=== PATIENT | male | born 1935 | race Caucasian/White ===

== ENCOUNTER → 2016-12-25 | Outpatient (CLI) | payer OTHER ==
[~2016-12-25] MED LIST: AMLO2.5T PO; ASPI325T45 PO; CARV12.52 PO; CEPH-571 PO; CHOL100010 PO; CLON0.5T3 PO; CYAN10005 PO; CYCL10TA6 PO; LCTX PO; LEVO150T9 PO; MELO7.5T5 PO; NTRGSL/4 UT; NXM/40 PO; OMEG12006 PO; ONDA4TAB10 SL; OXYC-57 PO; SIMV40TA2 PO; TELM40TA11 PO; URSO300C4 PO
[2016-12-25 12:12] LABS: HEMATOCRIT 41.9 % (42-52); MEAN CELL VOLUME 93.7 fL (80-100); MEAN CORPUSCULAR HEMOGLOBIN 31.5 pg (25-34); MEAN CORPUSCULAR HGB CONC 33.7 g/dl (32-36); MEAN PLATELET VOLUME 11.1 fL (7.4-10.4); PLATELET COUNT 167 K/uL (130-400); RED BLOOD COUNT 4.47 M/uL (4.7-6.1); WHITE BLOOD COUNT 4.18 K/uL (4.8-10.8)
[2016-12-25 12:33] LABS: ALT/SGPT 26 U/L (12-78); BLOOD UREA NITROGEN 27 mg/dl (7-18); BUN/CREATININE RATIO 16.1 (10-20); CARBON DIOXIDE 30 mmol/L (21-32); CHLORIDE 105 mmol/L (98-107); CHOLESTEROL 125 mg/dl (0-200); GLUCOSE 96 mg/dl (70-99); POTASSIUM 4.7 mmol/L (3.5-5.1); SODIUM 142 mmol/L (136-145); TRIGLYCERIDES 173 mg/dl (0-150); URIC ACID 6.6 mg/dl (2.6-7.2); VERY LOW DENSITY LIPOPROT CALC 35 mg/dl
[2016-12-25 12:36] LABS: ESTIMATED AVERAGE GLUCOSE 108 mg/dl; HA1C FLAG Normal (Normal)
[2016-12-25 12:41] LABS: ALKALINE PHOSPHATASE 87 U/L (45-117); AST/SGOT 21 U/L (15-37); CALCIUM 9.5 mg/dl (8.5-10.1); HDL CHOLESTEROL 31 mg/dl; LDL CHOLESTEROL CALCULATED 59 mg/dl; PHOSPHORUS 2.9 mg/dl (2.5-4.9)
[2016-12-25 13:23] LABS: BASO % 0.5 %; BASO ABS # 0.02 K/uL (0-0.2); COMPLETE YES; EOS % 5.5 %; IG% 0.2 %; LYMPH % 51.4 %; LYMPH ABS # 2.15 K/uL (1.2-3.4); MONO % 9.1 %; NEUT % 33.3 %
[2016-12-26 10:25] LABS: C-REACTIVE PROT HIGHSEN 0.8 MG/L
--- NOTE | 2017-01-02 06:12 | CODING QUERY MEDICAL NECESSITY ---
SUPPORTING DIAGNOSIS NEEDED Dr. Machuca, A supporting diagnosis is required for the test/procedure performed on this patient in order for us to be reimbursed by the patient's insurance. Please provide a supporting diagnosis for the following test/procedure listed below next to the test name along with your signature. *If there is no additional diagnosis for this patient that would support the following test/procedure please document that below next to the test/procedure. Test(s)/Procedure(s) that require a supporting diagnosis: * ([id number]) VITAMIN D ASSAY DIAGNOSIS: * ([id number]) B12 VITAMIN LEVEL DIAGNOSIS: * ([id number]) C-REACTIVE PROTEIN DIAGNOSIS: DATE OF SERVICE: 12/25/16 Provider Signature: Date: Thank you Aristeo Licea [facility] Information Management Once completed, please kindly fax back to [phone] For questions please call [phone]
== END | disposition home or self-care (01) ==
LOC: C.LABBFT 09:11
PROVIDERS: ATTEND Family Medicine
DX: R73.09 Other abnormal glucose (principal); N40.0 Benign prostatic hyperplasia without lower urinary tract symptoms; R53.83 Other fatigue

== ENCOUNTER → 2017-04-30 | Outpatient (CLI) | payer OTHER ==
[~2017-04-30] MED LIST changes: -CEPH-571 PO; -LCTX PO; -ONDA4TAB10 SL
--- NOTE | 2017-04-30 10:47 | DIAGNOSTIC IMAGING REPORT ---
MRI LUMBAR SPINE W/O CONTRAST CLINICAL HISTORY: Back pain with left leg radiculopathy. TECHNIQUE: Sagittal and axial T1, T2 and STIR images were obtained. COMPARISON STUDY: No previous studies for comparison. OBSERVATIONS: The vertebral bodies and posterior elements appear intact. There is no abnormal bony signal present to suggest a marrow replacement process. L1-2: There is a mild circumferential disc bulge. There is minimal spinal stenosis. There is no significant foraminal narrowing. L2-3: There is a circumferential disc bulge. There is moderate spinal stenosis. There is no significant foraminal narrowing. L3-4: There is a circumferential disc bulge present. There is moderate spinal stenosis. There is mild bilateral foraminal narrowing. L4-5: There is a left-sided anterior extradural mass, statistically secondary to an extruded disc fragment. This significantly deforms the thecal sac. There is triangular spinal stenosis. There is facet joint arthropathy. There is mild bilateral foraminal narrowing. L5-S1: There is no significant disc bulge. There is facet joint arthropathy. There is severe right-sided foraminal stenosis. The conus medullaris and cauda equina appear normal. IMPRESSION: 1. Multilevel spondylitic changes 2. Minimal spinal stenosis the L1-2-level, and moderate spinal stenosis the L2-3, and L3-4 levels. 3. 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 There is significant secondary deformity of the thecal sac. 4. Severe right-sided foraminal stenosis Electronically signed by: Ronny Haynes M.D. 04/30/2017 10:46 AM Dictated Date/Time: 04/30/2017 10:40 AM
== END | disposition home or self-care (01) ==
LOC: C.MRIBC 09:46
PROVIDERS: ATTEND Family Medicine
DX: M47.26 Other spondylosis with radiculopathy, lumbar region (principal); M48.061 Spinal stenosis, lumbar region without neurogenic claudication; R93.7 Abnormal findings on diagnostic imaging of other parts of musculoskeletal system

== ENCOUNTER 2017-06-22 18:00 | Inpatient (IN) | payer OTHER ==
[~2017-06-22] VITALS: Ht 172.7 cm; Wt 87.2 kg
[2017-06-22] MEDS ORDERED: SODIUM CHLORIDE 0.9% 1000ML 1,000 ML IV STA (19:27)
[2017-06-22] MEDS ORDERED: FAMOTIDINE 20MG/5ML IV PUSH IV STA (19:36)
[2017-06-22] MEDS ORDERED: ONDANSETRON INJ 2 MG/ML 2 ML VIAL IV STA (19:36)
--- NOTE | 2017-06-22 19:38 | EMERGENCY ROOM VISIT NOTE ---
History Report prepared by Chel: Dhaval Hudson Under the Supervision of: Dr. Allan Montoya M.D. First contact with patient: 19:24 Chief Complaint: PAIN (GENERALIZED) Stated Complaint: PAIN IN WHOLE BODY History of Present Illness The patient is a 81 year old male who presents to the Emergency Room with complaints of constant, generalized pain beginning a few weeks ago. The patient states he has been experiencing a severe stomach ache for the past few days, and intermittent headaches that spread to his neck and shoulders. He reports his toes went numb a few days ago. He states he has been experiencing episodes of watery diarrhea for the past three days, and he has not been eating much the past few days. The patient reports he has lost 35 pounds over the past three months. He notes his symptoms started around 3 months ago after hurting his back. The patient states he tried therapy for a month, but it did not work. He reports he had an MRI performed and was sent to a neurosurgeon. The patient notes he was told he is not operable on due to his age and was sent back home for pain management. He states he received a shot in his back for pain that worked initially, but it has returned. The patient reports he was told he had leakage from his disk when he was given the shot in his back. He notes his headaches and lower back pain developed again a week ago, but it is not as severe as before. The patient states he has not taken any pain medication because no one told him to. He denies fevers, chills, congestion, coughing, burning with urination, bloody or black stool, recent antibiotic use, chest pain , and shortness of breath. Source of History: patient Onset: few weeks ago Position: other (global) Quality: other (pain) Timing: constant Associated Symptoms: + headache, + neck pain, + back pain, + diarrhea, + numbness (toes), No fevers, No chills, No cough, No chest pain, No SOB, No urinary symptoms Note: Associated symptoms: shoulder pain, decreased appetite Denies: congestion, bloody or black stool Review of Systems See HPI for pertinent positives and negatives. A total of ten systems were reviewed and were otherwise negative. Past Medical & Surgical Medical Problems: (1) Abnormal urinalysis (2) LIZBETH (acute kidney injury) (3) Appendectomy (4) Benign hypertension (5) Cholecystectomy (6) History of - coronary artery bypass grafting (7) Hyperthyroidism (8) Myocardial infarction Family History Cancer Heart disease Hypertension Social History Smoking Status: Never Smoker Alcohol Use: none Drug Use: none Marital Status: Housing Status: lives with significant other Occupation Status: retired Current/Historical Medications Scheduled Amlodipine (Norvasc), 2.5 MG PO DAILY Aspirin (Aspirin), 325 MG PO DAILY Carvedilol (Coreg), 12.5 MG PO BID Cholecalciferol (Vitamin D), 1,000 INTER.UNIT PO DAILY Clonazepam (Klonopin), 0.5 MG PO DAILY Cyanocobalamin (Vitamin B-12), 1,000 MCG PO DAILY Cyclobenzaprine Hcl (Flexeril), 10 MG PO TID Esomeprazole Magnesium (Nexium), 40 MG PO DAILY Levothyroxine Sodium (Levothyroxine Sodium), 150 MCG PO DAILY Meloxicam (Mobic), 15 MG PO DAILY [place]-3 Fatty Acids ([place] 3), 1 CAP PO DAILY Simvastatin (Zocor), 40 MG PO DAILY Telmisartan (Micardis), 40 MG PO DAILY Ursodiol (Actigall), 300 MG PO BID Scheduled PRN Nitroglycerin (Nitrostat), 0.4 MG UT UD PRN for Chest Pain Oxycodone/Acetaminophen 5MG/325MG (Percocet 5MG/325MG), 1 TABLET PO TID PRN for Pain Allergies Coded Allergies: Codeine (Verified Allergy, Intermediate, TOLERATED MORPHINE PRIOR ADMISSION, 01/18/16) Replaces TYLENOL/CODEI PER PT TYLENOL WITH CODEINE CAUSES HIS SYSTEM TO SHUT DOWN. AFFECTS HIS HEART AND IN HOSPITAL FOR 10 DAYS. CAN TAKE TYLENOL. Nickel (Verified Allergy, Unknown, RASH, 01/18/16) Physical Exam Vital Signs Date Time Temp Pulse Resp B/P (MAP) Pulse Ox O2 Delivery O2 Flow Rate FiO2 06/22/17 21:19 84 20 140/80 06/22/17 20:24 86 25 130/70 06/22/17 20:00 87 06/22/17 18:29 36.8 97 20 113/76 95 Room Air Physical Exam GENERAL: Awake, alert, fatigued-appearing, in no distress HENT: Normocephalic, atraumatic. Dry mucous membranes otherwise unremarkable. EYES: Normal conjunctiva. Sclera non-icteric. NECK: Supple. No nuchal rigidity. FROM. No JVD. RESPIRATORY: Clear to auscultation. CARDIAC: Regular rate, normal rhythm. Extremities warm and well perfused. Pulses equal. ABDOMEN: Soft, non-distended. Generalized tenderness to palpation. No rebound, peritoneal signs, or guarding. No masses. RECTAL: Deferred. MUSCULOSKELETAL: Chest examination reveals no tenderness. The back is symmetrical on inspection without obvious abnormality. There is no CVA tenderness to palpation. No joint edema. LOWER EXTREMITIES: Calves are equal size bilaterally and non-tender. No edema. No discoloration. 5/5 Strength bilaterally. NEURO: Normal sensorium. No sensory or motor deficits noted. SKIN: No rash or jaundice noted. Medical Decision & Procedures ER Provider Diagnostic Interpretation: Radiology results as stated below per my review and radiologist interpretation: SINGLE VIEW CHEST CLINICAL HISTORY: Generalized abdominal pain. FINDINGS: An AP, portable, upright chest radiograph is compared to study dated 05/05/2015. The patient is status post midline sternotomy. The heart is top normal for projection and there is mild atherosclerotic calcification of the thoracic aorta. The pulmonary vasculature is noncongested. There is chronic elevation of left hemidiaphragm with associated left basilar atelectasis. The lungs and pleural spaces are otherwise clear. No pneumothorax is seen. The skeletal structures are osteopenic. Degenerative change is seen throughout the thoracic spine. IMPRESSION: No acute cardiopulmonary abnormality. Electronically signed by: Ethan Mack M.D. 06/22/2017 8:03 PM Dictated Date/Time: 06/22/2017 8:[address] SCAN OF THE ABDOMEN AND PELVIS WITHOUT IV CONTRAST CLINICAL HISTORY: Generalized abdominal pain. Diarrhea. COMPARISON STUDY: Abdominal CT dated 05/05/2015. TECHNIQUE: CT scan of the abdomen and pelvis is performed from the lung bases to the proximal femora. Images are reviewed in the axial, sagittal, and coronal planes. IV contrast was not administered for this examination as per the referring clinician. Note that the examination was performed in suboptimal fashion without oral and IV contrast. A dose lowering technique was utilized adhering to the principles of ALARA. CT DOSE: 619.46 mGy.cm FINDINGS: Lung bases: Midline sternotomy wires are noted. The heart is enlarged and without pericardial effusion. The coronary arteries and aortic valve leaflets are densely calcified. There is diminished attenuation of the cardiac blood pool as compared to the myocardium suggesting anemia. There is elevation of left hemidiaphragm with segmental atelectasis at the left lung base. No airspace consolidation or pleural effusion is seen. Liver: The unenhanced liver is normal in size, contour, and attenuation. There is no intrahepatic biliary ductal dilatation. Gallbladder: Surgically absent noting clips in the gallbladder fossa. Spleen: Normal in size and attenuation. Pancreas: The unenhanced pancreas is atrophic and grossly unremarkable. Adrenal glands: Unremarkable. Kidneys: The unenhanced kidneys are atrophic and without hydronephrosis. There are no renal calculi identified. A 13 mm exophytic cyst arises from the left kidney. There is a circumaortic left renal vein. Abdominal vasculature: There is advanced atherosclerotic calcification and ectasia of the abdominal aorta. Bowel: The small bowel and colon are normal in course and caliber. The appendix is well-visualized and normal. Peritoneum: There is no intraperitoneal free air or abdominal ascites. There is evidence of previous ventral hernia repair. Lymphadenopathy: A prominent celiac gastrohepatic node seen on image #106 measures 12 mm in short axis. This is similar appearance to 2015 examination. Pelvic viscera: The prostate gland is enlarged and heterogeneous, measuring 5 cm transverse diameter. There is median lobe hypertrophy. The bladder is normal as visualized. Skeletal structures: The skeletal structures are osteopenic. There is moderate lumbosacral spondylosis. No lytic or blastic lesions are seen. IMPRESSION: 1. Suboptimal examination without oral and IV contrast. 2. There are no acute infectious or inflammatory findings in the abdomen or pelvis. 3. Mild cardiomegaly. 4. Additional findings as above. Electronically signed by: Ethan Mack M.D. 06/22/2017 8:54 PM Dictated Date/Time: 06/22/2017 8:48 PM Laboratory Results 06/22/17 19:45 Red Blood Count 4.05, Mean Corpuscular Volume 92.3, Mean Corpuscular Hemoglobin 32.6, Mean Corpuscular Hemoglobin Concent 35.3, Mean Platelet Volume 10.2, Neutrophils (%) (Auto) 64.1, Lymphocytes (%) (Auto) 23.0, Monocytes (%) (Auto) 11.7, Eosinophils (%) (Auto) 0.7, Basophils (%) (Auto) 0.2, Neutrophils # (Auto ) 7.14, Lymphocytes # (Auto) 2.57, Monocytes # (Auto) 1.31, Eosinophils # (Auto ) 0.08, Basophils # (Auto) 0.02 06/22/17 19:45 Test 06/22/17 19:45 06/22/17 20:11 06/22/17 20:50 06/22/17 21:36 White Blood Count 11.15 K/uL (4.8-10.8) Red Blood Count 4.05 M/uL (4.7-6.1) Hemoglobin 13.2 g/dL (14.0-18.0) Hematocrit 37.4 % (42-52) Mean Corpuscular Volume 92.3 fL (80-100) Mean Corpuscular Hemoglobin 32.6 pg (25-34) Mean Corpuscular Hemoglobin Concent 35.3 g/dl (32-36) Platelet Count 251 K/uL (130-400) Mean Platelet Volume 10.2 fL (7.4-10.4) Neutrophils (%) (Auto) 64.1 % Lymphocytes (%) (Auto) 23.0 % Monocytes (%) (Auto) 11.7 % Eosinophils (%) (Auto) 0.7 % Basophils (%) (Auto) 0.2 % Neutrophils # (Auto) 7.14 K/uL (1.4-6.5) Lymphocytes # (Auto) 2.57 K/uL (1.2-3.4) Monocytes # (Auto) 1.31 K/uL (0.11-0.59) Eosinophils # (Auto) 0.08 K/uL (0-0.5) Basophils # (Auto) 0.02 K/uL (0-0.2) RDW Standard Deviation 44.1 fL (36.4-46.3) RDW Coefficient of Variation 13.1 % (11.5-14.5) Immature Granulocyte % (Auto) 0.3 % Immature Granulocyte # (Auto) 0.03 K/uL (0.00-0.02) Anion Gap 8.0 mmol/L (3-11) Est Creatinine Clear Calc Drug Dose 17.9 ml/min Estimated GFR () 19.9 Estimated GFR (Non- 17.2 BUN/Creatinine Ratio 23.0 (10-20) Calcium Level 8.9 mg/dl (8.5-10.1) Total Bilirubin 0.5 mg/dl (0.2-1) Direct Bilirubin 0.1 mg/dl (0-0.2) Aspartate Amino Transf (AST/SGOT) 20 U/L (15-37) Alanine Aminotransferase (ALT/SGPT) 28 U/L (12-78) Alkaline Phosphatase 80 U/L (45-117) Troponin I < 0.015 ng/ml (0-0.045) Total Protein 8.8 gm/dl (6.4-8.2) Albumin 3.2 gm/dl (3.4-5.0) Lipase 130 U/L (73-393) Influenza Type A (RT-PCR) Neg for Influ A (NEG) Influenza Type A Antigen Neg for Influ A (NEG) Influenza Type B Antigen Neg for Influ B (NEG) Influenza Type B (RT-PCR) Neg for Influ B (NEG) Urine Color YELLOW Urine Appearance CLOUDY (CLEAR) Urine pH 5.0 (4.5-7.5) Urine Specific [place] 1.022 (1.000-1.030) Urine Protein TRACE (NEG) Urine Glucose (UA) NEG (NEG) Urine Ketones NEG (NEG) Urine Occult Blood TRACE (NEG) Urine Nitrite NEG (NEG) Urine Bilirubin NEG (NEG) Urine Urobilinogen NEG (NEG) Urine Leukocyte Esterase MODERATE (NEG) Urine WBC (Auto) 10-30 /hpf (0-5) Urine RBC (Auto) 0-4 /hpf (0-4) Urine Hyaline Casts (Auto) 1-5 /lpf (0-5) Urine Epithelial Cells (Auto) 0-5 /lpf (0-5) Urine Bacteria (Auto) NEG (NEG) Lactic Acid Level 0.9 mmol/L (0.4-2.0) Laboratory results reviewed by me Medications Administered Medications (Trade) Dose Ordered Sig/Dalia Route Start Time Stop Time Status Last Admin Dose Admin Sodium Chloride 1,000 ml @ 999 mls/hr Q1H1M STAT IV 06/22/17 19:27 06/22/17 20:27 DC 06/22/17 20:20 999 MLS/HR Ondansetron HCl (Zofran Inj) 4 mg NOW STAT IV 06/22/17 19:36 06/22/17 19:38 DC 06/22/17 20:20 4 MG Famotidine (Pepcid 20mg Iv Push) 20 mg NOW STAT IV 06/22/17 19:36 06/22/17 19:38 DC 06/22/17 20:20 20 MG Ceftriaxone Sodium (Rocephin Inj) 1 gm NOW STAT IV 06/22/17 21:44 06/22/17 21:46 DC 06/22/17 22:13 1 GM Acetaminophen (Tylenol Tab) 650 mg Q4H PRN PO 06/22/17 22:15 07/22/17 22:14 06/23/17 00:00 650 MG ECG Indication: back/shoulder pain Rate (beats per minute): 89 Rhythm: sinus rhythm Findings: RBBB, no acute ischemic change, other (Premature supraventricular complex, left anterior vesicular block, normal axis) ED Course 1925: The patient was evaluated in room A02. A complete history and physical exam was performed. 2126: Upon reexamination, the patient was resting comfortably. I discussed the test results and treatment plan with him. The patient will be evaluated for further management. 2142: I discussed the patients case with Dr. Figueroa, [facility]. The patient will be evaluated for further management and care. Medical Decision I reviewed the patient's past medical history, medications, and the nursing notes as described above. Differential diagnoses includes: gastroenteritis, gastritis, ACS, colitis, pneumonia, bronchitis, UTI, pyelonephritis, dehydration , electrolyte abnormality. The patient is a 81-year-old gentleman with a past medical history of severe lumbar disc disease with herniation that was determined to be nonoperative presents to the emergency department with worsening multiple complaints including body aches, back pain, nausea, lightheadedness per history of present illness. Patient does report diarrhea over the past several days which coincides with his worsening symptoms. On arrival the patient is uncomfortable but in no acute distress, afebrile with stable vital signs. On exam he has mild generalized abdominal tenderness without any peritoneal signs. EKG unremarkable. CXR negative. Labs notable for acute on chronic renal failure with Cr 3.2 up from 1.7. Sodium 129. BUN/Cr > 20 suggestive of prerenal etiology. Patient given IVF hydration. UA c/w UTI. Treated with CTX. Case d/w Dr. Figueroa, [facility] admitting resident, who will admit the patient for further management. Medication Reconcilliation Current Medication List: was personally reviewed by me Blood Pressure Screening Patient's blood pressure: Elevated blood pressure Monitored by hospitalist. Consults Time Called: 2133 Consulting Physician: Dr. Figueroa, [facility] Returned Call: 2142 I discussed the patients case with Dr. Figueroa, [facility]. The patient will be evaluated for further management and care. Impression Primary Impression: Acute on chronic renal failure Additional Impressions: UTI (urinary tract infection) Hyponatremia Scribe Attestation The scribe's documentation has been prepared under my direction and personally reviewed by me in its entirety. I confirm that the note above accurately reflects all work, treatment, procedures, and medical decision making performed by me. Departure Information Dispostion Being Evaluated By Hospitalist Referrals Rogelio Machuca M.D. (PCP) Patient Instructions My [facility] Problem Qualifiers
--- NOTE | 2017-06-22 20:04 | DIAGNOSTIC IMAGING REPORT ---
SINGLE VIEW CHEST CLINICAL HISTORY: Generalized abdominal pain. FINDINGS: An AP, portable, upright chest radiograph is compared to study dated 05/05/2015. The patient is status post midline sternotomy. The heart is top normal for projection and there is mild atherosclerotic calcification of the thoracic aorta. The pulmonary vasculature is noncongested. There is chronic elevation of left hemidiaphragm with associated left basilar atelectasis. The lungs and pleural spaces are otherwise clear. No pneumothorax is seen. The skeletal structures are osteopenic. Degenerative change is seen throughout the thoracic spine. IMPRESSION: No acute cardiopulmonary abnormality. Electronically signed by: Ethan Mack M.D. 06/22/2017 8:03 PM Dictated Date/Time: 06/22/2017 8:02 PM
[2017-06-22 20:10] LABS: BASO % 0.2 %; BASO ABS # 0.02 K/uL (0-0.2); COMPLETE YES; EOS % 0.7 %; HEMATOCRIT 37.4 % (42-52); IG% 0.3 %; LYMPH ABS # 2.57 K/uL (1.2-3.4); MEAN CELL VOLUME 92.3 fL (80-100); MEAN CORPUSCULAR HEMOGLOBIN 32.6 pg (25-34); MEAN CORPUSCULAR HGB CONC 35.3 g/dl (32-36); MEAN PLATELET VOLUME 10.2 fL (7.4-10.4); MONO % 11.7 %; NEUT % 64.1 %; PLATELET COUNT 251 K/uL (130-400); RED BLOOD COUNT 4.05 M/uL (4.7-6.1); WHITE BLOOD COUNT 11.15 K/uL (4.8-10.8)
[2017-06-22 20:41] LABS: ALT/SGPT 28 U/L (12-78); AST/SGOT 20 U/L (15-37); BLOOD UREA NITROGEN 74 mg/dl (7-18); CALCIUM 8.9 mg/dl (8.5-10.1); CARBON DIOXIDE 24 mmol/L (21-32); CHLORIDE 97 mmol/L (98-107); CREATININE 3.24 mg/dl (0.60-1.40); GLUCOSE 88 mg/dl (70-99); POTASSIUM 4.1 mmol/L (3.5-5.1); SODIUM 129 mmol/L (136-145)
[2017-06-22 20:46] LABS: ALKALINE PHOSPHATASE 80 U/L (45-117)
--- NOTE | 2017-06-22 20:56 | DIAGNOSTIC IMAGING REPORT ---
CT SCAN OF THE ABDOMEN AND PELVIS WITHOUT IV CONTRAST CLINICAL HISTORY: Generalized abdominal pain. Diarrhea. COMPARISON STUDY: Abdominal CT dated 05/05/2015. TECHNIQUE: CT scan of the abdomen and pelvis is performed from the lung bases to the proximal femora. Images are reviewed in the axial, sagittal, and coronal planes. IV contrast was not administered for this examination as per the referring clinician. Note that the examination was performed in suboptimal fashion without oral and IV contrast. A dose lowering technique was utilized adhering to the principles of ALARA. CT DOSE: 619.46 mGy.cm FINDINGS: Lung bases: Midline sternotomy wires are noted. The heart is enlarged and without pericardial effusion. The coronary arteries and aortic valve leaflets are densely calcified. There is diminished attenuation of the cardiac blood pool as compared to the myocardium suggesting anemia. There is elevation of left hemidiaphragm with segmental atelectasis at the left lung base. No airspace consolidation or pleural effusion is seen. Liver: The unenhanced liver is normal in size, contour, and attenuation. There is no intrahepatic biliary ductal dilatation. Gallbladder: Surgically absent noting clips in the gallbladder fossa. Spleen: Normal in size and attenuation. Pancreas: The unenhanced pancreas is atrophic and grossly unremarkable. Adrenal glands: Unremarkable. Kidneys: The unenhanced kidneys are atrophic and without hydronephrosis. There are no renal calculi identified. A 13 mm exophytic cyst arises from the left kidney. There is a circumaortic left renal vein. Abdominal vasculature: There is advanced atherosclerotic calcification and ectasia of the abdominal aorta. Bowel: The small bowel and colon are normal in course and caliber. The appendix is well-visualized and normal. Peritoneum: There is no intraperitoneal free air or abdominal ascites. There is evidence of previous ventral hernia repair. Lymphadenopathy: A prominent celiac gastrohepatic node seen on image #106 measures 12 mm in short axis. This is similar appearance to 2015 examination. Pelvic viscera: The prostate gland is enlarged and heterogeneous, measuring 5 cm transverse diameter. There is median lobe hypertrophy. The bladder is normal as visualized. Skeletal structures: The skeletal structures are osteopenic. There is moderate lumbosacral spondylosis. No lytic or blastic lesions are seen. IMPRESSION: 1. Suboptimal examination without oral and IV contrast. 2. There are no acute infectious or inflammatory findings in the abdomen or pelvis. 3. Mild cardiomegaly. 4. Additional findings as above. Electronically signed by: Ethan Mack M.D. 06/22/2017 8:54 PM Dictated Date/Time: 06/22/2017 8:48 PM
[2017-06-22 21:06] LABS: URINE APPEARANCE CLOUDY (CLEAR); URINE BILIRUBIN NEG (NEG); URINE COLOR YELLOW; URINE EPITHELIAL CELL AUTO 0-5 /lpf (0-5); URINE NITRITE NEG (NEG); URINE SPECIFIC GRAVITY 1.022 (1.000-1.030); UROBILINOGEN NEG (NEG); ZZURINE CULT IF INDIC CATH YES
[2017-06-22 21:08] LABS: MANUAL MICROSCOPIC REQUIRED? NO; REVIEW REQ? YES
[2017-06-22] MEDS ORDERED: CEFTRIAXONE SOD INJ 1 GM ADDVIAL IV STA (21:44)
[2017-06-22] MEDS ORDERED: AZITHROMYCIN IV 500 MG in DEXTROSE 5% 250ML 250 ML IV STA (21:46)
[2017-06-22] MEDS ORDERED: NITROGLYCERIN 0.4 MG SL PER TAB CHARGE UT PRN (22:00)
[2017-06-22] MEDS ORDERED: OXYCODONE/ACETAMINOPHEN 5-325 TAB PO PRN (22:00)
[2017-06-22] MEDS ORDERED: ACETAMINOPHEN 325 MG TAB PO PRN (22:15)
[2017-06-22] MEDS ORDERED: MAGNESIUM HYDROXIDE SUSP 30 ML UDC PO PRN (22:15)
[2017-06-22 22:20] LABS: INFLUENZA A PCR Neg for Influ A (NEG); INFLUENZA B PCR Neg for Influ B (NEG)
--- NOTE | 2017-06-22 23:37 | History and Physical ---
History & Physical Date & Time of Service: Jun 22, 2017 at 23:36 Chief Complaint: Abnormal Urinalysis, Jet Primary Care Physician: Rogelio Machuca M.D. History of Present Illness Source: patient, hospital records This is a 81 yo m with a history of NE, CABG, back pain that is presenting to us with generalized weakness for a few weeks. The patient notes that this generalized weakness has actually progressively gotten worse and in particular today. Associated with this weakness was a week of non bloody, loose and frequent stools. Patient has not had any BM today but has had no appetite for the last 24 hours. As there was significant worsening of the weakness and poor appetite the patient came to the ED for evaluation. He was found to have significant JET as well as an abnormal UA concerning for a UTI so patient was placed on Rocephin. Patient currently continues to complain from weakness without myalgias as well as suprapubic pain. He notes that this suprapubic pain is minimal and non radiating and occurred after repeated abdominal exams. Denies dysuria or incontinence. Past Medical/Surgical History Medical Problems: (1) Appendectomy Status: Resolved (2) Benign hypertension Status: Chronic (3) Cholecystectomy Status: Resolved (4) History of - coronary artery bypass grafting Status: Resolved (5) Hyperthyroidism Status: Chronic (6) Myocardial infarction Status: Resolved Family History Cancer Heart disease Hypertension Social History Smoking Status: Never Smoker Smokeless Tobacco Use: No Alcohol Use: none Drug Use: none Marital Status: Housing status: lives with family Occupational Status: retired Immunizations History of Influenza Vaccine: No History of Tetanus Vaccine?: utd History of Pneumococcal: Yes Pneumococcal Date: May 15, 2006 History of Hepatitis B Vaccine: No Multi-Drug Resistant Organisms History of MDRO: No Allergies Coded Allergies: Codeine (Verified Allergy, Intermediate, TOLERATED MORPHINE PRIOR ADMISSION, 01/18/16) Replaces TYLENOL/CODEI PER PT TYLENOL WITH CODEINE CAUSES HIS SYSTEM TO SHUT DOWN. AFFECTS HIS HEART AND IN HOSPITAL FOR 10 DAYS. CAN TAKE TYLENOL. Nickel (Verified Allergy, Unknown, RASH, 01/18/16) Home Medications Scheduled Amlodipine (Norvasc), 2.5 MG PO DAILY Aspirin (Aspirin), 325 MG PO DAILY Carvedilol (Coreg), 12.5 MG PO BID Cholecalciferol (Vitamin D), 1,000 INTER.UNIT PO DAILY Clonazepam (Klonopin), 0.5 MG PO DAILY Cyanocobalamin (Vitamin B-12), 1,000 MCG PO DAILY Cyclobenzaprine Hcl (Flexeril), 10 MG PO TID Esomeprazole Magnesium (Nexium), 40 MG PO DAILY Levothyroxine Sodium (Levothyroxine Sodium), 150 MCG PO DAILY Meloxicam (Mobic), 15 MG PO DAILY [place]-3 Fatty Acids ([place] 3), 1 CAP PO DAILY Simvastatin (Zocor), 40 MG PO DAILY Telmisartan (Micardis), 40 MG PO DAILY Ursodiol (Actigall), 300 MG PO BID Scheduled PRN Nitroglycerin (Nitrostat), 0.4 MG UT UD PRN for Chest Pain Oxycodone/Acetaminophen 5MG/325MG (Percocet 5MG/325MG), 1 TABLET PO TID PRN for Pain Review of Systems Constitutional: No fever Eyes: No worsening of vision ENT: No hearing loss Respiratory: No cough, No sputum, No wheezing, No shortness of breath, No dyspnea on exertion, No dyspnea at rest Cardiovascular: No chest pain Abdomen: + diarrhea, No pain, No nausea, No vomiting, No constipation Musculoskeletal: No joint pain, No muscle pain Genitourinary - Male: No dysuria Neurologic: + weakness Endocrine: + fatigue Hematologic / Lymphatic: No abnormal bleeding/bruising Integumentary: No rash Physical Exam Vital Signs Date Time Temp Pulse Resp B/P (MAP) Pulse Ox O2 Delivery O2 Flow Rate FiO2 06/22/17 23:07 94 132/76 93 06/22/17 21:19 84 20 140/80 06/22/17 20:24 86 25 130/70 06/22/17 20:00 87 06/22/17 18:29 36.8 97 20 113/76 95 Room Air General Appearance: no apparent distress Head: normocephalic, atraumatic Eyes: normal inspection ENT: normal ENT inspection Neck: supple Respiratory/Chest: normal breath sounds, no respiratory distress, no accessory muscle use Cardiovascular: regular rate, rhythm, no murmur, normal peripheral pulses Abdomen/GI: normal bowel sounds, soft, + tenderness (minimal tenderness to palpation in lower abdomen without radiation) Back: normal inspection Extremities/Musculoskelatal: normal inspection Neurologic/Psych: alert, normal mood/affect, oriented x 3 Skin: normal color, no rash, + pertinent finding (dry mucus membranes) Lymphatic: no adenopathy Diagnostics Laboratory Results Results Past 24 Hours Test 06/22/17 19:45 06/22/17 20:11 06/22/17 20:50 06/22/17 21:36 Range/Units White Blood Count 11.15 4.8-10.8 K/uL Red Blood Count 4.05 4.7-6.1 M/uL Hemoglobin 13.2 14.0-18.0 g/dL Hematocrit 37.4 42-52 % Mean Corpuscular Volume 92.3 80-100 fL Mean Corpuscular Hemoglobin 32.6 25-34 pg Mean Corpuscular Hemoglobin Concent 35.3 32-36 g/dl Platelet Count 251 130-400 K/uL Mean Platelet Volume 10.2 7.4-10.4 fL Neutrophils (%) (Auto) 64.1 % Lymphocytes (%) (Auto) 23.0 % Monocytes (%) (Auto) 11.7 % Eosinophils (%) (Auto) 0.7 % Basophils (%) (Auto) 0.2 % Neutrophils # (Auto) 7.14 1.4-6.5 K/uL Lymphocytes # (Auto) 2.57 1.2-3.4 K/uL Monocytes # (Auto) 1.31 0.11-0.59 K/uL Eosinophils # (Auto) 0.08 0-0.5 K/uL Basophils # (Auto) 0.02 0-0.2 K/uL RDW Standard Deviation 44.1 36.4-46.3 fL RDW Coefficient of Variation 13.1 11.5-14.5 % Immature Granulocyte % (Auto) 0.3 % Immature Granulocyte # (Auto) 0.03 0.00-0.02 K/uL Sodium Level 129 136-145 mmol/L Potassium Level 4.1 3.5-5.1 mmol/L Chloride Level 97 98-107 mmol/L Carbon Dioxide Level 24 21-32 mmol/L Anion Gap 8.0 3-11 mmol/L Blood Urea Nitrogen 74 7-18 mg/dl Creatinine 3.24 0.60-1.40 mg/dl Est Creatinine Clear Calc Drug Dose 17.9 ml/min Estimated GFR () 19.9 Estimated GFR (Non- 17.2 BUN/Creatinine Ratio 23.0 10-20 Random Glucose 88 70-99 mg/dl Calcium Level 8.9 8.5-10.1 mg/dl Total Bilirubin 0.5 0.2-1 mg/dl Direct Bilirubin 0.1 0-0.2 mg/dl Aspartate Amino Transf (AST/SGOT) 20 15-37 U/L Alanine Aminotransferase (ALT/SGPT) 28 12-78 U/L Alkaline Phosphatase 80 45-117 U/L Troponin I < 0.015 0-0.045 ng/ml Total Protein 8.8 6.4-8.2 gm/dl Albumin 3.2 3.4-5.0 gm/dl Lipase 130 73-393 U/L Influenza Type A (RT-PCR) Neg for Influ A NEG Influenza Type A Antigen Neg for Influ A NEG Influenza Type B Antigen Neg for Influ B NEG Influenza Type B (RT-PCR) Neg for Influ B NEG Urine Color YELLOW Urine Appearance CLOUDY CLEAR Urine pH 5.0 4.5-7.5 Urine Specific [place] 1.022 1.000-1.030 Urine Protein TRACE NEG Urine Glucose (UA) NEG NEG Urine Ketones NEG NEG Urine Occult Blood TRACE NEG Urine Nitrite NEG NEG Urine Bilirubin NEG NEG Urine Urobilinogen NEG NEG Urine Leukocyte Esterase MODERATE NEG Urine WBC (Auto) 10-30 0-5 /hpf Urine RBC (Auto) 0-4 0-4 /hpf Urine Hyaline Casts (Auto) 1-5 0-5 /lpf Urine Epithelial Cells (Auto) 0-5 0-5 /lpf Urine Bacteria (Auto) NEG NEG Lactic Acid Level 0.9 0.4-2.0 mmol/L Microbiology Results 06/22/17 Urine Culture, Received Pending Diagnostic Radiology CT SCAN OF THE ABDOMEN AND PELVIS WITHOUT IV CONTRAST CLINICAL HISTORY: Generalized abdominal pain. Diarrhea. COMPARISON STUDY: Abdominal CT dated 05/05/2015. TECHNIQUE: CT scan of the abdomen and pelvis is performed from the lung bases to the proximal femora. Images are reviewed in the axial, sagittal, and coronal planes. IV contrast was not administered for this examination as per the referring clinician. Note that the examination was performed in suboptimal fashion without oral and IV contrast. A dose lowering technique was utilized adhering to the principles of ALARA. CT DOSE: 619.46 mGy.cm FINDINGS: Lung bases: Midline sternotomy wires are noted. The heart is enlarged and without pericardial effusion. The coronary arteries and aortic valve leaflets are densely calcified. There is diminished attenuation of the cardiac blood pool as compared to the myocardium suggesting anemia. There is elevation of left hemidiaphragm with segmental atelectasis at the left lung base. No airspace consolidation or pleural effusion is seen. Liver: The unenhanced liver is normal in size, contour, and attenuation. There is no intrahepatic biliary ductal dilatation. Gallbladder: Surgically absent noting clips in the gallbladder fossa. Spleen: Normal in size and attenuation. Pancreas: The unenhanced pancreas is atrophic and grossly unremarkable. Adrenal glands: Unremarkable. Kidneys: The unenhanced kidneys are atrophic and without hydronephrosis. There are no renal calculi identified. A 13 mm exophytic cyst arises from the left kidney. There is a circumaortic left renal vein. Abdominal vasculature: There is advanced atherosclerotic calcification and ectasia of the abdominal aorta. Bowel: The small bowel and colon are normal in course and caliber. The appendix is well-visualized and normal. Peritoneum: There is no intraperitoneal free air or abdominal ascites. There is evidence of previous ventral hernia repair. Lymphadenopathy: A prominent celiac gastrohepatic node seen on image #106 measures 12 mm in short axis. This is similar appearance to 2015 examination. Pelvic viscera: The prostate gland is enlarged and heterogeneous, measuring 5 cm transverse diameter. There is median lobe hypertrophy. The bladder is normal as visualized. Skeletal structures: The skeletal structures are osteopenic. There is moderate lumbosacral spondylosis. No lytic or blastic lesions are seen. IMPRESSION: 1. Suboptimal examination without oral and IV contrast. 2. There are no acute infectious or inflammatory findings in the abdomen or pelvis. 3. Mild cardiomegaly. 4. Additional findings as above. SINGLE VIEW CHEST CLINICAL HISTORY: Generalized abdominal pain. FINDINGS: An AP, portable, upright chest radiograph is compared to study dated 05/05/2015. The patient is status post midline sternotomy. The heart is top normal for projection and there is mild atherosclerotic calcification of the thoracic aorta. The pulmonary vasculature is noncongested. There is chronic elevation of left hemidiaphragm with associated left basilar atelectasis. The lungs and pleural spaces are otherwise clear. No pneumothorax is seen. The skeletal structures are osteopenic. Degenerative change is seen throughout the thoracic spine. IMPRESSION: No acute cardiopulmonary abnormality. 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 secondary to dehydration/ possible UTI - Med surg admission - Rocephin 1 g daily - NSS @ 100cc/h Hyponatremia secondary to dehydration - recheck in am - NSS as above Diarrhea - C Diff, stool cultures and stool occult CAD/ hyperlipidemia/HTN - Continue Coreg 12.5 mg bid, ASA 325 mg daily - cont amlodipine 2.5 mg daily - continue simvastatin 40 mg daily GERD - Protonix - tums for symptomatic control Back pain- chronic - continue oxycodone and Flexeril as an as needed basis, patient states he uses rarely Hypothyroidism - continue levothyroxine 150 mcg daily DVT Prophylaxis - heparin bid, scd Attending addendum: I have physically seen this patient, have supervised the medical residents activities, and agree with the H&P unless as otherwise noted. Assessment and Plan: Acute on chronic kidney disease/hyponatremia-- Admitted to [facility] Likely prerenal secondary to dehydration from diarrhea Normal saline at 100 ML's per hour Ceftriaxone 1 g IV daily Repeat BMP and magnesium level in a.m. Diarrhea-- studies for C. difficile, stool cultures pending However at this point, he reports that his symptoms have somewhat improved CAD/hypertension-- Continue Coreg 12.5 mg by mouth twice a day, amlodipine 2.5 mg by mouth daily and aspirin 325 mg by mouth daily. Hyperlipidemia-- Continue simvastatin 40 mg daily GERD--continue Protonix Hypothyroidism--continue levothyroxine sodium 150 g by mouth daily Level of Care Med/Surg Advanced Directives Existing Advance Directive: No Existing Living Will: No Existing Power of Employee Relation Manager: No Resuscitation Status FULL RESUSCITATION VTE Prophylaxis VTE Risk Assessment Done? Y/N: Yes Risk Level: Moderate Given or contraindicated: Unfractionated heparin SQ Social Service Consult None Apply Note Total Time: Critical Care 30 - 74 minutes Additional Copies To Rogelio Machuca M.D.
[2017-06-22 23:55] VITALS: BP 136/82; PULSE 94; TEMP 38.1; O2SAT 95
[2017-06-23] VITALS (7 sets, daily range): BP systolic 121–130; BP diastolic 67–76; PULSE 62–97; TEMP 36.7–37.3; O2SAT 93–97; Ht 172.7 cm; Wt 87.2 kg
[2017-06-23] MEDS: SODIUM CHLORIDE 0.9% 1000ML 1,000 ML IV SCH ×3 (00:14→19:46)
[2017-06-23] MEDS: CALCIUM CARBONATE 500 MG CHEWABLE PO PRN (01:14)
[2017-06-23] MEDS: LEVOTHYROXINE 150 MCG TAB PO SCH (06:05)
--- NOTE | 2017-06-23 06:27 | DIAGNOSTIC IMAGING REPORT ---
LUMBAR SPINE WITHOUT HISTORY: 81 years-old Male increasing numbness le r/o hematoma s/p epidural numbness of the lower extremities with certainty for possible epidural hematoma. COMPARISON: MR lumbar spine 04/30/2017 TECHNIQUE: Multiple axial CT images of the lumbar spine were obtained without contrast. A dose lowering technique was used consistent with the principals of GIAN. FINDINGS: No acute fracture or subluxation of the lumbar spine identified. The bones appear mildly demineralized. Schmorl's nodes again seen involving the posterior aspect of the superior endplate of L3. Multilevel mild intervertebral disc space narrowing with advanced multilevel facet arthrosis and moderate multilevel endplate spurring. Evaluation of the central canal and neuroforamina is limited compared to that of MRI. Atherosclerosis of the aorta. Mild ectasia of the infrarenal abdominal aorta, 2.6 cm. Postsurgical changes are seen within the right pelvis. Nonspecific perinephric stranding. No epidural fluid collections or hematoma identified. T12-L1: Spondylitic spurring with moderate facet arthrosis and broad-based posterior disc bulge. No central canal or foraminal narrowing. L1-L2: Moderate facet arthrosis with mild intervertebral disc space narrowing, spondylitic spurring and circumferential annular disc bulge. Mild central canal narrowing with moderate severe bilateral foraminal stenosis. L2-L3: Mild intervertebral disc space narrowing with spondylitic spurring and circumferential annular disc bulge. Moderate to severe facet arthrosis with ligamentum flavum thickening. Moderate to severe central canal stenosis with moderate bilateral foraminal narrowing. L3-L4: Mild posterior intervertebral disc space narrowing with spondylitic spurring, moderate facet arthrosis and ventral annular disc bulge. Moderate to severe central canal stenosis with moderate bilateral foraminal narrowing. Left far lateral disc bulge is noted as well on image 49 series 301 which may be in close proximity to the adjacent exiting nerve root. L4-L5: Mild posterior intervertebral disc space narrowing with posterior spondylitic spurring and severe facet arthrosis. Mild to moderate central canal, and moderate bilateral foraminal stenosis. Extruded disc fragment at this level as seen on comparison study is not well visualized. L5-S1: Mild posterior intervertebral disc space narrowing with posterior spondylitic spurring, broad-based posterior disc bulge and severe facet arthrosis. There is mild central canal narrowing with severe right mild left foraminal stenosis. IMPRESSION: 1. No acute fracture or subluxation of the lumbar spine. 2. No evidence of epidural hematoma. 3. Multilevel discogenic degenerative changes and facet arthrosis with varying degrees of central canal and foraminal narrowing as detailed level by level above. Please note however that MRI is more sensitive for evaluation of the central canal and neuroforamen. The above report was generated using voice recognition software. It may contain grammatical, syntax or spelling errors. Electronically signed by: Garrison Webber M.D. 06/23/2017 6:25 AM Dictated Date/Time: 06/23/2017 6:14 AM
[2017-06-23] MEDS: OMEGA-3 (PURIFIED FISH OIL) 1 GM CAP PO SCH (07:40)
[2017-06-23] MEDS: CARVEDILOL 12.5 MG TAB PO SCH ×2 (07:40→21:28)
[2017-06-23] MEDS: CHOLECALCIFEROL 1000 INTER.UNIT TAB PO SCH (07:40)
[2017-06-23] MEDS: CYANOCOBALAMIN 500 MCG TAB (VIT B-12) PO SCH (07:40)
[2017-06-23] MEDS: PANTOprazole SOD 40 MG TAB PO SCH (07:40)
[2017-06-23] MEDS: ASPIRIN 325 MG ECTAB PO SCH (07:40)
[2017-06-23] MEDS: SIMVASTATIN 40 MG TAB PO SCH (07:40)
[2017-06-23] MEDS: AMLODIPINE BESYLATE 5 MG TAB PO SCH (07:41)
[2017-06-23] MEDS: URSODIOL 300 MG CAP PO SCH ×2 (07:41→21:27)
--- NOTE | 2017-06-23 08:55 | Progress Note ---
Subjective Date of Service: Jun 23, 2017. Subjective Pt evaluation today including: conversation w/ patient, physical exam, chart review, lab review, review of studies, review of inpatient medication list Problem List Medical Problems: (1) Acute on chronic renal failure Status: Acute (2) Cellulitis of right foot Status: Acute (3) Hyponatremia Status: Acute (4) UTI (urinary tract infection) Status: Acute Review of Systems Constitutional: No see HPI, No fever, No chills, No sweats, No weight loss, No weakness, No fatigue, No problem reported Eyes: No see HPI, No worsening of vision, No eye pain, No redness, No discharge , No diplopia, No problem reported ENT: No see HPI, No hearing loss, No unusual epistaxis, No nasal symptoms, No sore throat, No tinnitus, No dental problems, No trouble swallowing, No problem reported Respiratory: No see HPI, No cough, No sputum, No wheezing, No shortness of breath, No dyspnea on exertion, No dyspnea at rest, No hemoptysis, No problem reported Cardiac: No see HPI, No chest pain, No orthopnea, No PND, No edema, No claudication, No palpitations, No problem reported Abdomen: No see HPI, No pain, No nausea, No vomiting, No diarrhea, No constipation, No GI bleeding, No problem reported Musculoskeletal: No see HPI, No joint pain, No muscle pain, No swelling, No calf pain, No problem reported Male : + hematuria, No see HPI, No dysuria, No urinary frequency, No incontinence, No nocturia more than once/night, No slowing stream, No sexual dysfunction, No problem reported Neurologic: No see HPI, No memory loss, No paralysis, No weakness, No numbness/ tingling, No vertigo, No balance problems, No problem reported Psychiatric: No see HPI, No depression symptoms, No anhedonism, No anxiety, No insomnia, No substance abuse, No problem reported Heme: No see HPI, No abnormal bleeding/bruising, No clotting problems, No swollen lymph nodes, No night sweats, No problem reported Endo: No see HPI, No fatigue, No excessive thirst, No excessive urination, No problem reported Skin: No see HPI, No rash, No itch, No new/changing skin lesions, No color change, No bleeding, No problem reported Medications Current Inpatient Medications Medications (Trade) Dose Ordered Sig/Dalia Route Start Time Stop Time Status Last Admin Dose Admin Amlodipine Besylate (Norvasc Tab) 2.5 mg DAILY PO 06/23/17 09:00 07/23/17 08:59 06/23/17 07:41 2.5 MG Aspirin (Ecotrin Tab) 325 mg DAILY PO 06/23/17 09:00 07/23/17 08:59 06/23/17 07:40 325 MG Carvedilol (Coreg Tab) 12.5 mg BID PO 06/23/17 09:00 07/23/17 08:59 06/23/17 07:40 12.5 MG Cholecalciferol (Vitamin D Tab) 1,000 inter.unit DAILY PO 06/23/17 09:00 07/23/17 08:59 06/23/17 07:40 1,000 INTER.UNIT Clonazepam (Klonopin Tab) 0.5 mg DAILY PO 06/23/17 09:00 07/23/17 08:59 Cyanocobalamin (Vitamin B-12 Tab) 1,000 mcg DAILY PO 06/23/17 09:00 07/23/17 08:59 06/23/17 07:40 1,000 MCG Levothyroxine Sodium (Synthroid Tab) 150 mcg DAILYBB PO 06/23/17 06:30 07/23/17 06:29 06/23/17 06:05 150 MCG Nitroglycerin (Nitrostat Tab) 0.4 mg UD PRN UT 06/22/17 22:00 07/22/17 21:59 Oxycodone/ Acetaminophen (Percocet 5-325mg Tab) 1 tab TID PRN PO 06/22/17 22:00 07/06/17 21:59 Simvastatin (Zocor Tab) 40 mg DAILY PO 06/23/17 09:00 07/23/17 08:59 06/23/17 07:40 40 MG Ursodiol (Actigall Cap) 300 mg BID PO 06/23/17 09:00 07/23/17 08:59 06/23/17 07:41 300 MG Pantoprazole Sodium (Protonix Tab) 40 mg QAM PO 06/23/17 09:00 07/23/17 08:59 06/23/17 07:40 40 MG Fish Oil ([place]-3 (Purified Fish Oil) Cap) 1 gm DAILY PO 06/23/17 09:00 07/23/17 08:59 06/23/17 07:40 1 GM Sodium Chloride 1,000 ml @ 100 mls/hr Q10H IV 06/22/17 23:59 07/22/17 23:58 06/23/17 00:14 100 MLS/HR Acetaminophen (Tylenol Tab) 650 mg Q4H PRN PO 06/22/17 22:15 07/22/17 22:14 06/23/17 00:00 650 MG Magnesium Hydroxide (Milk Of Magnesia Susp) 30 ml Q6H PRN PO 06/22/17 22:15 07/22/17 22:14 Ondansetron HCl (Zofran Inj) 4 mg Q6H PRN IV 06/22/17 22:15 07/22/17 22:14 Ceftriaxone Sodium 1 gm/ Dextrose 50 ml @ 100 mls/hr Q24H IV 06/23/17 22:00 07/01/17 22:29 Calcium Carbonate (Tums Chew Tab) 500 mg BID PRN PO 06/23/17 01:00 07/23/17 00:59 06/23/17 01:14 500 MG Cyclobenzaprine HCl (Flexeril Tab) 10 mg TID PRN PO 06/23/17 09:00 07/23/17 08:59 Objective Vital Signs Date Time Temp Pulse Resp B/P (MAP) Pulse Ox O2 Delivery O2 Flow Rate FiO2 06/23/17 07:17 37.3 62 18 130/76 (94) 93 Room Air 06/23/17 00:19 37.1 97 18 121/69 94 Room Air 06/22/17 23:55 38.1 94 18 136/82 (100) 95 Room Air 06/22/17 23:07 94 132/76 93 06/22/17 21:19 84 20 140/80 06/22/17 20:24 86 25 130/70 06/22/17 20:00 87 06/22/17 18:29 36.8 97 20 113/76 95 Room Air Physical Exam General Appearance: WD/WN, no apparent distress Eyes: normal inspection, EOMI ENT: normal ENT inspection, hearing grossly normal Neck: supple Respiratory/Chest: chest non-tender, lungs clear, normal breath sounds, no respiratory distress, no accessory muscle use Cardiovascular: regular rate, rhythm, no edema, no gallop, no JVD, no murmur Abdomen: non tender, soft, no organomegaly, no pulsatile mass Extremities: normal range of motion, non-tender, normal inspection, no pedal edema, no calf tenderness 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/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: 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, no motor/sensory deficits, alert, normal mood/affect, oriented x 3 Skin: normal color, warm/dry, no rash Laboratory Results Last 24 Hours Test 06/22/17 19:45 06/22/17 20:11 06/22/17 20:50 06/22/17 21:36 White Blood Count 11.15 K/uL Red Blood Count 4.05 M/uL Hemoglobin 13.2 g/dL Hematocrit 37.4 % Mean Corpuscular Volume 92.3 fL Mean Corpuscular Hemoglobin 32.6 pg Mean Corpuscular Hemoglobin Concent 35.3 g/dl Platelet Count 251 K/uL Mean Platelet Volume 10.2 fL Neutrophils (%) (Auto) 64.1 % Lymphocytes (%) (Auto) 23.0 % Monocytes (%) (Auto) 11.7 % Eosinophils (%) (Auto) 0.7 % Basophils (%) (Auto) 0.2 % Neutrophils # (Auto) 7.14 K/uL Lymphocytes # (Auto) 2.57 K/uL Monocytes # (Auto) 1.31 K/uL Eosinophils # (Auto) 0.08 K/uL Basophils # (Auto) 0.02 K/uL RDW Standard Deviation 44.1 fL RDW Coefficient of Variation 13.1 % Immature Granulocyte % (Auto) 0.3 % Immature Granulocyte # (Auto) 0.03 K/uL Sodium Level 129 mmol/L Potassium Level 4.1 mmol/L Chloride Level 97 mmol/L Carbon Dioxide Level 24 mmol/L Anion Gap 8.0 mmol/L Blood Urea Nitrogen 74 mg/dl Creatinine 3.24 mg/dl Est Creatinine Clear Calc Drug Dose 17.9 ml/min Estimated GFR () 19.9 Estimated GFR (Non- 17.2 BUN/Creatinine Ratio 23.0 Random Glucose 88 mg/dl Calcium Level 8.9 mg/dl Total Bilirubin 0.5 mg/dl Direct Bilirubin 0.1 mg/dl Aspartate Amino Transf (AST/SGOT) 20 U/L Alanine Aminotransferase (ALT/SGPT) 28 U/L Alkaline Phosphatase 80 U/L Troponin I < 0.015 ng/ml Total Protein 8.8 gm/dl Albumin 3.2 gm/dl Lipase 130 U/L Influenza Type A (RT-PCR) Neg for Influ A Influenza Type A Antigen Neg for Influ A Influenza Type B Antigen Neg for Influ B Influenza Type B (RT-PCR) Neg for Influ B Urine Color YELLOW Urine Appearance CLOUDY Urine pH 5.0 Urine Specific [place] 1.022 Urine Protein TRACE Urine Glucose (UA) NEG Urine Ketones NEG Urine Occult Blood TRACE Urine Nitrite NEG Urine Bilirubin NEG Urine Urobilinogen NEG Urine Leukocyte Esterase MODERATE Urine WBC (Auto) 10-30 /hpf Urine RBC (Auto) 0-4 /hpf Urine Hyaline Casts (Auto) 1-5 /lpf Urine Epithelial Cells (Auto) 0-5 /lpf Urine Bacteria (Auto) NEG Lactic Acid Level 0.9 mmol/L Test 06/23/17 08:37 Assessment and Plan 81 years old man with past medical history of chronic kidney disease stage II developed diarrhea at home and possible UTI. Patient stated that his urine has small amount of blood. Presented to the ED June 22 and was found to have acute kidney injury Assessment Acute kidney injury on chronic kidney disease, multifactorial, secondary to decrease oral intake/diarrhea/dehydration/Micardis/meloxicam UTI present on admission Chronic kidney disease stage II Hypovolemic Hyponatremia secondary to decrease oral intake Diarrhea resolved Hypertension Dyslipidemia Coronary artery disease GERD Chronic back pain Hypothyroidism on Synthroid Assessment Follow-up urine culture, continue ceftriaxone 1 g daily Continue holding meloxicam and Micardis Obtain labs today Follow-up renal function daily Continue IV fluid hydration 100 mL/h normal saline recheck sodium level today CT scan abdomen reviewed, no hydrocele or obstructive uropathy Diarrhea resolved continue Coreg/amlodipine Continue simvastatin Continue Protonix and check TSH level Continue Protonix Heparin subcutaneous twice a day for DVT prophylaxis
[2017-06-23] MEDS ORDERED: AZITHROMYCIN IV 250 MG in DEXTROSE 5% 250ML 250 ML IV SCH (09:00)
[2017-06-23] MEDS ORDERED: CLONAZEPAM 0.5 MG TAB PO SCH (09:00)
[2017-06-23] MEDS ORDERED: CYCLOBENZAPRINE HCL 10 MG TAB PO PRN (09:00)
[2017-06-23] MEDS ORDERED: CYCLOBENZAPRINE HCL 10 MG TAB PO SCH (09:00)
[2017-06-23] MEDS: CLONAZEPAM 0.5 MG TAB PO SCH (09:00)
[2017-06-23 09:16] LABS: HEMATOCRIT 34.1 % (42-52); MEAN CELL VOLUME 92.9 fL (80-100); MEAN CORPUSCULAR HEMOGLOBIN 31.9 pg (25-34); MEAN CORPUSCULAR HGB CONC 34.3 g/dl (32-36); PLATELET COUNT 186 K/uL (130-400); RED BLOOD COUNT 3.67 M/uL (4.7-6.1); WHITE BLOOD COUNT 8.73 K/uL (4.8-10.8)
[2017-06-23 09:43] LABS: BASO % 0.1 %; BASO ABS # 0.01 K/uL (0-0.2); COMPLETE YES; EOS % 1.5 %; IG% 0.2 %; LYMPH % 19.2 %; LYMPH ABS # 1.68 K/uL (1.2-3.4); MONO % 10.5 %; NEUT % 68.5 %
[2017-06-23 09:49] LABS: CALCIUM 8.7 mg/dl (8.5-10.1); CREATININE 2.45 mg/dl (0.60-1.40); POTASSIUM 3.7 mmol/L (3.5-5.1)
[2017-06-23 10:04] LABS: ALB/GLOB RATIO 0.6 (0.9-2); THYROID STIMULATING HORMONE 1.02 uIu/ml (0.300-4.500)
[2017-06-23] MEDS ORDERED: CEFTRIAXONE SOD INJ 1 GM in DEXTROSE 5% ADD-VANTAGE 50ML 50 ML IV SCH (22:00)
[2017-06-24 00:09] VITALS: O2SAT 95
[2017-06-24] MEDS: LEVOTHYROXINE 150 MCG TAB PO SCH (05:42)
[2017-06-24] MEDS: SODIUM CHLORIDE 0.9% 1000ML 1,000 ML IV SCH ×2 (05:42→16:58)
[2017-06-24] MEDS ORDERED: COUGH DROP (SUGAR FREE) LOZ 24 LOZ/1 BOX ONE (05:44)
[2017-06-24] MEDS: CALCIUM CARBONATE 500 MG CHEWABLE PO PRN ×2 (06:22→15:54)
[2017-06-24 07:24] VITALS: BP 113/64; PULSE 74; TEMP 36.1; O2SAT 95
[2017-06-24 07:50] LABS: BASO % 0.3 %; BASO ABS # 0.02 K/uL (0-0.2); COMPLETE YES; EOS % 2.5 %; HEMATOCRIT 31.9 % (42-52); IG% 0.3 %; LYMPH % 26.3 %; LYMPH ABS # 1.71 K/uL (1.2-3.4); MEAN CELL VOLUME 92.7 fL (80-100); MEAN CORPUSCULAR HEMOGLOBIN 30.8 pg (25-34); MEAN CORPUSCULAR HGB CONC 33.2 g/dl (32-36); MEAN PLATELET VOLUME 10.2 fL (7.4-10.4); MONO % 8.8 %; NEUT % 61.8 %; PLATELET COUNT 180 K/uL (130-400); RED BLOOD COUNT 3.44 M/uL (4.7-6.1); WHITE BLOOD COUNT 6.49 K/uL (4.8-10.8)
[2017-06-24 08:33] LABS: BUN/CREATININE RATIO 21.5 (10-20); CALCIUM 8.5 mg/dl (8.5-10.1); CREATININE 1.82 mg/dl (0.60-1.40); MAGNESIUM 1.8 mg/dl (1.8-2.4); PHOSPHORUS 2.4 mg/dl (2.5-4.9); POTASSIUM 4.1 mmol/L (3.5-5.1)
[2017-06-24] MEDS: ONDANSETRON INJ 2 MG/ML 2 ML VIAL IV PRN ×2 (08:46→17:03)
[2017-06-24] MEDS: SIMVASTATIN 40 MG TAB PO SCH ×2 (08:48→09:00)
[2017-06-24] MEDS: PANTOprazole SOD 40 MG TAB PO SCH (08:48)
[2017-06-24] MEDS: URSODIOL 300 MG CAP PO SCH ×2 (08:48→21:09)
[2017-06-24] MEDS: OMEGA-3 (PURIFIED FISH OIL) 1 GM CAP PO SCH (08:49)
[2017-06-24] MEDS: CHOLECALCIFEROL 1000 INTER.UNIT TAB PO SCH (08:49)
[2017-06-24] MEDS: CARVEDILOL 12.5 MG TAB PO SCH ×2 (08:49→21:10)
[2017-06-24] MEDS: ASPIRIN 325 MG ECTAB PO SCH ×2 (08:49→09:00)
[2017-06-24] MEDS: AMLODIPINE BESYLATE 5 MG TAB PO SCH (08:49)
[2017-06-24] MEDS: CYANOCOBALAMIN 500 MCG TAB (VIT B-12) PO SCH (08:49)
[2017-06-24] MEDS: CLONAZEPAM 0.5 MG TAB PO SCH (09:00)
[2017-06-24 15:23] VITALS: BP 119/71; PULSE 61; TEMP 36.3; O2SAT 96
[2017-06-24 17:44] VITALS: O2SAT 96
--- NOTE | 2017-06-24 19:13 | Progress Note ---
Subjective Date of Service: Jun 24, 2017. Subjective Pt evaluation today including: conversation w/ patient, conversation w/ family , physical exam, chart review, lab review, review of inpatient medication list Problem List Medical Problems: (1) Acute on chronic renal failure Status: Acute (2) Cellulitis of right foot Status: Acute (3) Hyponatremia Status: Acute (4) UTI (urinary tract infection) Status: Acute Review of Systems Constitutional: + weakness, No see HPI, No fever, No chills, No sweats, No weight loss, No fatigue, No problem reported Eyes: No see HPI, No worsening of vision, No eye pain, No redness, No discharge , No diplopia, No problem reported ENT: No see HPI, No hearing loss, No unusual epistaxis, No nasal symptoms, No sore throat, No tinnitus, No dental problems, No trouble swallowing, No problem reported Respiratory: No see HPI, No cough, No sputum, No wheezing, No shortness of breath, No dyspnea on exertion, No dyspnea at rest, No hemoptysis, No problem reported Cardiac: No see HPI, No chest pain, No orthopnea, No PND, No edema, No claudication, No palpitations, No problem reported Abdomen: + nausea, No see HPI, No pain, No vomiting, No diarrhea, No constipation, No GI bleeding, No problem reported Musculoskeletal: No see HPI, No joint pain, No muscle pain, No swelling, No calf pain, No problem reported Male : No see HPI, No dysuria, No urinary frequency, No incontinence, No nocturia more than once/night, No slowing stream, No hematuria, No sexual dysfunction, No problem reported Neurologic: No see HPI, No memory loss, No paralysis, No weakness, No numbness/ tingling, No vertigo, No balance problems, No problem reported Psychiatric: No see HPI, No depression symptoms, No anhedonism, No anxiety, No insomnia, No substance abuse, No problem reported Heme: No see HPI, No abnormal bleeding/bruising, No clotting problems, No swollen lymph nodes, No night sweats, No problem reported Endo: No see HPI, No fatigue, No excessive thirst, No excessive urination, No problem reported Skin: No see HPI, No rash, No itch, No new/changing skin lesions, No color change, No bleeding, No problem reported Medications Current Inpatient Medications Medications (Trade) Dose Ordered Sig/Dalia Route Start Time Stop Time Status Last Admin Dose Admin Amlodipine Besylate (Norvasc Tab) 2.5 mg DAILY PO 06/23/17 09:00 07/23/17 08:59 06/24/17 08:49 2.5 MG Aspirin (Ecotrin Tab) 325 mg DAILY PO 06/23/17 09:00 07/23/17 08:59 06/23/17 07:40 325 MG Carvedilol (Coreg Tab) 12.5 mg BID PO 06/23/17 09:00 07/23/17 08:59 06/24/17 08:49 12.5 MG Cholecalciferol (Vitamin D Tab) 1,000 inter.unit DAILY PO 06/23/17 09:00 07/23/17 08:59 06/24/17 08:49 1,000 INTER.UNIT Cyanocobalamin (Vitamin B-12 Tab) 1,000 mcg DAILY PO 06/23/17 09:00 07/23/17 08:59 06/24/17 08:49 1,000 MCG Levothyroxine Sodium (Synthroid Tab) 150 mcg DAILYBB PO 06/23/17 06:30 07/23/17 06:29 06/24/17 05:42 150 MCG Nitroglycerin (Nitrostat Tab) 0.4 mg UD PRN UT 06/22/17 22:00 07/22/17 21:59 Oxycodone/ Acetaminophen (Percocet 5-325mg Tab) 1 tab TID PRN PO 06/22/17 22:00 07/06/17 21:59 06/24/17 05:42 1 TAB Simvastatin (Zocor Tab) 40 mg DAILY PO 06/23/17 09:00 07/23/17 08:59 06/23/17 07:40 40 MG Ursodiol (Actigall Cap) 300 mg BID PO 06/23/17 09:00 07/23/17 08:59 06/24/17 08:48 300 MG Pantoprazole Sodium (Protonix Tab) 40 mg QAM PO 06/23/17 09:00 07/23/17 08:59 06/24/17 08:48 40 MG Fish Oil ([place]-3 (Purified Fish Oil) Cap) 1 gm DAILY PO 06/23/17 09:00 07/23/17 08:59 06/24/17 08:49 1 GM Sodium Chloride 1,000 ml @ 100 mls/hr Q10H IV 06/22/17 23:59 07/22/17 23:58 06/24/17 16:58 100 MLS/HR Acetaminophen (Tylenol Tab) 650 mg Q4H PRN PO 06/22/17 22:15 07/22/17 22:14 06/23/17 00:00 650 MG Magnesium Hydroxide (Milk Of Magnesia Susp) 30 ml Q6H PRN PO 06/22/17 22:15 07/22/17 22:14 Ondansetron HCl (Zofran Inj) 4 mg Q6H PRN IV 06/22/17 22:15 07/22/17 22:14 06/24/17 17:03 4 MG Ceftriaxone Sodium 1 gm/ Dextrose 50 ml @ 100 mls/hr Q24H IV 06/23/17 22:00 07/01/17 22:29 06/23/17 21:30 100 MLS/HR Calcium Carbonate (Tums Chew Tab) 500 mg BID PRN PO 06/23/17 01:00 07/23/17 00:59 06/24/17 15:54 500 MG Cyclobenzaprine HCl (Flexeril Tab) 10 mg TID PRN PO 06/23/17 09:00 07/23/17 08:59 Clonazepam (Klonopin Tab) 0.5 mg DAILY PO 06/23/17 09:00 07/23/17 08:59 Objective Vital Signs Date Time Temp Pulse Resp B/P (MAP) Pulse Ox O2 Delivery O2 Flow Rate FiO2 06/24/17 17:44 96 Room Air 06/24/17 15:23 36.3 61 20 119/71 (87) 96 Room Air 06/24/17 09:50 Room Air 06/24/17 07:24 36.1 74 16 113/64 (80) 95 Room Air 06/24/17 00:09 95 Room Air 06/23/17 23:34 37.1 81 20 128/70 (89) 97 Room Air 06/23/17 21:30 80 127/69 (88) 06/23/17 19:30 95 Room Air Physical Exam General Appearance: WD/WN, no apparent distress Eyes: normal inspection, EOMI ENT: normal ENT inspection, hearing grossly normal Neck: supple Respiratory/Chest: chest non-tender, lungs clear, normal breath sounds, no respiratory distress, no accessory muscle use Cardiovascular: regular rate, rhythm, no edema, no gallop, no JVD, no murmur Abdomen: non tender, soft, no organomegaly, no pulsatile mass Extremities: normal range of motion, non-tender, normal inspection, no pedal edema, no calf tenderness 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, no motor/sensory deficits, alert, normal mood/affect, oriented x 3 Skin: normal color, warm/dry, no rash Laboratory Results Last 24 Hours Test 06/24/17 07:25 White Blood Count 6.49 K/uL Red Blood Count 3.44 M/uL Hemoglobin 10.6 g/dL Hematocrit 31.9 % Mean Corpuscular Volume 92.7 fL Mean Corpuscular Hemoglobin 30.8 pg Mean Corpuscular Hemoglobin Concent 33.2 g/dl Platelet Count 180 K/uL Mean Platelet Volume 10.2 fL Neutrophils (%) (Auto) 61.8 % Lymphocytes (%) (Auto) 26.3 % Monocytes (%) (Auto) 8.8 % Eosinophils (%) (Auto) 2.5 % Basophils (%) (Auto) 0.3 % Neutrophils # (Auto) 4.01 K/uL Lymphocytes # (Auto) 1.71 K/uL Monocytes # (Auto) 0.57 K/uL Eosinophils # (Auto) 0.16 K/uL Basophils # (Auto) 0.02 K/uL RDW Standard Deviation 44.9 fL RDW Coefficient of Variation 13.2 % Immature Granulocyte % (Auto) 0.3 % Immature Granulocyte # (Auto) 0.02 K/uL Sodium Level 139 mmol/L Potassium Level 4.1 mmol/L Chloride Level 107 mmol/L Carbon Dioxide Level 23 mmol/L Anion Gap 9.0 mmol/L Blood Urea Nitrogen 39 mg/dl Creatinine 1.82 mg/dl Est Creatinine Clear Calc Drug Dose 35.2 ml/min Estimated GFR () 40.0 Estimated GFR (Non- 34.6 BUN/Creatinine Ratio 21.5 Random Glucose 105 mg/dl Calcium Level 8.5 mg/dl Phosphorus Level 2.4 mg/dl Magnesium Level 1.8 mg/dl Assessment and Plan 81 years old man with past medical history of chronic kidney disease stage II developed diarrhea at home and possible UTI. Patient stated that his urine has small amount of blood. Presented to the ED June 22 and was found to have acute kidney injury Assessment Acute kidney injury on chronic kidney disease, multifactorial, secondary to decrease oral intake/diarrhea/dehydration/Micardis/meloxicam UTI present on admission Chronic kidney disease stage II Hypovolemic Hyponatremia secondary to decrease oral intake Diarrhea resolved Hypertension Dyslipidemia Coronary artery disease GERD Chronic back pain Hypothyroidism on Synthroid Assessment Renal function significantly improved, 1.82 today, prior to admission was 1.6- 1.7 , last year in November 2015 was 1.3-1.4 urine culture grew sensitive Escherichia coli, switch ceftriaxone to ampicillin 1 g every 8hrs Continue holding meloxicam and Micardis Obtain labs today Follow-up renal function daily Decrease IV fluid hydration to 50 mL/h normal saline recheck sodium level in a.m. CT scan abdomen reviewed, no hydrocele or obstructive uropathy Diarrhea resolved continue Coreg/amlodipine Continue simvastatin Continue Protonix TSH level is normal Heparin subcutaneous twice a day for DVT prophylaxis
[2017-06-24 20:00] VITALS: O2SAT 96
[2017-06-24] MEDS: AMPICILLIN IV 1 GM in SODIUM CHLOR 0.9% AD-VAN 50ML 50 ML IV SCH (21:08)
[2017-06-24 23:29] VITALS: BP 132/73; PULSE 69; TEMP 36.8; O2SAT 95
[2017-06-25] MEDS: AMPICILLIN IV 1 GM in SODIUM CHLOR 0.9% AD-VAN 50ML 50 ML IV SCH (04:04)
[2017-06-25] MEDS: SODIUM CHLORIDE 0.9% 1000ML 1,000 ML IV SCH (04:05)
[2017-06-25] MEDS: LEVOTHYROXINE 150 MCG TAB PO SCH (04:05)
[2017-06-25 07:14] VITALS: BP 150/75; PULSE 80; TEMP 36.4; O2SAT 95
[2017-06-25 07:36] LABS: BASO % 0.4 %; BASO ABS # 0.02 K/uL (0-0.2); COMPLETE YES; EOS % 3.1 %; HEMATOCRIT 29.6 % (42-52); IG% 0.4 %; LYMPH % 28.3 %; LYMPH ABS # 1.57 K/uL (1.2-3.4); MEAN CELL VOLUME 93.1 fL (80-100); MEAN CORPUSCULAR HEMOGLOBIN 31.8 pg (25-34); MEAN CORPUSCULAR HGB CONC 34.1 g/dl (32-36); MONO % 9.2 %; NEUT % 58.6 %; PLATELET COUNT 156 K/uL (130-400); RED BLOOD COUNT 3.18 M/uL (4.7-6.1); WHITE BLOOD COUNT 5.55 K/uL (4.8-10.8)
[2017-06-25 07:55] LABS: BUN/CREATININE RATIO 14.9 (10-20); CALCIUM 8.6 mg/dl (8.5-10.1); CREATININE 1.42 mg/dl (0.60-1.40); MAGNESIUM 1.6 mg/dl (1.8-2.4); POTASSIUM 4.4 mmol/L (3.5-5.1)
[2017-06-25] MEDS: PANTOprazole SOD 40 MG TAB PO SCH (07:56)
[2017-06-25] MEDS: ASPIRIN 325 MG ECTAB PO SCH (07:56)
[2017-06-25] MEDS: CYANOCOBALAMIN 500 MCG TAB (VIT B-12) PO SCH (07:56)
[2017-06-25] MEDS: SIMVASTATIN 40 MG TAB PO SCH (07:56)
[2017-06-25] MEDS: OMEGA-3 (PURIFIED FISH OIL) 1 GM CAP PO SCH (07:56)
[2017-06-25] MEDS: CARVEDILOL 12.5 MG TAB PO SCH (07:57)
[2017-06-25] MEDS: URSODIOL 300 MG CAP PO SCH (07:57)
[2017-06-25] MEDS: CHOLECALCIFEROL 1000 INTER.UNIT TAB PO SCH (07:58)
[2017-06-25] MEDS: LACTOBACILLUS ACIDOPHILUS (FLORANEX) TAB PO SCH ×2 (07:58→12:04)
[2017-06-25] MEDS: AMLODIPINE BESYLATE 5 MG TAB PO SCH (07:58)
[2017-06-25] MEDS: CLONAZEPAM 0.5 MG TAB PO SCH (07:59)
[2017-06-25 08:01] LABS: ALB/GLOB RATIO 0.6 (0.9-2)
[2017-06-25] MEDS ORDERED: CEPH-571 PO (10:37)
[2017-06-25] MEDS ORDERED: ONDA4TAB10 SL (10:37)
[2017-06-25] MEDS ORDERED: LCTX PO (10:37)
--- NOTE | 2017-06-25 10:46 | Discharge Instructions ---
Discharge Instructions Date of Service Jun 25, 2017. Admission Reason for Admission: Abnormal Urinalysis, Jet Discharge Discharge Diagnosis / Problem: Urinary Tract Infection and Acute Kidney Injury Discharge Goals Goal(s): Decrease discomfort, Improve function, Increase independence Activity Recommendations Activity Limitations: resume your previous activity . Instructions / Follow-Up Instructions / Follow-Up Acute Kidney Injury: - This is likely caused by decreased oral intake, diarrhea, dehydration, infection, and possibly from some of your medications - Your kidney function went back to normal but will provide a prescription to have your kidney function checked in the next 2-3 days and the results can go to your family doctor - Recommend to continue to drink a good amount of water to stay hydrated. Keep your urine a pale yellow color. - Your Meloxicam and Micardis may have contributed to your kidney function like because of the infection/dehydration/diarrhea. - You may resume these medications but would recommend reducing the frequency of Meloxicam if possible. This can be discussed with your family doctor Urinary Tract Infection: - Continue to take your antibiotic until complete. You will get a dose in the hospital today and will only need to take one pill tonight (06/25) then resume twice a day on 06/26 until all pills are complete Current Hospital Diet Patient's current hospital diet: AHA Diet (Heart Healthy), Low Sodium Diet (2gm Na) Discharge Diet Recommended Diet: AHA Diet (Heart Healthy), Low Sodium Diet (2gm Na) Pending Studies Studies pending at discharge: no Medical Emergencies . Who to Call and When: Medical Emergencies: If at any time you feel your situation is an emergency, please call 911 immediately. . Non-Emergent Contact Non-Emergency issues call your: Primary Care Provider Call Non-Emergent contact if: you have a fever, your pain is concerning you, you have any medication questions . . "Provider Documentation" section prepared by Arianne Slater. . VTE Core Measure Inpt VTE Proph given/why not?: Unfractionated heparin SQ
[2017-06-25] MEDS ORDERED: CEPHALEXIN MONOHYDRATE 500 MG CAP PO ONE (11:00)
[2017-06-25 12:17] VITALS: BP 150/75; PULSE 80; TEMP 36.4; O2SAT 95
--- NOTE | 2017-06-25 18:05 | Discharge Summary ---
Discharge Summary Date of Service Jun 25, 2017. Discharge Summary Admission Date: Jun 22, 2017 at 22:15 Discharge Date: Jun 25, 2017 Discharge Disposition: Home Principal Diagnosis: Pansensitive E. Coli UTI and LIZBETH Problems/Secondary Diagnoses: 1. CKD Stage II 2. HTN 3. HLD 4. CAD 5. GERD 6. Chronic Back Pain 7. Hypothyroidism Immunizations: Have You Had Influenza Vaccine: No History of Tetanus Vaccine?: utd History of Pneumococcal: Yes Pneumococcal Date: May 15, 2006 History of Hepatitis B Vaccine: No Procedures: LUMBAR SPINE WITHOUT FINDINGS: No acute fracture or subluxation of the lumbar spine identified. The bones appear mildly demineralized. Schmorl's nodes again seen involving the posterior aspect of the superior endplate of L3. Multilevel mild intervertebral disc space narrowing with advanced multilevel facet arthrosis and moderate multilevel endplate spurring. Evaluation of the central canal and neuroforamina is limited compared to that of MRI. Atherosclerosis of the aorta. Mild ectasia of the infrarenal abdominal aorta, 2.6 cm. Postsurgical changes are seen within the right pelvis. Nonspecific perinephric stranding. No epidural fluid collections or hematoma identified. T12-L1: Spondylitic spurring with moderate facet arthrosis and broad-based posterior disc bulge. No central canal or foraminal narrowing. L1-L2: Moderate facet arthrosis with mild intervertebral disc space narrowing, spondylitic spurring and circumferential annular disc bulge. Mild central canal narrowing with moderate severe bilateral foraminal stenosis. L2-L3: Mild intervertebral disc space narrowing with spondylitic spurring and circumferential annular disc bulge. Moderate to severe facet arthrosis with ligamentum flavum thickening. Moderate to severe central canal stenosis with moderate bilateral foraminal narrowing. L3-L4: Mild posterior intervertebral disc space narrowing with spondylitic spurring, moderate facet arthrosis and ventral annular disc bulge. Moderate to severe central canal stenosis with moderate bilateral foraminal narrowing. Left far lateral disc bulge is noted as well on image 49 series 301 which may be in close proximity to the adjacent exiting nerve root. L4-L5: Mild posterior intervertebral disc space narrowing with posterior spondylitic spurring and severe facet arthrosis. Mild to moderate central canal, and moderate bilateral foraminal stenosis. Extruded disc fragment at this level as seen on comparison study is not well visualized. L5-S1: Mild posterior intervertebral disc space narrowing with posterior spondylitic spurring, broad-based posterior disc bulge and severe facet arthrosis. There is mild central canal narrowing with severe right mild left foraminal stenosis. IMPRESSION: 1. No acute fracture or subluxation of the lumbar spine. 2. No evidence of epidural hematoma. 3. Multilevel discogenic degenerative changes and facet arthrosis with varying degrees of central canal and foraminal narrowing as detailed level by level above. Please note however that MRI is more sensitive for evaluation of the central canal and neuroforamen. Medication Reconciliation New Medications: Cephalexin (Keflex) 500 Mg Cap 1 CAP PO BID, #13 CAP Take one dose tonight 06/25 then resume twice a day on 06/26 Ondasetron Odt (Zofran Odt) 4 Mg Tab 4 MG SL Q6H PRN for Nausea for 3 Days, #12 TAB Lactobacillus Acidophilus (Floranex) 1 Tab Tab 4 TAB PO TIDM for 7 Days, TAB Continued Medications: Amlodipine (Norvasc) 2.5 Mg Tab 2.5 MG PO DAILY, TAB Aspirin (Aspirin) 325 Mg Tab 325 MG PO DAILY Carvedilol (Coreg) 12.5 Mg Tab 12.5 MG PO BID, TAB Cholecalciferol (Vitamin D) 1,000 Inter.unit Tab 1000 INTER.UNIT PO DAILY, 0 Refills Clonazepam (Klonopin) 0.5 Mg Tab 0.5 MG PO DAILY, TAB Cyanocobalamin (Vitamin B-12) 1,000 Mcg Tab 1000 MCG PO DAILY, TAB Cyclobenzaprine Hcl (Flexeril) 10 Mg Tab 10 MG PO TID, TAB Esomeprazole Magnesium (Nexium) 40 Mg Capcr 40 MG PO DAILY, 0 Refills Levothyroxine Sodium (Levothyroxine Sodium) 150 Mcg Tab 150 MCG PO DAILY, TAB Meloxicam (Mobic) 7.5 Mg Tab 15 MG PO DAILY, TAB Nitroglycerin (Nitrostat) 0.4 Mg Tab 0.4 MG UT UD PRN for Chest Pain, [address] ONE TABLET UNDER THE TONGUE EVERY 5 MINUTES FOR UP TO THREE DOSES IF NEEDED FOR CHEST PAIN. [place]-3 Fatty Acids ([place] 3) 1 Cap Cap 1 CAP PO DAILY Oxycodone/Acetaminophen 5MG/325MG (Percocet 5MG/325MG) Tab 1 TABLET PO TID PRN for Pain, TAB Simvastatin (Zocor) 40 Mg Tab 40 MG PO DAILY Telmisartan (Micardis) 40 Mg Tab 40 MG PO DAILY, 0 Refills Ursodiol (Actigall) 300 Mg Cap 300 MG PO BID, CAP Discharge Exam Review of Systems: Constitutional: No fever, No chills, No weakness, No fatigue Respiratory: No cough, No shortness of breath Cardiovascular: No chest pain Abdomen: No pain, No nausea, No vomiting, No diarrhea, No constipation, No GI bleeding Musculoskeletal: No swelling, No calf pain Genitourinary - Male: No hematuria, No dysuria, No urinary frequency, No urinary retention Hematologic / Lymphatic: No abnormal bleeding/bruising Integumentary: No rash Physical Exam: General Appearance: WD/WN, no apparent distress Eyes: sclerae normal ENT: hearing grossly normal Neck: supple, no JVD, trachea midline Respiratory/Chest: lungs clear, normal breath sounds, no respiratory distress, no accessory muscle use Cardiovascular: regular rate, rhythm, no gallop, no murmur Abdomen / GI: normal bowel sounds, non tender, soft Extremities: no calf tenderness, no pedal edema Neurologic/Psychiatric: alert, oriented x 3 Skin: normal color, warm/dry Hospital Course ADMISSION: This is a 81 yo m with a history of [place], CABG, back pain that is presenting to us with generalized weakness for a few weeks. The patient notes that this generalized weakness has actually progressively gotten worse and in particular today. Associated with this weakness was a week of non bloody, loose and frequent stools. Patient has not had any BM today but has had no appetite for the last 24 hours. As there was significant worsening of the weakness and poor appetite the patient came to the ED for evaluation. He was found to have significant LIZBETH as well as an abnormal UA concerning for a UTI so patient was placed on Rocephin. Patient currently continues to complain from weakness without myalgias as well as suprapubic pain. He notes that this suprapubic pain is minimal and non radiating and occurred after repeated abdominal exams. Denies dysuria or incontinence. HOSPITAL COURSE: Mr. Paulino was admitted for LIZBETH on CKD Stage II that is believed to be multifactorial due to Pansensitive E. coli UTI, poor oral intake , diarrhea, dehydration, and Micardis/Meloxicam. He will be prescribed Keflex 500 mg BID to complete a 10 day course. LIZBETH resolved and is at baseline which varies from 1.4-1.7 for patient. Cr was 3.24 on admission. Reporting resolution of diarrhea and generalized weakness. Feels at his baseline and feels safe to return home. Provided an Rx to have his Cr rechecked in 2-3 days. Would recommend consideration for stopping Mobic and monitor need for Micardis. Patient can continue to take these at this time but advise against using Mobic if able. Total Time Spent: Greater than 30 minutes This includes examination of the patient, discharge planning, medication reconciliation, and communication with other providers. Discharge Instructions Please refer to the electronic Patient Visit Report (Discharge Instructions) for additional information. Additional Copies To Rogelio Machuca M.D.
[2017-06-25] MEDS ORDERED: CEPHALEXIN MONOHYDRATE 500 MG CAP PO SCH (21:00)
== END 2017-06-25 13:20 | disposition home or self-care (01) | DRG 683 ==
LOC: C.EDB 18:01 → C.MS2W 22:15 → ENRESERV 22:56
PROVIDERS: ADMIT Hospitalist; ATTEND Internal Medicine Sports Medicine
DX: N17.9 Acute kidney failure, unspecified (principal); E87.1 Hypo-osmolality and hyponatremia; N39.0 Urinary tract infection, site not specified; B96.20 Unspecified Escherichia coli [E. coli] as the cause of diseases classified elsewhere; N18.2 Chronic kidney disease, stage 2 (mild); I25.2 Old myocardial infarction; E86.0 Dehydration; R19.7 Diarrhea, unspecified; I25.10 Atherosclerotic heart disease of native coronary artery without angina pectoris; E78.5 Hyperlipidemia, unspecified; K21.9 Gastro-esophageal reflux disease without esophagitis; G89.29 Other chronic pain; E03.9 Hypothyroidism, unspecified; M54.9 Dorsalgia, unspecified; Z79.82 Long term (current) use of aspirin; Z79.899 Other long term (current) drug therapy; Z95.1 Presence of aortocoronary bypass graft

== ENCOUNTER → 2017-06-27 | Outpatient (CLI) | payer OTHER ==
[~2017-06-27] MED LIST changes: +CEPH-571 PO; +LCTX PO; +ONDA4TAB10 SL
[2017-06-27 17:49] LABS: BASO % 1.2 %; BASO ABS # 0.06 K/uL (0-0.2); COMPLETE YES; EOS % 4.7 %; IG% 0.2 %; LYMPH % 33.1 %; LYMPH ABS # 1.61 K/uL (1.2-3.4); MEAN CELL VOLUME 95.4 fL (80-100); MEAN CORPUSCULAR HEMOGLOBIN 31.3 pg (25-34); MEAN CORPUSCULAR HGB CONC 32.9 g/dl (32-36); MEAN PLATELET VOLUME 10.2 fL (7.4-10.4); MONO % 10.7 %; NEUT % 50.1 %; PLATELET COUNT 226 K/uL (130-400); RED BLOOD COUNT 3.67 M/uL (4.7-6.1); WHITE BLOOD COUNT 4.86 K/uL (4.8-10.8)
[2017-06-27 18:03] LABS: ALT/SGPT 20 U/L (12-78); BLOOD UREA NITROGEN 13 mg/dl (7-18); BUN/CREATININE RATIO 9.5 (10-20); CALCIUM 9.4 mg/dl (8.5-10.1); CARBON DIOXIDE 29 mmol/L (21-32); CHLORIDE 105 mmol/L (98-107); CHOLESTEROL 112 mg/dl (0-200); CREATININE 1.41 mg/dl (0.60-1.40); GLUCOSE 90 mg/dl (70-99); POTASSIUM 4.4 mmol/L (3.5-5.1); SODIUM 137 mmol/L (136-145); TRIGLYCERIDES 183 mg/dl (0-150); URIC ACID 6.6 mg/dl (2.6-7.2); VERY LOW DENSITY LIPOPROT CALC 37 mg/dl
[2017-06-27 18:20] LABS: ALB/GLOB RATIO 0.6 (0.9-2); ALKALINE PHOSPHATASE 60 U/L (45-117); AST/SGOT 15 U/L (15-37); CHOLESTEROL/HDL RATIO 4.7; HDL CHOLESTEROL 24 mg/dl; LDL CHOLESTEROL CALCULATED 51 mg/dl; TOTAL IRON BINDING CAPACITY 200 mcg/dl (250-450)
[2017-06-28 07:01] LABS: ESTIMATED AVERAGE GLUCOSE 123 mg/dl; HA1C FLAG Normal (Normal)
== END | disposition home or self-care (01) ==
LOC: C.LABBFT 11:59
PROVIDERS: ATTEND Family Medicine
DX: N17.9 Acute kidney failure, unspecified (principal); R73.09 Other abnormal glucose; E55.9 Vitamin D deficiency, unspecified; D51.9 Vitamin B12 deficiency anemia, unspecified; E78.9 Disorder of lipoprotein metabolism, unspecified; R53.83 Other fatigue

== ENCOUNTER → 2017-08-21 | Outpatient (CLI) | payer OTHER ==
[~2017-08-21] MED LIST changes: -ONDA4TAB10 SL
[2017-08-21 12:20] LABS: BASO % 0.7 %; BASO ABS # 0.04 K/uL (0-0.2); EOS % 8.4 %; HEMATOCRIT 41.7 % (42-52); HEMOGLOBIN 13.8 g/dL (14.0-18.0); IG# 0.02 K/uL (0.00-0.02); LYMPH % 48.1 %; LYMPH ABS # 2.86 K/uL (1.2-3.4); MEAN CELL VOLUME 93.3 fL (80-100); MEAN CORPUSCULAR HEMOGLOBIN 30.9 pg (25-34); MEAN CORPUSCULAR HGB CONC 33.1 g/dl (32-36); MEAN PLATELET VOLUME 10.2 fL (7.4-10.4); MONO % 10.1 %; NEUT % 32.4 %; NEUT ABS # 1.92 K/uL (1.4-6.5); PLATELET COUNT 228 K/uL (130-400); RED CELL DISTRIBUTION WIDTH CV 13.8 % (11.5-14.5); RED CELL DISTRIBUTION WIDTH SD 47.1 fL (36.4-46.3); WHITE BLOOD COUNT 5.94 K/uL (4.8-10.8)
[2017-08-21 12:33] LABS: ALBUMIN 3.8 gm/dl (3.4-5.0); ALT/SGPT 20 U/L (12-78); BLOOD UREA NITROGEN 26 mg/dl (7-18); CALCIUM 9.6 mg/dl (8.5-10.1); CARBON DIOXIDE 30 mmol/L (21-32); CREATININE 1.61 mg/dl (0.60-1.40); GLUCOSE 106 mg/dl (70-99); POTASSIUM 4.8 mmol/L (3.5-5.1); SODIUM 140 mmol/L (136-145)
[2017-08-21 12:36] LABS: ALKALINE PHOSPHATASE 73 U/L (45-117); AST/SGOT 19 U/L (15-37); TOTAL PROTEIN 7.9 gm/dl (6.4-8.2)
== END | disposition home or self-care (01) ==
LOC: C.LABBFT 10:32
PROVIDERS: ATTEND Family Medicine
DX: N18.3 Chronic kidney disease, stage 3 (moderate) (principal)

== ENCOUNTER → 2017-11-23 | Outpatient (CLI) | payer OTHER ==
[~2017-11-23] MED LIST changes: +ASPECOTC PO; -ASPI325T45 PO
[2017-11-23 17:04] LABS: BASO % 0.4 %; BASO ABS # 0.02 K/uL (0-0.2); EOS % 8.2 %; EOS ABS # 0.43 K/uL (0-0.5); HEMATOCRIT 36.3 % (42-52); HEMOGLOBIN 12.4 g/dL (14.0-18.0); IG# 0.01 K/uL (0.00-0.02); LYMPH % 40.9 %; LYMPH ABS # 2.15 K/uL (1.2-3.4); MEAN CELL VOLUME 92.6 fL (80-100); MEAN CORPUSCULAR HEMOGLOBIN 31.6 pg (25-34); MEAN CORPUSCULAR HGB CONC 34.2 g/dl (32-36); MEAN PLATELET VOLUME 10.6 fL (7.4-10.4); MONO % 11.8 %; MONO ABS # 0.62 K/uL (0.11-0.59); NEUT % 38.5 %; NEUT ABS # 2.03 K/uL (1.4-6.5); PLATELET COUNT 188 K/uL (130-400); RED CELL DISTRIBUTION WIDTH CV 14.1 % (11.5-14.5); RED CELL DISTRIBUTION WIDTH SD 47.3 fL (36.4-46.3); WHITE BLOOD COUNT 5.26 K/uL (4.8-10.8)
[2017-11-23 17:20] LABS: ALBUMIN 3.8 gm/dl (3.4-5.0); ALKALINE PHOSPHATASE 81 U/L (45-117); ALT/SGPT 24 U/L (12-78); AST/SGOT 25 U/L (15-37); BLOOD UREA NITROGEN 37 mg/dl (7-18); CARBON DIOXIDE 29 mmol/L (21-32); CHOLESTEROL 110 mg/dl (0-200); CREATININE 1.96 mg/dl (0.60-1.40); GLUCOSE 100 mg/dl (70-99); POTASSIUM 4.9 mmol/L (3.5-5.1); SODIUM 139 mmol/L (136-145)
[2017-11-23 17:30] LABS: LDL CHOLESTEROL CALCULATED 50 mg/dl; TRANSFERRIN 220 mg/dl (200-360)
[2017-11-24 07:47] LABS: HEMOGLOBIN A1C 5.4 % (4.5-5.6)
== END | disposition home or self-care (01) ==
LOC: C.LABBFT 12:21
PROVIDERS: ATTEND Family Medicine
DX: E88.81 Metabolic syndrome and other insulin resistance (principal); E55.9 Vitamin D deficiency, unspecified; D51.9 Vitamin B12 deficiency anemia, unspecified; E78.9 Disorder of lipoprotein metabolism, unspecified; R53.83 Other fatigue

== ENCOUNTER → 2018-02-27 | Outpatient (CLI) | payer OTHER ==
[~2018-02-27] MED LIST changes: -CEPH-571 PO; -CLON0.5T3 PO; +KLN/5 PO
[2018-02-27 12:51] LABS: BASO % 0.5 %; BASO ABS # 0.03 K/uL (0-0.2); EOS ABS # 0.33 K/uL (0-0.5); HEMATOCRIT 38.8 % (42-52); HEMOGLOBIN 13.1 g/dL (14.0-18.0); IG# 0.01 K/uL (0.00-0.02); LYMPH % 39.4 %; LYMPH ABS # 2.17 K/uL (1.2-3.4); MEAN CELL VOLUME 92.8 fL (80-100); MEAN CORPUSCULAR HEMOGLOBIN 31.3 pg (25-34); MEAN CORPUSCULAR HGB CONC 33.8 g/dl (32-36); MEAN PLATELET VOLUME 10.9 fL (7.4-10.4); MONO % 13.2 %; MONO ABS # 0.73 K/uL (0.11-0.59); NEUT % 40.7 %; NEUT ABS # 2.24 K/uL (1.4-6.5); PLATELET COUNT 200 K/uL (130-400); RED CELL DISTRIBUTION WIDTH CV 13.7 % (11.5-14.5); RED CELL DISTRIBUTION WIDTH SD 46.4 fL (36.4-46.3); WHITE BLOOD COUNT 5.51 K/uL (4.8-10.8)
[2018-02-27 17:45] LABS: ALBUMIN 3.6 gm/dl (3.4-5.0); ALKALINE PHOSPHATASE 78 U/L (45-117); ALT/SGPT 20 U/L (12-78); AST/SGOT 15 U/L (15-37); BLOOD UREA NITROGEN 32 mg/dl (7-18); CALCIUM 8.8 mg/dl (8.5-10.1); CARBON DIOXIDE 25 mmol/L (21-32); CREATININE 1.76 mg/dl (0.60-1.40); GLUCOSE 100 mg/dl (70-99); POTASSIUM 4.9 mmol/L (3.5-5.1); SODIUM 138 mmol/L (136-145); TOTAL PROTEIN 7.9 gm/dl (6.4-8.2)
== END | disposition home or self-care (01) ==
LOC: C.LABBFT 11:05
PROVIDERS: ATTEND Family Medicine
DX: N18.9 Chronic kidney disease, unspecified (principal); D64.9 Anemia, unspecified

== ENCOUNTER 2024-01-09 12:53 | Inpatient (IN) ==
--- NOTE | 2024-01-09 13:08 | Emergency Department Note ---
History of Present Illness General Chief complaint: Unresponsive Time Seen by Provider: 01/09/24 12:59 Source: patient, family and EMS History of Present Illness Provider complaint: Unresponsive 88-year-old male presents emergency department via EMS after being found to be unresponsive. Patient reports he was having epigastric pain last night so he took a nitroglycerin and then fell landed on his left wrist. He states he is having pain in his left wrist. Patient reports that earlier today he started having epigastric and substernal pain so he took another sublingual nitroglycerin. Patient's reports that the patient was unresponsive. EMS reports that when they arrived the patient was not able to communicate with them and that he had a very low heart rate and low blood pressure. EMS reports that they gave the patient atropine 1 mg IV and IV fluids and then the patient became more alert, his heart rate normalized, and his blood pressure improved. Patient is currently reporting pain in his left wrist. No headache. Home Medications Medication Instructions Recorded Confirmed Type aspirin 325 mg tablet 325 mg PO HS 03/17/19 11/27/23 History cholecalciferol (vitamin D3) 25 1,000 units PO DAILY 04/08/19 11/27/23 History mcg (1,000 unit) capsule cyanocobalamin (vitamin B-12) 1,000 mcg PO QAM 05/12/20 11/27/23 History 1,000 mcg tablet omega-3 fatty acids 1,000 mg PO QAM 05/12/20 11/27/23 History allopurinol 100 mg tablet 100 mg PO BID #180 tabs 11/27/23 11/27/23 Rx amlodipine 5 mg tablet 5 mg PO QAM #90 tabs 11/27/23 11/27/23 Rx carvedilol 12.5 mg tablet 12.5 mg PO BID #180 tabs 11/27/23 11/27/23 Rx cetirizine 10 mg tablet 10 mg PO DAILY #90 tabs 11/27/23 11/27/23 Rx colchicine 0.6 mg tablet (Colcrys) 0.6 mg PO DAILY PRN GOUT FLARE UP 11/27/23 11/27/23 Rx #90 tabs cyclobenzaprine 10 mg tablet 10 mg PO TID #270 tabs 11/27/23 11/27/23 Rx finasteride 5 mg tablet 5 mg PO DAILY #90 tabs 11/27/23 11/27/23 Rx gabapentin 100 mg capsule 100 mg PO HS #90 caps 11/27/23 11/27/23 Rx levothyroxine 150 mcg tablet 150 mcg PO QAM #90 tabs 11/27/23 11/27/23 Rx meloxicam 7.5 mg tablet 7.5 mg PO DAILY #90 tabs 11/27/23 11/27/23 Rx nitroglycerin 0.4 mg sublingual 0.4 mg sublingual Q5M PRN chest 11/27/23 11/27/23 Rx tablet pain #30 tabs pantoprazole 40 mg tablet,delayed 40 mg PO QAM #90 tabs 11/27/23 11/27/23 Rx release simvastatin 40 mg tablet 40 mg PO HS #90 tabs 11/27/23 11/27/23 Rx telmisartan 40 mg tablet 40 mg PO QAM #90 tabs 11/27/23 11/27/23 Rx ursodiol 300 mg capsule 300 mg PO BID #180 caps 11/27/23 11/27/23 Rx tramadol 50 mg tablet 50 mg PO TID PRN pain #90 tabs 12/04/23 Rx Allergies Allergy/AdvReac Type Severity Reaction Status Date / Time codeine Allergy Severe "ENTIRE Verified 11/27/23 09:21 SYSTEM SHUT DOWN" hydromorphone AdvReac Unknown Verified 11/27/23 09:21 nickel AdvReac Unknown Verified 11/27/23 09:21 oxycodone AdvReac Unknown Verified 11/27/23 09:21 Past Med/Surg History Problem List (Updated 01/09/24 @ 14:33 by Russell Castle MD) Distal radius fracture, left (Acute) Symptomatic bradycardia (Acute) Sleep disorder Diarrhea Rhinitis Lumbar disc disease Benign prostatic hyperplasia Gout Sinusitis Anemia, unspecified Impaired glucose tolerance (oral) CKD (chronic kidney disease), stage III Hypertension Hypothyroidism Hyperlipidemia Coronary artery disease Medical History Degenerative disc disease Osteoarthritis BPH (benign prostatic hyperplasia) Hx of gout GERD (gastroesophageal reflux disease) Deep vein thrombosis RT/LEFT 1967 ?REASON H/O blood clots RT ARM 1984 Myocardial infarction 1978+1979 [facility] (acute kidney injury) Surgical History Lump in chest BENIGN (REMOVED) H/O hand surgery LUMP REMOVED FROM RT HAND History of total knee replacement RT History of colonoscopy History of tooth extraction History of cardiac cath X 3 (NO STENTS) Hx of ventral hernia repair Hx of carpal tunnel repair RT/LEFT Hx of cholecystectomy 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 [facility] Hx of appendectomy Family History Brother Cardiac disorder Diabetes Hypertension Myocardial infarction Sister Cardiac disorder Cancer Breast cancer Lung cancer Denies family history of Ovarian cancer Prostate cancer Colorectal cancer Social History Smoking Status: Former smoker Second Hand Exposure: No; Do You Dip or Chew Tobacco: No; Hx Alcohol Use: Yes Hx Substance Use: No Preferred Language: [place] Communication Ability: Effective Visual Impairment: Limited Hearing Ability: Use of Hearing Aid Spin Table Operator Required: No Beliefs That Will Affect Care: None marital status: Current Living Situation: Spouse current occupational status: retired How many Children do You have: 1 Feels Safe at Home: Yes Childhood Exposure to Second-Hand Smoke: No Diet: regular caffeine: Yes (coffee and tea) Dental Care, Regularly: No Physical Activity Frequency: Daily Seatbelt Use: always Sunscreen Use: Yes (sometimes) Assistive Devices: Denture - Lower, Glasses and Hearing Aid - Bilateral Physical Exam Vital Signs Vital Signs - 24 hr 01/09/24 12:57 01/09/24 13:00 01/09/24 13:06 Temperature 36.7 C Temperature Source Oral Pulse Rate 67 67 Pulse Rate [Left] Pulse Rate from SpO2 Sensor 67 Pulse Rhythm Regular Pulse Rhythm [Left] Pulse Strength Normal Pulse Strength [Left] Respiratory Rate 22 18 Respiratory Effort / Characteristics Non-Labored Respiratory Depth Normal Respiratory Pattern Regular Blood Pressure 127/72 Blood Pressure [Right Arm] Blood Pressure Mean 90 Blood Pressure Mean [Right Arm] Blood Pressure Position Sitting Blood Pressure Position [Right Arm] Pulse Oximetry 96 92 98 Oxygen Delivery Method Room Air Room Air Room Air Sepsis Recent Fever Within 48 Hours No Sepsis New/Unexplained Change in Mental Status No Sepsis Action Taken by Nursing No Action Required 01/09/24 13:12 01/09/24 13:21 01/09/24 13:32 Temperature Temperature Source Pulse Rate 65 67 Pulse Rate [Left] 66 Pulse Rate from SpO2 Sensor 65 Pulse Rhythm Pulse Rhythm [Left] Regular Pulse Strength Pulse Strength [Left] Normal Respiratory Rate 17 21 Respiratory Effort / Characteristics Non-Labored Respiratory Depth Normal Respiratory Pattern Regular Blood Pressure Blood Pressure [Right Arm] 145/71 H Blood Pressure Mean Blood Pressure Mean [Right Arm] 95 Blood Pressure Position Blood Pressure Position [Right Arm] Sitting Pulse Oximetry 95 95 Oxygen Delivery Method Room Air Room Air Sepsis Recent Fever Within 48 Hours Sepsis New/Unexplained Change in Mental Status Sepsis Action Taken by Nursing 01/09/24 13:33 01/09/24 14:00 Temperature Temperature Source Pulse Rate 65 66 Pulse Rate [Left] Pulse Rate from SpO2 Sensor 65 67 Pulse Rhythm Pulse Rhythm [Left] Pulse Strength Pulse Strength [Left] Respiratory Rate 18 18 Respiratory Effort / Characteristics Respiratory Depth Respiratory Pattern Blood Pressure 128/63 Blood Pressure [Right Arm] Blood Pressure Mean 84 Blood Pressure Mean [Right Arm] Blood Pressure Position Blood Pressure Position [Right Arm] Pulse Oximetry 94 93 Oxygen Delivery Method Room Air Room Air Sepsis Recent Fever Within 48 Hours Sepsis New/Unexplained Change in Mental Status Sepsis Action Taken by Nursing Physical Exam GENERAL: Patient appears lethargic HENT: Exam performed. - Head: Normocephalic and atraumatic. EYES: Conjunctivae and EOM are normal. Pupils are equal, round, and reactive to light. Right eye exhibits no discharge. Left eye exhibits no discharge. No scleral icterus. NECK: Normal range of motion. Neck supple. No JVD present. CV: Normal rate, regular rhythm, normal heart sounds and intact distal pulses. There is no peripheral edema. Palpable radial pulses bue. PULM/CHEST: Effort normal and breath sounds normal. No respiratory distress. No stridor. He has no wheezes. He has no rales. ABD: The abdomen is soft. Diastasis recti. He has no distension. No mass is present. There is no tenderness. There is no rebound, no guarding. MUSC/SKEL: Normal range of motion. There is no peripheral edema, tenderness or deformity. NEURO: He is alert and oriented to person, place, and time. He has normal strength. No cranial nerve deficit or sensory deficit. Coordination and gait normal. GCS eye subscore is 4. GCS verbal subscore is 5. GCS motor subscore is 6. Cerebellar tests wnl. SKIN: Skin is warm and dry. He is not diaphoretic. PSYCH: He has a normal mood and affect. Behavior is normal. Judgment and thought content normal. Course Course 1259: The patient was evaluated in room A1. A complete history and physical exam was performed Cardiac monitoring: An order was placed for continuous cardiac monitoring. The monitor shows a rate of 70 with sinus rhythm interpreted by ga 1425: Vital signs stable. Labs within normal limits. Chest x-ray within normal limits. Imaging shows no traumatic findings with the exception of a nondisplaced left distal radius fracture. Patient will be placed in a splint. Given the patient's episode of unresponsiveness bradycardia and hypotension that responded to atropine, patient will be admitted to the [facility] team. With regards to the patient's nondisplaced radius fracture, Dr. Ashford on-call orthopedics was notified and he will be on routine consult. Administered Medications Discontinued Medications Aspirin (Aspirin Chew 324 Mg) 324 mg PO NOW STA Stop: 01/09/24 13:01 Last Admin: 01/09/24 13:11 Dose: Not Given Documented By: MOE Sodium Chloride (Nss) 1,000 mls @ 999 mls/hr IV .Q1H1M STA Stop: 01/09/24 14:00 Last Admin: 01/09/24 13:11 Dose: 999 mls/hr Documented By: MOE Medical Decision Making Laboratory Data Attestation: I reviewed the patient's lab results. 01/09/24 13:04 01/09/24 13:04 Lab Results 01/09/24 01/09/24 01/09/24 Range/Units 13:03 13:04 13:09 WBC 6.17 (4.8-10.8) K/ul RBC 3.43 L (4.70-6.10) M/uL Hgb 10.9 L (14.0-18.0) g/dl POC Hgb 11.2 L (14.0-18.0) g/dl Hct 33.5 L (42.0-52.0) % POC Hct 33 L (42-52) % MCV 97.7 (80.0-100.0) fL MCH 31.8 (25.0-34.0) pg MCHC 32.5 (32.0-36.0) g/dL RDW Std Deviation 50.6 H (36.4-46.3) fL RDW Coeff of Viviana 14.0 (11.5-14.5) % Plt Count 162 (130-400) K/uL MPV 10.7 (9.4-12.4) fL Immature Gran % (Auto) 0.3 % Neut % (Auto) 56.8 % Lymph % (Auto) 29.0 % Frederick % (Auto) 9.1 % Eos % (Auto) 4.2 % Baso % (Auto) 0.6 % Neut # (Auto) 3.50 (1.40-6.50) K/uL Lymph # (Auto) 1.79 (1.20-3.40) K/uL Frederick # (Auto) 0.56 (0.11-0.59) K/uL Eos # (Auto) 0.26 (0.00-0.50) K/uL Baso # (Auto) 0.04 (0.00-0.20) K/uL Immature Gran # (Auto) 0.02 (0.01-0.20) K/uL PT 10.4 (9.0-12.0) Seconds INR 1.0 (0.9-1.1) APTT 25 (21-31) Seconds PTT Ratio 0.9 POC Sodium 139 (135-144) mmol/L Sodium 137 (136-145) mmol/L POC Potassium 5.1 H (3.3-5.0) mmol/L Potassium 5.1 (3.5-5.1) mmol/L POC Chloride 106 (101-112) mmol/L Chloride 106 (98-107) mmol/L Carbon Dioxide 27 (21-32) mmol/L POC Total CO2 25 (24-31) mmol/L Anion Gap 4 (3-11) POC Anion Gap 14.0 L (16-25) mmol/L POC BUN 32 H (7-18) mg/dl BUN 38 H (6-23) mg/dl Creatinine 1.79 H (0.6-1.4) mg/dl POC Creatinine 2.0 H (0.6-1.3) mg/dl Est Cr Clr Drug Dosing 32.2 ml/min Est GFR ( Amer) 38.9 ml/min Est GFR (Non-Af Amer) 33.6 ml/min BUN/Creatinine Ratio 21.2 H (10-20) Glucose 115 H (70-99(Fasting)) mg/dl POC Glucose 107 H (70-99) mg/dl POC Glucose (other) 110 H (70-99) mg/dl Calcium 9.0 (8.6-10.3) mg/dl POC Ioniz Calcium Patito 1.20 (1.12-1.32) mmol/l Magnesium 1.9 (1.7-2.4) mg/dl Troponin I High Sens 5.9 (0-20) pg/ml Lipase 7 L (11-82) U/L Imaging Data My Impression: Chest x-ray: Chest x-ray negative. Airway clear. No pneumothorax. No consolidation. No cardiomegaly or cephalization.. No free air under the diaphragm. No fractures of the skeletal structures. Left-sided gastric bubble. Left wrist x-ray: Distal radius fracture nondisplaced Radiologist's Impression: Chest X-Ray 01/09/24 13:00 SINGLE VIEW CHEST CLINICAL HISTORY: Atypical chest pain. FINDINGS: An AP, portable, upright chest radiograph is compared to study dated 06/22/2017. The patient is status post midline sternotomy. The heart is enlarged noting atherosclerotic calcification of the thoracic aorta. The pulmonary vasculature is noncongested. Chronic interstitial thickening is similar to previous. There is chronic elevation of the left hemidiaphragm and bibasilar atelectasis. The lungs and pleural spaces are otherwise clear. No pneumothorax is seen. The skeletal structures are osteopenic. The bony thorax is grossly intact. IMPRESSION: Cardiomegaly with no active disease in the chest. ACT 112: Negative or not required by law. Electronically signed by: Ethan Mack M.D. 01/09/2024 2:05 PM Wrist X-Ray 01/09/24 13:07 XR wrist LT min 3V routine CLINICAL HISTORY: L wrist pain TECHNIQUE: 4 views of the left wrist were obtained. Comparison: None available at the time of this dictation. FINDINGS: Nondisplaced fracture of the radius is partially visualized. Intra-articular extension. Soft tissue swelling is seen about the wrist. IMPRESSION: Likely intra-articular nondisplaced fracture of the radius. ACT 112: Negative or not required by law. Electronically signed by: Luis Miguel Bautista M.D. 01/09/2024 1:[address] 01/09/24 13:08 CT head/brain wo con CLINICAL HISTORY: ams Technique: Contiguous axial CT images of the head were acquired from the base of the skull to the vertex without intravenous contrast administration. Images were viewed in brain, subdural and bone windows. Automated dose lowering techniques and/or adjustment according to patient size were utilized for this exam. Comparison: None available at the time of this dictation. Findings: Areas of decreased attenuation are present in the periventricular and subcortical white matter bilaterally consistent with small vessel ischemic disease. Generalized cerebral atrophy with commensurate enlargement of the ventricles, sulci, and cisterns is also present. There is no acute intracranial hemorrhage or evidence of acute territorial infarction. No shift of the midline structures, mass effect, or extra-axial abnormalities are shown. Atherosclerotic calcifications are present in the intracranial segments of the internal carotid arteries. Imaged portions of the paranasal sinuses and mastoid air cells are clear. The orbits appear normal. There are no acute fractures of the calvaria or scalp swelling. Impression: No acute intracranial hemorrhage, no evidence of acute territorial infarction or other acute intracranial disease process. ACT 112: Negative or not required by law. Electronically signed by: Luis Miguel Bautista M.D. 01/09/2024 1:[address] 01/09/24 13:09 CT cervical spine wo con CLINICAL HISTORY: 88 years-old Male with ams unresponsive. Acute altered mental status COMPARISON: Head CT of same day TECHNIQUE: Multiple axial CT images of the cervical spine were obtained without contrast. A dose lowering technique was utilized adhering to the principles of ALARA. FINDINGS: Multilevel degenerative changes which are moderate to severe. Straightening of the normal cervical lordosis. No acute cervical spine fracture or subluxation. The cervical soft tissues appear unremarkable. No pneumothorax. Atherosclerosis of the carotid bulbs. Nodular and linear subpleural opacities of the lung apices. IMPRESSION: 1. No acute cervical spine fracture or subluxation identified. 2. Partially imaged biapical opacities favor scarring. Findings could be evaluated with a nonemergent follow-up chest CT if of further clinical concern. ACT 112: Negative or not required by law. The above report was generated using voice recognition software. It may contain grammatical, syntax or spelling errors. Electronically signed by: Emmanuel Webber M.D. 01/09/2024 1:35 PM Abdomen/Pelvis CT 01/09/24 13:14 CT SCAN OF THE ABDOMEN AND PELVIS WITHOUT IV CONTRAST CLINICAL HISTORY: Epigastric abdominal pain. COMPARISON STUDY: Abdominal CT dated 06/22/2017. TECHNIQUE: CT scan of the abdomen and pelvis is performed from the lung bases to the proximal femora. Images are reviewed in the axial, sagittal, and coronal planes. IV contrast was not administered for this examination. Note that the examination is significantly suboptimal without oral and IV contrast. A dose lowering technique was utilized adhering to the principles of ALARA. CT DOSE: 2678.38 mGy.cm FINDINGS: Lung bases: The heart is enlarged and without pericardial effusion. The coronary arteries are densely calcified. There is a small hiatal hernia. There are scattered calcified granulomas. The lung bases are otherwise clear noting bibasilar scarring/atelectasis. Liver: The unenhanced liver is normal in size, contour, and attenuation. There is mild intrahepatic biliary ductal dilatation. Gallbladder: Surgically absent noting clips in the gallbladder fossa. Spleen: Normal in size and attenuation. Pancreas: The unenhanced pancreas is moderately atrophic and grossly unremarkable. Adrenal glands: Unremarkable. Kidneys: The unenhanced kidneys demonstrate mild cortical atrophy and are without hydronephrosis. No renal calculi are identified and no ureteral stone is seen. Small renal cysts measure up to 2.6 cm. A circumaortic left renal vein is incidentally noted. Abdominal vasculature: There is advanced atherosclerotic calcification and ectasia of the abdominal aorta. There is a 3.3 cm infrarenal abdominal aortic aneurysm. Bowel: There is mild colonic diverticulosis without CT evidence of acute diverticulitis. No bowel obstruction is seen. Moderate fecal retention is noted throughout the colon. The appendix is not identified and reported surgically absent. Peritoneum: There is no intraperitoneal free air or abdominal ascites. Postsurgical changes noted in the ventral abdominal wall. Lymphadenopathy: None. Pelvic viscera: The prostate gland is enlarged and heterogeneous. The bladder wall is thickened/trabeculated indicating chronic outlet obstruction. Surgical clips are noted in the left groin. Skeletal structures: The skeletal structures are osteopenic. There is mild to moderate lumbosacral spondylosis. No lytic or blastic lesions are seen. IMPRESSION: 1. No acute infectious or inflammatory findings are identified in the abdomen or pelvis. 2. Cardiomegaly noting advanced coronary artery atherosclerosis. 3. Moderate constipation. 4. There is a 3.3 cm infrarenal abdominal aortic aneurysm. 5. Additional findings as above. ACT 112: Negative or not required by law. Electronically signed by: Ethan Mack M.D. 01/09/2024 1:55 PM ECG Data Attestation: I personally reviewed and interpreted this ECG as follows: Additional Comments: Sinus rhythm with rate of 67. WI 166 QRS [address] elevation or ST depression. Bifascicular block present. [facility] Narrative 1259: The patient was evaluated in room A1. A complete history and physical exam was performed Cardiac monitoring: An order was placed for continuous cardiac monitoring. The monitor shows a rate of 70 with sinus rhythm interpreted by me 1425: Vital signs stable. Labs within normal limits. Chest x-ray within normal limits. Imaging shows no traumatic findings with the exception of a nondisplaced left distal radius fracture. Patient will be placed in a splint. Given the patient's episode of unresponsiveness bradycardia and hypotension that responded to atropine, patient will be admitted to the [facility] team. With regards to the patient's nondisplaced radius fracture, Dr. Ashford on-call orthopedics was notified and he will be on routine consult. Impression & Plan Symptomatic bradycardia, Distal radius fracture, left Discharge Plan Visit Data Chief Complaint: Unresponsive ED Provider: Russell Castle Discharge Problem: Symptomatic bradycardia, Distal radius fracture, left Patient Disposition: Admitted As Inpatient Forms Stand Alone Forms: My [facility] Prescriptions Prescriptions: No Action tramadol 50 mg tablet 50 mg PO TID PRN (Reason: pain) Qty: 90 5RF aspirin 325 mg tablet 325 mg PO HS cholecalciferol (vitamin D3) 1,000 unit capsule 1,000 units PO DAILY allopurinol 100 mg tablet 100 mg PO BID Qty: 180 3RF amlodipine 5 mg tablet 5 mg PO QAM Qty: 90 3RF carvedilol 12.5 mg tablet 12.5 mg PO BID Qty: 180 3RF colchicine [Colcrys] 0.6 mg tablet 0.6 mg PO DAILY PRN (Reason: GOUT FLARE UP) Qty: 90 3RF cyclobenzaprine 10 mg tablet 10 mg PO TID Qty: 270 3RF finasteride 5 mg tablet 5 mg PO DAILY Qty: 90 3RF levothyroxine 150 mcg tablet 150 mcg PO QAM Qty: 90 3RF meloxicam 7.5 mg tablet 7.5 mg PO DAILY Qty: 90 3RF nitroglycerin 0.4 mg tablet, sublingual 0.4 mg SL Q5M PRN (Reason: chest pain) Qty: 30 3RF pantoprazole 40 mg tablet,delayed release (DR/EC) 40 mg PO QAM Qty: 90 3RF simvastatin 40 mg tablet 40 mg PO HS Qty: 90 3RF telmisartan 40 mg tablet 40 mg PO QAM Qty: 90 3RF ursodiol 300 mg capsule 300 mg PO BID Qty: 180 3RF gabapentin 100 mg capsule 100 mg PO HS Qty: 90 3RF cetirizine 10 mg tablet 10 mg PO DAILY Qty: 90 3RF cyanocobalamin (vitamin B-12) 1,000 mcg Tablet 1,000 mcg PO QAM omega-3 fatty acids Capsule 1,000 mg PO QAM Referrals Referrals: Rogelio Machuca MD [Primary Care Provider] - Discharge Problem: Distal radius fracture, left Qualifiers: Encounter type: initial encounter Fracture type: closed Fracture morphology: u nspecified fracture morphology Qualified Code(s): S52.502A - Unspecified fracture of the lower end of left radius, initial encounter for closed fracture
[2024-01-09] MEDS: ASPIRIN CHEW 324 MG PO STA (13:11)
[2024-01-09] MEDS: SODIUM CHLORIDE 0.9% 1,000 ML IV STA (13:11)
[2024-01-09 13:22] LABS: iSTAT Hemoglobin 11.2 g/dl (14.0-18.0); iSTAT Ionized Calcium 1.2 mmol/l (1.12-1.32); iSTAT Potassium 5.1 mmol/L (3.3-5.0)
--- NOTE | 2024-01-09 13:35 | XRay Report ---
XR wrist LT min 3V routine CLINICAL HISTORY: L wrist pain TECHNIQUE: 4 views of the left wrist were obtained. Comparison: None available at the time of this dictation. FINDINGS: Nondisplaced fracture of the radius is partially visualized. Intra-articular extension. Soft tissue s welling is seen about the wrist. IMPRESSION: Likely intra-articular nondisplaced fracture of the radius. ACT 112: Negative or not required by law. Electronically signed by: Luis Miguel Bautista M.D. 01/09/2024 1:34 PM
--- NOTE | 2024-01-09 13:36 | CT Scan Report ---
CT cervical spine wo con CLINICAL HISTORY: 88 years-old Male with ams unresponsive. Acute altered mental status COMPARISON: Head CT of same day TECHNIQUE: Multiple axial CT images of the cervical spine were obtained without contrast. A dose low ering technique was utilized adhering to the principles of ALARA. FINDINGS: Multilevel degenerative changes which are moderate to severe. Straightening of the normal c ervical lordosis. No acute cervical spine fracture or subluxation. The cervical soft tissues appear u nremarkable. No pneumothorax. Atherosclerosis of the carotid bulbs. Nodular and linear subpleural op acities of the lung apices. IMPRESSION: 1. No acute cervical spine fracture or subluxation identified. 2. Partially imaged biapical opacities favor scarring. Findings could be evaluated with a nonemergent follow-up chest CT if of further clinical concern. ACT 112: Negative or not required by law. The above report was generated using voice recognition software. It may contain grammatical, syntax o r spelling errors. Electronically signed by: Emmanuel Webber M.D. 01/09/2024 1:35 PM
--- NOTE | 2024-01-09 13:36 | CT Scan Report ---
CT head/brain wo con CLINICAL HISTORY: ams Technique: Contiguous axial CT images of the head were acquired from the base of the skull to the maria dmitri without intravenous contrast administration. Images were viewed in brain, subdural and bone [facility]. Automated dose lowering techniques and/or adjustment according to patient size were utilized for this exam. Comparison: None available at the time of this dictation. Findings: Areas of decreased attenuation are present in the periventricular and subcortical white matter bilate rally consistent with small vessel ischemic disease. Generalized cerebral atrophy with commensurate e nlargement of the ventricles, sulci, and cisterns is also present. There is no acute intracranial hem orrhage or evidence of acute territorial infarction. No shift of the midline structures, mass effect, or extra-axial abnormalities are shown. Atherosclerotic calcifications are present in the intracran ial segments of the internal carotid arteries. Imaged portions of the paranasal sinuses and mastoid air cells are clear. The orbits appear normal. There are no acute fractures of the calvaria or scalp swelling. Impression: No acute intracranial hemorrhage, no evidence of acute territorial infarction or other acute intracra nial disease process. ACT 112: Negative or not required by law. Electronically signed by: Luis Miguel Bautista M.D. 01/09/2024 1:35 PM
[2024-01-09 13:45] LABS: Basophils # (auto) 0.04 K/uL (0.00-0.20); Basophils % (auto) 0.6 %; Eosinophils # (auto) 0.26 K/uL (0.00-0.50); Eosinophils % (auto) 4.2 %; Hematocrit (blood only) 33.5 % (42.0-52.0); Hemoglobin 10.9 g/dl (14.0-18.0); Immature Granulocytes # (auto) 0.02 K/uL (0.01-0.20); Immature Granulocytes % (auto) 0.3 %; Lymphocytes # (auto) 1.79 K/uL (1.20-3.40); Mean Corpuscular Hemoglobin 31.8 pg (25.0-34.0); Mean Corpuscular Hgb Conc 32.5 g/dL (32.0-36.0); Mean Corpuscular Volume 97.7 fL (80.0-100.0); Mean Platelet Volume 10.7 fL (9.4-12.4); Monocytes # (auto) 0.56 K/uL (0.11-0.59); Monocytes % (auto) 9.1 %; Neutrophils % (auto) 56.8 %; Platelet Count 162 K/uL (130-400); RDW Standard Deviation 50.6 fL (36.4-46.3); Red Blood Count 3.43 M/uL (4.70-6.10); White Blood Count 6.17 K/ul (4.8-10.8)
[2024-01-09 13:53] LABS: BUN Creatinine Ratio 21.2 (10-20); Creatinine Clr Calc Pharmacy 32.2 ml/min; Est GFR (African American) 38.9 ml/min; Est GFR (Non-African American) 33.6 ml/min; Magnesium 1.9 mg/dl (1.7-2.4); Potassium 5.1 mmol/L (3.5-5.1)
--- NOTE | 2024-01-09 13:58 | CT Scan Report ---
CT SCAN OF THE ABDOMEN AND PELVIS WITHOUT IV CONTRAST CLINICAL HISTORY: Epigastric abdominal pain. COMPARISON STUDY: Abdominal CT dated 06/22/2017. TECHNIQUE: CT scan of the abdomen and pelvis is performed from the lung bases to the proximal femora. Images are reviewed in the axial, sagittal, and coronal planes. IV contrast was not administered for this examination. Note that the examination is significantly suboptimal without oral and IV contrast . A dose lowering technique was utilized adhering to the principles of ALARA. CT DOSE: 2678.38 mGy.cm FINDINGS: Lung bases: The heart is enlarged and without pericardial effusion. The coronary arteries are densely calcified. There is a small hiatal hernia. There are scattered calcified granulomas. The lung bases are otherwise clear noting bibasilar scarring/atelectasis. Liver: The unenhanced liver is normal in size, contour, and attenuation. There is mild intrahepatic b iliary ductal dilatation. Gallbladder: Surgically absent noting clips in the gallbladder fossa. Spleen: Normal in size and attenuation. Pancreas: The unenhanced pancreas is moderately atrophic and grossly unremarkable. Adrenal glands: Unremarkable. Kidneys: The unenhanced kidneys demonstrate mild cortical atrophy and are without hydronephrosis. No renal calculi are identified and no ureteral stone is seen. Small renal cysts measure up to 2.6 cm. A circumaortic left renal vein is incidentally noted. Abdominal vasculature: There is advanced atherosclerotic calcification and ectasia of the abdominal a sterling. There is a 3.3 cm infrarenal abdominal aortic aneurysm. Bowel: There is mild colonic diverticulosis without CT evidence of acute diverticulitis. No bowel obs truction is seen. Moderate fecal retention is noted throughout the colon. The appendix is not identi fied and reported surgically absent. Peritoneum: There is no intraperitoneal free air or abdominal ascites. Postsurgical changes noted in the ventral abdominal wall. Lymphadenopathy: None. Pelvic viscera: The prostate gland is enlarged and heterogeneous. The bladder wall is thickened/trabe culated indicating chronic outlet obstruction. Surgical clips are noted in the left groin. Skeletal structures: The skeletal structures are osteopenic. There is mild to moderate lumbosacral sp ondylosis. No lytic or blastic lesions are seen. IMPRESSION: 1. No acute infectious or inflammatory findings are identified in the abdomen or pelvis. 2. Cardiomegaly noting advanced coronary artery atherosclerosis. 3. Moderate constipation. 4. There is a 3.3 cm infrarenal abdominal aortic aneurysm. 5. Additional findings as above. ACT 112: Negative or not required by law. Electronically signed by: Ethan Mack M.D. 01/09/2024 1:55 PM
[2024-01-09 14:00] LABS: Troponin I High Sensitivity 5.9 pg/ml (0-20)
--- NOTE | 2024-01-09 14:07 | XRay Report ---
SINGLE VIEW CHEST CLINICAL HISTORY: Atypical chest pain. FINDINGS: An AP, portable, upright chest radiograph is compared to study dated 06/22/2017. The patient is status post midline sternotomy. The heart is enlarged noting atherosclerotic calcification of the thoracic aorta. The pulmonary vasculature is noncongested. Chronic interstitial thickening is simila r to previous. There is chronic elevation of the left hemidiaphragm and bibasilar atelectasis. The dl ngs and pleural spaces are otherwise clear. No pneumothorax is seen. The skeletal structures are oste openic. The bony thorax is grossly intact. IMPRESSION: Cardiomegaly with no active disease in the chest. ACT 112: Negative or not required by law. Electronically signed by: Ethan Mack M.D. 01/09/2024 2:05 PM
[2024-01-09 14:08] LABS: Partial Thromboplastin Ratio 0.9; Partial Thromboplastin Time 25 Seconds (21-31); Prothrombin Time 10.4 Seconds (9.0-12.0)
--- NOTE | 2024-01-09 15:00 | History & Physical Report ---
Date of Service January 09, 2024 Assessment & Plan (1) Symptomatic bradycardia: Plan: Unresponsive episode, ?sx jannet Rapid loss of consciousness preceded by GI discomfort, may have been precipitated by nitro.? Hypotensive with nitro on top of volume depletion while working in the yard during the hot weather versus symptomatic bradycardia Patient was found by EMS to be bradycardic, improved following administration of atropine. BP stable while in the ER Suspect symptomatic bradycardia. Follow on telemetry. Atropine on-call if needed. If persistently bradycardic/hypotensive can transcutaneously pace. Troponin normal cardiology consulted. Echo pending CTA/P: No acute infectious or inflammatory findings. Moderate constipation. 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 Biapical opacities favoring scarring CThead without acute findings X-ray left wrist with nondisplaced intra-articular nondisplaced radial fracture Chest x-ray: No acute finding No leukocytosis. Potassium upper limit of normal, creatinine 1.79 with baseline around 1.53 BSG was not low, 107 on ER assessment EKG: Normal sinus rhythm, bifascicular block, right bundle branch block. 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 No acute ischemic signs on EKG, high-sensitivity troponin is normal Patient is on relatively low-dose gabapentin 100 mg at night, tramadol 50 3 times daily. No tachycardia or hypoxia to suggest PE. Carvedilol held No narcosis on admitting exam. Could hold tramadol although low suspicion this is the cause of his symptomsno signs of (2) Distal radius fracture, left: Plan: Patient notes that he tripped on a rock and fell on an outstretched left hand. This preceded his syncopal episodes and he did not strike his head or lose consciousness at that time. Suspect that this was separate from syncopal episodes X-ray confirms distal radial fracture, likely intra-articular. Orthopedics Dr. Ashford following Fingertips neurovascularly intact, wrist is wrapped in Polo bandage at time of assessment (3) Myocardial infarction: Plan: History of NC, CAD No acute chest pain or evidence of ACS History of 5 vessel CABG Cardiac catheterization 08/2010: Left main 50%, LAD 100%, left circumflex 90% and mid 100%, atretic OM1, RCA proximal 100% with collaterals. BERNARD to LAD patent, SVG to diagonal jump graft to diagonal 2 patent, occluded SVGPDA, occluded SVGmarginal. No disease amenable to PCI at that time Lexiscan 2019 without evidence of ischemia, LVEF 48%, inferior fixed perfusion deficit. Follows with Dr. Hall was consulted. EKG without acute ischemic change, troponin normal. Repeat x 1 ordered Echo ordered (4) CKD (chronic kidney disease), stage III: Plan: CKD 3 Creatinine baseline around 1.53, slightly elevated at 1.79 Received 1 L NSS while in the ER, telmisartan held (5) Hyperkalemia: Plan: Hyperkalemia 5.1. With clinical volume contraction, mild Trended every 4 hours x 2 If uptrending or telemetry shows peaked T waves/Worsening QTc/worsening QRS then add calcium gluconate, insulin dextrose, and 1 dose of Lokelma at that time Plan Chronic stable issues Hyperlipidemia: Continue statin Hypothyroidism: Continue Synthroid Hypertension: Continue home antihypertensives Impaired glucose tolerance: Diet controlled. Check daily DVT prophylaxis: Heparin Disposition: PCU CODE STATUS: Full code Diet: Heart healthy. N.p.o. at midnight pending orthopedic evaluation of radial fracture History of Present Illness Primary Care Provider: Rogelio Machuca MD Jus Godoy is an 88-year-old male Jus is an 88-year-old male with past medical history of hyperlipidemia, hypothyroidism, hypertension, CKD, impaired fasting glucose, anemia, gout, BPH, sleep disorder on gabapentin who arrived by EMS after he was found unresponsive by his in his chair. Patient withdrew to noxious stimuli over, received 1 mg of atropine and route for BP in the 40s, and subsequently with improving mentation while in the ER. He reports that he was sitting in his chair when he had abdominal chest pain slightly before passing out. He does have a history of CAD s/p 5 vessel CABG with known occluded vein graft to OM, and left bundle branch block. Case with ER. Patient has 2 episodes of syncope with sudden loss of consciousness. Did fall and has a distal radius fracture. Both episodes were preceded with vague abdominal pain for which she took a nitro, and then subsequently syncopized. When EMS was called he was noted to be bradycardic and clinically improved with atropine. Patient seen with a family friend and his present. He reports he had 3 separate falls. He notes that the first fall yesterday morning was actually not from passing out, he tripped over a rock and fell onto his outstretched left hand after which he had left wrist pain and likely the source of his radial fracture. He did not have any chest pain, epigastric pain, syncope, or presynco pe at that time. Later in the evening however he did have an episode which was in the same place that he normally gets reflux, but felt more like a burning pain similar to his prior heart attack and did radiate slightly into his chest. He took nitro and then passed out. He is not able to tell how long it was between the pain, nitro, and passing out as he does not remember anything other than waking up. His fall was not observed. He had a recurrent episode of the same pain, attempted nitro, and syncope this morning. EMS was called and he was found to be bradycardic 3040s and was transported while unresponsive to the ER. He did improve after atropine No orthopnea. No new leg swelling. Medical History: Reviewed Medications: Reviewed Surgical History: Reviewed Family history: Reviewed Allergies: Reviewed Social History: Denies tobacco, rare etoh use Code Status: Full Allergies Allergy/AdvReac Type Severity Reaction Status Date / Time codeine Allergy Severe "ENTIRE Verified 11/27/23 09:21 SYSTEM SHUT DOWN" hydromorphone AdvReac Unknown Verified 11/27/23 09:21 nickel AdvReac Unknown Verified 11/27/23 09:21 oxycodone AdvReac Unknown Verified 11/27/23 09:21 Home Medications Medication Instructions Recorded Confirmed Type aspirin 325 mg tablet 325 mg PO HS 03/17/19 11/27/23 History cholecalciferol (vitamin D3) 25 1,000 units PO DAILY 04/08/19 11/27/23 History mcg (1,000 unit) capsule cyanocobalamin (vitamin B-12) 1,000 mcg PO QAM 05/12/20 11/27/23 History 1,000 mcg tablet omega-3 fatty acids 1,000 mg PO QAM 05/12/20 11/27/23 History allopurinol 100 mg tablet 100 mg PO BID #180 tabs 11/27/23 11/27/23 Rx amlodipine 5 mg tablet 5 mg PO QAM #90 tabs 11/27/23 11/27/23 Rx carvedilol 12.5 mg tablet 12.5 mg PO BID #180 tabs 11/27/23 11/27/23 Rx cetirizine 10 mg tablet 10 mg PO DAILY #90 tabs 11/27/23 11/27/23 Rx colchicine 0.6 mg tablet (Colcrys) 0.6 mg PO DAILY PRN GOUT FLARE UP 11/27/23 11/27/23 Rx #90 tabs cyclobenzaprine 10 mg tablet 10 mg PO TID #270 tabs 11/27/23 11/27/23 Rx finasteride 5 mg tablet 5 mg PO DAILY #90 tabs 11/27/23 11/27/23 Rx gabapentin 100 mg capsule 100 mg PO HS #90 caps 11/27/23 11/27/23 Rx levothyroxine 150 mcg tablet 150 mcg PO QAM #90 tabs 11/27/23 11/27/23 Rx meloxicam 7.5 mg tablet 7.5 mg PO DAILY #90 tabs 11/27/23 11/27/23 Rx nitroglycerin 0.4 mg sublingual 0.4 mg sublingual Q5M PRN chest 11/27/23 11/27/23 Rx tablet pain #30 tabs pantoprazole 40 mg tablet,delayed 40 mg PO QAM #90 tabs 11/27/23 11/27/23 Rx release simvastatin 40 mg tablet 40 mg PO HS #90 tabs 11/27/23 11/27/23 Rx telmisartan 40 mg tablet 40 mg PO QAM #90 tabs 11/27/23 11/27/23 Rx ursodiol 300 mg capsule 300 mg PO BID #180 caps 11/27/23 11/27/23 Rx tramadol 50 mg tablet 50 mg PO TID PRN pain #90 tabs 12/04/23 Rx Past Med/Surg History Problem List (Updated 01/09/24 @ 15:47 by Karsten Higginbotham MD) Hyperkalemia Distal radius fracture, left (Acute) Symptomatic bradycardia (Acute) Sleep disorder Diarrhea Rhinitis Lumbar disc disease Benign prostatic hyperplasia Gout Sinusitis Anemia, unspecified Impaired glucose tolerance (oral) CKD (chronic kidney disease), stage III Hypertension Hypothyroidism Hyperlipidemia Coronary artery disease Medical History Degenerative disc disease Osteoarthritis BPH (benign prostatic hyperplasia) Hx of gout GERD (gastroesophageal reflux disease) Deep vein thrombosis RT/LEFT 1967 ?REASON H/O blood clots RT ARM 1984 Myocardial infarction 1978+1979 LIZBETH (acute kidney injury) Surgical History Lump in chest BENIGN (REMOVED) H/O hand surgery LUMP REMOVED FROM RT HAND History of total knee replacement RT History of colonoscopy History of tooth extraction History of cardiac cath X 3 (NO STENTS) Hx of ventral hernia repair Hx of carpal tunnel repair RT/LEFT Hx of cholecystectomy Hx of CABG 1983>5 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 [employer] Hx of appendectomy Family History Brother Cardiac disorder Diabetes Hypertension Myocardial infarction Sister Cardiac disorder Cancer Breast cancer Lung cancer Denies family history of Ovarian cancer Prostate cancer Colorectal cancer Social History Smoking Status: Former smoker Second Hand Exposure: No; Do You Dip or Chew Tobacco: No; Hx Alcohol Use: Yes Hx Substance Use: No Preferred Language: Persian Communication Ability: Effective Visual Impairment: Limited Hearing Ability: Use of Hearing Aid Riding [employer] Custodian Required: No Beliefs That Will Affect Care: None marital status: Current Living Situation: Spouse current occupational status: retired How many Children do You have: 1 Feels Safe at Home: Yes Childhood Exposure to Second-Hand Smoke: No Diet: regular caffeine: Yes (coffee and tea) Dental Care, Regularly: No Physical Activity Frequency: Daily Seatbelt Use: always Sunscreen Use: Yes (sometimes) Assistive Devices: Denture - Lower, Glasses and Hearing Aid - Bilateral Physical Exam Physical Exam: General: A&Ox3. NAD. Cooperative. HEENT: Atraumatic, normocephalic. PERLAA, vision/hearing grossly intact Pulm: CTAB A&P. -wheezes, -rales, -rhonchi. Symmetrical chest rise. No increased work of breathing. No respiratory distress. Cardiac: RRR, +sm. Radial pulses intact and symmetrical. No JVD Abdominal: Nontender, nondistended, soft. BS present. ext; 1+ lower extremity edema bilaterally. Left wrist wrapped in Polo wrap, fingertips with intact sensation to soft touch and able to wiggle these without deficit. Cap refill brisk Results & Data Results & Data Vital Signs (Past 12 Hours) Vital Signs Temp Pulse Pulse Resp BP BP Pulse Ox 01/09/24 14:00 66 18 128/63 93 01/09/24 13:33 65 18 94 01/09/24 13:32 66 21 145/71 H 95 01/09/24 13:21 67 01/09/24 13:12 65 17 95 01/09/24 13:06 98 01/09/24 13:00 67 18 92 01/09/24 12:57 36.7 C 67 22 127/72 96 O2 Del Method 01/09/24 14:00 Room Air 01/09/24 13:33 Room Air 01/09/24 13:32 Room Air 01/09/24 13:21 01/09/24 13:12 Room Air 01/09/24 13:06 Room Air 01/09/24 13:00 Room Air 01/09/24 12:57 Room Air PG Care Time/CCT Total # of Minutes Spent Total Time Spent with Patient: Total time spent is greater than 50% in coordination of care (as documented) at patient's floor/unit and/or counseling patient: Coding Level of Care Code 75367 INT INP/OBS CARE 375MIN Diagnoses Symptomatic bradycardia R00.1 Distal radius fracture, left S52.502A Encounter type: initial encounter Fracture morphology: unspecified fracture morphology Fracture type: closed Myocardial infarction I21.9 CKD (chronic kidney disease), stage III N18.30 Hyperkalemia E87.5 (2) Distal radius fracture, left Encounter type: initial encounter Fracture morphology: unspecified fracture morphology Fracture type: closed Qualified Code(s): S52.502A - Unspecified fr acture of the lower end of left radius, initial encounter for closed fracture
[2024-01-09] MEDS ORDERED: ATROPINE SULFATE 0.1 MG/ML 10ML SYR IV PRN (15:22)
--- NOTE | 2024-01-09 16:30 | Electrocardiogram Report ---
Test Reason : Blood Pressure : / mmHG Vent. Rate : 067 BPM Atrial Rate : 067 BPM P-R Int : 166 ms QRS Dur : 138 ms QT Int : 440 ms P-R-T Axes : 060 -66 058 degrees QTc Int : 464 ms Normal sinus rhythm Right bundle branch block Left anterior fascicular block Bifascicular block Abnormal ECG When compared with ECG of 22-JUN-2017 20:06, Premature supraventricular complexes are no longer Present Confirmed by Ajith Hu ([id number]) on 01/09/2024 4:30:20 PM Referred By: REFERRED SELF Confirmed By:Ajith Hu
[2024-01-09] MEDS: traMADol HCL 50 MG TABLET PO PRN (18:17)
[2024-01-09 19:58] LABS: BUN Creatinine Ratio 23.3 (10-20); Calcium 9.5 mg/dl (8.6-10.3); Creatinine Clr Calc Pharmacy 38.3 ml/min; Est GFR (African American) 49.8 ml/min; Est GFR (Non-African American) 42.9 ml/min; Potassium 4.8 mmol/L (3.5-5.1)
[2024-01-09] MEDS: GABAPENTIN 100 MG CAP PO SCH (20:50)
[2024-01-09] MEDS: ursodioL 300 MG CAP PO SCH (20:50)
[2024-01-09] MEDS: allopurinoL 100 MG TAB PO SCH (20:50)
[2024-01-09] MEDS: HEPARIN SOD 5,000 UNIT/0.5 ML VIAL SQ SCH (20:50)
[2024-01-09] MEDS: SIMVASTATIN 40 MG TAB PO SCH (20:50)
[2024-01-09] MEDS: ACETAMINOPHEN 325 MG TAB PO PRN (22:41)
[2024-01-09 23:39] LABS: BUN Creatinine Ratio 22.8 (10-20); Calcium 9.4 mg/dl (8.6-10.3); Creatinine Clr Calc Pharmacy 37.5 ml/min; Est GFR (African American) 48.6 ml/min; Est GFR (Non-African American) 41.9 ml/min; Potassium 4.4 mmol/L (3.5-5.1)
[2024-01-10] MEDS: LACTATED RINGER'S 500 ML IV ONE (05:02)
[2024-01-10] MEDS: LEVOTHYROXINE SODIUM 150 MCG TABLET PO SCH (05:05)
--- NOTE | 2024-01-10 07:23 | Hospitalist Progress Note ---
Date of Service January 10, 2024 Assessment & Plan (1) Distal radius fracture, left: (2) Symptomatic bradycardia: (3) Hyperlipidemia: (4) Hypertension: (5) Hypothyroidism: (6) Syncope: Plan 1) Symptomatic bradycardia/syncope Unresponsive episode vs. syncopal episode vs. sx jannet --> Suspect symptomatic bradycardia. Rapid loss of consciousness preceded by GI discomfort, may have been precipitated by sublingual nitroglycerin Hypotensive with nitro on top of volume depletion while working in the yard during the hot weather versus symptomatic bradycardia Patient was found by EMS to be bradycardic, improved following administration of atropine. BP stable while in the ER - Follow on telemetry. Atropine, PRN. If persistently bradycardic/hypotensive can transcutaneously pace. HS-troponin normal Cardiology consulted - Echocardiogram: no changes since 2010 echo, abnormal septal motion consistent w/ LBBB, all other findings largely normal - Nuclear stress test performed today, results pending No leukocytosis. Potassium upper limit of normal, creatinine 1.79 with baseline around 1.53 BSG was not low, 107 on ER assessment EKG: Normal sinus rhythm, bifascicular block, right bundle branch block. 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 No acute ischemic signs on EKG, high-sensitivity troponin is normal Carvedilol held No narcosis on admitting exam. Could hold tramadol although low suspicion this is the cause of his symptoms/signs of syncope 2) Fall CTA/P: No acute infectious or inflammatory findings. Moderate constipation. 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 Biapical opacities favoring scarring CThead without acute findings; CXR: no acute finding 3) Distal radius fracture, left: Patient notes that he tripped on a rock and fell on an outstretched left hand. This preceded his syncopal episodes and he did not strike his head or lose consciousness at that time. Suspect that this was separate from syncopal episodes X-ray confirms distal radial fracture, likely intra-articular. Orthopedics Dr. Ashford following Fingertips neurovascularly intact, wrist is wrapped in Polo bandage at time of assessment 4) Myocardial infarction: History of VT, CAD No acute chest pain or evidence of ACS History of 5 vessel CABG Cardiac catheterization 08/2010: Left main 50%, LAD 100%, left circumflex 90% and mid 100%, atretic OM1, RCA proximal 100% with collaterals. BERNARD to LAD patent, SVG to diagonal jump graft to diagonal 2 patent, occluded SVGPDA, occluded SVGmarginal. No disease amenable to PCI at that time Lexiscan 2019 without evidence of ischemia, LVEF 48%, inferior fixed perfusion deficit. Follows with Dr. Hall was consulted. EKG without acute ischemic change, troponin normal. Repeat x 1 ordered Echo ordered 5) CKD (chronic kidney disease), stage III Creatinine baseline around 1.53, slightly elevated at 1.79 Received 1 L NSS while in the ER, telmisartan held 6) Hyperkalemia 5.1. With clinical volume contraction, mild Trended every 4 hours x 2 If uptrending or telemetry shows peaked T waves/Worsening QTc/worsening QRS then add calcium gluconate, insulin dextrose, and 1 dose of Lokelma at that time 7) Hyperlipidemia: Continue statin 8) Hypothyroidism: - last TSH, 1.32 (11/26/23); AM TSH ordered Continue Synthroid 9) Hypertension: Continue home antihypertensives 10) Impaired glucose tolerance: Diet controlled. Check daily 11) Lumbar disc disease/Insomnia Patient is on relatively low-dose gabapentin 100 mg at night, tramadol 50 mg, 3 times daily. No tachycardia or hypoxia to suggest PE. DVT prophylaxis: Heparin Disposition: PCU CODE STATUS: Full code Diet: Heart healthy. N.p.o. at midnight pending orthopedic evaluation of radial fracture Admission and Anticipated Discharge Date Admission Date: January 09, 2024 Supervising Physician Co-Signing Physician Notes I personally examined the patient and verified all hogan points of history and exam, discussed case, and agree with decision making with Dr Rojas Feeling okay now. Wrist pain under reasonable control except with certain movements. Relates having had multiple episodes of loss of consciousnessthe one that led to him being brought to the hospital he had absolutely no prodrome and does not really remember what happened until EMS was there, his other episodes have started with a burning substernal/epigastric pain followed by lightheadednessbut this does not seem to correspond with eating at all. He notes he used to get heartburn regularly but not really much anymore. Last night was feeling restless and got out of bed, then whenever he was sitting up in the chair he got lightheaded and felt like he was going to pass outat this point his blood pressure was somewhat low. Vitals noted, in general he is awake and alert pleasant no distress. HEENT normocephalic atraumatic mucous membranes moist. Breathing unlabored no accessory muscle use good effort. Skin shows no rashes no pallor or icterus. Neuro without focal deficits. Recurrent syncopal episodesfairly wide differential, possibly multiple causes. Agree with cardiology that ischemia needs to be ruled outappreciate Lexiscan being ordered. 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 This segue's to his third differential of possibly polypharmacyand while his meds have not been recently increased that I can see, he is getting older and it is possible that he simply will require decreased dosingeither way would be reducing the carvedilol, reducing his other blood pressure medicines, and then assuming his nuclear medicine scan is negative, hopefully home with close outpatient follow-up, and probably ambulatory cardiac monitoring. Incidental apical findings on CT of his C-spine showing the lung windows and his very small 3.3 cm AAAoutpatient follow-up Subjective Patient has been having some chest pain intermittently since breaking his left wrist on Sunday. Patient first tried to take nitroglycerin Sunday after feeling CP, without any resolution, patient doesn't remember what happened, must have passed out, then called 911, next thing patient remembers is arriving at the hospital. This morning patient had a hypotensive episode, patient got up to sit in chair cause he felt better doing that, nurses got him back in bed, 1 L bolus of fluids given. The wrist pain feel like an 8/10 this morning, received a dose of tramadol immediately afterwards. Patient also experiencing some left flank pain/left ribcage pain that patient thinks gets worse w/ palpation. Patient kept changing position in bed to relieve this pain and uncertain whether this helped or pain was just an intermittent, cramping pain. Review of Systems Constitutional: + fatigue and + weakness (over last 3-4 months, increased weakness going up steps); no fever and no chills Eyes: no diplopia and no worsening vision Respiratory: + dyspnea on exertion; no cough and no d yspnea Cardiovascular: no chest pain and no palpitations Gastrointestinal: no abdominal pain, no heartburn, no nausea and no vomiting Musculoskeletal: + body aches (pain over l. rib cage that seemed to worsen w/ palapation) Physical Exam Constitutional: WD/WN, vitals as above Respiratory: normal respiratory effort, lungs clear to auscultation Cardiovascular: RRR, no murmur, no edema Extremities: normal capillary refill; no calf tenderness and no pedal edema Gastrointestinal (Abdomen): Inspection/Auscultation: abdomen normal to inspection Percussion/Palpation: + abdomen tender (left ribcage w/ position, intercostal muscles, more tender w/ palpation) Psychiatric: A+Ox3, euthymic affect Results & Data Results & Data Vital Signs (Past 12 Hours) Vital Signs Temp Pulse Pulse Resp BP Pulse Ox O2 Del Method 01/10/24 05:31 79 145/78 H 01/10/24 05:15 75 135/71 01/10/24 04:57 68 115/58 L 01/10/24 04:54 65 87/49 L 01/10/24 04:52 63 71/41 L 01/10/24 02:28 36.7 C 79 18 142/67 H 93 Room Air 01/09/24 22:52 85 01/09/24 22:26 36.7 C 83 18 145/66 H 92 Room Air 01/09/24 19:56 36.9 C 88 18 145/65 H 93 Room Air (1) Distal radius fracture, left Encounter type: initial encounter Fracture morphology: unspecified fracture morphology Fracture type: closed Qualified Code(s): S52.502A - Unspecified fracture of the lower end of left radius, initial encounter for closed fracture
[2024-01-10 07:46] LABS: Basophils # (auto) 0.03 K/uL (0.00-0.20); Basophils % (auto) 0.4 %; Eosinophils # (auto) 0.19 K/uL (0.00-0.50); Eosinophils % (auto) 2.2 %; Hematocrit (blood only) 33.9 % (42.0-52.0); Hemoglobin 11.2 g/dl (14.0-18.0); Immature Granulocytes # (auto) 0.02 K/uL (0.01-0.20); Immature Granulocytes % (auto) 0.2 %; Lymphocytes # (auto) 1.84 K/uL (1.20-3.40); Lymphocytes % (auto) 21.5 %; Mean Corpuscular Hemoglobin 31.9 pg (25.0-34.0); Mean Corpuscular Volume 96.6 fL (80.0-100.0); Mean Platelet Volume 11.5 fL (9.4-12.4); Monocytes # (auto) 0.67 K/uL (0.11-0.59); Monocytes % (auto) 7.8 %; Neutrophils # (auto) 5.82 K/uL (1.40-6.50); Neutrophils % (auto) 67.9 %; Platelet Count 140 K/uL (130-400); RDW Coefficient of Variation 13.7 % (11.5-14.5); RDW Standard Deviation 48.6 fL (36.4-46.3); Red Blood Count 3.51 M/uL (4.70-6.10); White Blood Count 8.57 K/ul (4.8-10.8)
[2024-01-10 07:52] LABS: Calcium 9.7 mg/dl (8.6-10.3); Potassium 4.4 mmol/L (3.5-5.1)
[2024-01-10 07:58] LABS: BUN Creatinine Ratio 23.8 (10-20); Creatinine Clr Calc Pharmacy 39.1 ml/min
[2024-01-10] MEDS: PANTOprazole 40 MG TAB PO SCH (08:57)
[2024-01-10] MEDS: ASPIRIN 81 MG ECTAB PO SCH (08:57)
[2024-01-10] MEDS: FINASTERIDE 5 MG TAB PO SCH (08:57)
--- NOTE | 2024-01-10 10:43 | Cardiology Consultation ---
Date of Consultation January 10, 2024 Assessment & Plan (1) Coronary artery disease: -- post 5 vessel CABG, known occluded vein graft to OM, PDA 2. Unresponsive event 3. Epigastric pain 4. Acute on chronic kidney disease 5. Chronic NIVCD 6. Mechanical fall with distal radial fracture Patient admitted after unresponsive event preceded by recurrent epigastric discomfort. Had reported persistent bradycardia requiring atropine upon EMS arrival and there were some initial concern for symptomatic bradycardia. Patient had similar episode last night while on telemetry. Hypotensive during event but no evidence of significant arrhythmia. Repeat echo shows unchanged LV function with no significant new valvular disease. HS TropI negative. Although does have chronic conduction disease at this point relatively low suspicion episodes secondary to symptomatic bradyarrhythmia. Low suspicion for ACS but with patient's CAD history, preceding epigastric pain and reports of progressive exertional dyspnea will repeat ischemic evaluation. Assuming stress test unremarkable suspect symptoms primarily noncardiac. Possibly hypovolemia worsened with nitroglycerin versus vagal event with abdominal pain. Plan on Lexiscan SPECT later today Agree with holding home carvedilol, ARB, amlodipine. Continue current aspirin, statin Continue to monitor on telemetry. Plan on event monitor as an outpatient. Note: Stress test negative for significant ischemia. From a cardiac standpoint OK with possible discharge tomorrow. Follow-up with me in 2-3 weeks. Outpatient Event monitor. History of Present Illness Attending Physician: Aquiles Galloway DO History of Present Illness Mr. Paulino is a very pleasant 87-year-old man with history of coronary artery disease status post five-vessel CABG in 1983 (vein graft to PDA,OM known to be occluded), hypertension, dyslipidemia, hypothyroidism, chronic kidney disease seen today in hospital due to unresponsive episode and concern for possible symptomatic bradycardia. Patient known to me from outpatient setting. Last seen 04/2023 at which time was doing well without recurrent anginal symptoms. Has had 2 recent episodes of epigastric discomfort. States for initial episode took nitroglycerin and had some improvement. Second episode was more severe, unresponsive to nitroglycerin and it was accompanied by diaphoresis. Following episode patient found to be unresponsive by . Per report on arrival by EMS was hypotensive and bradycardic requiring atropine (strips unavailable to review). Since hospitalization HS TropI negative x 2. Mild LIZBETH that responded to IV fluids. ECG unchanged with chronic NIVCD. Abdominal CT unremarkable. Repeat echocardiogram today showed preserved LV function with basal inferior h ypokinesis and abnormal septal motion consistent with conduction abnormality. Overnight patient had recurrent episode of abdominal pain around 4 AM while sitting up in chair. At time of event hypotensive to 70s, heart rate in the 60s. No arrhythmia on telemetry. Responded to IV fluids. Had received tramadol 2 hours prior. Prior Cardiovascular studies: Lexiscan SPECT 04/2020: No ischemia, inferior fixed perfusion defect, LVEF 48% with akinetic basal to mid inferior wall Carotid duplex 11/2018: Less than 50% ICA stenosis bilaterally Echocardiogram 03/30/2015: Left bundle branch block inferoseptal infarct versus paradoxical septal motion. EF 55 %. No significant valvular abnormalities. Cardiac catheterization 08/2010: Left main 50%. LAD proximal 100%. Left circumflex proximal 90% and mid 100%. OM1 is atretic. RCA proximal 100% with left to right collaterals. BERNARD-LAD patent. SVG-diagonal 1 jump graft to diagonal 2 patent. Occluded SVG-PDA, SVG-marginal. There is a note that no disease is amenable to PCI. Allergies Allergy/AdvReac Type Severity Reaction Status Date / Time codeine Allergy Severe "ENTIRE Verified 11/27/23 09:21 SYSTEM SHUT DOWN" hydromorphone AdvReac Unknown Verified 11/27/23 09:21 nickel AdvReac Unknown Verified 11/27/23 09:21 oxycodone AdvReac Unknown Verified 11/27/23 09:21 Home Medications Medication Instructions Recorded Confirmed Type aspirin 325 mg tablet 325 mg PO HS 03/17/19 01/09/24 History cholecalciferol (vitamin D3) 25 1,000 units PO DAILY 04/08/19 01/09/24 History mcg (1,000 unit) capsule cyanocobalamin (vitamin B-12) 1,000 mcg PO QAM 05/12/20 01/09/24 History 1,000 mcg tablet omega-3 fatty acids 1,000 mg PO QAM 05/12/20 01/09/24 History allopurinol 100 mg tablet 100 mg PO BID #180 tabs 11/27/23 01/09/24 Rx amlodipine 5 mg tablet 5 mg PO QAM #90 tabs 11/27/23 01/09/24 Rx carvedilol 12.5 mg tablet 12.5 mg PO BID #180 tabs 11/27/23 01/09/24 Rx cetirizine 10 mg tablet 10 mg PO DAILY #90 tabs 11/27/23 01/09/24 Rx colchicine 0.6 mg tablet (Colcrys) 0.6 mg PO DAILY PRN GOUT FLARE UP 11/27/23 01/09/24 Rx #90 tabs cyclobenzaprine 10 mg tablet 10 mg PO TID #270 tabs 11/27/23 01/09/24 Rx finasteride 5 mg tablet 5 mg PO DAILY #90 tabs 11/27/23 01/09/24 Rx gabapentin 100 mg capsule 100 mg PO HS #90 caps 11/27/23 01/09/24 Rx levothyroxine 150 mcg tablet 150 mcg PO QAM #90 tabs 11/27/23 01/09/24 Rx meloxicam 7.5 mg tablet 7.5 mg PO DAILY #90 tabs 11/27/23 01/09/24 Rx nitroglycerin 0.4 mg sublingual 0.4 mg sublingual Q5M PRN chest 11/27/23 01/09/24 Rx tablet pain #30 tabs pantoprazole 40 mg tablet,delayed 40 mg PO QAM #90 tabs 11/27/23 01/09/24 Rx release simvastatin 40 mg tablet 40 mg PO HS #90 tabs 11/27/23 01/09/24 Rx telmisartan 40 mg tablet 40 mg PO QAM #90 tabs 11/27/23 01/09/24 Rx ursodiol 300 mg capsule 300 mg PO BID #180 caps 11/27/23 01/09/24 Rx tramadol 50 mg tablet 50 mg PO TID PRN pain #90 tabs 12/04/23 01/09/24 Rx Patient History Medical History Degenerative disc disease Osteoarthritis BPH (benign prostatic hyperplasia) Hx of gout GERD (gastroesophageal reflux disease) Deep vein thrombosis RT/LEFT 1967 ?REASON H/O blood clots RT ARM 1984 Myocardial infarction 1978+1979 LIZBETH (acute kidney injury) Surgical History Lump in chest BENIGN (REMOVED) H/O hand surgery LUMP REMOVED FROM RT HAND History of total knee replacement RT History of colonoscopy History of tooth extraction History of cardiac cath X 3 (NO STENTS) Hx of ventral hernia repair Hx of carpal tunnel repair RT/LEFT Hx of cholecystectomy 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 [employer] Hx of appendectomy Family History Brother Cardiac disorder Diabetes Hypertension Myocardial infarction Sister Cardiac disorder Cancer Breast cancer Lung cancer Denies family history of Ovarian cancer Prostate cancer Colorectal cancer Social History Smoking Status: Former smoker Tobacco Type: Cigarettes Second Hand Exposure: No; Do You Dip or Chew Tobacco: No; Tobacco Cessation Education Requested by Patient: No Hx Alcohol Use: Yes Alcohol type: beer and wine Hx Substance Use: No Preferred Language: Zambian Communication Ability: Effective Visual Impairment: Limited Hearing Ability: Use of Hearing Aid Body Repairer Required: No Beliefs That Will Affect Care: None marital status: Current Living Situation: Spouse current occupational status: retired How many Children do You have: 1 Other Information That Helps Us Care for You: No Feels Safe at Home: Yes Safety Concerns: Feels Safe At This Time Childhood Exposure to Second-Hand Smoke: No Diet: regular caffeine: Yes (coffee and tea) Dental Care, Regularly: No Physical Activity Frequency: Daily Seatbelt Use: always Sunscreen Use: Yes (sometimes) Assistive Devices: CPAP Review of Systems Review of Systems: All systems reviewed & are unremarkable except as noted in HPI & below Physical Exam Physical Exam: General: Comfortable HEENT: Sclerae anicteric Lungs: Clear to auscultation bilaterally, no crackles or wheezes Cardiac: Regular rate and rhythm, no murmurs. Vascular: 2+ radial No bruits Abdomen: Soft, nontender Extremities: Well perfused, no peripheral edema Neuro: Nonfocal Psych: Alert orient x3, normal affect and mood Results & Data Vital Signs (Past 12 Hours) Vital Signs Temp Pulse Pulse Resp BP Pulse Ox O2 Del Method 01/10/24 08:11 98.4 F 90 17 143/76 H 94 Room Air 01/10/24 05:31 79 145/78 H 01/10/24 05:15 75 135/71 01/10/24 04:57 68 115/58 L 01/10/24 04:54 65 87/49 L 01/10/24 04:52 63 71/41 L 01/10/24 02:28 98.1 F 79 18 142/67 H 93 Room Air 01/09/24 22:52 85 PG Care Time/CCT Total # of Minutes Spent Total Time Spent with Patient: Total time spent is greater than 50% in coordination of care (as documented) at patient's floor/unit and/or counseling patient: Coding Level of Care Code 83651 INT INP/OBS CARE 2/55MIN Diagnoses Coronary artery disease I25.10
--- NOTE | 2024-01-10 14:16 | XCELERA ---
[id number]
[2024-01-10] MEDS: REGADENOSON 0.4 MG/5 ML SYR IV ONE (16:05)
--- NOTE | 2024-01-10 17:55 | Billing Data ---
Date of Service January 10, 2024 Coding Level of Care Code 99898 SUB INP/OBS CARE MIN
--- NOTE | 2024-01-10 19:05 | Myocardial Perfusion Study ---
Date of Service January 10, 2024 Myocardial Perfusion Study k Myocardial Perfusion Study Report [place] Act 112: Negative ONE DAY NUCLEAR MEDICINE LEXISCAN TECHNETIUM 99M MYOCARDIAL PERFUSION SCAN Indication: History of coronary artery disease post CABG, epigastric pain, presyncope, exertional dyspnea. Baseline ECG: Normal sinus rhythm, right bundle branch block, no ST abnormalities. Ventricular rate 92. Stress ECG: No Lexiscan induced ST changes. Occasional PACs/PVCs. HR bozena from 91 to 102 representing 76% MPHR. Blood pressure bozena from 122/84 up to 149/77. Technique: For the stress portion of the study 28 mCi of Technetium 99m Cardiolite IV was injected at 1410 on 01/09. 30 minutes following the injection, imaging of the heart was performed in multiple projections. For the rest portion of the study, 9.9 mCi of Technetium 99m Cardiolite was injected IV at 1230. One hour following the injection, imaging of the heart was performed in the same projections. Findings: Rotating raw images were reviewed in detail. Potential sources of attenuation include imaging with arms at sides, diaphragmatic attenuation, and minimal gut uptake impacting the inferior imaging border of the heart. No significant extracardiac pathologic uptake. Short axis, vertical long axis and horizontal long axis images were reviewed in detail. No visual TID. Fixed basal to mid inferior/inferolateral moderate size, moderate in severity perfusion defect. Inferolateral defect may be impacted by artifact from diaphragm/imaging with arms at sides. Small, mild anterior apical/apical, slightly reversible perfusion defect (SDS 2). Normal LV size. EDV 83 ml. Calculated EF 44%. Akinetic basal inferior/inferolateral segments. Abnormal septal motion potentially consistent with postoperative state. [place] hypokinetic. SUMMARY: 1. Negative myocardial perfusion study for significant Lexiscan induced ischemia. 2. Fixed basal to mid inferior/inferolateral perfusion defect consistent with prior RCA/circumflex infarct. 3. Mild, mildly reversible anterior apical/apical perfusion defect consistent with prior apical LAD infarct with minimal karen-infarct ischemia. 4. Normal LV size with borderline LV function. LVEF 44% akinetic basal inferior/inferolateral segments. Abnormal septal motion consistent with postoperative state. Hypokinetic apex 5. Non-diagnostic stress ECG due to inability to reach target HR with Lexiscan. 6. Compared with prior study on 05/04/2020: No significant changes. [facility] Myocardial perfusion code Procedure Code Procedure 1: Myocardial Perfusion Codes: 21836 Cardiovascular Stress Test, multiple Procedure 2: Myocardial Perfusion Codes: 13889 Cardiovascular Stress Test, inte rpretation and report
--- NOTE | 2024-01-10 21:46 | Orthopedic Consultation ---
Date of Consultation January 10, 2024 Assessment & Plan (1) Distal radius fracture, left: 88 year old male with minimally displaced distal radius fracture Nonweightbearing right upper extremity in volar splint Pain control Med management PT/OT Recommend conservative care for patient's distal radius fracture. May remain in splint and will likely be transition to cast or fracture which as outpatient. Orthopedics will sign off at this time. History of Present Illness Reason for Consultation: Non displaced left distal radius fracture Attending Physician: Aquiles Galloway DO History of Present Illness 88-year-old male who was admitted after sustaining a unresponsive episode. Emergency department he was noted to have left wrist pain radiographs were obtained demonstrating a nondisplaced left distal radius fracture. Orthopedics was consulted for recommendations. Allergies Allergy/AdvReac Type Severity Reaction Status Date / Time codeine Allergy Severe "ENTIRE Verified 11/27/23 09:21 SYSTEM SHUT DOWN" hydromorphone AdvReac Unknown Verified 11/27/23 09:21 nickel AdvReac Unknown Verified 11/27/23 09:21 oxycodone AdvReac Unknown Verified 11/27/23 09:21 Home Medications Medication Instructions Recorded Confirmed Type aspirin 325 mg tablet 325 mg PO HS 03/17/19 01/09/24 History cholecalciferol (vitamin D3) 25 1,000 units PO DAILY 04/08/19 01/09/24 History mcg (1,000 unit) capsule cyanocobalamin (vitamin B-12) 1,000 mcg PO QAM 05/12/20 01/09/24 History 1,000 mcg tablet omega-3 fatty acids 1,000 mg PO QAM 05/12/20 01/09/24 History allopurinol 100 mg tablet 100 mg PO BID #180 tabs 11/27/23 01/09/24 Rx amlodipine 5 mg tablet 5 mg PO QAM #90 tabs 11/27/23 01/09/24 Rx carvedilol 12.5 mg tablet 12.5 mg PO BID #180 tabs 11/27/23 01/09/24 Rx cetirizine 10 mg tablet 10 mg PO DAILY #90 tabs 11/27/23 01/09/24 Rx colchicine 0.6 mg tablet (Colcrys) 0.6 mg PO DAILY PRN GOUT FLARE UP 11/27/23 01/09/24 Rx #90 tabs cyclobenzaprine 10 mg tablet 10 mg PO TID #270 tabs 11/27/23 01/09/24 Rx finasteride 5 mg tablet 5 mg PO DAILY #90 tabs 11/27/23 01/09/24 Rx gabapentin 100 mg capsule 100 mg PO HS #90 caps 11/27/23 01/09/24 Rx levothyroxine 150 mcg tablet 150 mcg PO QAM #90 tabs 11/27/23 01/09/24 Rx meloxicam 7.5 mg tablet 7.5 mg PO DAILY #90 tabs 11/27/23 01/09/24 Rx nitroglycerin 0.4 mg sublingual 0.4 mg sublingual Q5M PRN chest 11/27/23 01/09/24 Rx tablet pain #30 tabs pantoprazole 40 mg tablet,delayed 40 mg PO QAM #90 tabs 11/27/23 01/09/24 Rx release simvastatin 40 mg tablet 40 mg PO HS #90 tabs 11/27/23 01/09/24 Rx telmisartan 40 mg tablet 40 mg PO QAM #90 tabs 11/27/23 01/09/24 Rx ursodiol 300 mg capsule 300 mg PO BID #180 caps 11/27/23 01/09/24 Rx tramadol 50 mg tablet 50 mg PO TID PRN pain #90 tabs 12/04/23 01/09/24 Rx Patient History Medical History Degenerative disc disease Osteoarthritis BPH (benign prostatic hyperplasia) Hx of gout GERD (gastroesophageal reflux disease) Deep vein thrombosis RT/LEFT 1967 ?REASON H/O blood clots RT ARM 1983 Myocardial infarction 1978+1979 LIZBETH (acute kidney injury) Surgical History Lump in chest BENIGN (REMOVED) H/O hand surgery LUMP REMOVED FROM RT HAND History of total knee replacement RT History of colonoscopy History of tooth extraction History of cardiac cath X 3 (NO STENTS) Hx of ventral hernia repair Hx of carpal tunnel repair RT/LEFT Hx of cholecystectomy Hx of CABG 1983>5 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 [facility] Hx of appendectomy Family History Brother Cardiac disorder Diabetes Hypertension Myocardial infarction Sister Cardiac disorder Cancer Breast cancer Lung cancer Denies family history of Ovarian cancer Prostate cancer Colorectal cancer Social History Smoking Status: Former smoker Tobacco Type: Cigarettes Second Hand Exposure: No; Do You Dip or Chew Tobacco: No; Tobacco Cessation Education Requested by Patient: No Hx Alcohol Use: Yes Alcohol type: beer and wine Hx Substance Use: No Preferred Language: Macedonian Communication Ability: Effective Visual Impairment: Limited Hearing Ability: Use of Hearing Aid Metal Ceiling Hanger Required: No Beliefs That Will Affect Care: None marital status: Current Living Situation: Spouse current occupational status: retired How many Children do You have: 1 Other Information That Helps Us Care for You: No Feels Safe at Home: Yes Safety Concerns: Feels Safe At This Time Childhood Exposure to Second-Hand Smoke: No Diet: regular caffeine: Yes (coffee and tea) Dental Care, Regularly: No Physical Activity Frequency: Daily Seatbelt Use: always Sunscreen Use: Yes (sometimes) Assistive Devices: CPAP Physical Exam Constitutional: No Acute distress, resting bed Musculoskeletal: LUE -in volar splint - wiggles fingers - silt srad/m/u bcr over digits Results & Data Vital Signs (Past 12 Hours) Vital Signs Temp Pulse Pulse Pulse Resp BP Pulse Ox 01/10/24 20:18 36.9 C 93 H 18 155/86 H 92 01/10/24 15:56 36.8 C 81 19 149/72 H 93 01/10/24 13:00 91 H 01/10/24 12:27 36.8 C 81 17 141/79 H 92 O2 Del Method 01/10/24 20:18 Room Air 01/10/24 15:56 Room Air 01/10/24 13:00 01/10/24 12:27 Room Air (1) Distal radius fracture, left Encounter type: initial encounter Fracture morphology: unspecified fracture morphology Fracture type: closed Qualified Code(s): S52.502A - Unspecified fracture of the lower end of left radius, initial encounter for closed fracture
[2024-01-11 06:09] LABS: Basophils # (auto) 0.02 K/uL (0.00-0.20); Basophils % (auto) 0.3 %; Eosinophils # (auto) 0.12 K/uL (0.00-0.50); Eosinophils % (auto) 1.7 %; Hematocrit (blood only) 32.7 % (42.0-52.0); Immature Granulocytes # (auto) 0.02 K/uL (0.01-0.20); Immature Granulocytes % (auto) 0.3 %; Lymphocytes # (auto) 1.97 K/uL (1.20-3.40); Lymphocytes % (auto) 28.5 %; Mean Corpuscular Hemoglobin 32.2 pg (25.0-34.0); Mean Corpuscular Hgb Conc 33.6 g/dL (32.0-36.0); Mean Corpuscular Volume 95.6 fL (80.0-100.0); Mean Platelet Volume 10.5 fL (9.4-12.4); Monocytes # (auto) 0.76 K/uL (0.11-0.59); Neutrophils # (auto) 4.03 K/uL (1.40-6.50); Neutrophils % (auto) 58.2 %; Platelet Count 154 K/uL (130-400); RDW Coefficient of Variation 13.2 % (11.5-14.5); RDW Standard Deviation 46.3 fL (36.4-46.3); Red Blood Count 3.42 M/uL (4.70-6.10); White Blood Count 6.92 K/ul (4.8-10.8)
[2024-01-11 06:24] LABS: BUN Creatinine Ratio 22.2 (10-20); Calcium 9.5 mg/dl (8.6-10.3); Creatinine Clr Calc Pharmacy 47.8 ml/min; Est GFR (Non-African American) 56.1 ml/min; Potassium 4.4 mmol/L (3.5-5.1)
[2024-01-11 06:39] LABS: Thyroid Stimulating Hormone 0.959 uIu/ml (0.300-4.500)
--- NOTE | 2024-01-11 06:45 | Hospitalist Progress Note ---
Date of Service January 11, 2024 Assessment & Plan (1) Distal radius fracture, left: (2) Symptomatic bradycardia: (3) Hyperlipidemia: (4) Hypertension: (5) Hypothyroidism: (6) Syncope: Plan 1) Symptomatic bradycardia/syncope Unresponsive episode vs. syncopal episode vs. sx jannet --> Suspect symptomatic bradycardia. Rapid loss of consciousness preceded by GI discomfort, may have been precipitated by sublingual nitroglycerin Hypotensive with nitro on top of volume depletion while working in the yard during the hot weather versus symptomatic bradycardia Patient was found by EMS to be bradycardic, improved following administration of atropine. BP stable while in the ER - Follow on telemetry. Atropine, PRN. If persistently bradycardic/hypotensive can transcutaneously pace. HS-troponin normal Cardiology consulted - Echocardiogram: no changes since 2010 echo, abnormal septal motion consistent w/ LBBB, all other findings largely normal - Nuclear stress test performed today, results pending No leukocytosis. Potassium upper limit of normal, creatinine 1.79 with baseline around 1.53 BSG was not low, 107 on ER assessment EKG: Normal sinus rhythm, bifascicular block, right bundle branch block. 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 No acute ischemic signs on EKG, high-sensitivity troponin is normal Carvedilol held No narcosis on admitting exam. Could hold tramadol although low suspicion this is the cause of his symptoms/signs of syncope 2) Fall CTA/P: No acute infectious or inflammatory findings. Moderate constipation. 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 Biapical opacities favoring scarring CThead without acute findings; CXR: no acute finding 3) Distal radius fracture, left: Patient notes that he tripped on a rock and fell on an outstretched left hand. This preceded his syncopal episodes and he did not strike his head or lose consciousness at that time. Suspect that this was separate from syncopal episodes X-ray confirms distal radial fracture, likely intra-articular. Orthopedics Dr. Ashford following Fingertips neurovascularly intact, wrist is wrapped in Polo bandage at time of assessment - Orthopedics recs: conservative care, remain in splint and transitioned to cast as outpt 4) Myocardial infarction: History of [place], CAD No acute chest pain or evidence of ACS History of 5 vessel CABG Cardiac catheterization 08/2010: Left main 50%, LAD 100%, left circumflex 90% and mid 100%, atretic OM1, RCA proximal 100% with collaterals. BERNARD to LAD patent, SVG to diagonal jump graft to diagonal 2 patent, occluded SVGPDA, occluded SVGmarginal. No disease amenable to PCI at that time Lexiscan 2019 without evidence of ischemia, LVEF 48%, inferior fixed perfusion deficit. Follows with Dr. Hall was consulted. EKG without acute ischemic change, troponin normal. Repeat x 1 ordered Echo ordered, see above 5) CKD (chronic kidney disease), stage III Cr, 1.17 <-- 1.79, Creatinine baseline around 1.53, 1.79 at admission Received 1 L NSS while in the ER, telmisartan held 6) Hyperkalemia 5.1. With clinical volume contraction, mild Trended every 4 hours x 2 If uptrending or telemetry shows peaked T waves/Worsening QTc/worsening QRS then add calcium gluconate, insulin dextrose, and 1 dose of Lokelma at that time 7) Hyperlipidemia: Continue statin 8) Hypothyroidism: - last TSH, 1.32 (11/26/23); AM TSH ordered, 0.959 Continue Synthroid 9) Hypertension: Continue home antihypertensives 10) Impaired glucose tolerance: Diet controlled. Check daily 11) Lumbar disc disease/Insomnia Patient is on relatively low-dose gabapentin 100 mg at night, tramadol 50 mg, 3 times daily. No tachycardia or hypoxia to suggest PE. DVT prophylaxis: Heparin Disposition: PCU CODE STATUS: Full code Diet: Heart healthy. N.p.o. at midnight pending orthopedic evaluation of radial fracture Admission and Anticipated Discharge Date Admission Date: January 09, 2024 Subjective Patient has been having some chest pain intermittently since breaking his left wrist on Sunday. Patient first tried to take nitroglycerin Sunday after feeling CP, without any resolution, patient doesn't remember what happened, must have passed out, then called 911, next thing patient remembers is arriving at the hospital. This morning patient had a hypotensive episode, patient got up to sit in chair cause he felt better doing that, nurses got him back in bed, 1 L bolus of fluids given. The wrist pain feel like an 8/10 this morning, received a dose of tramadol immediately afterwards. Patient also experiencing some left flank pain/left ribcage pain that patient thinks gets worse w/ palpation. Patient kept changing position in bed to relieve this pain and uncertain whether this helped or pain was just an intermittent, cramping pain. Review of Systems Constitutional: + fatigue and + weakness (over last 3-4 months, increased weakness going up steps); no fever and no chills Eyes: no diplopia and no worsening vision Respiratory: + dyspnea on exertion; no cough and no d yspnea Cardiovascular: no chest pain and no palpitations Gastrointestinal: no abdominal pain, no heartburn, no nausea and no vomiting Musculoskeletal: + body aches (pain over l. rib cage that seemed to worsen w/ palapation) Physical Exam Constitutional: WD/WN, vitals as above Respiratory: normal respiratory effort, lungs clear to auscultation Cardiovascular: RRR, no murmur, no edema Extremities: normal capillary refill; no calf tenderness and no pedal edema Gastrointestinal (Abdomen): Inspection/Auscultation: abdomen normal to inspection Percussion/Palpation: + abdomen tender (left ribcage w/ position, intercostal muscles, tender w/ palpation, /) Musculoskeletal: Extremities: + wrist abnormality Left (/10 pain w/ medication for fractured wrist) Psychiatric: A+Ox3, euthymic affect Results & Data Results & Data Vital Signs (Past 12 Hours) Vital Signs Temp Pulse Pulse Resp BP Pulse Ox O2 Del Method 01/11/24 03:15 36.6 C 86 16 144/80 H 93 Room Air 01/11/24 02:07 90 01/10/24 23:01 36.9 C 84 18 147/85 H 92 Room Air 01/10/24 20:18 36.9 C 93 H 18 155/86 H 92 Room Air Resident Activity Tracking Resident Involvement: Resident Care Provided Care Provided: Adult Hospital Medicine (1) Distal radius fracture, left Encounter type: initial encounter Fracture morphology: unspecified fracture morphology Fracture type: closed Qualified Code(s): S52.502A - Unspecified fracture of the lower end of left radius, initial encounter for closed fracture
--- NOTE | 2024-01-11 17:05 | Discharge Summary ---
Discharge Summary Date of Service January 11, 2024 Principal Dx & Hospital Course #1 = Principal Diagnosis (1) Syncope: Plan 1) recurrent syncope main differential was atypical angina (indigestion feeling followed by hea rtburn followed by syncope)this was effectively ruled out with reassuring nuclear medicine stress test; symptomatic bradycardia (seemed unlikely given that he had an episode where he dropped his blood pressure in the middle the night and did not have any notable bradycardia/placeable rhythms; at the same time given that he was bradycardic in the field requiring atropine and has some degree of conduction disease on his baseline EKG we have reduced his Coreg and will be setting him up for an outpatient event monitor); hypotension/polypharmacy (in the end this seems to be a fairly big contributo rthe Coreg may have been driving the bradycardia, and to his antihypertensive regimen altogether may be driving the hypotensionpatient and I discussed that sometimes as we get older our metabolism of medicine slows down and while the dose may not have changed and milligrams the "effective dose" can go up some. Given that this was our main differentialwe will send him home on reduced medication regimen (Coreg down to 3.125, stopping Norvasc)and asked him to check his blood pressure twice daily, follow-up with his PCPdiscussed with patient frankly that this is obviously a next step rather than a definitive managementand he will need ongoing medication titration working with his PCP. We also discussed with the potential for bradycardiashould his teletypesetter monitor show anything significant it would really be looking for whether or not he would benefit from a pacemaker. 2) Fall CTA/P: No acute infectious or inflammatory findings. Moderate constipation. 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 Biapical opacities favoring scarring CThead without acute findings; CXR: no acute finding 3) Distal radius fracture, left: Patient notes that he tripped on a rock and fell on an outstretched left hand. This preceded his syncopal episodes and he did not strike his head or lose consciousness at that time. Suspect that this was separate from syncopal episodes X-ray confirms distal radial fracture, likely intra-articular. Orthopedics Dr. Ashford following - splinted, follow up as outpt 4) CAD History of [place], CAD No acute chest pain or evidence of ACS History of 5 vessel CABG Cardiac catheterization 08/2010: Left main 50%, LAD 100%, left circumflex 90% and mid 100%, atretic OM1, RCA proximal 100% with collaterals. BERNARD to LAD patent, SVG to diagonal jump graft to diagonal 2 patent, occluded SVGPDA, occluded SVGmarginal. No disease amenable to PCI at that time Lexiscan 2019 without evidence of ischemia, LVEF 48%, inferior fixed perfusion deficit. Echo and nuclear medicine scan this admission reassuring 5) CKD (chronic kidney disease), stage III outpatient follow-up 6) Hyperkalemia 5.1. With clinical volume contraction, mild Trended every 4 hours x 2 If uptrending or telemetry shows peaked T waves/Worsening QTc/worsening QRS then add calcium gluconate, insulin dextrose, and 1 dose of Lokelma at that time Notes For Next Care Provider Medication Changes From Visit stopped norvasc, reduced coreg to 3.125mg bid Admission HPI Per Admitting Provider Jus Godoy is an 88-year-old male Jus is an 88-year-old male with past medical history of hyperlipidemia, hypothyroidism, hypertension, CKD, impaired fasting glucose, anemia, gout, BPH, sleep disorder on gabapentin who arrived by EMS after he was found unresponsive by his in his chair. Patient withdrew to noxious stimuli over, received 1 mg of atropine and route for BP in the 40s, and subsequently with improving mentation while in the ER. He reports that he was sitting in his chair when he had abdominal chest pain slightly before passing out. He does have a history of CAD s/p 5 vessel CABG with known occluded vein graft to OM, and left bundle branch block. Case with ER. Patient has 2 episodes of syncope with sudden loss of consciousness. Did fall and has a distal radius fracture. Both episodes were preceded with vague abdominal pain for which she took a nitro, and then subsequently syncopized. When EMS was called he was noted to be bradycardic and clinically improved with atropine. Patient seen with a family friend and his present. He reports he had 3 separate falls. He notes that the first fall yesterday morning was actually not from passing out, he tripped over a rock and fell onto his outstretched left hand after which he had left wrist pain and likely the source of his radial fracture. He did not have any chest pain, epigastric pain, syncope, or presyncope at that time. Later in the evening however he did have an episode which was in the same place that he normally gets reflux, but felt more like a burning pain similar to his prior heart attack and did radiate slightly into his chest. He took nitro and then passed out. He is not able to tell how long it was between the pain, nitro, and passing out as he does not remember anything other than waking up. His fall was not observed. He had a recurrent episode of the same pain, attempted nitro, and syncope this morning. EMS was called and he was found to be bradycardic 3040s and was transported while unresponsive to the ER. He did improve after atropine No orthopnea. No new leg swelling. Medical History: Reviewed Medications: Reviewed Surgical History: Reviewed Family history: Reviewed Allergies: Reviewed Social History: Denies tobacco, rare etoh use Code Status: Full Updated Medication List Medication Instructions Recorded Confirmed Type aspirin 325 mg tablet 325 mg PO HS 03/17/19 01/09/24 History cholecalciferol (vitamin D3) 25 1,000 units PO DAILY 04/08/19 01/09/24 History mcg (1,000 unit) capsule cyanocobalamin (vitamin B-12) 1,000 mcg PO QAM 05/12/20 01/09/24 History 1,000 mcg tablet omega-3 fatty acids 1,000 mg PO QAM 05/12/20 01/09/24 History allopurinol 100 mg tablet 100 mg PO BID #180 tabs 11/27/23 01/09/24 Rx cetirizine 10 mg tablet 10 mg PO DAILY #90 tabs 11/27/23 01/09/24 Rx colchicine 0.6 mg tablet (Colcrys) 0.6 mg PO DAILY PRN GOUT FLARE UP 11/27/23 01/09/24 Rx #90 tabs cyclobenzaprine 10 mg tablet 10 mg PO TID #270 tabs 11/27/23 01/09/24 Rx finasteride 5 mg tablet 5 mg PO DAILY #90 tabs 11/27/23 01/09/24 Rx gabapentin 100 mg capsule 100 mg PO HS #90 caps 11/27/23 01/09/24 Rx levothyroxine 150 mcg tablet 150 mcg PO QAM #90 tabs 11/27/23 01/09/24 Rx meloxicam 7.5 mg tablet 7.5 mg PO DAILY #90 tabs 11/27/23 01/09/24 Rx nitroglycerin 0.4 mg sublingual 0.4 mg sublingual Q5M PRN chest 11/27/23 01/09/24 Rx tablet pain #30 tabs pantoprazole 40 mg tablet,delayed 40 mg PO QAM #90 tabs 11/27/23 01/09/24 Rx release simvastatin 40 mg tablet 40 mg PO HS #90 tabs 11/27/23 01/09/24 Rx telmisartan 40 mg tablet 40 mg PO QAM #90 tabs 11/27/23 01/09/24 Rx ursodiol 300 mg capsule 300 mg PO BID #180 caps 11/27/23 01/09/24 Rx tramadol 50 mg tablet 50 mg PO TID PRN pain #90 tabs 12/04/23 01/09/24 Rx carvedilol 3.125 mg tablet 3.125 mg PO BID #60 tabs 01/11/24 Rx Hospital Stay Data Consultations 01/09/24 14:08 Consult Orthopedic Surgery Routine ED Decision to Admit Stat 01/09/24 15:24 Consult Cardiology Routine Diagnostic Imagining Performed 01/09/24 13:08 CT head/brain wo con Stat 01/09/24 13:09 CT cervical spine wo con Stat 01/09/24 13:14 CT abd pelvis wo con Stat Pending Results Patient Have Any Pending Studies at Discharge: No Discharge Instructions Given to Patient (Per Discharging Provider) You were admitted to the hospital for a fall associated w/ loss of consciousness/syncope along with noted bradycardia. You were treated with IV fluids, home meds, and worked up with a variety of cardiac diagnostic tests. A discharge summary will be sent to your primary care physician to ensure continuity of care. Please bring this discharge summary with you to your next office appointment so that your provider can review it at that time. Follow-up appointments: We have requested a follow-up appointment with your primary care physician within one week of discharge. Please call their office if you do not hear from them. Keep all your follow-up appointments as already scheduled. If you cannot make an appointment, notify your provider. Medications: Your medication list has been reviewed and reconciled upon discharge to ensure accuracy and continuity of care. An updated list of all your medications is included with your hospital discharge paperwork. Please review this list closely, and make note of any changes. We sent a prior medication at a new dosage called carvedilol to your pharmacy. Take carvedilol, 3.25 mg/one tablet, regularly. We completely stopped another medication called amlodipine. Take your medications as instructed; do not skip a dose of your medicines. Make sure all of your doctors know every medicine you are taking (including [id number] medicines, vitamins, and supplements). Call your primary care provider before taking any new medicines (including pulf-[id number] medicines, vitamins, and supplements), because some of these may interact with your current medications, or may make your symptoms worse. Tell your primary care provider if you cannot afford your medications. CONTACT YOUR PRIMARY CARE PROVIDER if you experience any of the following: dizziness/lightheadedness, falls, spells of passing out/losing consciousness, feeling weak or tired Difficulty following your treatment plan, or difficulty taking medications CALL 911 OR GO TO THE EMERGENCY DEPARTMENT if you experience any of the following: Sudden, severe abdominal pain or nausea/vomiting Severe chest pain, or chest pain that radiates (moves) to your jaw or arm Sudden, severe shortness of breath or difficulty breathing Thank you for allowing us to participate in your care. Total Time Total Time Spent Total Time Spent (In Minutes): less than 30
--- NOTE | 2024-01-11 17:06 | Billing Data ---
Date of Service January 11, 2024 Coding Level of Care Code 85964 IN/OBS DISCH 30 MIN/LESS
== END 2024-01-11 16:13 | disposition home or self-care (01) | DRG 309 ==
LOC: ED 12:53 → 2E 15:22 → SUATTDRO 15:22 → 2E 17:48

== ENCOUNTER 2025-03-25 06:12 | Inpatient (IN) ==
--- NOTE | 2025-03-13 11:02 | PAT Medication Instructions ---
Medication Instructions Date of Service March 13, 2025 Home Medications Medication Instructions Recorded nitroglycerin 0.4 mg sublingual 0.4 mg sublingual Q5M PRN chest 11/27/23 tablet pain #30 tabs levothyroxine 150 mcg tablet 150 mcg PO QAM #90 tabs 11/27/24 tramadol 50 mg tablet 50 mg PO TID PRN pain #270 tabs 11/27/24 apixaban 5 mg tablet (Eliquis) 5 mg PO BID #60 tabs 01/29/25 cholecalciferol (vitamin D3) 25 mcg (1,000 unit) capsule 1,000 units PO DAILY cyanocobalamin (vitamin B-12) 1,000 mcg tablet 1,000 mcg PO QAM omega-3 fatty acids 1,000 mg PO QAM nitroglycerin 0.4 mg sublingual tablet 0.4 mg sublingual Q5M PRN levothyroxine 150 mcg tablet 150 mcg PO QAM tramadol 50 mg tablet 50 mg PO TID PRN apixaban 5 mg tablet (Eliquis) 5 mg PO BID Prevagen 1 cap PO DAILY allopurinol 100 mg tablet (Zyloprim) 100 mg PO BID amlodipine 5 mg tablet (Norvasc) 5 mg PO QAM atorvastatin 40 mg tablet 40 mg PO QAM carvedilol 12.5 mg tablet 12.5 mg PO BID cetirizine 10 mg tablet 10 mg PO HS clopidogrel 75 mg tablet (Plavix) 75 mg PO QAM colchicine 0.6 mg tablet (Colcrys) 0.6 mg PO DAILY PRN cyclobenzaprine 10 mg tablet 10 mg PO TID PRN diphenhydramine HCl 25 mg capsule (Benadryl) 50 mg PO HS PRN finasteride 5 mg tablet (Proscar) 5 mg PO QAM gabapentin 100 mg capsule (Neurontin) 100 mg PO QAM meloxicam 7.5 mg tablet 7.5 mg PO QAM pantoprazole 40 mg tablet,delayed release (Protonix) 40 mg PO QAM telmisartan 40 mg tablet (Micardis) 40 mg PO QAM ursodiol 300 mg capsule 300 mg PO QAM Continue as directed nitroglycerin 0.4 mg sublingual tablet 0.4 mg sublingual Q5M PRN(if needed) ASK your surgeon for instructions meloxicam 7.5 mg tablet 7.5 mg PO QAM ASK your prescriber and surgeon apixaban 5 mg tablet (Eliquis) 5 mg PO BID STOP taking 2 weeks before surgery (or as soon as possible if surgery is within 2 weeks) omega-3 fatty acids 1,000 mg PO QAM Prevagen 1 cap PO DAILY clopidogrel 75 mg tablet (Plavix) 75 mg PO QAM DO NOT take the morning of surgery cholecalciferol (vitamin D3) 25 mcg (1,000 unit) capsule 1,000 units PO DAILY cyanocobalamin (vitamin B-12) 1,000 mcg tablet 1,000 mcg PO QAM colchicine 0.6 mg tablet (Colcrys) 0.6 mg PO DAILY PRN telmisartan 40 mg tablet (Micardis) 40 mg PO QAM ursodiol 300 mg capsule 300 mg PO QAM Take morning of surgery With a small sip of water, OTHERWISE NOTHING TO EAT OR DRINK AFTER MIDNIGHT: levothyroxine 150 mcg tablet 150 mcg PO QAM tramadol 50 mg tablet 50 mg PO TID PRN(if needed) allopurinol 100 mg tablet (Zyloprim) 100 mg PO BID amlodipine 5 mg tablet (Norvasc) 5 mg PO QAM atorvastatin 40 mg tablet 40 mg PO QAM carvedilol 12.5 mg tablet 12.5 mg PO BID cyclobenzaprine 10 mg tablet 10 mg PO TID PRN(if needed) finasteride 5 mg tablet (Proscar) 5 mg PO QAM gabapentin 100 mg capsule (Neurontin) 100 mg PO QAM pantoprazole 40 mg tablet,delayed release (Protonix) 40 mg PO QAM Take evening before surgery tramadol 50 mg tablet 50 mg PO TID PRN(if needed) allopurinol 100 mg tablet (Zyloprim) 100 mg PO BID carvedilol 12.5 mg tablet 12.5 mg PO BID cetirizine 10 mg tablet 10 mg PO HS cyclobenzaprine 10 mg tablet 10 mg PO TID PRN(if needed) diphenhydramine HCl 25 mg capsule (Benadryl) 50 mg PO HS PRN(if needed) Other Notes If you have any questions please call us at [phone] or [phone] or [phone] or [phone]
--- NOTE | 2025-03-18 10:42 | Anesthesiology Consultation ---
Date of Service March 18, 2025 Assessment & Plan (1) Encounter for pre-operative examination: Chart Review Chart Review: Acceptable Risk for Surgery (pending anesthesia evaluation DOS ) and Patient seen in Pre Admission Testing - Discussed case with Dr. Fleix- due to nature of procedure- patient can proceed as scheduled - Mobic, Eliquis, and Plavix instructions per surgeon's discretion- surgeon's office will follow up with patient re: instructions Per PAT appt on 03/18/25, no recent illness/disease exposures, illness related symptoms, or recent illness/disease positive tests. Will leave to surgeon's discretion if preop Covid testing needed Per provider to provider [place] workload note between PCP and cardiolo 01/30/25= PCP and cardio both agreed that patient should start on Eliquis due to recent stroke and "possible embolic disease with his age and questionable AF in the past." Cardio also reviewed CTA of the neck after December 2024 stroke - potentially ulcerated plaque- Dr Hall referred patient to Dr Cohen to discuss " possible carotid endarterectomy vs TCAR and then terminal carman transition his clopidogrel to DOAC." [place] [facility] visit 08/11/24= "presents today for scheduled follow up... Syncope: Etiology unclear. Recent Holter monitor was unremarkable per preliminary report. Discussed possibly implanting a loop recorder to further evaluate for an arrhythmia but he declines. Recommended he lie down immediately for any significant lightheadedness. Bifascicular block: No high grade AV block was recorded with his recent monitor... Coronary disease s/p CABG x5: Known occluded vein graft to OM, PDA. No angina... Hypertension: BP is well controlled... Dyslipidemia: Continue statin therapy..." Teaching & Discussion Pre-Anesthesia Teaching/Discussion Notes: Instructed NPO after midnight before surgery,except medications with 15 cc of water. Medication instructions provided according to the PAT guidelines. History Surgery Operation Date: 03/25/25 07:30 Proposed Procedures p Right Carotid Endarterectomy - Teodoro Cohen MD Height/Weight Height: 5 ft 7 in Weight: 84 kg Allergies Allergy/AdvReac Type Severity Reaction Status Date / Time codeine AdvReac Severe "Entire Verified 03/11/25 10:20 system shut down" hydromorphone AdvReac Severe "Entire Verified 03/11/25 10:20 system shut down" nickel AdvReac Mild Rash Verified 03/11/25 10:20 oxycodone AdvReac Unknown "Entire Verified 03/11/25 10:20 system shut down" Medications Home Medications Medication Instructions Recorded Confirmed Last Taken cholecalciferol (vitamin D3) 25 1,000 units PO DAILY 04/08/19 03/11/25 06/08/20 mcg (1,000 unit) capsule cyanocobalamin (vitamin B-12) 1,000 mcg PO QAM 05/12/20 03/11/25 06/08/20 1,000 mcg tablet omega-3 fatty acids 1,000 mg PO QAM 05/12/20 03/11/25 06/08/20 nitroglycerin 0.4 mg sublingual 0.4 mg sublingual Q5M PRN chest 11/27/23 03/11/25 Unknown tablet pain #30 tabs levothyroxine 150 mcg tablet 150 mcg PO QAM #90 tabs 11/27/24 03/11/25 Unknown tramadol 50 mg tablet 50 mg PO TID PRN pain #270 tabs 11/27/24 03/11/25 Unknown apixaban 5 mg tablet (Eliquis) 5 mg PO BID #60 tabs 01/29/25 03/11/25 Unknown Prevagen 1 cap PO DAILY 02/02/25 03/11/25 Unknown allopurinol 100 mg tablet 100 mg PO BID 03/11/25 03/11/25 Unknown (Zyloprim) amlodipine 5 mg tablet (Norvasc) 5 mg PO QAM 03/11/25 03/11/25 Unknown atorvastatin 40 mg tablet 40 mg PO QAM 03/11/25 03/11/25 Unknown carvedilol 12.5 mg tablet 12.5 mg PO BID 03/11/25 03/11/25 Unknown cetirizine 10 mg tablet 10 mg PO HS 03/11/25 03/11/25 Unknown clopidogrel 75 mg tablet (Plavix) 75 mg PO QAM 03/11/25 03/11/25 Unknown colchicine 0.6 mg tablet (Colcrys) 0.6 mg PO DAILY PRN Gout Flare Up 03/11/25 03/11/25 Unknown cyclobenzaprine 10 mg tablet 10 mg PO TID PRN Muscle Spasms 03/11/25 03/11/25 Unknown diphenhydramine HCl 25 mg capsule 50 mg PO HS PRN Allergies 03/11/25 03/11/25 Unknown (Benadryl) finasteride 5 mg tablet (Proscar) 5 mg PO QAM 03/11/25 03/11/25 Unknown gabapentin 100 mg capsule 100 mg PO QAM 03/11/25 03/11/25 Unknown (Neurontin) meloxicam 7.5 mg tablet 7.5 mg PO QAM 03/11/25 03/11/25 Unknown pantoprazole 40 mg tablet,delayed 40 mg PO QAM 03/11/25 03/11/25 Unknown release (Protonix) telmisartan 40 mg tablet (Micardis) 40 mg PO QAM 03/11/25 03/11/25 Unknown ursodiol 300 mg capsule 300 mg PO QAM 03/11/25 03/11/25 Unknown Past Medical History Medical History (Updated 03/18/25 @ 11:19 by Candice Oreilly PA-C) Anemia, unspecified Mild/chronic - no blood transfusion/iron infusion Bifascicular block [facility] Cardiology Dr Hall (no high grade AV block per cardio records) BPH (benign prostatic hyperplasia) Chronic anticoagulation Chronic SI joint pain [facility] CKD (chronic kidney disease), stage III Stable per PCP records Coronary artery disease s/p 5 vessel CABG in (vein graft to PDA,OM known to be occluded per cardio records) on Plavix per PCP records 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/2024) - per vascular - unsure if truly a dissection or possible ulcerated plaque GERD (gastroesophageal reflux disease) well controlled and stable H/O blood clots Right Arm 1983 Hearing loss Bilateral Hearing Aids History of 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 [facility] left sided weakness initially, pt denies any residuals at this time - started on Eliquis 01/2025 History of syncope 12/2023 and 05/2024 per records (had subsequent holter monitor without acute issues) No recent issues of syncope 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- pt denies any issues since - Spent time at [facility]) when in the service Hx of gout Gout flare left toe- resolved as of PAT appt 03/18/25 Hyperlipidemia Hypertension Hypothyroidism Impaired glucose tolerance (oral) Myocardial infarction 1978+1979, no stents - [facility] Cardiology Dr Hall Nocturnal leg cramps Aggravated by increased activity SHAWN (obstructive sleep apnea) Could not tolerate CPAP Osteoarthritis Stenosis of right carotid artery - 50 to 60% stenosis of the right internal carotid artery with what appears to be an ulcerated plaque (per 12/29/24 CTA) Tinnitus of both ears Exercise / Class Metabolic Activity III < 4 Walking/Shop/Light housework (one flight of stairs - mild SOB, no chest pain ) Past Family History Family History Brother Cardiac disorder Diabetes Hypertension Myocardial infarction Sister Cardiac disorder Cancer Breast cancer Lung cancer Denies family history of Ovarian cancer Prostate cancer Colorectal cancer Past Surgical History Surgical History H/O hand surgery Right hand, lump removal History of cardiac cath multiple - denies sents - [facility] Cardiology History of colonoscopy History of surgery on left wrist "they rerouted a vein to my thumb and now it's great" History of tooth extraction lower denture History of total knee replacement Right History of wisdom tooth extraction Hx of appendectomy Hx of CABG 1983>x5 [place] - Now following [facility] Cardiology Dr Hall Hx of carpal tunnel repair Bilateral Hx of cholecystectomy Hx of ventral hernia repair Lump in chest Benign (removed) Past Anesthesia History No Hx of Anesthesia Complications and No Family Hx of Anesthesia Complications History of PONV No Hx of PONV and No Hx of Motion Sickness Social History Smoking Status: Former smoker tobacco type: cigarettes Do You Dip or Chew Tobacco: No Smoking End Date: Hx Alcohol Use: Yes Alcohol type: beer alcohol intake frequency: holidays/special occasions only Hx Substance Use: No substance use type: does not use Review of Systems Patient denies chest pain, shortness of breath at rest, cough, wheezing, palpitations. No hx of seizures. No hx of blood transfusions Physical Exam Vital Signs VITALS BP 118/75 P 92 TEMP 97.4 SP02 98% RESP 16 Constitutional no acute distress ENMT Mouth: no TMJ clicking Thyromental Distance: > or= 3.5 Finger Breadths (3.5) Mallampati Class: III Full lower denture Top right front tooth capped Missing top molars Neck + limited neck extension Respiratory normal respiratory effort; no respiratory distress Auscultation: lungs clear to auscultation bilaterally; no wheezes Cardiovascular Rate/Rhythm: regular rate and regular rhythm Heart Sounds: no murmur Vessels: no carotid bruit Musculoskeletal Spine: no pain with cervical ROM Extremities: extremities normal to inspection Psychiatric Orientation: alert Lab Results Anesthesia Preop Results Results Anesthesia Widget: WBC 4.39 K/ul (4.8-10.8) L 03/18/25 Hgb 10.2 g/dl (14.0-18.0) L 03/18/25 Hct 30.8 % (42.0-52.0) L 03/18/25 Plt 194 K/uL (130-400) 03/18/25 Na 140 mmol/L (136-145) 03/18/25 K 4.7 mmol/L (3.5-5.1) 03/18/25 Cl 107 mmol/L (98-107) 03/18/25 CO2 28 mmol/L (21-32) 03/18/25 BUN 31 mg/dl (6-23) H 03/18/25 Creat 1.51 mg/dl (0.6-1.4) H 03/18/25 Glucose Level 132 mg/dl (70-99(Fasting)) H 03/18/25 PT 11.2 Seconds (9.0-12.0) 03/18/25 PTT 29 Seconds (21-31) 03/18/25 INR 1.0 (0.9-1.1) 03/18/25 HA1c 5.7 % (4.5-5.6) H 03/18/25 Blood Type A Positive 03/18/25 Antibody Screen NEGATIVE 03/18/25 Testing Laboratory Results Anemia- Hgb usually around 11- PCP has been following anemia Elevated creatinine - chronic and stable Electrocardiogram Date: 03/18/25 Findings: + NSR @ (84bpm) RBBB LAFB Bifascicular block When compared to EKG from December 29, 2024- PACs are no longer present per cardio Echocardiogram Date: 12/30/24 EF: 50-55% LV Function: normal Other Findings: + LVH (borderline/concentric) Septal motion is consistent with conduction abnormality Injection of contrast documented an interatrial shunt Patient foramen ovale is suspected Mild mitral annular calcification Mild aortic root dilation Stress Test Date: 01/10/24 Type: nuclear SUMMARY: 1. Negative myocardial perfusion study for significant Lexiscan induced ischemia. 2. Fixed basal to mid inferior/inferolateral perfusion defect consistent with prior RCA/circumflex infarct. 3. Mild, mildly reversible anterior apical/apical perfusion defect consistent with prior apical LAD infarct with minimal karen-infarct ischemia. 4. Normal LV size with borderline LV function. LVEF 44% akinetic basal inferior/inferolateral segments. Abnormal septal motion consistent with postoperative state. Hypokinetic apex 5. Non-diagnostic stress ECG due to inability to reach target HR with Lexiscan. 6. Compared with prior study on 05/04/2020: No significant changes. Other Testing Brain MRI 12/29/24= There are small to tiny acute ischemic injuries of the right frontal and parietal lobes without evidence of hemorrhagic transformation concern for embolic phenomena. Neck/Head CTA 12/29/24= Atherosclerosis of the right carotid bulb causes approximately 50% stenosis of the proximal cervical segment right ICA with suggestion of a short segment chronic dissection flap. Atherosclerosis of the left carotid bulb causes less than 50% stenosis. Unremarkable CTA of the head. Biapical pleural parenchymal scarring with 2 cm left apical nodular focus also likely related to scarring. 6 month follow-up chest CT recommended. Chest CT 12/29/24= No acute injury seen of the chest. Increased size of a left lung apex pulmonary nodule, suspicious. At a minimum, suggest follow-up chest CT in 3 months. There is prior CABG. There is stable mild elevation of the left hemidiaphragm. There is stable mild atelectasis at the left lung base. Abdomen/Pelvis CT 12/29/24= No acute traumatic findings within the abdomen or pel vis. No change in a 3.3 cm infrarenal abdominal aortic aneurysm. Head CT 12/29/24= No acute intracranial findings. No change in appearance of the brain. No calvarial fractures. Event monitor 09/15/24= Good quality recording of 7 days duration. Rhythm was sinus throughout. Minimum HR 63 bpm, max HR during sinus is not specified but appears to be 112 bpm and an average HR of 81 bpm. There was a blunted diurnal heart rate variation. 2417 isolated PVCs (less than 1%) with 19 couplets and 1 run of 5 beats duration at 124 bpm. There were 3189 isolated premature supraventricular beats (less than 1%) with no couplets and 2 runs. The supraventricular runs were 3 beats in duration at maximum of 141 bpm. Ventricular ectopy occurred predominantly in the afternoon evening, supraventricular ectopy occurred predominantly overnight. No pauses in excess of 2 seconds. 3 patient activationslisted symptoms included tired/fatigue, dizzy/lightheaded, weakness in the legs, neck jaw or arm pain. Rhythms were all sinus with a heart rate between 71 to 99 bpm with no associated arrhythmia.
[2025-03-25] MEDS ORDERED: HEPARIN SOD (PORCINE) 1000 UNIT/ML ONE (06:49)
[2025-03-25] MEDS ORDERED: DEXAMETHASONE SOD INJ 4 MG/ML VIAL ONE (06:49)
[2025-03-25] MEDS ORDERED: ROCURONIUM BROMIDE 10 MG/ML 5 ML VIAL IV ONE ×2 (06:49→10:18)
[2025-03-25] MEDS ORDERED: LIDOCAINE 2% 2 ML VIAL/AMP(20MG/ML) INFIL ONE (06:49)
[2025-03-25] MEDS ORDERED: NEOSTIGMINE METHYLSULFATE 1 MG/ML 10ML VIAL ONE (06:49)
[2025-03-25] MEDS ORDERED: PROPOFOL IV EMULSION 10 MG/ML 20 ML VIAL IV ONE (06:49)
[2025-03-25] MEDS ORDERED: ONDANSETRON INJ 2 MG/ML 2 ML VIAL ONE (06:49)
[2025-03-25] MEDS ORDERED: PHENYLEPHRINE HCL 10 MG/ML VIAL ONE ×3 (06:55→11:23)
[2025-03-25] MEDS: SODIUM CHLORIDE 0.9% 1,000 ML IV SCH ×2 (07:08→13:00)
[2025-03-25] MEDS: LR 15ML/HR IV SCH (07:08)
[2025-03-25] MEDS ORDERED: DROPERIDOL 5 MG/2 ML VIAL IV PRN (07:09)
[2025-03-25] MEDS ORDERED: ONDANSETRON INJ 2 MG/ML 2 ML VIAL IV PRN (07:09)
[2025-03-25] MEDS ORDERED: ATROPINE SULFATE 0.1 MG/ML 10ML SYR IV PRN (07:09)
[2025-03-25] MEDS ORDERED: LABETALOL HCL IV 5 MG/ML 20ML IV ONE (07:11)
[2025-03-25] MEDS ORDERED: REMIFENTANIL HCL 1 MG VIAL IV ONE (07:13)
--- NOTE | 2025-03-25 07:18 | History & Physical Report ---
Date of Service March 25, 2025 Assessment & Plan (1) Stenosis of right carotid artery: Plan: Right carotid stenosis with CVA over 2 months ago. Plan for prophylactic right carotid endarterectomy today. Risks/goals/benefits discussed with patient and who understand the seriousness of the situation and agree to proceed. All questions answered. History of Present Illness Primary Care Provider: Rogelio Machuca MD Patient with known right carotid stenosis of approximately 60% with ulceration. Status post CVA December,. No new neurologic symptoms since last seen 6 weeks ago. Was maintained on Eliquis but off for past week. Allergies Allergy/AdvReac Type Severity Reaction Status Date / Time codeine AdvReac Severe "Entire Verified 03/25/25 06:37 system shut down" hydromorphone AdvReac Severe "Entire Verified 03/25/25 06:37 system shut down" nickel AdvReac Mild Rash Verified 03/25/25 06:37 oxycodone AdvReac Unknown "Entire Verified 03/25/25 06:37 system shut down" Home Medications Medication Instructions Recorded Confirmed Type cholecalciferol (vitamin D3) 25 1,000 units PO DAILY 04/08/19 03/25/25 History mcg (1,000 unit) capsule cyanocobalamin (vitamin B-12) 1,000 mcg PO QAM 05/12/20 03/25/25 History 1,000 mcg tablet omega-3 fatty acids 1,000 mg PO QAM 05/12/20 03/25/25 History nitroglycerin 0.4 mg sublingual 0.4 mg sublingual Q5M PRN chest 11/27/23 03/25/25 Rx tablet pain #30 tabs levothyroxine 150 mcg tablet 150 mcg PO QAM #90 tabs 11/27/24 03/25/25 Rx tramadol 50 mg tablet 50 mg PO TID PRN pain #270 tabs 11/27/24 03/25/25 Rx apixaban 5 mg tablet (Eliquis) 5 mg PO BID #60 tabs 01/29/25 03/25/25 Rx Prevagen 1 cap PO DAILY 02/02/25 03/25/25 History allopurinol 100 mg tablet 100 mg PO BID 03/11/25 03/25/25 History (Zyloprim) amlodipine 5 mg tablet (Norvasc) 5 mg PO QAM 03/11/25 03/25/25 History atorvastatin 40 mg tablet 40 mg PO QAM 03/11/25 03/25/25 History carvedilol 12.5 mg tablet 12.5 mg PO BID 03/11/25 03/25/25 History cetirizine 10 mg tablet 10 mg PO HS 03/11/25 03/25/25 History clopidogrel 75 mg tablet (Plavix) 75 mg PO QAM 03/11/25 03/25/25 History colchicine 0.6 mg tablet (Colcrys) 0.6 mg PO DAILY PRN Gout Flare Up 03/11/25 03/25/25 History cyclobenzaprine 10 mg tablet 10 mg PO TID PRN Muscle Spasms 03/11/25 03/25/25 History diphenhydramine HCl 25 mg capsule 50 mg PO HS PRN Allergies 03/11/25 03/25/25 History (Benadryl) finasteride 5 mg tablet (Proscar) 5 mg PO QAM 03/11/25 03/25/25 History gabapentin 100 mg capsule 100 mg PO QAM 03/11/25 03/25/25 History (Neurontin) meloxicam 7.5 mg tablet 7.5 mg PO QAM 03/11/25 03/25/25 History pantoprazole 40 mg tablet,delayed 40 mg PO QAM 03/11/25 03/25/25 History release (Protonix) telmisartan 40 mg tablet (Micardis) 40 mg PO QAM 03/11/25 03/25/25 History ursodiol 300 mg capsule 300 mg PO QAM 03/11/25 03/25/25 History Past Med/Surg History Problem List Encounter for pre-operative examination 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 Chronic anticoagulation Chronic SI joint pain Fall (Acute) 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 Weakness of shoulder Nocturnal leg cramps Nodule of finger Radial nerve compression Bifascicular block Syncope No recent issues Hyperkalemia Distal radius fracture, left (Acute) Hx of Symptomatic bradycardia (Acute) Sleep disorder Rhinitis Lumbar disc disease Benign prostatic hyperplasia Gout Degenerative disc disease Hypothyroidism Hypertension (Acute) Hyperlipidemia Coronary artery disease Medical History SHAWN (obstructive sleep apnea) Could not tolerate CPAP Tinnitus of both ears Hearing loss Bilateral Hearing Aids Impaired glucose tolerance (oral) CKD (chronic kidney disease), stage III Stable per PCP records History of tuberculosis - - treated- pt denies any issues since - Spent time at [facility]) when in the service History of syncope 12/2023 and 05/2024 per records (had subsequent holter monitor without acute issues) No recent issues of syncope Stenosis of right carotid artery - 50 to 60% stenosis of the right internal carotid artery with what appears to be an ulcerated plaque (per 12/29/24 CTA) Nocturnal leg cramps Aggravated by increased activity Hypothyroidism Hypertension Hyperlipidemia 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/2024) - per vascular - unsure if truly a dissection or possible ulcerated plaque Coronary artery disease s/p 5 vessel CABG in (vein graft to PDA,OM known to be occluded per cardio records) on Plavix per PCP records Chronic SI joint pain [facility] Pain Clinic Chronic anticoagulation Bifascicular block [facility] Cardiology Dr Hall (no high grade AV block per cardio records) History of 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 left sided weakness initially, pt denies any residuals at this time - started on Eliquis 01/2025 Anemia, unspecified Mild/chronic - no blood transfusion/iron infusion Osteoarthritis BPH (benign prostatic hyperplasia) Hx of gout Gout flare left toe- resolved as of PAT appt 03/18/25 GERD (gastroesophageal reflux disease) well controlled and stable H/O blood clots Right Arm 1983 Myocardial infarction 1978+1979, no stents - [facility] Cardiology Dr Hall Surgical History History of surgery on left wrist "they rerouted a vein to my thumb and now it's great" History of wisdom tooth extraction Lump in chest Benign (removed) H/O hand surgery Right hand, lump removal History of total knee replacement Right History of colonoscopy History of tooth extraction lower denture History of cardiac cath multiple - denies sents - [facility] Cardiology Hx of ventral hernia repair Hx of carpal tunnel repair Bilateral Hx of cholecystectomy Hx of CABG 1983>x5 [place] - Now following [facility] Cardiology Dr Hall Hx of appendectomy Family History Brother Cardiac disorder Diabetes Hypertension Myocardial infarction Sister Cardiac disorder Cancer Breast cancer Lung cancer Denies family history of Ovarian cancer Prostate cancer Colorectal cancer Social History Smoking Status: Former smoker Tobacco Type: Cigarettes Age Started Using Tobacco: 19; Age Quit Using Tobacco: 30; packs per day: 2; Smoking End Date: ; Second Hand Exposure: No; Do You Dip or Chew Tobacco: No; Tobacco Cessation Education Requested by Patient: No Hx Alcohol Use: Yes Alcohol type: beer Hx Substance Use: No Preferred Language: [place]er Communication Ability: Effective Visual Impairment: Limited Hearing Ability: Use of Hearing Aid Assistant 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 Operations Required: No Beliefs That Will Affect Care: None marital status: Current Living Situation: Spouse current occupational status: retired How many Children do You have: 1 Other Information That Helps Us Care for You: No Feels Safe at Home: Yes Safety Concerns: Feels Safe At This Time Childhood Exposure to Second-Hand Smoke: No Diet: regular caffeine: Yes (coffee and tea) Dental Care, Regularly: No Physical Activity Frequency: Daily Seatbelt Use: always Sunscreen Use: Yes (sometimes) Assistive Devices: Cane, Denture - Lower, Glasses and Hearing Aid - Bilateral Assistive Devices Comment: cane - prn Physical Exam Physical Exam: Lungs clear, Heart RRR. Abdomen soft. No new neurologic findings. Results & Data Vital Signs (Past 12 Hours) Vital Signs Temp Pulse Resp BP Pulse Ox O2 Del Method 03/25/25 06:49 36.5 C 86 18 148/83 H 98 Room Air PG Care Time/CCT Total # of Minutes Spent Total Time Spent with Patient: Total time spent is greater than 50% in coordination of care (as documented) at patient's floor/unit and/or counseling patient: Coding Level of Care Code 48552 INT INP/OBS CARE 2/55MIN Diagnoses Stenosis of right carotid artery I65.21 Comment H/P performed same day of surgery
[2025-03-25] MEDS ORDERED: ESMOLOL HCL INJ 10 MG/ML 10ML VIAL IV ONE (07:47)
[2025-03-25] MEDS ORDERED: ePHEDrine sulfate 50 MG/5 ML SYR ONE ×2 (08:33→10:09)
[2025-03-25] MEDS ORDERED: GLYCOPYRROLATE 0.2 MG/ML VIAL ONE (08:37)
[2025-03-25] MEDS ORDERED: VASOPRESSIN 20 UNIT/ML VIAL ONE (09:09)
[2025-03-25] MEDS ORDERED: PHENYLEPHRINE 100MCG/ML 5ML SYR ONE (10:09)
[2025-03-25] MEDS: SURGICEL FIBRILLAR HEMOSTAT 1 X 2IN TOP ONE (10:18)
[2025-03-25] MEDS: THROMBIN FOR SOLN 20000 UNIT KIT ONE (10:29)
[2025-03-25] MEDS: GELATIN SPONGE SZ 100 ONE (10:29)
[2025-03-25] MEDS ORDERED: SUGAMMADEX SODIUM 200 MG/2 ML VIAL IV ONE (10:39)
--- NOTE | 2025-03-25 10:40 | Post Operative Brief Note ---
Immediate Post Op Note Date of Surgery March 25, 2025 Pre & Post Diagnosis Operation Date: 03/25/25 07:30 Pre-Op Diagnosis: Stenosis of right carotid artery Post-Op Diagnosis: Stenosis of right carotid artery I identified the patient and participated in the time-out.: Yes Procedure Operation Date: 03/25/25 07:30 Actual Procedures p Right Carotid Endarterectomy(Right) - Teodoro Cohen MD Surgeon Teodoro Cohen MD Motor Generator Set Operator Letty Dhillon PA-C Estimated Blood Loss 100 Findings Consistent with Post-Op Diagnosis Specimens right carotid plaque Drains Arias Catheter Anesthesia Type General Complications none Disposition Accompanied Patient To Recovery: Yes Disposition: Recovery Room Overlapping Procedure I was present for: the critical portions of procedure.
[2025-03-25] MEDS: HEPARIN (PORCINE) 1000 UNIT/ML 10 ML (CATH LAB USE ONLY) ONE (10:43)
[2025-03-25] MEDS: LIDOCAINE 1% LOCAL 20 ML VIAL ONE (10:45)
[2025-03-25] MEDS: BUPIVACAINE 0.25% PF 30 ML VIAL ONE (10:46)
[2025-03-25] MEDS: ceFAZolin 330 MG/ML 1 GM VIAL ONE (10:47)
--- NOTE | 2025-03-25 11:31 | Anesthesiology Progress Note ---
Date of Service March 25, 2025 Anesthesia Post Procedure Vital Signs Vital Signs: Temp Pulse Resp BP Pulse Ox O2 Del Method 03/25/25 06:49 36.5 C 86 18 148/83 H 98 Room Air Transfer of Care Handoff Completed per policy Notes Mental Status: alert / awake / arousable Patient Amnestic to Procedure: Yes Nausea / Vomiting: adequately controlled Pain: adequately controlled Airway Patency, RR, SpO2: stable & adequate BP & HR: stable & adequate Hydration State: stable & adequate Anesthetic Complications: no major complications apparent and Pt Satisfied with anesthetic care
--- NOTE | 2025-03-25 12:11 | Operative Report ---
PG Post Operative Report Pre & Post Diagnosis Operation Date: 03/25/25 07:30 Pre-Op Diagnosis: Stenosis of right carotid artery Post-Op Diagnosis: Stenosis of right carotid artery I identified the patient and participated in the time-out.: Yes Procedure Operation Date: 03/25/25 07:30 Actual Procedures p Right Carotid Endarterectomy(Right) - Teodoro Cohen MD Surgeon Teodoro Cohen MD Farm Equipment Service Technician Letty Dhillon PA-C Estimated Blood Loss 100 Findings Consistent with Post-Op Diagnosis Specimens right carotid plaque Drains 15 round DANA Anesthesia Type General Complications none Disposition Accompanied Patient To Recovery: Yes Disposition: Recovery Room Indications 89-year-old gentleman with ulcerated right carotid plaque and a history of right cerebral stroke 2 months ago. He is brought to the operating room for prophylactic right carotid endarterectomy. Risk goals and alternatives were discussed with the patient understood and gave consent to proceed. Description of Procedure A timeout was performed and the patient identified procedure verified. Antibiotics were administered within 1 hour of incision time. Right neck was prepped and draped usual sterile fashion. Neuromonitoring devices were placed and suitable baseline tracings were obtained. A 10 cm incision paralleling the anterior border the sternocleidomastoid muscle was created after infiltrating the skin with a 50-50 mixture of quarter percent Marcaine and 1% lidocaine. The platysma is divided with electrocautery. The anterior border the sternocleidomastoid muscle was identified and mobilized. The jugular vein was mobilized on its anterior border as well. The vagus nerve was identified and preserved along its course. The common carotid artery was dissected free and prepared for clamping. It was soft with suitable for used. It was encircled with a Andreia tourniquet. The patient was systemically anticoagulated with he fabrizio to achieve a therapeutic activated clotting time. The external carotid and superior thyroid arteries were dissected free and controlled. The internal carotid artery was identified and dissected free after identifying the hypoglossal nerve. A suitable spot on the internal carotid artery above the palpable plaque was identified and prepared for clamping. With the patient maintaining good oxygenation and hemodynamics, the internal/external and common carotid arteries were clamped and the distal common carotid artery was entered sharply. There was a moderate (50 to 60%) ulcerated plaque at the origin of the internal carotid artery. The internal carotid artery was divided up into more normal-appearing distal lumen. The endarterectomy plane was identified. The proximal endpoint was obtained sharply. The plaque was entirely confined to the internal carotid artery so an external carotid endarterectomy was not performed. The distal endpoint was obtained sharply. 2 tacking sutures of 7-0 Prolene were required. Copious irrigation was undertaken and all remaining bits of debris were removed and the endpoints of the endarterectomy appeared suitable. A Dacron patch was fashioned to fit and sewn onto the carotid arteriotomy using running 6-0 Prolene. Throughout the entire clamp time neuromonitoring was stable and so no shunt was used. Prior to completion, backbleeding for bleeding and flushing maneuvers were performed and the patch closure was then completed tested secured and hemostatic. Flow was restored first to the external and the internal carotid artery. Appropriate Doppler waveforms were noted. The patch was punctured with a 21-gauge butterfly and a completion arteriogram was performed revealing suitable endpoints and brisk flow up into the middle cerebral artery. The puncture site was repaired with 6-0 Prolene. Hemostasis was achieved. A 15 round [place]-Wang drain was brought out through a separate stab incision and secured to the skin. The platysma is closed with interrupted Vicryl and the skin was closed with a running Monocryl suture and then Dermabond was applied. The patient was awakened and extubated in the operating room moving all 4 extremities to command with the tongue in the midline. There were no immediate complications and the patient appeared to tolerate the procedure well. Letty Dhillon PA-C served as a it assistanthearing and speech assistant for preparation, performance of the case, as well as closure. I attest to the content of the Intraoperative Record and any orders documented therein. Any exceptions are noted below.
--- NOTE | 2025-03-25 12:16 | Fluoroscopy Report ---
FL spine 1V any level CLINICAL HISTORY: ANGIOGRAM IN OR WITH TEDDY COMPARISON STUDY: No previous studies for comparison. FINDINGS: Fluoroscopic images are provided during an intraoperative angiogram. A catheter has been in serted in the region of the right carotid bulb and contrast was injected. There was no evidence of si gnificant carotid stenosis. 8 seconds of fluoroscopic time was utilized. Decubitus dose was 3.7 mGy IMPRESSION: Intraoperative images acquired during right carotid arteriography. No stenosis identifie d. ACT 112: Negative or not required by law. Electronically signed by: Ronny Haynes M.D. 03/25/2025 12:15 PM
--- NOTE | 2025-03-25 14:13 | Critical Care Consultation ---
Date of Consultation March 25, 2025 Assessment & Plan (1) Stenosis of right carotid artery: (2) Impaired glucose tolerance (oral): (3) CKD (chronic kidney disease), stage III: Plan Impression: 89-year-old male with recent stroke taken to the OR today for elective carotid endarterectomy. Uneventful procedure. He is extubated in the ICU and hemodynamically stable. Recommendations: 1. Postop carotid enterectomy: Management per vascular surgery. Maintained appropriate blood pressure goals and monitor site. 2. History of bifascicular block: No evidence of high-grade block currently. Continue to monitor currently. 3. Coronary disease: Continue his carvedilol. Will restart Plavix once cleared by vascular surgery. 4. Hyperlipidemia/hypertension: Continue statin. Restart ARB as tolerated by blood pressure. 5. Hypothyroidism: Continue Synthroid. 6. History of chronic kidney disease: Recheck serum creatinine and electrolytes. Will follow-up with the patient's postoperative laboratory studies. Additional recommendations will be based on those results History of Present Illness Attending Physician: Teodoro Cohen MD History of Present Illness Asked by vascular surgery to assist in evaluation management this patient's status post right carotid endarterectomy. History is obtained from discussion with the patient as well as review of the electronic medical record. Patient is an 89-year-old male who suffered a stroke in December 2024. At that time he was noted to have an ulcerated plaque in his right carotid artery with stenosis of about 60%. He been placed on Eliquis but this was discontinued preoperatively. He was seen in the vascular surgery clinic and felt to be appropriate for prophylactic right carotid endarterectomy. He underwent the procedure earlier today with an uneventful intraoperative course. He was hemodynamically stable throughout the case and extubated without difficulty. He is neurologically intact. Patient seen in the ICU with family in attendance. He is awake alert and conversant. He complains of a little bit of a sore throat but no voice changes. No difficulty chewing or swallowing. No numbness or tingling. No neurological deficits. He overall feels well and is anxious to go home tomorrow. Allergies Allergy/AdvReac Type Severity Reaction Status Date / Time codeine AdvReac Severe "Entire Verified 03/25/25 06:37 system shut down" hydromorphone AdvReac Severe "Entire Verified 03/25/25 06:37 system shut down" nickel AdvReac Mild Rash Verified 03/25/25 06:37 oxycodone AdvReac Unknown "Entire Verified 03/25/25 06:37 system shut down" Home Medications Medication Instructions Recorded Confirmed Type cholecalciferol (vitamin D3) 25 1,000 units PO DAILY 04/08/19 03/25/25 History mcg (1,000 unit) capsule cyanocobalamin (vitamin B-12) 1,000 mcg PO QAM 05/12/20 03/25/25 History 1,000 mcg tablet omega-3 fatty acids 1,000 mg PO QAM 05/12/20 03/25/25 History nitroglycerin 0.4 mg sublingual 0.4 mg sublingual Q5M PRN chest 11/27/23 03/25/25 Rx tablet pain #30 tabs levothyroxine 150 mcg tablet 150 mcg PO QAM #90 tabs 11/27/24 03/25/25 Rx tramadol 50 mg tablet 50 mg PO TID PRN pain #270 tabs 11/27/24 03/25/25 Rx apixaban 5 mg tablet (Eliquis) 5 mg PO BID #60 tabs 01/29/25 03/25/25 Rx Prevagen 1 cap PO DAILY 02/02/25 03/25/25 History allopurinol 100 mg tablet 100 mg PO BID 03/11/25 03/25/25 History (Zyloprim) amlodipine 5 mg tablet (Norvasc) 5 mg PO QAM 03/11/25 03/25/25 History atorvastatin 40 mg tablet 40 mg PO QAM 03/11/25 03/25/25 History carvedilol 12.5 mg tablet 12.5 mg PO BID 03/11/25 03/25/25 History cetirizine 10 mg tablet 10 mg PO HS 03/11/25 03/25/25 History clopidogrel 75 mg tablet (Plavix) 75 mg PO QAM 03/11/25 03/25/25 History colchicine 0.6 mg tablet (Colcrys) 0.6 mg PO DAILY PRN Gout Flare Up 03/11/25 03/25/25 History cyclobenzaprine 10 mg tablet 10 mg PO TID PRN Muscle Spasms 03/11/25 03/25/25 History diphenhydramine HCl 25 mg capsule 50 mg PO HS PRN Allergies 03/11/25 03/25/25 History (Benadryl) finasteride 5 mg tablet (Proscar) 5 mg PO QAM 03/11/25 03/25/25 History gabapentin 100 mg capsule 100 mg PO QAM 03/11/25 03/25/25 History (Neurontin) meloxicam 7.5 mg tablet 7.5 mg PO QAM 03/11/25 03/25/25 History pantoprazole 40 mg tablet,delayed 40 mg PO QAM 03/11/25 03/25/25 History release (Protonix) telmisartan 40 mg tablet (Micardis) 40 mg PO QAM 03/11/25 03/25/25 History ursodiol 300 mg capsule 300 mg PO QAM 03/11/25 03/25/25 History Patient History Medical History SHAWN (obstructive sleep apnea) Could not tolerate CPAP Tinnitus of both ears Hearing loss Bilateral Hearing Aids Impaired glucose tolerance (oral) CKD (chronic kidney disease), stage III Stable per PCP records History of tuberculosis - - treated- pt denies any issues since - Spent time at [facility]) when in the service History of syncope 12/2023 and 05/2024 per records (had subsequent holter monitor without acute issues) No recent issues of syncope Stenosis of right carotid artery - 50 to 60% stenosis of the right internal carotid artery with what appears to be an ulcerated plaque (per 12/29/24 [facility]) Nocturnal leg cramps Aggravated by increased activity Hypothyroidism Hypertension Hyperlipidemia 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/2024) - per vascular - unsure if truly a dissection or possible ulcerated plaque Coronary artery disease s/p 5 vessel CABG in (vein graft to PDA,OM known to be occluded per cardio records) on Plavix per PCP records Chronic SI joint pain [facility] Chronic anticoagulation Bifascicular block [facility] Cardiology Dr Hall (no high grade AV block per cardio records) History of 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 [facility] left sided weakness initially, pt denies any residuals at this time - started on Eliquis 01/2025 Anemia, unspecified Mild/chronic - no blood transfusion/iron infusion Osteoarthritis BPH (benign prostatic hyperplasia) Hx of gout Gout flare left toe- resolved as of PAT appt 03/18/25 GERD (gastroesophageal reflux disease) well controlled and stable H/O blood clots Right Arm 1983 Myocardial infarction 1978+1979, no stents - [facility] Cardiology Dr Hall Surgical History History of surgery on left wrist "they rerouted a vein to my thumb and now it's great" History of wisdom tooth extraction Lump in chest Benign (removed) H/O hand surgery Right hand, lump removal History of total knee replacement Right History of colonoscopy History of tooth extraction lower denture History of cardiac cath multiple - denies sents - [facility] Cardiology Hx of ventral hernia repair Hx of carpal tunnel repair Bilateral Hx of cholecystectomy Hx of CABG 1984>x5 [place] - Now following [facility] Cardiology Dr Hall Hx of appendectomy Family History Brother Cardiac disorder Diabetes Hypertension Myocardial infarction Sister Cardiac disorder Cancer Breast cancer Lung cancer Denies family history of Ovarian cancer Prostate cancer Colorectal cancer Social History Smoking Status: Former smoker Tobacco Type: Cigarettes Age Started Using Tobacco: 19; Age Quit Using Tobacco: 30; packs per day: 2; Smoking End Date: ; Second Hand Exposure: No; Do You Dip or Chew Tobacco: No; Tobacco Cessation Education Requested by Patient: No Hx Alcohol Use: Yes Alcohol type: beer Hx Substance Use: No Preferred Language: Czech Communication Ability: Effective Visual Impairment: Limited Hearing Ability: Use of Hearing Aid Counseling Director Required: No Beliefs That Will Affect Care: None marital status: Current Living Situation: Spouse current occupational status: retired How many Children do You have: 1 Other Information That Helps Us Care for You: No Feels Safe at Home: Yes Safety Concerns: Feels Safe At This Time Childhood Exposure to Second-Hand Smoke: No Diet: regular caffeine: Yes (coffee and tea) Dental Care, Regularly: No Physical Activity Frequency: Daily Seatbelt Use: always Sunscreen Use: Yes (sometimes) Assistive Devices: Cane, Denture - Lower, Glasses and Hearing Aid - Bilateral Assistive Devices Comment: cane - prn Review of Systems Review of Systems: Please refer to admission H&P. No additions or deletions Physical Exam Constitutional: WD/WN, vitals as above Neck: trachea midline, no thyromegaly Right neck incision clean dry and intact with mild ecchymoses. DANA drain in place Respiratory: normal respiratory effort, lungs clear to auscultation Cardiovascular: RRR, no murmur, no edema Gastrointestinal (Abdomen): normal bowel sounds, soft, nontender, no hepato splenomegaly Musculoskeletal: Extremities: extremities normal to inspection Skin: no rashes, warm and dry Neurologic: Nonfocal exam Lymphatic: no cervical lymphadenopathy Results & Data Results & Data Vital Signs (Past 12 Hours) Vital Signs Temp Pulse Resp BP Pulse Ox Pulse Ox O2 Del Method 03/25/25 13:17 36.7 C 03/25/25 13:03 36.6 C 22 Nasal Cannula 03/25/25 12:45 36.5 C 78 22 98 Nasal Cannula 03/25/25 12:45 Nasal Cannula 03/25/25 12:45 99 03/25/25 12:25 77 22 96/47 L 100 Nasal Cannula 03/25/25 12:10 77 21 98/47 L 100 Nasal Cannula 03/25/25 11:55 36.6 C 76 20 99/46 L 100 Nasal Cannula 03/25/25 11:45 81 19 100/44 L 99 Nasal Cannula 03/25/25 11:35 82 20 97/49 L 99 Nasal Cannula 03/25/25 11:25 84 22 100/46 L 99 Nasal Cannula 03/25/25 11:15 82 23 109/53 L 99 Nasal Cannula 03/25/25 11:07 36.1 C L 83 19 90/49 L 100 Oxymask 03/25/25 06:49 36.5 C 86 18 148/83 H 98 Room Air O2 Del Method O2 Flow Rate O2 Flow Rate 03/25/25 13:17 03/25/25 13:03 2 03/25/25 12:45 2 03/25/25 12:45 2 03/25/25 12:45 Nasal Cannula 2 03/25/25 12:25 2 03/25/25 12:10 2 03/25/25 11:55 2 03/25/25 11:45 2 03/25/25 11:35 2 03/25/25 11:25 2 03/25/25 11:15 2 03/25/25 11:07 6 03/25/25 06:49 Critical Care Results & Data Vital Signs (Past 12 Hours) Vital Signs Temp Pulse Pulse Resp BP BP Pulse Ox 03/25/25 14:03 81 16 98 03/25/25 14:00 111/55 L 03/25/25 13:51 83 20 97 03/25/25 13:46 97/55 L 03/25/25 13:33 85 20 99 03/25/25 13:31 103/57 L 03/25/25 13:30 80 24 95 03/25/25 13:17 36.7 C 03/25/25 13:15 98/66 L 03/25/25 13:12 80 21 100 03/25/25 13:03 36.6 C 22 03/25/25 13:00 100/60 03/25/25 13:00 75 23 97 03/25/25 12:51 80 19 99 03/25/25 12:45 36.5 C 78 22 98 03/25/25 12:45 03/25/25 12:45 03/25/25 12:25 77 22 96/47 L 100 03/25/25 12:10 77 21 98/47 L 100 03/25/25 11:55 36.6 C 76 20 99/46 L 100 03/25/25 11:45 81 19 100/44 L 99 03/25/25 11:35 82 20 97/49 L 99 03/25/25 11:25 84 22 100/46 L 99 03/25/25 11:15 82 23 109/53 L 99 03/25/25 11:07 36.1 C L 83 19 90/49 L 100 03/25/25 06:49 36.5 C 86 18 148/83 H 98 Pulse Ox O2 Del Method O2 Del Method O2 Flow Rate O2 Flow Rate 03/25/25 14:03 03/25/25 14:00 03/25/25 13:51 03/25/25 13:46 03/25/25 13:33 03/25/25 13:31 03/25/25 13:30 03/25/25 13:17 03/25/25 13:15 03/25/25 13:12 03/25/25 13:03 Nasal Cannula 2 03/25/25 13:00 03/25/25 13:00 03/25/25 12:51 03/25/25 12:45 Nasal Cannula 2 03/25/25 12:45 Nasal Cannula 2 03/25/25 12:45 99 Nasal Cannula 2 03/25/25 12:25 Nasal Cannula 2 03/25/25 12:10 Nasal Cannula 2 03/25/25 11:55 Nasal Cannula 2 03/25/25 11:45 Nasal Cannula 2 03/25/25 11:35 Nasal Cannula 2 03/25/25 11:25 Nasal Cannula 2 03/25/25 11:15 Nasal Cannula 2 03/25/25 11:07 Oxymask 6 03/25/25 06:49 Room Air Lab & Micro Results (Past 24 Hours) No Data to Display No Data to Display No Data to Display Diagnostic Findings (Past 24 Hours) Spine X-Ray 03/25/25 07:30 [place] spine 1V any level CLINICAL HISTORY: ANGIOGRAM IN OR WITH TEDDY COMPARISON STUDY: No previous studies for comparison. FINDINGS: Fluoroscopic images are provided during an intraoperative angiogram. A catheter has been inserted in the region of the right carotid bulb and contrast was injected. There was no evidence of significant carotid stenosis. 8 seconds of fluoroscopic time was utilized. Decubitus dose was 3.7 mGy IMPRESSION: Intraoperative images acquired during right carotid arteriography. No stenosis identified. ACT 112: Negative or not required by law. Electronically signed by: Ronny Haynes M.D. 03/25/2025 12:15 PM I & O Totals 24 Hours 03/24/25 03/25/25 03/26/25 06:59 06:59 06:59 Intake Total 1300 / 1300 Output Total 470 / 470 Balance 830 / 830 Cumulative 02/05/25 08:56 thru 03/25/25 14:00 Intake Total 1300 Output Total 470 Balance 830 RT Ventilator Mngmt (Last Documented) Ventilator Ordered Settings Respiratory Rate 16 03/25/25 14:03 Ventilator - PT Measurements Respiratory Rate 16 Coding Level of Care Code 61804 INT INP/OBS CARE 2/55MIN Diagnoses Stenosis of right carotid artery I65.21 Impaired glucose tolerance (oral) R73.02 CKD (chronic kidney disease), stage III N18.30
[2025-03-25 15:10] LABS: Hematocrit (blood only) 25.8 % (42.0-52.0); Hemoglobin 8.7 g/dl (14.0-18.0); Immature Granulocytes # (auto) 0.02 K/uL (0.01-0.20); Immature Granulocytes % (auto) 0.4 %; Mean Corpuscular Hemoglobin 31.8 pg (25.0-34.0); Mean Corpuscular Volume 94.2 fL (80.0-100.0); Platelet Count 145 K/uL (130-400); RDW Standard Deviation 47.5 fL (36.4-46.3); Red Blood Count 2.74 M/uL (4.70-6.10); White Blood Count 5.14 K/ul (4.8-10.8)
[2025-03-25] MEDS: ATORVASTATIN 40 MG TAB PO SCH (15:13)
[2025-03-25 15:25] LABS: Anion Gap 7.0 (3-11); Blood Urea Nitrogen 33.0 mg/dl (6-23); Calcium 8.6 mg/dl (8.6-10.3); Carbon Dioxide 23.0 mmol/L (21-32); Chloride 111.0 mmol/L (98-107); Creatinine Clr Calc Pharmacy 39.5 ml/min; Glucose 133.0 mg/dl (70-99(Fasting)); Potassium 4.3 mmol/L (3.5-5.1); Sodium 141.0 mmol/L (136-145)
--- NOTE | 2025-03-25 15:52 | Vascular Surgery Progress Note ---
Date of Service March 25, 2025 Assessment & Plan (1) Stenosis of right carotid artery: Plan: Suitable postoperative course from right carotid endarterectomy. He can have liquids tonight and then regular diet in the morning. Will remove Arias catheter in the morning and tentatively plan discharge later that day. All questions were answered. Admission and Anticipated Discharge Date Admission Date: March 25, 2025 Subjective Patient seen and intensive care unit along with and friend. He is awake alert. Tongue is in the midline. Voice is normal. Physical Exam Physical Exam: Incision is clean and dry. Minimal output from the drain. No neurologic deficits. Hemodynamics acceptable. Results & Data Vital Signs (Past 12 Hours) Vital Signs Temp Pulse Pulse Resp BP BP Pulse Ox 03/25/25 15:17 37.0 C 03/25/25 14:03 81 16 98 03/25/25 14:00 111/55 L 03/25/25 13:51 83 20 97 03/25/25 13:46 97/55 L 03/25/25 13:33 85 20 99 03/25/25 13:31 103/57 L 03/25/25 13:30 80 24 95 03/25/25 13:17 36.7 C 03/25/25 13:15 98/66 L 03/25/25 13:12 80 21 100 03/25/25 13:03 36.6 C 22 03/25/25 13:00 100/60 03/25/25 13:00 75 23 97 03/25/25 12:51 80 19 99 03/25/25 12:45 36.5 C 78 22 98 03/25/25 12:45 03/25/25 12:45 03/25/25 12:25 77 22 96/47 L 100 03/25/25 12:10 77 21 98/47 L 100 03/25/25 11:55 36.6 C 76 20 99/46 L 100 03/25/25 11:45 81 19 100/44 L 99 03/25/25 11:35 82 20 97/49 L 99 03/25/25 11:25 84 22 100/46 L 99 03/25/25 11:15 82 23 109/53 L 99 03/25/25 11:07 36.1 C L 83 19 90/49 L 100 03/25/25 06:49 36.5 C 86 18 148/83 H 98 Pulse Ox O2 Del Method O2 Del Method O2 Flow Rate O2 Flow Rate 03/25/25 15:17 03/25/25 14:03 03/25/25 14:00 03/25/25 13:51 03/25/25 13:46 03/25/25 13:33 03/25/25 13:31 03/25/25 13:30 03/25/25 13:17 03/25/25 13:15 03/25/25 13:12 03/25/25 13:03 Nasal Cannula 2 03/25/25 13:00 03/25/25 13:00 03/25/25 12:51 03/25/25 12:45 Nasal Cannula 2 03/25/25 12:45 Nasal Cannula 2 03/25/25 12:45 99 Nasal Cannula 2 03/25/25 12:25 Nasal Cannula 2 03/25/25 12:10 Nasal Cannula 2 03/25/25 11:55 Nasal Cannula 2 03/25/25 11:45 Nasal Cannula 2 03/25/25 11:35 Nasal Cannula 2 03/25/25 11:25 Nasal Cannula 2 03/25/25 11:15 Nasal Cannula 2 03/25/25 11:07 Oxymask 6 03/25/25 06:49 Room Air PG Care Time/CCT Total # of Minutes Spent Total Time Spent with Patient: Total time spent is greater than 50% in coordination of care (as documented) at patient's floor/unit and/or counseling patient:
[2025-03-26] MEDS: LEVOTHYROXINE SODIUM 150 MCG TABLET PO SCH (06:38)
--- NOTE | 2025-03-26 07:55 | Critical Care Progress Note ---
Date of Service March 26, 2025 Assessment & Plan (1) Stenosis of right carotid artery: (2) Impaired glucose tolerance (oral): (3) CKD (chronic kidney disease), stage III: Plan Impression: 89-year-old male with recent stroke status post carotid endarterectomy. Postop day 1 doing well clinically Recommendations: 1. Postop carotid enterectomy: Management per vascular surgery. Maintained appropriate blood pressure goals and monitor site. 2. History of bifascicular block: No evidence of high-grade block currently. Continue to monitor currently. 3. Coronary disease: Restarting carvedilol. Will restart Plavix/apixaban once cleared by vascular surgery. 4. Hyperlipidemia/hypertension: Continue statin. Restart amlodipine and carvedilol this morning as well as Micardis (Micardis nonformulary. Will see if patient has his own medication or discussed with pharmacy therapeutic interchange if he is going to remain in the hospital.) 5. Hypothyroidism: Continue Synthroid. 6. History of chronic kidney disease: BMP acceptable 7. Mild anemia. No evidence of acute ongoing blood loss and no indication for transfusion currently. Patient is doing well clinically. His critical care issues are resolved. Critical care services will sign off. Disposition per vascular surgery. Feel free to contact us with questions or concerns Admission and Anticipated Discharge Date Admission Date: March 25, 2025 Subjective Patient seen and examined. EMR reviewed. Discussed with bedside critical care nurse as well as with overnight critical care JOSE and on multidisciplinary rounds. Patient is sitting up eating breakfast. He feels well clinically. No issues with chewing or swallowing. No facial numbness. No new neurological compl aints. Voice is back to normal. He is getting his antihypertensives today. He is not having any significant pain. He reports no clinical concerns currently Review of Systems Review of Systems: All systems reviewed & are unremarkable except as noted in Subjective Physical Exam Constitutional: WD/WN, vitals as above Neck: trachea midline, no thyromegaly Respiratory: normal respiratory effort, lungs clear to auscultation Cardiovascular: RRR, no murmur, no edema Gastrointestinal (Abdomen): normal bowel sounds, soft, nontender, no hepatosplenomegaly Musculoskeletal: Extremities: extremities normal to inspection Skin: no rashes, warm and dry Lymphatic: no cervical lymphadenopathy Results & Data Results & Data Vital Signs (Past 12 Hours) Vital Signs Temp Pulse Resp BP Pulse Ox O2 Del Method 03/26/25 06:00 36.9 C 115 H 16 03/26/25 05:09 118 H 22 95 03/26/25 05:00 147/87 H 03/26/25 05:00 147/87 H 03/26/25 04:57 111 H 20 94 03/26/25 04:03 119 H 20 94 03/26/25 03:00 167/88 H 03/26/25 03:00 113 H 18 93 03/26/25 02:00 162/99 H 03/26/25 02:00 107 H 15 93 03/26/25 01:12 103 H 23 93 03/26/25 01:01 136/80 03/26/25 01:01 136/80 03/26/25 00:57 103 H 19 92 03/26/25 00:15 103 H 22 92 03/26/25 00:12 101 H 17 93 03/26/25 00:00 122/59 L 03/26/25 00:00 101 H 20 86 L 03/25/25 23:21 99 H 24 91 03/25/25 23:00 113/84 03/25/25 23:00 98 H 19 90 03/25/25 22:48 100 H 23 92 03/25/25 22:30 104 H 19 91 03/25/25 22:21 99 H 23 93 03/25/25 22:06 98 H 23 93 03/25/25 22:01 130/67 03/25/25 21:51 98 H 24 95 03/25/25 21:03 93 H 25 H 92 03/25/25 21:00 103/64 03/25/25 21:00 103/64 03/25/25 21:00 103/64 03/25/25 20:54 95 H 27 H 93 03/25/25 20:51 94 H 23 94 03/25/25 20:30 94 H 20 92 03/25/25 20:15 97 H 25 H 92 03/25/25 20:03 101 H 22 95 03/25/25 20:00 108/72 03/25/25 20:00 108/72 03/25/25 20:00 Room Air 03/25/25 19:57 94 H 26 H 96 Critical Care Results & Data Vital Signs (Past 12 Hours) Vital Signs Temp Pulse Resp BP Pulse Ox O2 Del Method 03/26/25 06:00 36.9 C 115 H 16 03/26/25 05:09 118 H 22 95 03/26/25 05:00 147/87 H 03/26/25 05:00 147/87 H 03/26/25 04:57 111 H 20 94 03/26/25 04:03 119 H 20 94 03/26/25 03:00 167/88 H 03/26/25 03:00 113 H 18 93 03/26/25 02:00 162/99 H 03/26/25 02:00 107 H 15 93 03/26/25 01:12 103 H 23 93 03/26/25 01:01 136/80 03/26/25 01:01 136/80 03/26/25 00:57 103 H 19 92 03/26/25 00:15 103 H 22 92 03/26/25 00:12 101 H 17 93 03/26/25 00:00 122/59 L 03/26/25 00:00 101 H 20 86 L 03/25/25 23:21 99 H 24 91 03/25/25 23:00 113/84 03/25/25 23:00 98 H 19 90 03/25/25 22:48 100 H 23 92 03/25/25 22:30 104 H 19 91 03/25/25 22:21 99 H 23 93 03/25/25 22:06 98 H 23 93 03/25/25 22:01 130/67 03/25/25 21:51 98 H 24 95 03/25/25 21:03 93 H 25 H 92 03/25/25 21:00 103/64 03/25/25 21:00 103/64 03/25/25 21:00 103/64 03/25/25 20:54 95 H 27 H 93 03/25/25 20:51 94 H 23 94 03/25/25 20:30 94 H 20 92 03/25/25 20:15 97 H 25 H 92 03/25/25 20:03 101 H 22 95 03/25/25 20:00 108/72 03/25/25 20:00 108/72 03/25/25 20:00 Room Air 03/25/25 19:57 94 H 26 H 96 Lab & Micro Results (Past 24 Hours) RBC 2.74 M/uL (4.70-6.10) L 03/25/25 WBC 5.14 K/ul (4.8-10.8) 03/25/25 Hgb 8.7 g/dl (14.0-18.0) L 03/25/25 Hct 25.8 % (42.0-52.0) L 03/25/25 MCV 94.2 fL (80.0-100.0) 03/25/25 MCH 31.8 pg (25.0-34.0) 03/25/25 MCHC 33.7 g/dL (32.0-36.0) 03/25/25 RDW Standard Deviation 47.5 fL (36.4-46.3) H 03/25/25 RDW Coefficient of Variation 13.9 % (11.5-14.5) 03/25/25 Plt Count 145 K/uL (130-400) 03/25/25 MPV 10.7 fL (9.4-12.4) 03/25/25 Neutrophils (%) (Auto) 83.4 % 03/25/25 Lymphocytes (%) (Auto) 14.2 % 03/25/25 Monocytes # (Auto) 0.09 K/uL (0.11-0.59) L 03/25/25 Eosinophils # (Auto) 0.00 K/uL (0.00-0.50) 03/25/25 Immature Granulocyte % (Auto) 0.4 % 03/25/25 Neutrophils # (Auto) 4.29 K/uL (1.40-6.50) 03/25/25 Lymphocytes # (Auto) 0.73 K/uL (1.20-3.40) L 03/25/25 Monocytes # (Auto) 0.09 K/uL (0.11-0.59) L 03/25/25 Eosinophils # (Auto) 0.00 K/uL (0.00-0.50) 03/25/25 Basophils # (Auto) 0.01 K/uL (0.00-0.20) 03/25/25 Immature Granulocyte # (Auto) 0.02 K/uL (0.01-0.20) 5 Na 141 mmol/L (136-145) 03/25/25 K 4.3 mmol/L (3.5-5.1) 03/25/25 Cl 111 mmol/L (98-107) H 03/25/25 CO2 23 mmol/L (21-32) 03/25/25 Anion Gap 7 (3-11) 03/25/25 BUN 33 mg/dl (6-23) H 03/25/25 Creatinine 1.36 mg/dl (0.6-1.4) 03/25/25 BUN/Creatinine Ratio 24.3 (10-20) H 03/25/25 Glu 133 mg/dl (70-99(Fasting)) H 03/25/25 Ca 8.6 mg/dl (8.6-10.3) 03/25/25 Calcium Level 8.6 mg/dl (8.6-10.3) 03/25/25 14:23 Diagnostic Findings (Past 24 Hours) Spine X-Ray 03/25/25 07:30 FL spine 1V any level CLINICAL HISTORY: ANGIOGRAM IN OR WITH TEDDY COMPARISON STUDY: No previous studies for comparison. FINDINGS: Fluoroscopic images are provided during an intraoperative angiogram. A catheter has been inserted in the region of the right carotid bulb and contrast was injected. There was no evidence of significant carotid stenosis. 8 seconds of fluoroscopic time was utilized. Decubitus dose was 3.7 mGy IMPRESSION: Intraoperative images acquired during right carotid arteriography. No stenosis identified. ACT 112: Negative or not required by law. Electronically signed by: Ronny Haynes M.D. 03/25/2025 12:15 PM I & O Totals 24 Hours 03/25/25 03/26/25 03/27/25 06:59 06:59 06:59 Intake Total 2550 / 2550 Output Total 2840 / 2840 Balance -290 / -290 Cumulative 02/05/25 08:56 thru 03/26/25 06:30 Intake Total 2550 Output Total 2840 Balance -290 RT Ventilator Mngmt (Last Documented) Ventilator Ordered Settings Respiratory Rate 16 03/26/25 06:00 Ventilator - PT Measurements Respiratory Rate 16 Coding Level of Care Code 63175 SUB INP/OBS CARE 2/35MIN Diagnoses Stenosis of right carotid artery I65.21 Impaired glucose tolerance (oral) R73.02 CKD (chronic kidney disease), stage III N18.30
[2025-03-26] MEDS: GABAPENTIN 100 MG CAP PO SCH (08:17)
[2025-03-26] MEDS: FINASTERIDE 5 MG TAB PO SCH (08:17)
[2025-03-26] MEDS: CLOPIDOGREL BISULFATE 75 MG TAB PO SCH (08:50)
--- NOTE | 2025-03-26 08:52 | Vascular Surgery Progress Note ---
Date of Service March 26, 2025 Assessment & Plan (1) Stenosis of right carotid artery: Plan: -now POD 1 RCEA -recovering as expected -Neck drain removed at bedside easily this morning -ok to remove hopper -tolerated clear liquid diet last night and breakfast this morning -continue OOB as tolerated this morning -no concern for bleeding or hematoma at this time, ok to restart Plavix today (resumed by me) -ok to discharge later this morning after he is able to urinate (2) Embolic stroke: Plan: -no s/p RCEA -Plavix to restart today -continue atorvastatin -ok to restart Eliquis tomorrow (Tuesday 03/27) Admission and Anticipated Discharge Date Admission Date: March 25, 2025 Subjective POD 1 s/p RCEA. Recovering well in ICU. Neurovascular checks overnight without concern. He was able to tolerate his clear liquid diet last night without difficulty and just finished his breakfast. He has had no difficulty swallowing or talking, denies weakness in extremities or headaches. He denies any pain in his neck and has not required any pain medication overnight or this morning. Has some tachycardia this morning, but has not yet taken his medications. Denies any chest pain or shortness of breath. Urine output adequate past 24 hours (2720ml). Hgb 8.7 yesterday afternoon. Review of Systems Review of Systems: see HPI Physical Exam Constitutional: well developed, well nourished, sitting in chair, in no distress, AA&O x 3 Eyes: PERRLA, EOMI ENMT: tongue midline and moves tongue appropriately Neck: right neck with DANA drain in place with thin bloody drainage in bulb. Incision is clean and dry. No hematoma noted to the right neck, no tenderness to palpation. Neurologic: equal strength in upper and lower extremities, no focal deficits noted. Speech is clear Results & Data Vital Signs (Past 12 Hours) Vital Signs Temp Pulse Resp BP Pulse Ox 03/26/25 06:00 36.9 C 115 H 16 03/26/25 05:09 118 H 22 95 03/26/25 05:00 147/87 H 03/26/25 05:00 147/87 H 03/26/25 04:57 111 H 20 94 03/26/25 04:03 119 H 20 94 03/26/25 03:00 167/88 H 03/26/25 03:00 113 H 18 93 09/04/25 02:00 162/99 H 03/26/25 02:00 107 H 15 93 03/26/25 01:12 103 H 23 93 03/26/25 01:01 136/80 03/26/25 01:01 136/80 03/26/25 00:57 103 H 19 92 03/26/25 00:15 103 H 22 92 03/26/25 00:12 101 H 17 93 03/26/25 00:00 122/59 L 03/26/25 00:00 101 H 20 86 L 03/25/25 23:21 99 H 24 91 03/25/25 23:00 113/84 03/25/25 23:00 98 H 19 90 03/25/25 22:48 100 H 23 92 03/25/25 22:30 104 H 19 91 03/25/25 22:21 99 H 23 93 03/25/25 22:06 98 H 23 93 03/25/25 22:01 130/67 03/25/25 21:51 98 H 24 95 03/25/25 21:03 93 H 25 H 92 03/25/25 21:00 103/64 03/25/25 21:00 103/64 03/25/25 21:00 103/64 03/25/25 20:54 95 H 27 H 93 03/25/25 20:51 94 H 23 94 Laboratory Results 03/25/25 03/25/25 03/25/25 15:16 14:23 10:03 WBC 5.14 RBC 2.74 L Hgb 8.7 L Hct 25.8 L MCV 94.2 MCH 31.8 MCHC 33.7 RDW Std Deviation 47.5 H RDW Coeff of Viviana 13.9 Plt Count 145 MPV 10.7 Immature Gran % (Auto) 0.4 Neut % (Auto) 83.4 Lymph % (Auto) 14.2 [place] % (Auto) 1.8 Eos % (Auto) 0.0 Baso % (Auto) 0.2 Neut # (Auto) 4.29 Lymph # (Auto) 0.73 L [place] # (Auto) 0.09 L Eos # (Auto) 0.00 Baso # (Auto) 0.01 Immature Gran # (Auto) 0.02 Activ Coag Time Kaolin 176 H Sodium 141 Potassium 4.3 Chloride 111 H Carbon Dioxide 23 Anion Gap 7 BUN 33 H Creatinine 1.36 Est Cr Clr Drug Dosing 39.5 eGFR 50.37 BUN/Creatinine Ratio 24.3 H Glucose 133 H POC Glucose 114 H Calcium 8.6 03/25/25 03/25/25 09:31 08:53 WBC RBC Hgb Hct MCV MCH MCHC RDW Std Deviation RDW Coeff of Viviana Plt Count MPV Immature Gran % (Auto) Neut % (Auto) Lymph % (Auto) [place] % (Auto) Eos % (Auto) Baso % (Auto) Neut # (Auto) Lymph # (Auto) [place] # (Auto) Eos # (Auto) Baso # (Auto) Immature Gran # (Auto) Activ Coag Time Kaolin 170 H 204 H Sodium Potassium Chloride Carbon Dioxide Anion Gap BUN Creatinine Est Cr Clr Drug Dosing eGFR BUN/Creatinine Ratio Glucose POC Glucose Calcium Medications Administered Home Medications Medication Instructions Recorded Confirmed Last Taken cholecalciferol (vitamin D3) 25 1,000 units PO DAILY 04/08/19 03/25/25 1 Week Ago mcg (1,000 unit) capsule ~03/18/25 cyanocobalamin (vitamin B-12) 1,000 mcg PO QAM 05/12/20 03/25/25 1 Week Ago 1,000 mcg tablet ~03/18/25 omega-3 fatty acids 1,000 mg PO QAM 05/12/20 03/25/25 1 Week Ago ~03/18/25 nitroglycerin 0.4 mg sublingual 0.4 mg sublingual Q5M PRN chest 11/27/23 03/25/25 Unknown tablet pain #30 tabs levothyroxine 150 mcg tablet 150 mcg PO QAM #90 tabs 11/27/24 03/25/25 03/25/25 05:00 tramadol 50 mg tablet 50 mg PO TID PRN pain #270 tabs 11/27/24 03/25/25 3 Weeks Ago ~03/04/25 apixaban 5 mg tablet (Eliquis) 5 mg PO BID #60 tabs 01/29/25 03/25/25 1 Week Ago ~03/18/25 Prevagen 1 cap PO DAILY 02/02/25 03/25/25 1 Week Ago ~03/18/25 allopurinol 100 mg tablet 100 mg PO BID 03/11/25 03/25/25 03/25/25 05:00 (Zyloprim) amlodipine 5 mg tablet (Norvasc) 5 mg PO QAM 03/11/25 03/25/25 03/25/25 05:00 atorvastatin 40 mg tablet 40 mg PO QAM 03/11/25 03/25/25 03/25/25 05:00 carvedilol 12.5 mg tablet 12.5 mg PO BID 03/11/25 03/25/25 03/25/25 05:00 cetirizine 10 mg tablet 10 mg PO HS 03/11/25 03/25/25 03/24/25 22:00 clopidogrel 75 mg tablet (Plavix) 75 mg PO QAM 03/11/25 03/25/25 03/24/25 08:00 colchicine 0.6 mg tablet (Colcrys) 0.6 mg PO DAILY PRN Gout Flare Up 03/11/25 03/25/25 1 Week Ago ~03/18/25 cyclobenzaprine 10 mg tablet 10 mg PO TID PRN Muscle Spasms 03/11/25 03/25/25 1 Week Ago ~03/18/25 diphenhydramine HCl 25 mg capsule 50 mg PO HS PRN Allergies 03/11/25 03/25/25 1 Week Ago (Benadryl) ~03/18/25 finasteride 5 mg tablet (Proscar) 5 mg PO QAM 03/11/25 03/25/25 03/25/25 05:00 gabapentin 100 mg capsule 100 mg PO QAM 03/11/25 03/25/25 03/25/25 05:00 (Neurontin) meloxicam 7.5 mg tablet 7.5 mg PO QAM 03/11/25 03/25/25 1 Week Ago ~03/18/25 pantoprazole 40 mg tablet,delayed 40 mg PO QAM 03/11/25 03/25/25 03/25/25 05:00 release (Protonix) telmisartan 40 mg tablet (Micardis) 40 mg PO QAM 03/11/25 03/25/25 03/24/25 08:00 ursodiol 300 mg capsule 300 mg PO QAM 03/11/25 03/25/25 03/24/25 08:00 Active Medications Generic Name Dose Route Start Last Admin Trade Name Freq PRN Reason Stop Dose Admin Allopurinol 100 mg 03/25/25 21:00 03/26/25 08:17 Allopurinol 100 Mg Tab PO 04/24/25 20:59 100 mg BID MEG Administration Atorvastatin Calcium 40 mg 03/25/25 14:15 03/26/25 08:17 Atorvastatin 40 Mg Tab PO 04/24/25 14:14 40 mg QAM MEG Administration Carvedilol 12.5 mg 03/26/25 09:00 03/26/25 08:16 Carvedilol 12.5 Mg Tab PO 04/25/25 08:59 12.5 mg BID MEG Administration Finasteride 5 mg 03/26/25 09:00 03/26/25 08:17 Finasteride 5 Mg Tab PO 04/25/25 08:59 5 mg QAM MEG Administration Gabapentin 100 mg 03/26/25 09:00 03/26/25 08:17 Gabapentin 100 Mg Cap PO 04/25/25 08:59 100 mg QAM MEG Administration Levothyroxine Sodium 150 mcg 03/26/25 06:30 03/26/25 06:38 Levothyroxine Sodium 150 Mcg Tablet PO 04/25/25 06:29 Not Given [facility] Pantoprazole Sodium 40 mg 03/26/25 09:00 03/26/25 08:17 Pantoprazole 40 Mg Tab PO 04/25/25 08:59 40 mg QAM MEG Administration Ursodiol 300 mg 03/26/25 09:00 03/26/25 08:17 Ursodiol 300 Mg Cap PO 04/25/25 08:59 300 mg QAM MEG Administration PG Care Time/CCT Total # of Minutes Spent Total Time Spent with Patient: Total time spent is greater than 50% in coordination of care (as documented) at patient's floor/unit and/or counseling patient:
[2025-03-26 09:17] VITALS: BP 156/77; PULSE 110; RESP 20; TEMP 97.9; O2SAT 97
[2025-03-26] MEDS: LOSARTAN POTASSIUM 50 MG TAB PO ONE (09:53)
== END 2025-03-26 11:13 | disposition home or self-care (01) | DRG 39 ==
LOC: ASU 06:12 → 1E 12:36

== ENCOUNTER 2025-04-23 20:27 | Inpatient (IN) ==
[2025-04-23 21:06] LABS: INR 1.1 (0.9-1.1); Partial Thromboplastin Time 26 Seconds (21-31); Prothrombin Time 11.4 Seconds (9.0-12.0)
--- NOTE | 2025-04-23 21:25 | Emergency Department Note ---
Impression & Plan Fracture of femoral neck, right, closed, Fall at home ED Provider Note NAME: STONEY LAURENT AGE: 89 SEX: M : 1935 ARRIVES VIA: Ambulance INFORMANT: Patient, ED PROVIDER(S): Chris Starks MD CHIEF COMPLAINT: Hip pain, fall HPI: This is a an 89-year-old male presenting for a ground-level fall. Patient was walking in his garage when he tripped and fell due to an elevated portion. He notes he fell onto the right side. He only hit his right hip. He has no pain to his leg, torso, chest wall, head. He did not hit his head. No LOC. Patient does take a blood thinner. ROS: See above HPI for pertinent positives & negatives. A total of 10 systems reviewed and were otherwise negative. PAST MEDICAL HISTORY: See Below PAST SURGICAL HISTORY: See Below FAMILY HISTORY: See Below SOCIAL HISTORY: See Below HOME MEDICATIONS: See Below ALLERGIES: See Below VITALS: See Below PHYSICAL EXAMINATION: Primary Survey Airway: Intact Breathing: Normal, breath sounds equal bilaterally Circulation: Skin warm, distal pulses 2+ Disability Pupils: Equal and reactive to light GCS: 15, Motor Function: Moves all extremities. Sensory: No deficits Secondary Survey GEN: Well developed and well-nourished HEAD: Normal cephalic atraumatic EYES: Pupils round reactive to light, conjunctiva clear, extraocular movements intact, no raccoons eyes ENT: no park's sign, nares patent, oropharynx clear NECK: No JVD, midline trachea, C-collar in place HEART: Regular rate and rhythm LUNGS: Clear to auscultation bilaterally. CHEST: Chest wall non-tender, no bruising/deformity ABD: soft, non-tender, no rebound or guarding, PELVIS: Stable to rock, right sided hip pain with movement EXT: 2+ global pulses, moving all extremities well NEURO: CNII-XII grossly intact, no sensory deficits MEDICAL DECISION MAKING: This is a 89-year-old male presenting for a ground-level fall with right hip pain. X-ray, as independent by me reveals a acute femoral neck fracture, nondisplaced. Will do screening blood work, EKG for operative management. - Slight anemia noted otherwise creatinine 1.77. - ECG independently interpreted by me with sinus rhythm at a rate of 93, with PVC, right bundle branch block, normal QRS, normal QTc, no ST segment elevations consistent with STEMI criteria Differential diagnosis: Hip fracture, hip dislocation, pelvic fracture Independent History obtained from: [facility] interpreted by me: ECG: See above Cardiac Monitoring: An order was placed for continuous cardiac monitoring. The monitor shows a rate of 97 with sinus rhythm. 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 Weakness of shoulder Nocturnal leg cramps Nodule of finger Radial nerve compression Bifascicular block Syncope No recent issues Hyperkalemia Distal radius fracture, left (Acute) Hx of Symptomatic bradycardia (Acute) Sleep disorder Rhinitis Lumbar disc disease Benign prostatic hyperplasia Gout Degenerative disc disease Hypothyroidism Hypertension (Acute) Hyperlipidemia Coronary artery disease Medical History (Updated 04/24/25 @ 11:21 by Chris Starks MD) SHAWN (obstructive sleep apnea) Could not tolerate CPAP Tinnitus of both ears Hearing loss Bilateral Hearing Aids Impaired glucose tolerance (oral) CKD (chronic kidney disease), stage III Stable per PCP records History of tuberculosis - - treated- pt denies any issues since - Spent time at [facility]) when in the service History of syncope 12/2023 and 05/2024 per records (had subsequent holter monitor without acute issues) No recent issues of syncope Stenosis of right carotid artery - 50 to 60% stenosis of the right internal carotid artery with what appears to be an ulcerated plaque (per 12/29/24 CTA) Nocturnal leg cramps Aggravated by increased activity Hypothyroidism Hypertension Hyperlipidemia 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/2024) - per vascular - unsure if truly a dissection or possible ulcerated plaque Coronary artery disease s/p 5 vessel CABG in (vein graft to PDA,OM known to be occluded per cardio records) on Plavix per PCP records Chronic SI joint pain [facility] Chronic anticoagulation Bifascicular block [facility] [place] Hall (no high grade AV block per cardio records) History of 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 [facility] left sided weakness initially, pt denies any residuals at this time - started on Eliquis 01/2025 Anemia, unspecified Mild/chronic - no blood transfusion/iron infusion Osteoarthritis BPH (benign prostatic hyperplasia) Hx of gout Gout flare left toe- resolved as of PAT appt 03/18/25 GERD (gastroesophageal reflux disease) well controlled and stable H/O blood clots Right Arm 1983 Myocardial infarction 1978+1979, no stents - [facility] [place] [place] Hall Surgical History History of surgery on left wrist "they rerouted a vein to my thumb and now it's great" History of wisdom tooth extraction Lump in chest Benign (removed) H/O hand surgery Right hand, lump removal History of total knee replacement Right History of colonoscopy History of tooth extraction lower denture History of cardiac cath multiple - denies sents - [facility] [place] Hx of ventral hernia repair Hx of carpal tunnel repair Bilateral Hx of cholecystectomy Hx of CABG 1984>x5 [place] Now following [facility] [place] Dr Hall Hx of appendectomy Family History Brother Cardiac disorder Diabetes Hypertension Myocardial infarction Sister Cardiac disorder Cancer Breast cancer Lung cancer Denies family history of Ovarian cancer Prostate cancer Colorectal cancer Social History Smoking Status: Former smoker Tobacco Type: Cigarettes Age Started Using Tobacco: 19; Age Quit Using Tobacco: 30; packs per day: 2; Second Hand Exposure: No; Do You Dip or Chew Tobacco: No; Hx Alcohol Use: Yes Alcohol type: beer Hx Substance Use: No Preferred Language: Georgian Communication Ability: Effective Visual Impairment: Limited Hearing Ability: Use of Hearing Aid Prop Setter Required: No Beliefs That Will Affect Care: None marital status: Current Living Situation: Spouse current occupational status: retired How many Children do You have: 1 Other Information That Helps Us Care for You: No Feels Safe at Home: Yes Safety Concerns: Feels Safe At This Time Childhood Exposure to Second-Hand Smoke: No Diet: regular caffeine: Yes (coffee and tea) Dental Care, Regularly: No Physical Activity Frequency: Daily Seatbelt Use: always Sunscreen Use: Yes (sometimes) Assistive Devices: Denture - Lower, Glasses and Hearing Aid - Bilateral Allergies Allergies Allergy/AdvReac Type Severity Reaction Status Date / Time codeine AdvReac Severe "Entire Verified 04/21/25 08:55 system shut down" hydromorphone AdvReac Severe "Entire Verified 04/21/25 08:55 system shut down" nickel AdvReac Mild Rash Verified 04/21/25 08:55 oxycodone AdvReac Unknown "Entire Verified 04/21/25 08:55 system shut down" Home Meds Home Medications Medication Instructions Recorded Confirmed cholecalciferol (vitamin D3) 25 1,000 units PO DAILY 04/08/19 04/23/25 mcg (1,000 unit) capsule cyanocobalamin (vitamin B-12) 1,000 mcg PO QAM 05/12/20 04/23/25 1,000 mcg tablet omega-3 fatty acids 1,000 mg PO QAM 05/12/20 04/23/25 Prevagen 1 cap PO DAILY 02/02/25 04/23/25 allopurinol 100 mg tablet 100 mg PO BID 03/11/25 04/23/25 (Zyloprim) amlodipine 5 mg tablet (Norvasc) 5 mg PO QAM 03/11/25 04/23/25 atorvastatin 40 mg tablet 40 mg PO QAM 03/11/25 04/23/25 carvedilol 12.5 mg tablet 12.5 mg PO BID 03/11/25 04/23/25 cetirizine 10 mg tablet 10 mg PO HS 03/11/25 04/23/25 clopidogrel 75 mg tablet (Plavix) 75 mg PO QAM 03/11/25 04/23/25 colchicine 0.6 mg tablet (Colcrys) 0.6 mg PO DAILY PRN Gout Flare Up 03/11/25 04/23/25 cyclobenzaprine 10 mg tablet 10 mg PO TID Muscle Spasms 03/11/25 04/23/25 diphenhydramine HCl 25 mg capsule 50 mg PO HS PRN Allergies 03/11/25 04/23/25 (Benadryl) finasteride 5 mg tablet (Proscar) 5 mg PO QAM 03/11/25 04/23/25 gabapentin 100 mg capsule 100 mg PO QAM 03/11/25 04/23/25 (Neurontin) meloxicam 7.5 mg tablet 7.5 mg PO QAM 03/11/25 04/23/25 pantoprazole 40 mg tablet,delayed 40 mg PO QAM 03/11/25 04/23/25 release (Protonix) telmisartan 40 mg tablet (Micardis) 40 mg PO QAM 03/11/25 04/23/25 ursodiol 300 mg capsule 300 mg PO BID 03/11/25 04/23/25 cyanocobalamin (vitamin B-12) 500 500 mcg PO QAM 04/23/25 04/23/25 mcg tablet Previous Rx's Medication Instructions Recorded nitroglycerin 0.4 mg sublingual 0.4 mg sublingual Q5M PRN chest 11/27/23 tablet pain #30 tabs levothyroxine 150 mcg tablet 150 mcg PO QAM #90 tabs 11/27/24 tramadol 50 mg tablet 50 mg PO TID PRN pain #270 tabs 11/27/24 apixaban 5 mg tablet (Eliquis) 5 mg PO BID #180 tabs 04/01/25 Results & Data (ED) Vital Signs Vital Signs - 24 hr 04/23/25 20:14 04/23/25 20:35 04/23/25 21:14 Temperature 36.9 C 36.9 C Temperature Source Oral Oral Pulse Rate 99 H Pulse Rate [Apical] 93 H 104 H Respiratory Rate 19 18 19 Respiratory Effort / Characteristics Non-Labored Spontaneous Non-Labored Non-Labored Spontaneous Respiratory Depth Normal Normal Normal Blood Pressure 175/100 H Blood Pressure [Left Arm] 163/93 H 148/96 H Blood Pressure Mean 125 Blood Pressure Mean [Left Arm] 116 113 Blood Pressure Position Lying Pulse Oximetry 94 94 92 Oxygen Delivery Method Room Air Room Air Room Air Sepsis Recent Fever Within 48 Hours No Sepsis New/Unexplained Change in Mental Status N/A Sepsis Action Taken by Nursing No Action Required 04/23/25 21:41 04/23/25 22:00 Temperature Temperature Source Pulse Rate 102 H Pulse Rate [Apical] 106 H Respiratory Rate 20 Respiratory Effort / Characteristics Non-Labored Respiratory Depth Normal Blood Pressure Blood Pressure [Left Arm] 173/100 H Blood Pressure Mean Blood Pressure Mean [Left Arm] 124 Blood Pressure Position Pulse Oximetry 96 Oxygen Delivery Method Room Air Sepsis Recent Fever Within 48 Hours Sepsis New/Unexplained Change in Mental Status Sepsis Action Taken by Nursing Laboratory Data 04/23/25 20:45 04/23/25 20:45 Lab Results 04/23/25 04/23/25 Range/Units 20:45 21:40 WBC 6.86 (4.8-10.8) K/ul RBC 2.92 L (4.70-6.10) M/uL Hgb 9.4 L (14.0-18.0) g/dl Hct 27.8 L (42.0-52.0) % MCV 95.2 (80.0-100.0) fL MCH 32.2 (25.0-34.0) pg MCHC 33.8 (32.0-36.0) g/dL RDW Std Deviation 49.1 H (36.4-46.3) fL RDW Coeff of Viviana 14.1 (11.5-14.5) % Plt Count 175 (130-400) K/uL MPV 10.7 (9.4-12.4) fL Immature Gran % (Auto) 0.6 % Neut % (Auto) 61.3 % Lymph % (Auto) 26.2 % Zavala % (Auto) 7.4 % Eos % (Auto) 4.2 % Baso % (Auto) 0.3 % Neut # (Auto) 4.20 (1.40-6.50) K/uL Lymph # (Auto) 1.80 (1.20-3.40) K/uL Zavala # (Auto) 0.51 (0.11-0.59) K/uL Eos # (Auto) 0.29 (0.00-0.50) K/uL Baso # (Auto) 0.02 (0.00-0.20) K/uL Immature Gran # (Auto) 0.04 (0.01-0.20) K/uL PT 11.4 (9.0-12.0) Seconds INR 1.1 (0.9-1.1) APTT 26 (21-31) Seconds PTT Ratio 1.0 Sodium 138 (136-145) mmol/L Potassium 5.1 (3.5-5.1) mmol/L Chloride 108 H (98-107) mmol/L Carbon Dioxide 24 (21-32) mmol/L Anion Gap 6 (3-11) BUN 36 H (6-23) mg/dl Creatinine 1.77 H (0.6-1.4) mg/dl Est Cr Clr Drug Dosing 30.6 ml/min eGFR 36.71 BUN/Creatinine Ratio 20.3 H (10-20) Glucose 97 (70-99(Fasting)) mg/dl Calcium 9.6 (8.6-10.3) mg/dl Magnesium 1.7 (1.7-2.4) mg/dl Total Bilirubin 0.5 (0.2-1.0) mg/dl AST 19 (13-39) U/L ALT 14 (7-52) U/L Alkaline Phosphatase 80 (34-104) U/L Total Protein 7.4 (6.0-8.3) gm/dl Albumin 4.2 (3.4-5.0) gm/dl Globulin 3.2 (2.5-4.0) gm/dl Albumin/Globulin Ratio 1.3 (0.9-2) Urine Color Yellow Urine Appearance Clear (Clear) Urine pH 7.0 (4.5-7.5) Ur Specific Chambers 1.009 (1.000-1.030) Urine Protein Negative (Negative) Urine Glucose (UA) Negative (Negative) Urine Ketones Negative (Negative) Urine Blood Negative (Negative) Urine Nitrite Negative (Negative) Urine Bilirubin Negative (Negative) Urine Urobilinogen Negative (Negative) Ur Leukocyte Esterase Negative (Negative) Urine Comment Administered Medications Amlodipine Besylate (Amlodipine Besylate 5 Mg Tab) [facility] [place]: 05/24/25 08:59 Last Admin: 04/24/25 09:35 Dose: Not Given Documented By: MEHRAN Atorvastatin Calcium (Atorvastatin 40 Mg Tab) 40 [facility] [place]: 05/24/25 08:59 Last Admin: 04/24/25 09:35 Dose: Not Given Documented By: MEHRAN Carvedilol (Carvedilol 12.5 Mg Tab) 12.5 mg PO BIDM [facility] Stop: 05/24/25 07:59 Last Admin: 04/24/25 09:34 Dose: Not Given Documented By: MEHRAN Cyclobenzaprine HCl (Cyclobenzaprine Hcl 10 Mg Tab) 10 mg PO TID [facility] Stop: 05/24/25 08:59 Last Admin: 04/24/25 09:35 Dose: Not Given Documented By: MEHRAN Gabapentin (Gabapentin 100 Mg Cap) 100 [facility] [place]: 05/24/25 08:59 Last Admin: 04/24/25 09:35 Dose: Not Given Documented By: MEHRAN Acetaminophen (Ofirmev) 1,000 mg in 100 mls @ 400 mls/hr IV Q8H PRN PRN Reason: Mild-Mod Pain (Scale 1-6) Stop: 04/27/25 00:01 Last Infusion: 04/24/25 03:55 Dose: Infused Documented By: Admin: 04/24/25 03:28 Dose: 400 mls/hr Documented By: CHIQUITA Lactated Ringer's (Lr) 1,000 mls @ 110 mls/hr IV .Q9H6M [facility] Stop: 04/24/25 18:25 Last Admin: 04/24/25 11:10 Dose: 110 mls/hr Documented By: Infusion: 04/24/25 10:09 Dose: Infused Documented By: Admin: 04/24/25 01:03 Dose: 110 mls/hr Documented By: CHIQUITA Levothyroxine Sodium (Levothyroxine Sodium 150 Mcg Tablet) 150 mcg PO DAILYBB [facility] Stop: 05/24/25 06:29 Last Admin: 04/24/25 06:10 Dose: Not Given Documented By: CHIQUITA Pantoprazole Sodium (Pantoprazole 40 Mg Tab) 40 mg PO QAM [facility] Stop: 05/24/25 08:59 Last Admin: 04/24/25 09:35 Dose: Not Given Documented By: MEHRAN Discharge Plan Visit Data Chief Complaint: Fall Stated Complaint: INJURY ALERT, FALL ED Provider: Chris Starks Discharge Problem: Fracture of femoral neck, right, closed, Fall at home Patient Disposition: Admitted As Inpatient Condition: Fair Discharge Instructions Interventions: ED Discharge Assessment Last Done: 04/23/25 23:36 Discharge Problem: Fracture of femoral neck, right, closed Qualifiers: Encounter type: initial encounter Qualified Code(s): S72.001A - Fracture of unspecified part of neck of right femur, initial encounter for closed fracture
[2025-04-23 21:39] LABS: Hematocrit (blood only) 27.8 % (42.0-52.0); Hemoglobin 9.4 g/dl (14.0-18.0); Immature Granulocytes # (auto) 0.04 K/uL (0.01-0.20); Immature Granulocytes % (auto) 0.6 %; Mean Corpuscular Hemoglobin 32.2 pg (25.0-34.0); Mean Corpuscular Volume 95.2 fL (80.0-100.0); Platelet Count 175 K/uL (130-400); RDW Standard Deviation 49.1 fL (36.4-46.3); Red Blood Count 2.92 M/uL (4.70-6.10); White Blood Count 6.86 K/ul (4.8-10.8)
[2025-04-23 21:49] LABS: Appearance Urine Clear (Clear); Glucose Urine UA Negative (Negative)
--- NOTE | 2025-04-23 22:35 | XRay Report ---
Exam(s): XR RIGHT HIP EXAM: XR Right Hip With Pelvis When Performed, 2 or 3 Views CLINICAL HISTORY: Reason for exam: Fall, hip pain. TECHNIQUE: Two or three views of the right hip with pelvis when performed. COMPARISON: No relevant prior studies available. FINDINGS: Bones/joints: Acute nondisplaced subcapital right femoral neck fracture. Corticated ossicle superior to the right femoral neck, chronic. No dislocation. Soft tissues: Soft tissue swelling lateral to the right hip. IMPRESSION: Acute nondisplaced subcapital right femoral neck fracture. Electronically signed by: Dieter Altman M.D. 04/23/25 22:34 PM
[2025-04-23 22:39] LABS: Albumin Level 4.2 gm/dl (3.4-5.0); Anion Gap 6.0 (3-11); Bilirubin,Total 0.5 mg/dl (0.2-1.0); Calcium 9.6 mg/dl (8.6-10.3); Carbon Dioxide 24.0 mmol/L (21-32); Chloride 108.0 mmol/L (98-107); Potassium 5.1 mmol/L (3.5-5.1); Sodium 138.0 mmol/L (136-145)
[2025-04-23 22:45] LABS: Alanine Aminotransferase 14.0 U/L (7-52); Albumin Globulin Ratio 1.3 (0.9-2); Alkaline Phosphatase 80.0 U/L (34-104); Blood Urea Nitrogen 36.0 mg/dl (6-23); Creatinine Clr Calc Pharmacy 30.6 ml/min; Globulin 3.2 gm/dl (2.5-4.0); Glucose 97.0 mg/dl (70-99(Fasting)); Total Protein 7.4 gm/dl (6.0-8.3)
--- NOTE | 2025-04-23 22:51 | History & Physical Report ---
Date of Service April 23, 2025 Assessment & Plan (1) Hip fracture: (2) Hypothyroidism: (3) Coronary artery disease: (4) History of stroke: Plan Mr. Paulino is an 89yo gentleman with PMH CAD s/p carotid endarterectomy, stroke, HTN, HLD, and Hypothyroidism who presents to the hospital on 04/23 for a ground level fall. He is currently being for right sided hip fracture. #Ground level Fall #Hip Fracture CXR: Acute nondisplaced subcapital right femoral neck fracture. -orthopedic surgery consult -pain management -scheduled tylenol 1000mg IV q8hrs -oxycodone 5mg IV q4hrs prn (pain 1-7) -dilaudid 0.25mg IV q4hrs prn (pain 8+) -consider PT/OT eval post op #CAD #HTN #h/o of Stroke -hold Plavix and Eliquis for anticipated surgical intervention -consider restarting post op due to carotid endarterectomy about a month ago -continue atorvastatin -continue carvedilol -continue amlodipine #Hypothyroidism -continue levothyroxine Dispo: med-surg DVT prophylaxis: SCDs Diet: Heart Healthy Admission and Anticipated Discharge Date Admission Date: Patient seen and examined, chart reviewed, case discussed with Dr. Mata and I agree with the assessment and plan as above. in brief, patient is an 89-year-old male presenting after a ground-level fall resulting in a right acute nondisplaced subcapital femoral neck fracture. On physical exam patient is resting comfortably, no acute distress Skinno bruising HEENTmoist mucous membranes, neck supple Heart+ S1, S2, regular, tachycardic, no murmur/rub/gallops LungsCTA anteriorly Abdomensoft, nontender, nondistended Extremitieswarm, well-perfused, neurovascularly intact Labs and images reviewed. Elevated BUN = 36, creatinine equals 1.77 89-year-old male status post ground-level fall resulting in right acute nondisplaced subcapital femoral neck fracture #Right hip fracture Admit to medical Keep n.p.o. LR at 110 bpm x 2 L ordered Pain control. Patient has been refusing medications to this point, including Tylenol to have Tylenol, oxycodone and Dilaudid ordered Continue home pain medications to include Neurontin, Flexeril #Hypertension Continue amlodipine Continue carvedilol 12.5 mg p.o. twice daily Continue to monitor blood pressure Hold losartan preop typically #Hyperlipidemia Continue atorvastatin #hypothyroidism Check TSH Continue Synthroid #GERD Protonix 40 mg p.o. every morning History of coronary artery disease/peripheral vascular disease/status post recent carotid endarterectomy Holding Plavix and Eliquis for now Should resume promptly following surgery after discussion with surgical team given recent carotid endarterectomy History of Present Illness Primary Care Provider: Rogelio Machuca MD Mr. Godoy is an 89yo gentleman with PMH of CAD s/p carotid endarterectomy, HTN, HLD, and Hypothyroidism who presents to the hospital on 04/23 for a ground level fall. He was walking on the blacktop of his driveway when his foot gave on the surface, causing him to fall. He felt pain immediately on his right side that he described as a "pulled muscle" rated 10/10 with radiation to the groin, aggravated with movement and staying in the the same position for long periods of time, alleviated with leg elevation. He states he has had prior history of falls--2 within the last 2 months. The previous fall was due to a stroke. He usually ambulates at home unassisted. He does not feel that he has trouble with his walking or balance. He denies fever, chills, SOB, CP, N/V/C/D, abdominal pain, or complaints. Allergies Allergy/AdvReac Type Severity Reaction Status Date / Time codeine AdvReac Severe "Entire Verified 04/21/25 08:55 system shut down" hydromorphone AdvReac Severe "Entire Verified 04/21/25 08:55 system shut down" nickel AdvReac Mild Rash Verified 04/21/25 08:55 oxycodone AdvReac Unknown "Entire Verified 04/21/25 08:55 system shut down" Home Medications Medication Instructions Recorded Confirmed Type cholecalciferol (vitamin D3) 25 1,000 units PO DAILY 04/08/19 04/23/25 History mcg (1,000 unit) capsule cyanocobalamin (vitamin B-12) 1,000 mcg PO QAM 05/12/20 04/23/25 History 1,000 mcg tablet omega-3 fatty acids 1,000 mg PO QAM 05/12/20 04/23/25 History nitroglycerin 0.4 mg sublingual 0.4 mg sublingual Q5M PRN chest 11/27/23 04/23/25 Rx tablet pain #30 tabs levothyroxine 150 mcg tablet 150 mcg PO QAM #90 tabs 11/27/24 04/23/25 Rx tramadol 50 mg tablet 50 mg PO TID PRN pain #270 tabs 11/27/24 04/23/25 Rx Prevagen 1 cap PO DAILY 02/02/25 04/23/25 History allopurinol 100 mg tablet 100 mg PO BID 03/11/25 04/23/25 History (Zyloprim) amlodipine 5 mg tablet (Norvasc) 5 mg PO QAM 03/11/25 04/23/25 History atorvastatin 40 mg tablet 40 mg PO QAM 03/11/25 04/23/25 History carvedilol 12.5 mg tablet 12.5 mg PO BID 03/11/25 04/23/25 History cetirizine 10 mg tablet 10 mg PO HS 03/11/25 04/23/25 History clopidogrel 75 mg tablet (Plavix) 75 mg PO QAM 03/11/25 04/23/25 History colchicine 0.6 mg tablet (Colcrys) 0.6 mg PO DAILY PRN Gout Flare Up 03/11/25 04/23/25 History cyclobenzaprine 10 mg tablet 10 mg PO TID Muscle Spasms 03/11/25 04/23/25 History diphenhydramine HCl 25 mg capsule 50 mg PO HS PRN Allergies 03/11/25 04/23/25 History (Benadryl) finasteride 5 mg tablet (Proscar) 5 mg PO QAM 03/11/25 04/23/25 History gabapentin 100 mg capsule 100 mg PO QAM 03/11/25 04/23/25 History (Neurontin) meloxicam 7.5 mg tablet 7.5 mg PO QAM 03/11/25 04/23/25 History pantoprazole 40 mg tablet,delayed 40 mg PO QAM 03/11/25 04/23/25 History release (Protonix) telmisartan 40 mg tablet (Micardis) 40 mg PO QAM 03/11/25 04/23/25 History ursodiol 300 mg capsule 300 mg PO BID 03/11/25 04/23/25 History apixaban 5 mg tablet (Eliquis) 5 mg PO BID #180 tabs 04/01/25 04/23/25 Rx cyanocobalamin (vitamin B-12) 500 500 mcg PO QAM 04/23/25 04/23/25 History mcg tablet Past Med/Surg History Problem List Hip fracture Carotid artery disease Abnormal chest CT 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 Chronic anticoagulation Chronic SI joint pain Fall (Acute) 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 Weakness of shoulder Nocturnal leg cramps Nodule of finger Radial nerve compression Bifascicular block Syncope No recent issues Hyperkalemia Distal radius fracture, left (Acute) Hx of Symptomatic bradycardia (Acute) Sleep disorder Rhinitis Lumbar disc disease Benign prostatic hyperplasia Gout Degenerative disc disease Hypothyroidism Hypertension (Acute) Hyperlipidemia Coronary artery disease Medical History SHAWN (obstructive sleep apnea) Could not tolerate CPAP Tinnitus of both ears Hearing loss Bilateral Hearing Aids Impaired glucose tolerance (oral) CKD (chronic kidney disease), stage III Stable per PCP records History of tuberculosis - - treated- pt denies any issues since - Spent time at [facility]) when in the service History of syncope 12/2023 and 05/2024 per records (had subsequent holter monitor without acute issues) No recent issues of syncope Stenosis of right carotid artery - 50 to 60% stenosis of the right internal carotid artery with what appears to be an ulcerated plaque (per 12/29/24 CTA) Nocturnal leg cramps Aggravated by increased activity Hypothyroidism Hypertension Hyperlipidemia 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/2024) - per vascular - unsure if truly a dissection or possible ulcerated plaque Coronary artery disease s/p 5 vessel CABG in (vein graft to PDA,OM known to be occluded per cardio records) on Plavix per PCP records Chronic SI joint pain [facility] Chronic anticoagulation Bifascicular block [facility] [place] Cardiology Dr Hall (no high grade AV block per cardio records) History of 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 [facility] left sided weakness initially, pt denies any residuals at this time - started on Eliquis 01/2025 Anemia, unspecified Mild/chronic - no blood transfusion/iron infusion Osteoarthritis BPH (benign prostatic hyperplasia) Hx of gout Gout flare left toe- resolved as of PAT appt 03/18/25 GERD (gastroesophageal reflux disease) well controlled and stable H/O blood clots Right Arm 1983 Myocardial infarction 1978+1979, no stents - [facility] [place] Cardiology Dr Hall Surgical History History of surgery on left wrist "they rerouted a vein to my thumb and now it's great" History of wisdom tooth extraction Lump in chest Benign (removed) H/O hand surgery Right hand, lump removal History of total knee replacement Right History of colonoscopy History of tooth extraction lower denture History of cardiac cath multiple - denies sents - [facility] [place] Cardiology Hx of ventral hernia repair Hx of carpal tunnel repair Bilateral Hx of cholecystectomy Hx of CABG 1984>x5 [place] - Now following [facility] [place] [facility] Cardiology Dr Hall Hx of appendectomy Family History Brother Cardiac disorder Diabetes Hypertension Myocardial infarction Sister Cardiac disorder Cancer Breast cancer Lung cancer Denies family history of Ovarian cancer Prostate cancer Colorectal cancer Social History Smoking Status: Former smoker Tobacco Type: Cigarettes Age Started Using Tobacco: 19; Age Quit Using Tobacco: 30; packs per day: 2; Second Hand Exposure: No; Do You Dip or Chew Tobacco: No; Hx Alcohol Use: Yes Alcohol type: beer Hx Substance Use: No Preferred Language: [place] Communication Ability: Effective Visual Impairment: Limited Hearing Ability: Use of Hearing Aid 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 Required: No Beliefs That Will Affect Care: None marital status: Current Living Situation: Spouse current occupational status: retired How many Children do You have: 1 Feels Safe at Home: Yes Childhood Exposure to Second-Hand Smoke: No Diet: regular caffeine: Yes (coffee and tea) Dental Care, Regularly: No Physical Activity Frequency: Daily Seatbelt Use: always Sunscreen Use: Yes (sometimes) Assistive Devices: Cane, Denture - Lower, Glasses and Hearing Aid - Bilateral Review of Systems Review of Systems: per HPI Physical Exam Physical Exam: GA: well groomed, well nourished in no apparent distress. AAOx3 HEENT: head normocephalic, atraumatic. EOMI RESP: vesicular breath sounds b/l. No wheezes, rhonchi, or rales CARDIOVASCULAR: S1 and S2 heard. No murmurs, rubs, or gallops. Radial pulses 2+ b/l RRR GI: Normoactive bowel sounds, no tenderness or masses felt to palpation MSK: ROM limited due to pain SKIN: warm, dry, no edema, no bruising noted around affected area PSYCH: appropriate mood and affect NEURO: no focal deficits. speech fluent Results & Data Results & Data Vital Signs (Past 12 Hours) Vital Signs Temp Pulse Pulse Resp BP BP Pulse Ox 04/23/25 22:00 106 H 20 173/100 H 96 04/23/25 21:41 102 H 04/23/25 21:14 104 H 19 148/96 H 92 04/23/25 20:35 36.9 C 99 H 18 175/100 H 94 04/23/25 20:14 36.9 C 93 H 19 163/93 H 94 O2 Del Method 04/23/25 22:00 Room Air 04/23/25 21:41 04/23/25 21:14 Room Air 04/23/25 20:35 Room Air 04/23/25 20:14 Room Air Laboratory Results Laboratory Results WBC 6.86 K/ul (4.8-10.8) 04/23/25 20:45 RBC 2.92 M/uL (4.70-6.10) L 04/23/25 20:45 Hgb 9.4 g/dl (14.0-18.0) L 04/23/25 20:45 Hct 27.8 % (42.0-52.0) L 04/23/25 20:45 MCV 95.2 fL (80.0-100.0) 04/23/25 20:45 MCH 32.2 pg (25.0-34.0) 04/23/25 20:45 MCHC 33.8 g/dL (32.0-36.0) 04/23/25 20:45 RDW Std Deviation 49.1 fL (36.4-46.3) H 04/23/25 20:45 RDW Coeff of Viviana 14.1 % (11.5-14.5) 04/23/25 20:45 Plt Count 175 K/uL (130-400) 04/23/25 20:45 MPV 10.7 fL (9.4-12.4) 04/23/25 20:45 Immature Gran % (Auto) 0.6 % 04/23/25 20:45 Neut % (Auto) 61.3 % 04/23/25 20:45 Lymph % (Auto) 26.2 % 04/23/25 20:45 Coffee % (Auto) 7.4 % 04/23/25 20:45 Eos % (Auto) 4.2 % 04/23/25 20:45 Baso % (Auto) 0.3 % 04/23/25 20:45 Neut # (Auto) 4.20 K/uL (1.40-6.50) 04/23/25 20:45 Lymph # (Auto) 1.80 K/uL (1.20-3.40) 04/23/25 20:45 Coffee # (Auto) 0.51 K/uL (0.11-0.59) 04/23/25 20:45 Eos # (Auto) 0.29 K/uL (0.00-0.50) 04/23/25 20:45 Baso # (Auto) 0.02 K/uL (0.00-0.20) 04/23/25 20:45 Immature Gran # (Auto) 0.04 K/uL (0.01-0.20) 04/23/25 20:45 PT 11.4 Seconds (9.0-12.0) 04/23/25 20:45 INR 1.1 (0.9-1.1) 04/23/25 20:45 APTT 26 Seconds (21-31) 04/23/25 20:45 PTT Ratio 1.0 04/23/25 20:45 Sodium 138 mmol/L (136-145) 04/23/25 20:45 Potassium 5.1 mmol/L (3.5-5.1) 04/23/25 20:45 Chloride 108 mmol/L (98-107) H 04/23/25 20:45 Carbon Dioxide 24 mmol/L (21-32) 04/23/25 20:45 Anion Gap 6 (3-11) 04/23/25 20:45 BUN 36 mg/dl (6-23) H 04/23/25 20:45 Creatinine 1.77 mg/dl (0.6-1.4) H 04/23/25 20:45 Est Cr Clr Drug Dosing 30.6 ml/min 04/23/25 20:45 eGFR 36.71 04/23/25 20:45 BUN/Creatinine Ratio 20.3 (10-20) H 04/23/25 20:45 Glucose 97 mg/dl (70-99(Fasting)) 04/23/25 20:45 Calcium 9.6 mg/dl (8.6-10.3) 04/23/25 20:45 Total Bilirubin 0.5 mg/dl (0.2-1.0) 04/23/25 20:45 AST 19 U/L (13-39) 04/23/25 20:45 ALT 14 U/L (7-52) 04/23/25 20:45 Alkaline Phosphatase 80 U/L (34-104) 04/23/25 20:45 Total Protein 7.4 gm/dl (6.0-8.3) 04/23/25 20:45 Albumin 4.2 gm/dl (3.4-5.0) 04/23/25 20:45 Globulin 3.2 gm/dl (2.5-4.0) 04/23/25 20:45 Albumin/Globulin Ratio 1.3 (0.9-2) 04/23/25 20:45 Urine Color Yellow 04/23/25 21:40 Urine Appearance Clear (Clear) 04/23/25 21:40 Urine pH 7.0 (4.5-7.5) 04/23/25 21:40 Ur Specific [place] 1.009 (1.000-1.030) 04/23/25 21:40 Urine Protein Negative (Negative) 04/23/25 21:40 Urine Glucose (UA) Negative (Negative) 04/23/25 21:40 Urine Ketones Negative (Negative) 04/23/25 21:40 Urine Blood Negative (Negative) 04/23/25 21:40 Urine Nitrite Negative (Negative) 04/23/25 21:40 Urine Bilirubin Negative (Negative) 04/23/25 21:40 Urine Urobilinogen Negative (Negative) 04/23/25 21:40 Ur Leukocyte Esterase Negative (Negative) 04/23/25 21:40 Urine Comment 04/23/25 21:40 Impressions Hip X-Ray 04/23/25 20:47 Exam(s): XR RIGHT HIP EXAM: XR Right Hip With Pelvis When Performed, 2 or 3 Views CLINICAL HISTORY: Reason for exam: Fall, hip pain. TECHNIQUE: Two or three views of the right hip with pelvis when performed. COMPARISON: No relevant prior studies available. FINDINGS: Bones/joints: Acute nondisplaced subcapital right femoral neck fracture. Corticated ossicle superior to the right femoral neck, chronic. No dislocation. Soft tissues: Soft tissue swelling lateral to the right hip. IMPRESSION: Acute nondisplaced subcapital right femoral neck fracture. Electronically signed by: Dieter Altman M.D. 04/23/25 22:34 PM Resident Activity Tracking Resident Involvement: Resident Care Provided Care Provided: Adult Hospital Medicine
[2025-04-23] MEDS ORDERED: MAGNESIUM HYDROXIDE SUSP 30 ML UDC PO PRN (23:03)
[2025-04-23] MEDS ORDERED: NALOXONE HCL 0.4 MG/1 ML VIAL/CARP IV PRN (23:03)
[2025-04-24] MEDS ORDERED: MELATONIN 3 MG TAB PO PRN (00:02)
[2025-04-24] MEDS ORDERED: NITROGLYCERIN SL 0.4 MG/TAB TAB SL PRN (00:02)
[2025-04-24] MEDS ORDERED: POLYETHYLENE (MIRALAX) 17 GM PACK PO PRN (00:02)
[2025-04-24] MEDS ORDERED: HYDROmorphone INJ 0.5 MG/0.5 ML SYR IV PRN (00:17)
[2025-04-24] MEDS: LACTATED RINGER'S 1,000 ML IV SCH (01:03)
--- NOTE | 2025-04-24 02:59 | Billing Data ---
Date of Service April 23, 2025 Coding Level of Care Code 40068 INT INP/OBS CARE
[2025-04-24] MEDS: ACETAMINOPHEN 1,000 MG/100 ML VIAL IV PRN (03:28)
[2025-04-24] MEDS: LEVOTHYROXINE SODIUM 150 MCG TABLET PO SCH (06:10)
--- NOTE | 2025-04-24 07:54 | Orthopedic Consultation ---
Date of Service April 24, 2025 Assessment & Plan (1) Fracture of femoral neck, right, closed: * Case/imaging reviewed and discussed with Omar Tesfaye * Recommend OR for open management of femoral neck fracture, tentatively 04/24 pending medical clearance * Weight bearing status: NWB preop * Maintain NPO for possible OR today * Daily treatment: Physical Therapy/ Occupational Therapy per protocol * Pain control * Disposition: TBD * Remainder care per primary team History of Present Illness Reason for Consultation: Right hip pain Requesting Physician: . Attending Physician: Nelda Chávez MD Patient is a 89y/o male with right hip pain. PMH including CAD, stroke, hypothyroidism, HTN, HLD, SHAWN, CKD3. Presents to hospital with left hip pain after a fall at home. Patient reports he was stepping out of his garage when his heel caught the edge of the concrete and he lost his balance falling and landing on his left hip. Significant pain, but was able to ambulate approximately 75 feet back into the house in order to call for help. Brought to ED for evaluation. Current workup including x-ray right hip demonstrating femoral neck fracture. Admitted to hospital medicine team. Orthopedics consulted for management recommendations. At time of exam patient lying comfortably in bed, no acute distress. Endorses minimal pain of the right hip at rest, mild pain with attempted movements. States that he feels significantly better today than yesterday. Denies tingling or numbness of the right lower ext remity. No assistive devices at baseline. Would like to return to normal activity for hunting season this year. History of right TKA with Dr. Suarez Allergies Allergy/AdvReac Type Severity Reaction Status Date / Time codeine AdvReac Severe "Entire Verified 04/21/25 08:55 system shut down" hydromorphone AdvReac Severe "Entire Verified 04/21/25 08:55 system shut down" nickel AdvReac Mild Rash Verified 04/21/25 08:55 oxycodone AdvReac Unknown "Entire Verified 04/21/25 08:55 system shut down" Home Medications Medication Instructions Recorded Confirmed Type cholecalciferol (vitamin D3) 25 1,000 units PO DAILY 04/08/19 04/23/25 History mcg (1,000 unit) capsule cyanocobalamin (vitamin B-12) 1,000 mcg PO QAM 05/12/20 04/23/25 History 1,000 mcg tablet omega-3 fatty acids 1,000 mg PO QAM 05/12/20 04/23/25 History nitroglycerin 0.4 mg sublingual 0.4 mg sublingual Q5M PRN chest 11/27/23 04/23/25 Rx tablet pain #30 tabs levothyroxine 150 mcg tablet 150 mcg PO QAM #90 tabs 11/27/24 04/23/25 Rx tramadol 50 mg tablet 50 mg PO TID PRN pain #270 tabs 11/27/24 04/23/25 Rx Prevagen 1 cap PO DAILY 02/02/25 04/23/25 History allopurinol 100 mg tablet 100 mg PO BID 03/11/25 04/23/25 History (Zyloprim) amlodipine 5 mg tablet (Norvasc) 5 mg PO QAM 03/11/25 04/23/25 History atorvastatin 40 mg tablet 40 mg PO QAM 03/11/25 04/23/25 History carvedilol 12.5 mg tablet 12.5 mg PO BID 03/11/25 04/23/25 History cetirizine 10 mg tablet 10 mg PO HS 03/11/25 04/23/25 History clopidogrel 75 mg tablet (Plavix) 75 mg PO QAM 03/11/25 04/23/25 History colchicine 0.6 mg tablet (Colcrys) 0.6 mg PO DAILY PRN Gout Flare Up 03/11/25 04/23/25 History cyclobenzaprine 10 mg tablet 10 mg PO TID Muscle Spasms 03/11/25 04/23/25 History diphenhydramine HCl 25 mg capsule 50 mg PO HS PRN Allergies 03/11/25 04/23/25 History (Benadryl) finasteride 5 mg tablet (Proscar) 5 mg PO QAM 03/11/25 04/23/25 History gabapentin 100 mg capsule 100 mg PO QAM 03/11/25 04/23/25 History (Neurontin) meloxicam 7.5 mg tablet 7.5 mg PO QAM 03/11/25 04/23/25 History pantoprazole 40 mg tablet,delayed 40 mg PO QAM 03/11/25 04/23/25 History release (Protonix) telmisartan 40 mg tablet (Micardis) 40 mg PO QAM 03/11/25 04/23/25 History ursodiol 300 mg capsule 300 mg PO BID 03/11/25 04/23/25 History apixaban 5 mg tablet (Eliquis) 5 mg PO BID #180 tabs 04/01/25 04/23/25 Rx cyanocobalamin (vitamin B-12) 500 500 mcg PO QAM 04/23/25 04/23/25 History mcg tablet Past Med/Surg History Problem List (Updated 04/24/25 @ 07:52 by Dwayne Arce PA-C) Fracture of femoral neck, right, closed Carotid artery disease Abnormal chest CT 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 Chronic anticoagulation Chronic SI joint pain Fall (Acute) 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 Weakness of shoulder Nocturnal leg cramps Nodule of finger Radial nerve compression Bifascicular block Syncope No recent issues Hyperkalemia Distal radius fracture, left (Acute) Hx of Symptomatic bradycardia (Acute) Sleep disorder Rhinitis Lumbar disc disease Benign prostatic hyperplasia Gout Degenerative disc disease Hypothyroidism Hypertension (Acute) Hyperlipidemia Coronary artery disease Medical History (Updated 04/24/25 @ 07:52 by Dwayne Arce PA-C) SHAWN (obstructive sleep apnea) Could not tolerate CPAP Tinnitus of both ears Hearing loss Bilateral Hearing Aids Impaired glucose tolerance (oral) CKD (chronic kidney disease), stage III Stable per PCP records History of tuberculosis - - treated- pt denies any issues since - Spent time at [facility]) when in the service History of syncope 12/2023 and 05/2024 per records (had subsequent holter monitor without acute issues) No recent issues of syncope Stenosis of right carotid artery - 50 to 60% stenosis of the right internal carotid artery with what appears to be an ulcerated plaque (per 12/29/24 CTA) Nocturnal leg cramps Aggravated by increased activity Hypothyroidism Hypertension Hyperlipidemia 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/2024) - per vascular - unsure if truly a dissection or possible ulcerated plaque Coronary artery disease s/p 5 vessel CABG in 1980s (vein graft to PDA,OM known to be occluded per cardio records) on Plavix per PCP records Chronic SI joint pain [facility] Chronic anticoagulation Bifascicular block [facility] Cardiology Dr Hall (no high grade AV block per cardio records) History of 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 [facility] left sided weakness initially, pt denies any residuals at this time - started on Eliquis 01/2025 Anemia, unspecified Mild/chronic - no blood transfusion/iron infusion Osteoarthritis BPH (benign prostatic hyperplasia) Hx of gout Gout flare left toe- resolved as of PAT appt 03/18/25 GERD (gastroesophageal reflux disease) well controlled and stable H/O blood clots Right Arm 1983 Myocardial infarction 1978+1979, no stents - [facility] Cardiology Dr Hall Surgical History History of surgery on left wrist "they rerouted a vein to my thumb and now it's great" History of wisdom tooth extraction Lump in chest Benign (removed) H/O hand surgery Right hand, lump removal History of total knee replacement Right History of colonoscopy History of tooth extraction lower denture History of cardiac cath multiple - denies sents - [facility] Cardiology Hx of ventral hernia repair Hx of carpal tunnel repair Bilateral Hx of cholecystectomy Hx of CABG 1984>x5 [place] - Now following [facility] Cardiology Dr Hall Hx of appendectomy Family History Brother Cardiac disorder Diabetes Hypertension Myocardial infarction Sister Cardiac disorder Cancer Breast cancer Lung cancer Denies family history of Ovarian cancer Prostate cancer Colorectal cancer Social History Smoking Status: Former smoker Tobacco Type: Cigarettes Age Started Using Tobacco: 19; Age Quit Using Tobacco: 30; packs per day: 2; Second Hand Exposure: No; Do You Dip or Chew Tobacco: No; Hx Alcohol Use: Yes Alcohol type: beer Hx Substance Use: No Preferred Language: Khmer Communication Ability: Effective Visual Impairment: Limited Hearing Ability: Use of Hearing Aid Lug Breaker And Wire Puller Required: No Beliefs That Will Affect Care: None marital status: Current Living Situation: Spouse current occupational status: retired How many Children do You have: 1 Other Information That Helps Us Care for You: No Feels Safe at Home: Yes Safety Concerns: Feels Safe At This Time Childhood Exposure to Second-Hand Smoke: No Diet: regular caffeine: Yes (coffee and tea) Dental Care, Regularly: No Physical Activity Frequency: Daily Seatbelt Use: always Sunscreen Use: Yes (sometimes) Assistive Devices: Denture - Lower, Glasses and Hearing Aid - Bilateral Review of Systems All systems reviewed & are unremarkable except as noted in HPI & below. Physical Exam . * General: Alert and oriented, no acute distress * Constitutional: well-developed, well-nourished. * Respiratory: Normal respiratory effort, no distress * Gastrointestinal: No tenderness to palpation, no rigidity or guarding. * Skin: No rash or lesion. * Neurologic: Grossly normal * Musculoskeletal: Right lower extremity with no obvious deformity or overlying skin changes. TTP anterior hip/proximal thigh region. Otherwise no specific tenderness of the distal thigh, knee, lower leg. Minimal pain with logroll, otherwise ROM hip not assessed. AROM foot plantar/dorsiflexion intact. Sensation intact plantar/dorsal foot. Brisk capillary refill Results & Data Results & Data Laboratory Results . 04/23/25 04/23/25 21:40 20:45 WBC 6.86 RBC 2.92 L Hgb 9.4 L Hct 27.8 L MCV 95.2 MCH 32.2 MCHC 33.8 RDW Std Deviation 49.1 H RDW Coeff of Viviana 14.1 Plt Count 175 MPV 10.7 Immature Gran % (Auto) 0.6 Neut % (Auto) 61.3 Lymph % (Auto) 26.2 Winkler % (Auto) 7.4 Eos % (Auto) 4.2 Baso % (Auto) 0.3 Neut # (Auto) 4.20 Lymph # (Auto) 1.80 [place]ink[place] # (Auto) 0.51 Eos # (Auto) 0.29 Baso # (Auto) 0.02 Immature Gran # (Auto) 0.04 PT 11.4 INR 1.1 APTT 26 PTT Ratio 1.0 Sodium 138 Potassium 5.1 Chloride 108 H Carbon Dioxide 24 Anion Gap 6 BUN 36 H Creatinine 1.77 H Est Cr Clr Drug Dosing 30.6 eGFR 36.71 BUN/Creatinine Ratio 20.3 H Glucose 97 Calcium 9.6 Total Bilirubin 0.5 AST 19 ALT 14 Alkaline Phosphatase 80 Total Protein 7.4 Albumin 4.2 Globulin 3.2 Albumin/Globulin Ratio 1.3 Urine Color Yellow Urine Appearance Clear Urine pH 7.0 Ur Specific [place] 1.009 Urine Protein Negative Urine Glucose (UA) Negative Urine Ketones Negative Urine Blood Negative Urine Nitrite Negative Urine Bilirubin Negative Urine Urobilinogen Negative Ur Leukocyte Esterase Negative Urine Comment Diagnostic Findings . Hip X-Ray 04/23/25 20:47 Exam(s): XR RIGHT HIP EXAM: XR Right Hip With Pelvis When Performed, 2 or 3 Views CLINICAL HISTORY: Reason for exam: Fall, hip pain. TECHNIQUE: Two or three views of the right hip with pelvis when performed. COMPARISON: No relevant prior studies available. FINDINGS: Bones/joints: Acute nondisplaced subcapital right femoral neck fracture. Corticated ossicle superior to the right femoral neck, chronic. No dislocation. Soft tissues: Soft tissue swelling lateral to the right hip. IMPRESSION: Acute nondisplaced subcapital right femoral neck fracture. Electronically signed by: Dieter Altman M.D. 04/23/25 22:34 PM PG Care Time/CCT Total # of Minutes Spent Total Time Spent with Patient: Total time spent is greater than 50% in coordination of care (as documented) at patient's floor/unit and/or counseling patient: [place] [address] IN/OBS CONSULT LVL 5,80M Patient Type New History Problem Focused Exam Problem Focused Medical Decision Making High Complexity Diagnoses Fracture of femoral neck, right, closed S72.001A
[2025-04-24 08:31] LABS: Magnesium 1.7 mg/dl (1.7-2.4)
[2025-04-24] MEDS ORDERED: LOSARTAN POTASSIUM 50 MG TAB PO SCH (09:00)
[2025-04-24] MEDS: GABAPENTIN 100 MG CAP PO SCH (09:35)
[2025-04-24] MEDS: CYCLOBENZAPRINE HCL 10 MG TAB PO SCH (09:35)
[2025-04-24] MEDS: ATORVASTATIN 40 MG TAB PO SCH (09:35)
--- NOTE | 2025-04-24 10:40 | Electrocardiogram Report ---
Test Reason : Blood Pressure : */* mmHG Vent. Rate : 93 BPM Atrial Rate : 93 BPM P-R Int : 152 ms QRS Dur : 132 ms QT Int : 372 ms P-R-T Axes : 7 -18 -28 degrees QTcB Int : 462 ms Sinus rhythm with Premature supraventricular complexes Right bundle branch block possible Inferior infarct , age undetermined Abnormal ECG When compared with ECG of 18-Mar-2025 10:46, Premature supraventricular complexes are now Present Left anterior fascicular block is no longer Present T wave inversion now evident in Inferior leads Confirmed by Billy Cadet ([id number]) on 04/24/2025 10:40:13 AM Referred By: REFERRED SELF Confirmed By: Billy Cadet
--- NOTE | 2025-04-24 10:48 | Electrocardiogram Report ---
Test Reason : Blood Pressure : */* mmHG Vent. Rate : 124 BPM Atrial Rate : 124 BPM P-R Int : 148 ms QRS Dur : 124 ms QT Int : 342 ms P-R-T Axes : 68 -77 75 degrees QTcB Int : 491 ms Sinus tachycardia with Premature atrial complexes Left axis deviation Right bundle branch block possible Inferior infarct (cited on or before 23-Apr-2025) Abnormal ECG When compared with ECG of 23-Apr-2025 20:51, (unconfirmed) QRS axis Shifted left Non-specific change in ST segment in Inferior leads T wave inversion no longer evident in Inferior leads Confirmed by Billy Cadet ([id number]) on 04/24/2025 10:47:39 AM Referred By: REFERRED SELF Confirmed By: Billy Cadet
[2025-04-24] MEDS ORDERED: LIDOCAINE 2% 2 ML VIAL/AMP(20MG/ML) INFIL ONE ×2 (15:03→15:16)
[2025-04-24] MEDS ORDERED: DEXAMETHASONE SOD INJ 4 MG/ML VIAL ONE (15:03)
[2025-04-24] MEDS ORDERED: PROPOFOL IV EMULSION 10 MG/ML 20 ML VIAL IV ONE ×2 (15:03→15:14)
[2025-04-24] MEDS ORDERED: ONDANSETRON INJ 2 MG/ML 2 ML VIAL ONE (15:03)
[2025-04-24] MEDS ORDERED: ROCURONIUM BROMIDE 10 MG/ML 5 ML VIAL IV ONE (15:03)
[2025-04-24] MEDS ORDERED: DexMEDEtomidine HCL IV 100 MCG/ML VIAL IV ONE (15:04)
[2025-04-24] MEDS ORDERED: ROPIVACAINE 0.5% 5 MG/ML 30 ML VIAL ONE (15:14)
[2025-04-24] MEDS: TRANEXAMIC ACID 1,000 MG **IV Pre-op IV SCH (15:25)
--- NOTE | 2025-04-24 15:29 | History & Physical Bridge Note ---
Date of Service April 24, 2025 History & Physical Bridge Note I have examined the patient, reviewed the History & Physical and in the interval since the performance of the History & Physical I have noted the following changes of clinical significance: no changes noted
[2025-04-24] MEDS ORDERED: ATROPINE SULFATE 0.1 MG/ML 10ML SYR IV PRN (16:08)
[2025-04-24] MEDS ORDERED: ONDANSETRON INJ 2 MG/ML 2 ML VIAL IV PRN (16:08)
--- NOTE | 2025-04-24 16:08 | Anesthesiology Consultation ---
Date of Service April 24, 2025 Assessment & Plan (1) Encounter for pre-operative examination: Chart Review Chart Review: Acceptable Risk for Surgery and Patient NOT seen in Pre Admission Testing Consults Requested none History Surgery Operation Date: 04/24/25 09:10 Proposed Procedures p Right Hip Hemiarthroplasty Versus - Lanre Nelson MD s Cannulated Screws - Lanre Nelson MD Height/Weight Height: 5 ft 7 in Weight: 87.1 kg Allergies Allergy/AdvReac Type Severity Reaction Status Date / Time codeine AdvReac Severe "Entire Verified 04/21/25 08:55 system shut down" hydromorphone AdvReac Severe "Entire Verified 04/21/25 08:55 system shut down" nickel AdvReac Mild Rash Verified 04/21/25 08:55 oxycodone AdvReac Unknown "Entire Verified 04/21/25 08:55 system shut down" Medications Home Medications Medication Instructions Recorded Confirmed Last Taken cholecalciferol (vitamin D3) 25 1,000 units PO DAILY 04/08/19 04/23/25 1 Week Ago mcg (1,000 unit) capsule ~03/18/25 cyanocobalamin (vitamin B-12) 1,000 mcg PO QAM 05/12/20 04/23/25 1 Week Ago 1,000 mcg tablet ~03/18/25 omega-3 fatty acids 1,000 mg PO QAM 05/12/20 04/23/25 1 Week Ago ~03/18/25 nitroglycerin 0.4 mg sublingual 0.4 mg sublingual Q5M PRN chest 11/27/23 04/23/25 Unknown tablet pain #30 tabs levothyroxine 150 mcg tablet 150 mcg PO QAM #90 tabs 11/27/24 04/23/25 03/25/25 05:00 tramadol 50 mg tablet 50 mg PO TID PRN pain #270 tabs 11/27/24 04/23/25 3 Weeks Ago ~03/04/25 Prevagen 1 cap PO DAILY 02/02/25 04/23/25 1 Week Ago ~03/18/25 allopurinol 100 mg tablet 100 mg PO BID 03/11/25 04/23/25 03/25/25 05:00 (Zyloprim) amlodipine 5 mg tablet (Norvasc) 5 mg PO QAM 03/11/25 04/23/2503/25/25 05:00 atorvastatin 40 mg tablet 40 mg PO QAM 03/11/25 04/23/25 03/25/25 05:00 carvedilol 12.5 mg tablet 12.5 mg PO BID 03/11/25 04/23/25 03/25/25 05:00 cetirizine 10 mg tablet 10 mg PO HS 03/11/25 04/23/25 03/24/25 22:00 clopidogrel 75 mg tablet (Plavix) 75 mg PO QAM 03/11/25 04/23/25 03/24/25 08:00 colchicine 0.6 mg tablet (Colcrys) 0.6 mg PO DAILY PRN Gout Flare Up 03/11/25 04/23/25 1 Week Ago ~03/18/25 cyclobenzaprine 10 mg tablet 10 mg PO TID Muscle Spasms 03/11/25 04/23/25 1 Week Ago ~03/18/25 diphenhydramine HCl 25 mg capsule 50 mg PO HS PRN Allergies 03/11/25 04/23/25 1 Week Ago (Benadryl) ~03/18/25 finasteride 5 mg tablet (Proscar) 5 mg PO QAM 03/11/25 04/23/25 03/25/25 05:00 gabapentin 100 mg capsule 100 mg PO QAM 03/11/25 04/23/25 03/25/25 05:00 (Neurontin) meloxicam 7.5 mg tablet 7.5 mg PO QAM 03/11/25 04/23/25 1 Week Ago ~03/18/25 pantoprazole 40 mg tablet,delayed 40 mg PO QAM 03/11/25 04/23/25 03/25/25 05:00 release (Protonix) telmisartan 40 mg tablet (Micardis) 40 mg PO QAM 03/11/25 04/23/25 03/24/25 08:00 ursodiol 300 mg capsule 300 mg PO BID 03/11/25 04/23/25 03/24/25 08:00 apixaban 5 mg tablet (Eliquis) 5 mg PO BID #180 tabs 04/01/25 04/23/25 Unknown cyanocobalamin (vitamin B-12) 500 500 mcg PO QAM 04/23/25 04/23/25 Unknown mcg tablet Active Medications Generic Name Dose Route Start Last Admin Trade Name Freq PRN Reason Stop Dose Admin Amlodipine Besylate 5 mg 04/24/25 09:00 04/24/25 09:35 Amlodipine Besylate 5 Mg Tab PO 05/24/25 08:59 Not Given QAM MEG Atorvastatin Calcium 40 mg 04/24/25 09:00 04/24/25 09:35 Atorvastatin 40 Mg Tab PO 05/24/25 08:59 Not Given QAM MEG Carvedilol 12.5 mg 04/24/25 08:00 04/24/25 09:34 Carvedilol 12.5 Mg Tab PO 05/24/25 07:59 Not Given BIDM MEG Cyclobenzaprine HCl 10 mg 04/24/25 09:00 04/24/25 13:31 Cyclobenzaprine Hcl 10 Mg Tab PO 05/24/25 08:59 Not Given TID MEG Gabapentin 100 mg 04/24/25 09:00 04/24/25 09:35 Gabapentin 100 Mg Cap PO 05/24/25 08:59 Not Given QAM MEG Acetaminophen 1,000 mg in 100 mls @ 400 mls/hr 04/24/25 00:02 04/24/25 03:55 Ofirmev IV 04/27/25 00:01 Infused Q8H PRN Infusion Mild-Mod Pain (Scale 1-6) Lactated Ringer's 1,000 mls @ 110 mls/hr 04/24/25 00:15 04/24/25 11:10 Lr IV 04/24/25 18:25 110 mls/hr .Q9H6M MEG Administration Tranexamic Acid 1,000 mg in 100 mls @ 600 mls/hr 04/24/25 06:00 04/24/25 15:25 Tranexamic Acid / 0.7% Nacl IV 04/24/25 18:00 600 mls/hr TODAY@0600 MEG Administration Levothyroxine Sodium 150 mcg 04/24/25 06:30 04/24/25 06:10 Levothyroxine Sodium 150 Mcg Tablet PO 05/24/25 06:29 Not Given DAILYBB MEG Pantoprazole Sodium 40 mg 04/24/25 09:00 04/24/25 09:35 Pantoprazole 40 Mg Tab PO 05/24/25 08:59 Not Given QAM MEG NPO Date Last Intake of Fluids: 04/23/25 Time Last Intake of Fluids: 23:00 Date Last Intake of Solids: 04/23/25 Time Last Intake of Solids: 23:00 Past Medical History Medical History SHAWN (obstructive sleep apnea) Could not tolerate CPAP Tinnitus of both ears Hearing loss Bilateral Hearing Aids Impaired glucose tolerance (oral) CKD (chronic kidney disease), stage III Stable per PCP records 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- pt denies any issues since - Spent time at [facility] when in the service History of syncope 12/2023 and 05/2024 per records (had subsequent holter monitor without acute issues) No recent issues of syncope Stenosis of right carotid artery - 50 to 60% stenosis of the right internal carotid artery with what appears to be an ulcerated plaque (per 12/29/24 CTA) Nocturnal leg cramps Aggravated by increased activity Hypothyroidism Hypertension Hyperlipidemia 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/2024) - per vascular - unsure if truly a dissection or possible ulcerated plaque Coronary artery disease s/p 5 vessel CABG in (vein graft to PDA,OM known to be occluded per cardio records) on Plavix per PCP records Chronic SI joint pain [facility] Chronic anticoagulation Bifascicular block [facility] Cardiology Dr Hall (no high grade AV block per cardio records) History of 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 [facility] left sided weakness initially, pt denies any residuals at this time - started on Eliquis 01/2025 Anemia, unspecified Mild/chronic - no blood transfusion/iron infusion Osteoarthritis BPH (benign prostatic hyperplasia) Hx of gout Gout flare left toe- resolved as of PAT appt 03/18/25 GERD (gastroesophageal reflux disease) well controlled and stable H/O blood clots Right Arm 1983 Myocardial infarction 1978+1979, no stents - [facility] Cardiology Dr Hall Past Family History Family History Brother Cardiac disorder Diabetes Hypertension Myocardial infarction Sister Cardiac disorder Cancer Breast cancer Lung cancer Denies family history of Ovarian cancer Prostate cancer Colorectal cancer Past Surgical History Surgical History History of surgery on left wrist "they rerouted a vein to my thumb and now it's great" History of wisdom tooth extraction Lump in chest Benign (removed) H/O hand surgery Right hand, lump removal History of total knee replacement Right History of colonoscopy History of tooth extraction lower denture History of cardiac cath multiple - denies sents - [facility] Cardiology Hx of ventral hernia repair Hx of carpal tunnel repair Bilateral Hx of cholecystectomy Hx of CABG 1984>x5 [place] - Now following [facility] Cardiology Dr Hall Hx of appendectomy Social History Smoking Status: Former smoker tobacco type: cigarettes Do You Dip or Chew Tobacco: No Hx Alcohol Use: Yes Alcohol type: beer alcohol intake frequency: holidays/special occasions only Hx Substance Use: No substance use type: does not use Physical Exam Vital Signs Last Vital Signs Temp 98.6 F 04/24/25 14:31 Pulse 109 H 04/24/25 14:31 Resp 20 04/24/25 14:31 BP 178/97 H 04/24/25 14:31 Pulse Ox 94 04/24/25 14:31 O2 Del Method Room Air 04/24/25 14:31 Testing Laboratory Results 04/23/25 20:45 04/23/25 20:45 PT 11.4 Seconds (9.0-12.0) 04/23/25 20:45 INR 1.1 (0.9-1.1) 04/23/25 20:45 APTT 26 Seconds (21-31) 04/23/25 20:45 Urine Color Yellow 04/23/25 21:40 Urine Appearance Clear (Clear) 04/23/25 21:40 Urine pH 7.0 (4.5-7.5) 04/23/25 21:40 Ur Specific [place] 1.009 (1.000-1.030) 04/23/25 21:40 Urine Protein Negative (Negative) 04/23/25 21:40 Urine Glucose (UA) Negative (Negative) 04/23/25 21:40 Urine Ketones Negative (Negative) 04/23/25 21:40 Urine Nitrite Negative (Negative) 04/23/25 21:40 Ur Leukocyte Esterase Negative (Negative) 04/23/25 21:40 Blood Type A Positive 04/24/25 09:27 Antibody Screen NEGATIVE 04/24/25 09:27
[2025-04-24] MEDS: BUPIVACAINE/EPINEPHRINE 0.5% MPF 1:200,000 30 ML VIAL ONE (16:58)
[2025-04-24] MEDS ORDERED: SUGAMMADEX SODIUM 200 MG/2 ML VIAL IV ONE (17:24)
--- NOTE | 2025-04-24 17:35 | Operative Report ---
PG Post Operative Report Pre & Post Diagnosis Operation Date: 04/24/25 09:10 Pre-Op Diagnosis: Fracture of right femoral neck, closed Post-Op Diagnosis: Fracture of right femoral neck, closed I identified the patient and participated in the time-out.: Yes Procedure Operation Date: 04/24/25 09:10 Actual Procedures p Right Hip Hemiarthroplasty, Cemented - Lanre Nelson MD Surgeon Lanre Nelson MD [employer] Maintainer Garrison Hu PA-C Estimated Blood Loss 150 Findings Consistent with Post-Op Diagnosis Specimens Right femoral head sent for pathology. Anesthesia Type General Complications none Disposition Accompanied Patient To Recovery: No Indications Patient is an 89-year-old fairly active gentleman with multiple medical comorbidities sustained a mechanical fall. He was having trouble ambulating getting around and was brought to the emergency room x-ray revealed a slightly displaced femoral neck fracture. He was admitted by the hospitalist service, medically optimized indicated for surgical repair. No pre-existing hip pain. On the lateral x-ray there was significant angulation of the fracture site and therefore hemiarthroplasty was elected. Description of Procedure Operative implants consist of: 1. DePuy [place] size 3 high offset femoral stem. 2. +1.5/28 mm metal articular ball with a 50 mm bipolar shell and liner. 3. Small cement restrictor 4. Distal femoral centralizer. The patient was taken to the op room, identified, placed on the operating table in the supine position. All contractors were appropriately padded. IV antibiotics were provided by the anesthesia team. A general anesthetic was implemented. The patient then placed in the left lateral cubitus position. An axillary roll was placed. Distal Birkett position was used for positioning. The right hip and leg were then prepped and draped in usual sterile fashion. A posterolateral approach to the right hip was then performed through a curvilinear incision centered over the greater trochanter. Sharp dissection was Through subcutaneous tissue down to level the IT band gluteal fascia. The IT band gluteal fascia incised longitudinally in line with skin incision. There was quite a bit of hemorrhage in the subcu tissues and in the posterior aspect of the hip likely somewhat related to his Eliquis use. There is no single collection of large hematoma despite the bruising. The piriformis and external rotators along with the posterior joint capsule released from the posterior aspect hip. Hip was internally rotated and dislocated. Femoral neck osteotomy cut was made with Final Cut about a centimeter above the lesser trochanter. Femoral head was removed and sent for pathology. The femur was retracted anteriorly. I removed the remaining femoral head. We sized this to a size 50. We cleaned out the acetabulum involved bone. Attention drawn the femur. The proximal femur was entered with a cookie cutter followed by canal finder and lateralizing reamer. I then broached begin the size 1 progressing up to 3. I did want a force of broaching in and it was getting tighter to 3 so we stop there. We trialed the hip. The +5 seemed a little bit tight with a high offset stem. I want to maximize stability. We did use +1.5 head. The hip was fully stable. We elected to place these implants. All trial implants were removed. A cement restrictor was placed distally. I ir rigated and cleaned the canal. A double batch [place] G cement was mixed and the canal was injected with the cement. A size 3 high offset femoral stem was placed. I tried to maximize the anteversion. Once this was complete a +1.5/20 mm metal ball with a 50 mm bipolar shell and liner were then placed. Hip was located and found to be stable. Attention turned toward closing. I did inject locally with 30 cc of half percent Marcaine with epinephrine. I irrigated extensively. The posterior capsule was then repaired with #2 Tycron suture in a [id number] fashion. The IT band gluteal fascia then closed #1 PDS suture in running fashion. Subcutaneous tissue was then closed with #2 Vicryl suture in then a more superficial layer with 2-0 Dexon suture in a buried interrupted fashion. Skin was closed skin melecio. Leg was then cleaned and dried and a sterile dressing with Xeroform, 4 fours, ABD pad and foam tape was applied. The patient then brought out of general anesthesia and transferred to the recovery room in stable condition. Patient tolerated procedure well and there were no complications. Garrison Hu, my physician medical receptionist medical assistant, was present for the entire procedure. His a ssistance was required for proper patient positioning, prepping and draping, surgical exposure, retraction, performed the technical details of the operation, placement implants, closure of the incision site, placement of postoperative sterile bandage. I attest to the content of the Intraoperative Record and any orders documented therein. Any exceptions are noted below.
--- NOTE | 2025-04-24 18:39 | Anesthesiology Progress Note ---
Date of Service April 24, 2025 Anesthesia Post Procedure Vital Signs Vital Signs: Temp Pulse Pulse Pulse Pulse Resp BP 04/24/25 18:15 98.2 F 83 20 04/24/25 18:05 88 16 04/24/25 17:55 88 20 04/24/25 17:45 85 17 04/24/25 17:39 96.8 F L 82 22 04/24/25 14:31 98.6 F 109 H 109 H 20 04/24/25 07:11 98.6 F 102 H 16 04/24/25 06:34 96 H 04/24/25 01:05 99.9 F H 126 H 16 04/23/25 23:50 04/23/25 23:36 97.9 F 04/23/25 23:05 98.4 F 04/23/25 23:03 117 H 24 164/116 H 04/23/25 23:00 111 H 20 04/23/25 22:00 106 H 20 04/23/25 21:41 102 H 04/23/25 21:14 104 H 19 04/23/25 20:35 98.4 F 99 H 18 175/100 H 04/23/25 20:14 98.4 F 93 H 19 BP Pulse Ox O2 Del Method O2 Flow Rate 04/24/25 18:15 129/88 99 Nasal Cannula 3 04/24/25 18:05 128/76 97 Nasal Cannula 3 04/24/25 17:55 133/78 98 Nasal Cannula 3 04/24/25 17:45 116/57 L 100 Nasal Cannula 3 04/24/25 17:39 110/58 L 100 Oxymask 8 04/24/25 14:31 178/97 H 94 Room Air 04/24/25 07:11 149/72 H 95 Room Air 04/24/25 06:34 126/66 94 Room Air 04/24/25 01:05 177/80 H 92 Room Air 04/23/25 23:50 Room Air 04/23/25 23:36 04/23/25 23:05 04/23/25 23:03 95 Room Air 04/23/25 23:00 159/103 H 94 Room Air 04/23/25 22:00 173/100 H 96 Room Air 04/23/25 21:41 04/23/25 21:14 148/96 H 92 Room Air 04/23/25 20:35 94 Room Air 04/23/25 20:14 163/93 H 94 Room Air Pain Intensity Right Hip: Pain Intensity: 5 Transfer of Care Handoff Completed per policy Notes Mental Status: alert / awake / arousable and participated in evaluation Patient Amnestic to Procedure: Yes Nausea / Vomiting: adequately controlled Pain: adequately controlled Airway Patency, RR, SpO2: stable & adequate BP & HR: stable & adequate Hydration State: stable & adequate Anesthetic Complications: no major complications apparent and Pt Satisfied with anesthetic care
--- NOTE | 2025-04-24 18:47 | Hospitalist Progress Note ---
Date of Service April 24, 2025 Assessment & Plan (1) Hip fracture: (2) Hypothyroidism: (3) Coronary artery disease: (4) History of stroke: Plan Mr. Paulino is an 89yo gentleman with PMH CAD, carotid endarterectomy, stroke, HTN, HLD, and Hypothyroidism who presents to the hospital on 04/23 for a ground level fall. Mechanical fall - he tripped over lip of the garage floor. Does not normally use walker or cane and is independent at home. # R hip fracture -consulted ortho Dr. Nelson - hemiarthroplasty 04/24 -hopper -pain control -PT/OT evals -DVT ppx (normally on apixaban) He has good exercise tolerance and no angina. No evidence of unstable CAD, ACS, or heart failure. No medical contraindications to proceeding with urgent non- elective surgery as planned. #CAD #HTN #h/o of Stroke, R CEA 03/[address] Cohen -resume plavix and apixaban when safe per orthopedic surgeon postop -continue atorvastatin -continue carvedilol -continue amlodipine #Hypothyroidism -continue levothyroxine Admission and Anticipated Discharge Date Admission Date: April 23, 2025 Subjective Seen in AM. Feeling pretty well. No R hip pain when not moving. Normally is very active - gardening, yard work, shop work. House has few ANDRÉS. No angina or excessive [place] walking on flat or with yard work. Has some [place] last few steps of a flight of stairs. Physical Exam 2 Physical Exam: Last 24h vitals reviewed GEN: no acute distress, sitting in bed HEENT: pupils equal, sclerae anicteric, moist MM RESP: normal WOB, CTAB CV: reg no mrg ABD: soft/nt/nd +BT : hopper SKIN: warm and dry, no generalized rashes EXT: both LE wwp, 2+ DP pulses, RLE externally rotated NEURO: AOx person, place, and situation. Face symmetric, speech normal, moves 4 ext spontaneously and equally Results & Data Results & Data Vital Signs (Past 12 Hours) Vital Signs Temp Pulse Pulse Pulse Resp BP Pulse Ox 04/24/25 18:15 36.8 C 83 20 129/88 99 04/24/25 18:05 88 16 128/76 97 04/24/25 17:55 88 20 133/78 98 04/24/25 17:45 85 17 116/57 L 100 04/24/25 17:39 36 C L 82 22 110/58 L 100 04/24/25 14:31 37 C 109 H 109 H 20 178/97 H 94 04/24/25 07:11 37.0 C 102 H 16 149/72 H 95 O2 Del Method O2 Flow Rate 04/24/25 18:15 Nasal Cannula 3 04/24/25 18:05 Nasal Cannula 3 04/24/25 17:55 Nasal Cannula 3 04/24/25 17:45 Nasal Cannula 3 04/24/25 17:39 Oxymask 8 04/24/25 14:31 Room Air 04/24/25 07:11 Room Air Laboratory Results 04/23/25 20:45 04/23/25 20:45 PG Care Time/CCT Total # of Minutes Spent Total Time Spent with Patient: Total time spent is greater than 50% in coordination of care (as documented) at patient's floor/unit and/or counseling patient: Coding Level of Care Code 09590 SUB INP/OBS CARE 2/35MIN Diagnoses Hip fracture S72.009A Hypothyroidism E03.9 Coronary artery disease I25.10 History of stroke Z86.73
--- NOTE | 2025-04-24 19:52 | XRay Report ---
2 views of the right hip are submitted for review. Findings: There is a right hip bipolar hemiarthroplasty in expected position. No other osseous abnormality is identified. There are surgical skin melecio laterally. There are pockets of air within the soft tissues, consistent with recent surgery. Impression: Right hip replacement Electronically signed by Nelson Martíenz 04-24-2025 7:51 PM
[2025-04-24] MEDS: CETIRIZINE HCL 10 MG TABLET PO SCH (20:36)
[2025-04-25 07:18] LABS: Hematocrit (blood only) 21.3 % (42.0-52.0); Hemoglobin 7.1 g/dl (14.0-18.0); Immature Granulocytes # (auto) 0.03 K/uL (0.01-0.20); Immature Granulocytes % (auto) 0.4 %; Mean Corpuscular Hemoglobin 32.1 pg (25.0-34.0); Mean Corpuscular Volume 96.4 fL (80.0-100.0); Platelet Count 139 K/uL (130-400); RDW Standard Deviation 49.1 fL (36.4-46.3); Red Blood Count 2.21 M/uL (4.70-6.10); White Blood Count 8.53 K/ul (4.8-10.8)
[2025-04-25 07:37] LABS: Anion Gap 5.0 (3-11); Blood Urea Nitrogen 36.0 mg/dl (6-23); Calcium 8.7 mg/dl (8.6-10.3); Carbon Dioxide 26.0 mmol/L (21-32); Chloride 106.0 mmol/L (98-107); Creatinine Clr Calc Pharmacy 31.7 ml/min; Glucose 108.0 mg/dl (70-99(Fasting)); Potassium 5.1 mmol/L (3.5-5.1); Sodium 137.0 mmol/L (136-145)
--- NOTE | 2025-04-25 07:52 | Orthopedic Progress Note ---
Date of Service April 25, 2025 Assessment & Plan (1) S/P total right hip arthroplasty: Plan: 89-year-old gentleman postop day 1 from right cemented bipolar hip arthroplasty for fracture. Clinically he looks great. He is anemic and creatinine slightly elevated. Seems to be asymptomatic. Will leave it up to the medicine service whether he needs any blood. Clinically does not seem to currently. Plan: 1. DVT prophylaxis including thigh-high teds, SCDs, and will resume his Eliquis at a prophylactic dose 24 hours postop and then normal dose 48 hours postop. 2. PT/OT. Weight-bear as tolerated right total hip protocol. 3. Pain control. Doing well with current pain regimen. He appears pretty comfortable. 4. Anemia. He is anemic but relatively asymptomatic. Creatinine slightly elevated. Will leave it up to the medicine service whether he needs any blood. 5. Disposition. He is orthopedically okay for discharge anytime medically stable. There are some medical issues that may need to be followed for a day or 2. I need to see him 2 to 3 weeks out from surgery. Any orthopedic questions can be ectomy [phone]. (2) Fracture of femoral neck, right, closed: Admission and Anticipated Discharge Date Admission Date: April 23, 2025 Subjective 89-year-old gent with multiple medical comorbidities postop day 1 from a cemented bipolar hip arthroplasty for fracture. He is doing well this morning. Reports minimal pain. Had a pretty good night. No new complaints. Physical Exam Physical Exam: Physical nation is a pleasant elderly male. He is lying in bed looks completely comfortable. Examination of right hip and leg reveals dressing be clean dry and intact. Leg lengths are equal. Thigh is soft and supple. He is neurologically intact. Results & Data Vital Signs (Past 12 Hours) Vital Signs Temp Pulse Resp BP BP Pulse Ox O2 Del Method 04/25/25 07:25 36.7 C 74 18 126/73 92 Nasal Cannula 04/25/25 03:00 36.5 C 86 18 101/61 97 Nasal Cannula 04/24/25 23:00 36.5 C 91 H 18 84/49 L 98 Nasal Cannula 04/24/25 21:35 36.7 C 102 H 18 118/62 98 Nasal Cannula 04/24/25 20:35 36.8 C 92 H 18 130/84 100 Nasal Cannula O2 Flow Rate 04/25/25 07:25 2 04/25/25 03:00 2 04/24/25 23:00 2 04/24/25 21:35 2 04/24/25 20:35 2 Laboratory Results Hemoglobin is 7.1. Hematocrit is 21.3. Creatinine is elevated but better around his baseline at 1.73. (2) Fracture of femoral neck, right, closed Encounter type: initial encounter Qualified Code(s): S72.001A - Fracture of unspecified part of neck of right femur, initial encounter for closed fracture
[2025-04-25 07:54] LABS: Polychromasia 1+
[2025-04-25 08:45] LABS: Iron 29.0 mcg/dl (35-175); Transferrin 161.0 mg/dl (200-360)
[2025-04-25 09:04] LABS: Ferritin 205.4 ng/ml (8-388)
[2025-04-25] MEDS: APIXABAN 2.5 MG TAB PO SCH (09:23)
[2025-04-25 11:45] LABS: Prealbumin 19.7 mg/dl (20-40)
[2025-04-25] MEDS: SODIUM CHLORIDE 0.9% 1,000 ML IV SCH (15:09)
--- NOTE | 2025-04-25 15:12 | Hospitalist Progress Note ---
Date of Service April 25, 2025 Assessment & Plan (1) Hip fracture: (2) Hypothyroidism: (3) Coronary artery disease: (4) History of stroke: Plan Mr. Paulino is an 89yo gentleman with PMH CAD, carotid endarterectomy, stroke, HTN, HLD, and Hypothyroidism who presents to the hospital on 04/23 for a ground level fall. Mechanical fall - he tripped over lip of the garage floor. Does not normally use walker or cane and is independent at home. # Pathologic osteoporotic fracture of right hip # Postoperative status following right hip hemiarthroplasty 48 hours postoperative, difficulty moving right leg. No significant pain, chest pain, shortness of breath, nausea, vomiting, or abdominal pain. Normal heart rate and blood pressure, afebrile for 24 hours. Oxygen saturation mid-90s on 2 L nasal cannula. WBC 8, Hgb 7.1 (down from 9.4), Na 137, K 5.1, BUN 36, Cr 1.7 (unchanged). CKD stage IIIb. 25-hydroxy vitamin D pending. Hip x-ray shows right hip replacement in expected position. Reviewed recommendations and orthopedics progress note by Dr. Nelson. Treatment plan: SCDs for DVT prophylaxis, resume apixaban at prophylactic dose, normal dosing tomorrow night (48 hours postop). PT and OT consulted, evaluation pending. Initiate physical therapy today for mobility. Educate on post-hip replacement precautions to avoid dislocation. Provide incentive spirometer for lung exercises Vitamin D low normal - start vitamin D replacement. Prealbumin low - protein supplement Mild hypoxia probably atelectasis - start IS, mobility Added tramadol 50 mg q4h PRN pain, cont APAP moderate postop hypotension - 90/50 and symptomatic when standing today. Hold amlodipine and carvedilol. 1000 mL IV fluid bolus. AM CBC and type and screen. Will need transfusion if Hg<7 or if remaining symptomatic of orthostasis and Hg<8 # Acute blood loss anemia Hgb 7.1, down from 9.4, likely due to fracture while on DOAC and surgical blood loss. Treatment plan: See above, No blood transfusion yet. Check iron stores in the morning. If iron stores low, consider IV iron; otherwise, continue oral iron supplementation. -reviewed iron stores mildly low -start oral FeSO4 qod once moving his bowels # CKD Stage IIIb Cr 1.7, unchanged. Treatment plan: Continue monitoring kidney function. #CAD #HTN #h/o of Stroke, R CEA 03/[address] Cohen -resume plavix and apixaban when safe per orthopedic surgeon postop -continue atorvastatin -hold carvedilol, amlodipine #Hypothyroidism -continue levothyroxine # DVT Prophylaxis: apixaban for DVT prophylaxis Medical Complexity: Medical decision making was complex for this encounter: development of symptomatic hypotension, anemia Admission and Anticipated Discharge Date Admission Date: April 23, 2025 Subjective The patient consented to use of [employer], an AI based tool that will listen to our encounter and draft a clinical note based on our conversation. All notes will be reviewed and edited by me before entering them into the medical record. Reason for Admit: Postoperative care following right hip hemiarthroplasty. Status post right hip hemiarthroplasty on 04/24/[address] Lanre Nelson. Reports successful surgical outcome with no pain but difficulty mobilizing right leg. Advised to start ambulation and physical therapy today. No hopper catheter in place; incentive spirometer bib his nurse No chest pain, shortness of breath, nausea, vomiting, or abdominal pain. Urinary function normal. On iron supplementation. Physical Exam Physical Exam: General Appearance: Normal. Vital signs: Within normal limits. HEENT: Within normal limits. Respiratory: Lungs clear anteriorly. Right lung clear posteriorly with slight s cattered crackles in mid-field base. Cardiovascular: Regular rhythm, no murmurs. Gastrointestinal: Not distended, bowel sounds present, no tenderness. Back, Musculoskeletal: Normal. Extremities: Right hip mild swelling, leg warm, foot movement observed, strong right DP pulse. Skin: Warm and dry, no rash. Neurological: Normal. Psychiatric: Normal. Results & Data Results & Data Vital Signs (Past 12 Hours) Vital Signs Temp Pulse Resp BP BP Pulse Ox O2 Del Method 04/25/25 11:50 37.2 C 95 H 18 95/57 L 95 Nasal Cannula 04/25/25 08:43 Room Air 04/25/25 07:25 36.7 C 74 18 126/73 92 Nasal Cannula O2 Flow Rate 04/25/25 11:50 2 04/25/25 08:43 04/25/25 07:25 2 Laboratory Results - Labs: - WBC: 8 - Hgb: 7.1 (down from 9.4) - Na: 137 - K: 5.1 - BUN: 36 - Cr: 1.7 (unchanged) - 25 hydroxy vitamin D: Pending - Imaging: - Hip x-ray (04/24/2025): right hip replacement in expected position PG Care Time/CCT Total # of Minutes Spent Total Time Spent with Patient: Total time spent is greater than 50% in coordination of care (as documented) at patient's floor/unit and/or counseling patient: Coding Level of Care Code 04444 SUB INP/OBS CARE 3/50MIN Diagnoses Hip fracture S72.009A Hypothyroidism E03.9 Coronary artery disease I25.10 History of stroke Z86.73
[2025-04-26 06:07] LABS: Anion Gap 3.0 (3-11); Blood Urea Nitrogen 40.0 mg/dl (6-23); Calcium 8.7 mg/dl (8.6-10.3); Carbon Dioxide 27.0 mmol/L (21-32); Chloride 105.0 mmol/L (98-107); Creatinine Clr Calc Pharmacy 34.9 ml/min; Glucose 112.0 mg/dl (70-99(Fasting)); Potassium 4.8 mmol/L (3.5-5.1); Sodium 135.0 mmol/L (136-145)
[2025-04-26 06:11] LABS: Hematocrit (blood only) 20.0 % (42.0-52.0); Hemoglobin 6.8 g/dl (14.0-18.0); Mean Corpuscular Hemoglobin 32.9 pg (25.0-34.0); Mean Corpuscular Volume 96.6 fL (80.0-100.0); Platelet Count 134 K/uL (130-400); RDW Standard Deviation 50.5 fL (36.4-46.3); Red Blood Count 2.07 M/uL (4.70-6.10); White Blood Count 8.86 K/ul (4.8-10.8)
[2025-04-26] MEDS ORDERED: SODIUM CHLORIDE 0.9% 100 ML IV PRN (06:39)
--- NOTE | 2025-04-26 07:21 | Orthopedic Progress Note ---
Date of Service April 26, 2025 Assessment & Plan (1) S/P total right hip arthroplasty: Plan: 89-year-old gentleman with multiple medical comorbidities now postop day 2 from a right bipolar hip arthroplasty for fracture. He is doing okay. He is quite anemic and based on his symptoms need for recovery I think he could benefit from just a single unit of blood. Will leave that up to the medicine doctors definitively. His creatinine is fairly stable. Plan: 1. DVT prophylaxis including thigh-high teds, SCDs, back on his Eliquis. 2. PT/OT. Weight-bear as [place]. Right total hip protocol. 3. Pain control. Doing okay with current pain regimen. 4. Anemia. I would recommend just 1 unit of packed blood cells. I think this may help him overall. Help with renal perfusion and just blood volume. 5. Disposition. He is hoping to go to rehab at this point. Think would be difficult for him to go straight home. I need to see him back 2 to 3 weeks out from surgery date. Any orthopedic questions can be directly [phone]. (2) Fracture of femoral neck, right, closed: Admission and Anticipated Discharge Date Admission Date: April 23, 2025 Subjective 89-year-old gentleman postop day 2 from right cemented bipolar hip arthroplasty for fracture. Had a little bit of a rough day therapy guevara yesterday. He is looking to go to rehab maybe. No real new complaints. He describes his hip as being sore. Physical Exam Physical Exam: For examination is a pleasant elderly male. He is lying in bed. Pretty comfortable just laying still. Examination of the right hip reveals a dressing be clean dry and intact. Thigh is soft and supple. Can dorsiflex and plantarflex his foot appropriately. He is neurologically intact. Results & Data Vital Signs (Past 12 Hours) Vital Signs Temp Pulse Resp BP Pulse Ox O2 Del Method O2 Flow Rate 04/25/25 23:22 37.7 C H 97 H 18 134/64 96 Nasal Cannula 1 04/25/25 19:40 Nasal Cannula Laboratory Results Hemoglobin 6.8. Hematocrit is 20.0. Electrolytes are stable. Creatinine stable. (2) Fracture of femoral neck, right, closed Encounter type: initial encounter Qualified Code(s): S72.001A - Fracture of unspecified part of neck of right femur, initial encounter for closed fracture
[2025-04-26 14:38] LABS: Hematocrit (blood only) 23.6 % (42.0-52.0); Hemoglobin 7.7 g/dl (14.0-18.0)
--- NOTE | 2025-04-26 17:47 | Hospitalist Progress Note ---
Date of Service April 26, 2025 Assessment & Plan (1) Hip fracture: (2) Hypothyroidism: (3) Coronary artery disease: (4) History of stroke: Plan Mr. Paulino is an 89yo gentleman with PMH CAD, carotid endarterectomy, stroke, HTN, HLD, and Hypothyroidism who presents to the hospital on 04/23 for a ground level fall. Mechanical fall - he tripped over lip of the garage floor. Does not normally use walker or cane and is independent at home. # Pathologic osteoporotic fracture of right hip # Postoperative status following right hip hemiarthroplasty Progressing as expected Treatment plan: apixaban and SCDs. PT and OT rec rehab - [facility] discussed with patient and care coord Vitamin D low normal - start vitamin D replacement. Prealbumin low - protein supplement Mild hypoxia probably atelectasis - start IS, mobility - resolving cont tramadol 50 mg q4h PRN pain, cont APAP moderate postop hypotension - 90/50 and symptomatic when standing today. Hold amlodipine and carvedilol. 1000 mL IV fluid bolus. AM CBC and type and screen. Will need transfusion if Hg<7 or if remaining symptomatic of orthostasis and Hg<8 # Acute blood loss anemia due to fracture while on DOAC and surgical blood loss. symptomatic orthostatic hypotension Treatment plan: Transfuse 1 unit RBCs for Hg <6 this morning and was 7.7 on recheck after 1 unit transfusion. AM CBC -reviewed iron stores mildly low -start oral FeSO4 qod once moving his bowels # CKD Stage IIIb Cr 1.5 which is baseline Treatment plan: avoid nephrotoxins #CAD #HTN #h/o of Stroke, R CEA 03/[address] Cohen -resume plavix on discharge and apixaban has been resumed -continue atorvastatin -hold carvedilol, amlodipine, ARB for low BP. Was hypotensive yesterday, today normotensive without meds #Hypothyroidism -continue levothyroxine # DVT Prophylaxis: apixaban for DVT prophylaxis - increased to 5 bid for tonight Medical Complexity: Medical decision making was complex for this encounter: development of severe anemia, high risk interventions: blood transfusion Admission and Anticipated Discharge Date Admission Date: April 23, 2025 Subjective The patient consented to use of EDUS, an AI based tool that will listen to our encounter and draft a clinical note based on our conversation. All notes will be reviewed and edited by me before entering them into the medical record. Reason for Admit: Hip fracture. The patient presents with hip fracture s/p repair and R hip sore tramadol has been effective, soreness from bruise right elbow aggravated by positioning for IV. he can flex her elbow despite discomfort. Experiences occasional lightheadedness when rising quickly and intermittent cough with minimal sputum, attributed to seasonal allergies. Getting blood transfusion currently and tolerating well no dyspnea or chest pain. Was symptomatically orthostatic yesterday with lightheadedness and BP 90/50 Physical Exam 2 Physical Exam: General Appearance: Normal. Vital signs: Within normal limits. HEENT: Within normal limits. Respiratory: Clear lungs. Cardiovascular: Regular rhythm, no murmur. Back, Musculoskeletal: Bruising around elbow, no deformity or bursitis. Has full ROM at elbow. Extremities: Right leg and foot warm, strong DP pulse, intact neurovascular status, no leg edema. Left side has good DP pulse. Skin: Warm and dry, no rash. Neurological: Normal. Psychiatric: Normal. Results & Data Results & Data Vital Signs (Past 12 Hours) Vital Signs Temp Pulse Pulse Resp BP BP Pulse Ox 04/26/25 14:17 36.6 C 90 16 128/66 92 04/26/25 12:39 36.9 C 104 H 16 113/66 95 04/26/25 10:55 37.4 C 104 H 16 149/74 H 95 04/26/25 10:54 37.2 C 94 H 16 135/70 96 04/26/25 09:55 37.4 C 86 16 105/61 97 04/26/25 09:25 37.2 C 98 H 18 118/68 96 04/26/25 09:10 37.3 C 102 H 18 113/68 97 04/26/25 08:47 36.5 C 61 18 116/63 96 04/26/25 07:47 04/26/25 07:26 36.5 C 92 H 16 119/72 94 O2 Del Method O2 Flow Rate 04/26/25 14:17 Room Air 04/26/25 12:39 1 04/26/25 10:55 1 04/26/25 10:54 1 04/26/25 09:55 1 04/26/25 09:25 04/26/25 09:10 1 10/05/25 08:47 1 04/26/25 07:47 Nasal Cannula 1 04/26/25 07:26 Nasal Cannula 2 Laboratory Results 04/26/25 13:39 04/26/25 05:06 Hg <6 this morning and 7.7 after 1 unit transfusion PG Care Time/CCT Total # of Minutes Spent Total Time Spent with Patient: Total time spent is greater than 50% in coordination of care (as documented) at patient's floor/unit and/or counseling patient: Coding Level of Care Code 08649 SUB INP/OBS CARE 3/50MIN Diagnoses Hip fracture S72.009A Hypothyroidism E03.9 Coronary artery disease I25.10 History of stroke Z86.73
[2025-04-26] MEDS: POLYETHYLENE (MIRALAX) 17 GM PACK PO SCH (18:01)
[2025-04-26] MEDS: APIXABAN 5 MG TABLET PO SCH (21:28)
[2025-04-27 07:15] VITALS: BP 136/72; PULSE 98; TEMP 98.8
[2025-04-27 07:15] LABS: Hematocrit (blood only) 25.3 % (42.0-52.0); Hemoglobin 8.4 g/dl (14.0-18.0); Mean Corpuscular Hemoglobin 31.2 pg (25.0-34.0); Mean Corpuscular Volume 94.1 fL (80.0-100.0); Platelet Count 148 K/uL (130-400); RDW Standard Deviation 50.4 fL (36.4-46.3); Red Blood Count 2.69 M/uL (4.70-6.10); White Blood Count 8.90 K/ul (4.8-10.8)
--- NOTE | 2025-04-27 07:51 | Orthopedic Progress Note ---
Date of Service April 27, 2025 Assessment & Plan (1) Fracture of femoral neck, right, closed: * Continue Current Treatment * S/p right hip hemiarthroplasty * Weight bearing status: WBAT with hip precautions * Daily treatment: Physical Therapy/ Occupational Therapy per protocol * Pain control * Continue to monitor for ABLA, Hgb 8.4 today following 1u PRBC * DVT prophylaxis, ok to resume from ortho standpoint * Disposition: Rehab * Office/hospital f/u 2 weeks for progress check and staple/suture removal * Remainder care per primary team Subjective . Active Problems: S/p right hip hemiarthroplasty POD 3 89 y/o male s/p right hip hemiarthroplasty. Limited PT/activity over weekend secondary to hypoTN, anemia s/p 1u PRBC. Doing well overall, pain managed and improved function. Denies fever/chills, chest pain/SOB, nausea/vomiting. Otherwise no complaints. Awaiting rehab placement. Review of Systems All systems reviewed & are unremarkable except as noted in HPI & below. Physical Exam . * General: Alert and oriented, no acute distress * Constitutional: well-developed, well-nourished. * Respiratory: Normal respiratory effort, no distress * Gastrointestinal: No tenderness to palpation, no rigidity or guarding. * Skin: No rash or lesion. * Neurologic: Grossly normal * Musculoskeletal: right hip surgical dressing CDI, removed for exam. Otherwise no obvious deformity or overlying skin changes. Diffuse TTP proximal thigh and hip region. Otherwise no specific tenderness of distal thigh, lower leg, foot/ankle. AROM hip flexion intact. AROM foot/ankle intact. Sensation intact plantar/dorsal foot. Brisk capillary refill. Results & Data Results & Data Laboratory Results . Diagnostic Findings . PG Care Time/CCT Total # of Minutes Spent Total Time Spent with Patient: Total time spent is greater than 50% in coordination of care (as documented) at patient's floor/unit and/or counseling patient: Coding Level of Care Code 70267 Post Operative Follow-Up Diagnoses Fracture of femoral neck, right, closed S72.001A Encounter type: initial encounter (1) Fracture of femoral neck, right, closed Encounter type: initial encounter Qualified Code(s): S72.001A - Fracture of unspecified part of neck of right femur, initial encounter for closed fracture
--- NOTE | 2025-04-27 09:00 | Discharge Summary ---
Discharge Summary Date of Service April 27, 2025 Principal Dx & Hospital Course #1 = Principal Diagnosis (1) Hip fracture: (2) Hypothyroidism: (3) Coronary artery disease: (4) History of stroke: Plan Mr. Paulino is an 89yo gentleman with PMH CAD, carotid endarterectomy, stroke, HTN, HLD, and Hypothyroidism who presents to the hospital on 04/23 for a ground level fall. Mechanical fall - he tripped over lip of the garage floor. Does not normally use walker or cane and is independent at home. # Pathologic osteoporotic fracture of right hip # Postoperative status following right hip hemiarthroplasty Progressing as expected Treatment plan: apixaban and SCDs. PT and OT rec rehab - [facility] Vitamin D low normal - start vitamin D replacement. Prealbumin low - protein supplement Mild hypoxia probably atelectasis - start IS, mobility - resolving cont tramadol 50 mg q4h PRN pain, cont APAP # Acute blood loss anemia due to fracture while on DOAC and surgical blood loss. symptomatic orthostatic hypotension 04/25 Treatment plan: Transfused 1 unit RBCs for Hg <6 on 04/26 tolerated well -reviewed iron stores mildly low - continue oral iron -Hg today 8.4 and hypotension resolved # CKD Stage IIIb Cr 1.5 which is baseline Treatment plan: avoid nephrotoxins #CAD #HTN #h/o of Stroke, R CEA 03/[address] Cohen -resume plavix on discharge and apixaban has been resumed -continue atorvastatin -held carvedilol, amlodipine, ARB for low BP postop. Normotensive without meds. Resumed carvedilol at lowered dose on discharge. Sequentially resume usual meds as BP returns to baseline #Hypothyroidism -continue levothyroxine # DVT Prophylaxis: apixaban for DVT prophylaxis Notes For Next Care Provider held carvedilol, amlodipine, ARB for low BP postop. Normotensive without meds. Resumed carvedilol at lowered dose on discharge. Sequentially resume usual meds as BP returns to baseline Admission HPI Per Admitting Provider Mr. Godoy is an 89yo gentleman with PMH of CAD s/p carotid endarterectomy, HTN, HLD, and Hypothyroidism who presents to the hospital on 04/23 for a ground level fall. He was walking on the blacktop of his driveway when his foot gave on the surface, causing him to fall. He felt pain immediately on his right side that he described as a "pulled muscle" rated 10/10 with radiation to the groin, aggravated with movement and staying in the the same position for long periods of time, alleviated with leg elevation. He states he has had prior history of falls--2 within the last 2 months. The previous fall was due to a stroke. He usually ambulates at home unassisted. He does not feel that he has trouble with his walking or balance. He denies fever, chills, SOB, CP, N/V/C/D, abdominal pain, or complaints. Discharge Exam General Appearance: Normal. Vital signs: reviewed - minimal hypoxia, BP uptrending Unchanged 04/27 HEENT: Within normal limits. Respiratory: Clear lungs. Cardiovascular: Regular rhythm, no murmur. Back, Musculoskeletal: Bruising around elbow, no deformity or bursitis. Has full ROM at elbow. Extremities: Right leg and foot warm, strong DP pulse, intact neurovascular status, no leg edema. Left side has good DP pulse. Skin: Warm and dry, no rash. Neurological: Normal. Psychiatric: Normal. Discharge Plan Discharge Items Patient Disposition: Transfer Inpatient Rehab Fac Reason For Visit: FALL Discharge Diagnosis: Right Hip Replacement for Fracture Condition on Discharge: Good Activity: Per Instructions section Activity Comment: Obey hip precautions at all times. Weightbearing: Full weightbearing Weightbearing Comment: Weightbear as tolerated obeying hip precautions at all times. Non-emergency contact: Surgeon Call non-emergency contact if: your symptoms worsen, your temperature is above 101.5, your wound has increased redness and your wound has increased drainage Follow-up/Referrals: Lanre Nelson MD [Physician] - (Orthopedic follow-up 2-3 weeks from surgery date.) Rogelio Machuca MD [Primary Care Provider] - Diet: Regular Addtl Attending Provider Instructions: PT and OT evaluate and treat Antihypertensives currently held because of hypotension orthostasis /4, normotensive / with no meds Resume as needed: carvedilol, telmisartan, amlodipine Resuming clopidogrel DVT ppx: on apixaban chronically ACTIVITY RECOMMENDATIONS: Diet: * You may resume previous diet. Physical Therapy: * Aggressive physical therapy is not usually needed. You will learn to take care of yourself safely and walk. * Follow the "Hip Precautions Instructions." * In some cases, the social service worker at the hospital will arrange to have a therapist come to your house for the first couple of weeks to help you learn these skills. * You need to practice on your own or with the help of a family member as needed. * When you learn these skills, most of the therapy can be done on your own. Home Exercise: * You were shown a series of exercises in the hospital. Do these exercises three to four times each day including the exercises you were shown in physical therapy. Walking: * Get up and walk several times each day. For the first four weeks, try not to stand or walk for more than one hour at a time. If you do stand or walk for more than one hour, you will not hurt anything, but your leg will likely swell. * As you feel comfortable, you may change from the walker or crutches to a cane and then to independent walking. MEDICATIONS: New Medicine: * You will likely be taking one or more of these medicines: 1. Tramadol - Take, as directed, when you need it, every six hours to control your pain. 2. Eliquis - Thins your blood to lessen the chance of forming a blood clot. * The most common side effects of pain medicine and iron are nausea and constipation. If nausea or constipation is too much of a problem or if you have any questions about your new medicines or doses, call [facility] at . We will try to help you manage these issues. "VERY IMPORTANT TO READ AND REVIEW" Pain: * The immediate post-operative period after hip replacement surgery is often quite painful. * You are given a prescription for pain medicine. You should take it, as directed, when you need it, especially before physical therapy and before going to bed. Pain that interferes with sleep is very common and can last several months. * You will likely need pain medicine for the first two to four weeks. It will not stop all of the pain. The pain will lessen and as you feel better, you may change to milder pain medicine such as Tylenol. * The most common side effects of pain medicine are nausea and constipation, so don't take more than you need. SPECIAL CARE INSTRUCTIONS: TEDs/Elastic Stockings: * The white elastic stockings help limit swelling and prevent blood clots from forming in your legs. The more you wear them, the more they work. * Wear them for six weeks. Incision Site Care: * Remove dressing postoperative day 2 and then shower. Keep direct shower pressure off the incision site. * After showering, cover melecio with dry gauze and change daily or more frequently if the dressing is getting saturated with drainage. * May completely stop using bandage if wound is dry and no drainage * Levant are removed between 2 and 3 weeks post-op. If your follow-up appointment is made before 2 weeks, please have your appointment re- scheduled. It is too early to remove the melecio. Prevention of Infection: * Take antibiotics one hour before any dental cleaning, dental work, urological procedure, gastrointestinal procedure or any invasive surgery in order to prevent your new joint from getting infected. * You may get the antibiotics from the doctor performing the procedure or you may call our office at before and we will call in a prescription to the pharmacy of your choice. Things to Watch For: * Drainage from the incision site that occurs more than one week after your surgery. * Severely increased leg pain or swelling. * Increased redness at the incision site. * Fever above 102 degrees Fahrenheit. * Unusual chest pain or shortness of breath. * Unusual pain or burning with urination. Call [facility] at with any of the above problems or if you have any questions about your medicines or recovery. FOLLOW UP VISIT: Make an appointment to see your doctor for approximately two weeks after surgery for a progress check and staple removal by calling the office at . Addtl Cardiac Cath Lab Manager Provider Instructions: General Orthopedic Discharge Instructions Activity: WBAT with hip precautions Diet: You may resume previous diet. Medications: 1. Narcotic You will likely be sent home from the hospital with a prescription for the narcotic pain medication. Take it as needed. Side effects most commonly include nausea and constipation 2. Resume previous home medications unless otherwise instructed Dressing Care: If there is a soft dressing in place then leave the dressing intact for 5 days. On the you may remove the dressing and leave the stitches open to air or cover them with band-aids. Keep the incision clean and dry If there is a hard splint then leave it in place until your follow-up visit in 2 weeks Showering: If you have a soft dressing you may shower right after the surgery but do not get the dressing wet. After the dressing is removed on the 5th day then you can get the stitches wet in the shower, but do not soak or scrub them. Let the soapy shower water run over the stitches and pat them dry. If you have a hard splint, cover it in a plastic bag and keep it dry. Do not remove it until the follow up appointment. Things To Watch For: 1. Drainage from the incision site that occurs more than one week after your surgery. 2. Increased redness at the incision site. 3. Fever above 102 degrees Fahrenheit. 4. Unusual chest pain or shortness of breath. 5. Call [facility] at with any of the above problems. Follow-Up Visit: Please make arrangements to follow-up with Dr. Nelson team approximately 2 weeks after your day of surgery for progress check and staple/suture removal. If you have any questions call Pending Studies at Discharge: No Stand-Alone Forms: My [facility] Skilled Items Patient informed of condition?: Yes DNR: No Discharge Level of Care: Acute rehab Communicable Disease: No Discharge Prognosis: Improving Lines: None Urinary Catheter: No Medications and DC Order Prescriptions: New carvedilol 3.125 mg tablet 3.125 mg PO BID Qty: 60 0RF Rx Instructions: must administer with a meal/food polyethylene glycol 3350 [Miralax] 17 gram Powder In Packet 17 g PO Q6 Qty: 0 0RF polyethylene glycol 3350 [Miralax] 17 gram Powder In Packet 17 g PO DAILY PRNQty: 0 0RF melatonin 3 mg Tablet 3 mg PO HS PRNQty: 0 0RF tramadol 50 mg Tablet 50 mg PO Q4H PRNQty: 0 0RF bisacodyl 10 mg Suppository 10 mg [place] DAILY PRNQty: 0 0RF Continued Eliquis 5 mg tablet 5 mg PO BID Qty: 180 2RF cholecalciferol (vitamin D3) 1,000 unit capsule 1,000 units PO DAILY nitroglycerin 0.4 mg tablet, sublingual 0.4 mg SL Q5M PRN (Reason: chest pain) Qty: 30 3RF levothyroxine 150 mcg tablet 150 mcg PO QAM Qty: 90 3RF Prevagen 1 cap PO DAILY cyanocobalamin (vitamin B-12) 1,000 mcg Tablet 1,000 mcg PO QAM omega-3 fatty acids Capsule 1,000 mg PO QAM diphenhydramine HCl [Benadryl] 25 mg Capsule 50 mg PO HS PRN (Reason: Allergies) cyclobenzaprine 10 mg tablet 10 mg PO TID atorvastatin 40 mg tablet 40 mg PO QAM cetirizine 10 mg tablet 10 mg PO HS clopidogrel [Plavix] 75 mg tablet 75 mg PO QAM allopurinol [Zyloprim] 100 mg tablet 100 mg PO BID pantoprazole [Protonix] 40 mg tablet,delayed release (DR/EC) 40 mg PO QAM ursodiol 300 mg capsule 300 mg PO BID gabapentin [Neurontin] 100 mg capsule 100 mg PO QAM colchicine [Colcrys] 0.6 mg tablet 0.6 mg PO DAILY PRN (Reason: Gout Flare Up ) finasteride [Proscar] 5 mg tablet 5 mg PO QAM cyanocobalamin (vitamin B-12) 500 mcg Tablet 500 mcg PO QAM Held tramadol 50 mg tablet 50 mg PO TID PRN (Reason: pain) Qty: 270 1RF Hold Instructions: on increased prn dose post fracture carvedilol 12.5 mg Tablet 12.5 mg PO BID Hold Instructions: until bp normalized Rx Instructions: must administer with a meal/food amlodipine [Norvasc] 5 mg tablet 5 mg PO QAM Hold Instructions: until BP normalized telmisartan [Micardis] 40 mg tablet 40 mg PO QAM Hold Instructions: until BP improved Discontinued meloxicam 7.5 mg tablet 7.5 mg PO QAM Discharge Orders: Discharge Order (Routine); Ordered 04/27/25 Ordered By: Nelda Baugh/Other Patient Handouts: DVT Post Op Prevention, Slips Trips Falls Prevention Admission Data Admit Date/Time: 04/23/25 23:00 Attending Provider: Nelda Chávez Admit Provider: Billy Mata Primary Care Provider: Rogelio Machuca Other Providers: [facility]; Evelyn Nelson; Charissa Richards; Meredith Bermudez; Marybeth Hamlin; Oksana Mccarthy.; Aristeo Felix; Jamie Ivey; Usama Varma; Jamie Penn; Sada Mann; Bridger Cortez; Marlon Horne; Tim Valverde; Ernestina Arce; Bruce Denson A; Charlene Denson M; Doyle Lyons E; Arianne Solis; Ray Tirado; Candice Oreilly; Karlene Delacruz; Howard Alejandro; Evelyn Bull A; Gege Casarez; Wendy Brady; Racquel Daugherty; Rayshawn Daugherty V; Clint Carrillo; Meredith Mazariegos; Star Gross; Berenice Robles; Rayshawn Patel; Adan Arce; Luis Miguel Mccarthy; Kathy Rea; Gayle Chan; Rayshawn Mueller; Kirill Godoy.; Kelsea Allison.; Ethan Dhillon.; Nery Vargas; Haylee Montoya; Lanre Huertas; Genaro Anton; Georgina Haile; Usama Hubbard; Shamika Metz.; Roxana Sotelo; Jono Childs; Aristeo Wilson Jr; Marie Chavez; Jil Vasquez A.; Harriett Garcia A.; Howard Grimaldo; Gurinder Diaz.; Jil Gregory A.; Thomas Graham; Parrish Prieto; Rogelio Garay; Abbe Bautista; Lina Warner; Andrea Cabrera.; Nikki Church; Stefanie Cota; Ira Gibson; Gabriel Gaytan Jr; Tessa Beckett; Evelyn Edwards; Yfn Santana; Liz Barnes; Melissa Caal; Nohelia Hawkins; Sada Lopez; Paige Arce; Andrade Sanchez; Dwayne Hernandez; Debbie Richards; Juana Borges; Charlene Rob; Sada Browne; Thomas Washington; Breanna Borja; Aquiles Miranda; Ana Paula Cm; Yfn Hurley; Maru Hu; Lanre Nelson; Bell Briscoe; Arianne Quiros; Jamie Chauhan; Emmanuel Frost; Juli Jones; Kate Pavon; Candice Hylton; Nohelia Hair; Sophy Draper; Aurora Howard; Dwayne Arce; Emmanuel Hu; Geetha Gold; Michelle Ruiz Other Interventions: Discharge Summary Assessment (RN) Last Done: 04/27/25 11:06 Hospital Stay Data Consultations 04/23/25 22:13 ED Decision to Admit Stat 04/23/25 23:03 Consult Anesthesiology Routine Consult Orthopedic Surgery Routine Procedures Performed Operation Date: 04/24/25 09:10 Actual Procedures p Right Hip Hemiarthroplasty, Cemented - Lanre Nelson MD Diagnostic Imagining Performed 04/24/25 15:13 US - OR guided needle placemen Routine Pending Results Patient Have Any Pending Studies at Discharge: No Discharge Instructions Given to Patient (Per Discharging Provider) PT and OT evaluate and treat Antihypertensives currently held because of hypotension orthostasis 04/25, normotensive 04/26 with no meds Resume as needed: carvedilol, telmisartan, amlodipine Resuming clopidogrel DVT ppx: on apixaban chronically ACTIVITY RECOMMENDATIONS: Diet: * You may resume previous diet. Physical Therapy: * Aggressive physical therapy is not usually needed. You will learn to take care of yourself safely and walk. * Follow the "Hip Precautions Instructions." * In some cases, the social service worker at the hospital will arrange to have a therapist come to your house for the first couple of weeks to help you learn these skills. * You need to practice on your own or with the help of a family member as needed. * When you learn these skills, most of the therapy can be done on your own. Home Exercise: * You were shown a series of exercises in the hospital. Do these exercises three to four times each day including the exercises you were shown in physical therapy. Walking: * Get up and walk several times each day. For the first four weeks, try not to stand or walk for more than one hour at a time. If you do stand or walk for more than one hour, you will not hurt anything, but your leg will likely swell. * As you feel comfortable, you may change from the walker or crutches to a cane and then to independent walking. MEDICATIONS: New Medicine: * You will likely be taking one or more of these medicines: 1. Tramadol - Take, as directed, when you need it, every six hours to control your pain. 2. Eliquis - Thins your blood to lessen the chance of forming a blood clot. * The most common side effects of pain medicine and iron are nausea and constip ation. If nausea or constipation is too much of a problem or if you have any questions about your new medicines or doses, call [facility] at . We will try to help you manage these issues. "VERY IMPORTANT TO READ AND REVIEW" Pain: * The immediate post-operative period after hip replacement surgery is often quite painful. * You are given a prescription for pain medicine. You should take it, as directed, when you need it, especially before physical therapy and before going to bed. Pain that interferes with sleep is very common and can last several months. * You will likely need pain medicine for the first two to four weeks. It will not stop all of the pain. The pain will lessen and as you feel better, you may change to milder pain medicine such as Tylenol. * The most common side effects of pain medicine are nausea and constipation, so don't take more than you need. SPECIAL CARE INSTRUCTIONS: TEDs/Elastic Stockings: * The white elastic stockings help limit swelling and prevent blood clots from forming in your legs. The more you wear them, the more they work. * Wear them for six weeks. Incision Site Care: * Remove dressing postoperative day 2 and then shower. Keep direct shower pressure off the incision site. * After showering, cover melecio with dry gauze and change daily or more frequently if the dressing is getting saturated with drainage. * May completely stop using bandage if wound is dry and no drainage * Levant are removed between 2 and 3 weeks post-op. If your follow-up appointment is made before 2 weeks, please have your appointment re- scheduled. It is too early to remove the melecio. Prevention of Infection: * Take antibiotics one hour before any dental cleaning, dental work, urological procedure, gastrointestinal procedure or any invasive surgery in order to prevent your new joint from getting infected. * You may get the antibiotics from the doctor performing the procedure or you may call our office at before and we will call in a prescription to the pharmacy of your choice. Things to Watch For: * Drainage from the incision site that occurs more than one week after your surgery. * Severely increased leg pain or swelling. * Increased redness at the incision site. * Fever above 102 degrees Fahrenheit. * Unusual chest pain or shortness of breath. * Unusual pain or burning with urination. Call [facility] at with any of the above problems or if you have any questions about your medicines or recovery. FOLLOW UP VISIT: Make an appointment to see your doctor for approximately two weeks after surgery for a progress check and staple removal by calling the office at . Total Time Total Time Spent Total Time Spent (In Minutes): I personally spent: 40 minutes today on clinical care activities including: reviewing chart notes and vital signs reviewing labs discussion with district manager primary care sales examining and counseling the patient writing orders writing prescriptions, discharge instructions documentation Coding Level of Care Code 70092 INP/OBS DISCH >30 MIN Diagnoses Hip fracture S72.009A Hypothyroidism E03.9 Coronary artery disease I25.10 History of stroke Z86.73
[2025-04-27 09:49] VITALS: RESP 18; O2SAT 94
== END 2025-04-27 11:35 | DRG 522 ==
LOC: ED 20:27 → SUATTDRO 23:00 → 3W 23:00 → 3N 04-24 01:49

== ENCOUNTER 2025-05-01 11:03 | Inpatient (IN) ==
[2025-05-01] MEDS ORDERED: SODIUM CHLORIDE 0.9% 100 ML IV PRN (11:41)
--- NOTE | 2025-05-01 11:45 | Emergency Department Note ---
Impression & Plan Acute blood loss anemia (ABLA), Fracture of femoral neck, right, closed, S/P total right hip arthroplasty, GI bleed ED Provider Note NAME: STONEY LAURENT AGE: 89 SEX: M : 1935 ARRIVES VIA: Ambulance INFORMANT: Patient, ED PROVIDER(S): Shun Wood MD CHIEF COMPLAINT: Abnormal lab work MEDICAL DECISION MAKING: Patient presents to exhibit abnormal lab work with associated low hemoglobin. The patient did have a recent hip fracture status post treatment was anemic possibly secondary to his fracture as well as procedure. Patient was restarted on Plavix and Eliquis per discharge summary. IV was established and blood work is obtained. Rectal exam performed. Patient was consented for blood. Patient's rectal exam was heme positive. PPI bolus and drip started. Blood work here in the department with a normal white count hemoglobin 7.9. Platelet count is unremarkable. The patient's blood to be given was canceled at this time as the patient's hemoglobin is stable around the time that he was discharged with a similar hemoglobin. Patient is consented in the case that he needs it. In light of the patient's heme positive stool and blood thinner and antiplatelet use to believe the patient would benefit from admission and monitoring. I did speak with Nelda Linn PA-C with Dr. Chun. Discussion w/ other healthcare providers: Nelda Pinto PA-C and Dr. Chun inpatient medicine service Prior /Outside records reviewed: None Differential diagnosis: Infection, dehydration, metabolic abnormality, hypo/hyperglycemia, electrolyte imbalance, anemia, UTI, pneumonia, thyroid dysfunction among others were considered. Diagnostics, as interpreted by me: ECG: Normal sinus rhythm, rate of 82 wide QRS right bundle branch block pattern. Left axis deviation. Cardiac monitoring: An order was placed for continuous cardiac monitoring. The monitor shows a rate of 85 with sinus rhythm. Patient was placed on pulse oximetry Medical decision rules: None Imaging studies: None HPI: Patient presents due to concern for low hemoglobin. The patient did have blood work completed as an outpatient earlier today which noted hemoglobin less than 7. Patient did have a recent hospitalization for a right hip fracture status post replacement. Patient did undergo transfusion during the time of his admission. Patient is currently back on his blood thinning medications and antiplatelets which had been stopped initially. Patient does admit to darker stools. Denies any bloody stools. He has complained of some dizziness but no shortness of breath or chest pains. PAST MEDICAL HISTORY: See Below PAST SURGICAL HISTORY: See Below SOCIAL HISTORY: See Below HOME MEDICATIONS: See Below ALLERGIES: See Below VITALS: See Below PHYSICAL EXAMINATION: GENERAL: NAD, non-toxic. Wearing glasses. EYE EXAM: Normal conjunctiva. PERRL, no anisocoria and EOM's grossly intact w/o pain. OROPHARYNX: Moist mucus membranes, grossly normal dentition. NECK: Trachea midline, no stridor. LUNGS: Clear to auscultation. Normal chest wall mechanics. HEART: NSR, no MRG. ABDOMEN: Abdomen soft, non-tender, no masses, no rebound or guarding. BACK: No CVA TTP. Rectal: External exam unremarkable, no obvious masses with digital rectal exam, darker stool no bright red blood, heme positive. No anal fissures or hemorrhoids noted. SKIN: No rashes and no bruising. UPPER EXTREMITIES: Upper extremities are grossly normal. LOWER EXTREMITIES: Right lateral hip and thigh bruising noted no significant swelling, melecio in place. Well-appearing. NEURO EXAM: Awake and alert, follows commands, no obvious facial asymmetry, normal speech, moves all 4 extremities. 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 Weakness of shoulder Nocturnal leg cramps Nodule of finger Radial nerve compression Bifascicular block Syncope No recent issues Hyperkalemia Distal radius fracture, left (Acute) Hx of Symptomatic bradycardia (Acute) Sleep disorder Rhinitis Lumbar disc disease Benign prostatic hyperplasia Gout Degenerative disc disease Hypothyroidism Hypertension (Acute) Hyperlipidemia Coronary artery disease Medical History SHAWN (obstructive sleep apnea) Could not tolerate CPAP Tinnitus of both ears Hearing loss Bilateral Hearing Aids Impaired glucose tolerance (oral) CKD (chronic kidney disease), stage III Stable per PCP records 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- pt denies any issues since - Spent time at [facility]) when in the service History of syncope 12/2023 and 05/2024 per records (had subsequent holter monitor without acute issues) No recent issues of syncope Stenosis of right carotid artery - 50 to 60% stenosis of the right internal carotid artery with what appears to be an ulcerated plaque (per 12/29/24 CTA) Nocturnal leg cramps Aggravated by increased activity Hypothyroidism Hypertension Hyperlipidemia 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/2024) - per vascular - unsure if truly a dissection or possible ulcerated plaque Coronary artery disease s/p 5 vessel CABG in (vein graft to PDA,OM known to be occluded per cardio records) on Plavix per PCP records Chronic SI joint pain [facility] Chronic anticoagulation Bifascicular block [facility] Cardiology Dr Hall (no high grade AV block per cardio records) History of 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 [facility] left sided weakness initially, pt denies any residuals at this time - started on Eliquis 01/2025 Anemia, unspecified Mild/chronic - no blood transfusion/iron infusion Osteoarthritis BPH (benign prostatic hyperplasia) Hx of gout Gout flare left toe- resolved as of PAT appt 03/18/25 GERD (gastroesophageal reflux disease) well controlled and stable H/O blood clots Right Arm 1983 Myocardial infarction 1978+1979, no stents - [facility] Cardiology Dr Hall Surgical History History of surgery on left wrist "they rerouted a vein to my thumb and now it's great" History of wisdom tooth extraction Lump in chest Benign (removed) H/O hand surgery Right hand, lump removal History of total knee replacement Right History of colonoscopy History of tooth extraction lower denture History of cardiac cath multiple - denies sents - [facility] Cardiology Hx of ventral hernia repair Hx of carpal tunnel repair Bilateral Hx of cholecystectomy Hx of CABG 1984>x5 [place] - Now following [facility] Cardiology Dr Hall Hx of appendectomy Family History Brother Cardiac disorder Diabetes Hypertension Myocardial infarction Sister Cardiac disorder Cancer Breast cancer Lung cancer Denies family history of Ovarian cancer Prostate cancer Colorectal cancer Social History Smoking Status: Never smoker Tobacco Type: Cigarettes Age Started Using Tobacco: 19; Age Quit Using Tobacco: 30; packs per day: 2; Second Hand Exposure: No; Do You Dip or Chew Tobacco: No; Hx Alcohol Use: No Hx Substance Use: No Preferred Language: Urdu Communication Ability: Effective Visual Impairment: Limited Hearing Ability: Use of Hearing Aid Countersinker Balance Screw Hole Required: No Beliefs That Will Affect Care: None marital status: Current Living Situation: Spouse current occupational status: retired How many Children do You have: 1 Feels Safe at Home: Yes Childhood Exposure to Second-Hand Smoke: No Diet: regular caffeine: Yes (coffee and tea) Dental Care, Regularly: No Physical Activity Frequency: Daily Seatbelt Use: always Sunscreen Use: Yes (sometimes) Assistive Devices: Denture - Lower, Glasses and Hearing Aid - Bilateral Allergies Allergies Allergy/AdvReac Type Severity Reaction Status Date / Time codeine AdvReac Severe "Entire Verified 04/21/25 08:55 system shut down" hydromorphone AdvReac Severe "Entire Verified 04/21/25 08:55 system shut down" nickel AdvReac Mild Rash Verified 04/21/25 08:55 oxycodone AdvReac Unknown "Entire Verified 04/21/25 08:55 system shut down" Home Meds Home Medications Medication Instructions Recorded Confirmed cholecalciferol (vitamin D3) 25 1,000 units PO DAILY 04/08/19 05/01/25 mcg (1,000 unit) capsule cyanocobalamin (vitamin B-12) 1,000 mcg PO QAM 05/12/20 05/01/25 1,000 mcg tablet omega-3 fatty acids 1,000 mg PO QAM 05/12/20 05/01/25 Prevagen 0 cap PO DAILY 02/02/25 05/01/25 allopurinol 100 mg tablet 0 mg PO BID 03/11/25 05/01/25 (Zyloprim) atorvastatin 40 mg tablet 40 mg PO QAM 03/11/25 05/01/25 cetirizine 10 mg tablet 0 mg PO HS 03/11/25 05/01/25 clopidogrel 75 mg tablet (Plavix) 75 mg PO QAM 03/11/25 05/01/25 colchicine 0.6 mg tablet (Colcrys) 0.6 mg PO DAILY PRN Gout Flare Up 03/11/25 05/01/25 cyclobenzaprine 10 mg tablet 10 mg PO TID Muscle Spasms 03/11/25 05/01/25 diphenhydramine HCl 25 mg capsule 50 mg PO HS PRN Allergies 03/11/25 05/01/25 (Benadryl) finasteride 5 mg tablet (Proscar) 5 mg PO QAM 03/11/25 05/01/25 gabapentin 100 mg capsule 100 mg PO QAM 03/11/25 05/01/25 (Neurontin) pantoprazole 40 mg tablet,delayed 40 mg PO QAM 03/11/25 05/01/25 release (Protonix) ursodiol 300 mg capsule 0 mg PO BID 03/11/25 05/01/25 cyanocobalamin (vitamin B-12) 500 0 mcg PO QAM 04/23/25 05/01/25 mcg tablet acetaminophen 325 mg tablet 650 mg PO Q4H PRN Pain 05/01/25 05/01/25 acetaminophen 500 mg tablet 500 mg PO Q4H PRN Pain 05/01/25 05/01/25 apixaban 5 mg tablet (Eliquis) 2.5 mg PO BID 05/01/25 05/01/25 dextrose 50 % in water (D50W) 12.5 g IV UD PRN Other 05/01/25 05/01/25 dextrose 50 % in water (D50W) 25 g IV UD PRN Other 05/01/25 05/01/25 docusate sodium 100 mg capsule 100 mg PO BID PRN Constipation 05/01/25 05/01/25 glucagon HCl 1 mg solution for 1 mg IM UD PRN Hypoglycemia 05/01/25 05/01/25 injection (Glucagon (HCl) Emergency Kit) lidocaine 4 % topical patch 1 patch topical QAM 05/01/25 05/01/25 loratadine 10 mg tablet 10 mg PO HS 05/01/25 05/01/25 midodrine 5 mg tablet 5 mg PO TID 05/01/25 05/01/25 ondansetron 4 mg disintegrating 4 mg PO Q6H PRN n/v 05/01/25 05/01/25 tablet sennosides 8.6 mg-docusate sodium 1 tab-cap PO .@LUNCH PRN 05/01/25 05/01/25 50 mg tablet (Senokot-S) Constipation sodium phosphates 19 gram-7 133 ml OR UD PRN Constipation 05/01/25 05/01/25 gram/118 mL enema (Enema) Previous Rx's Medication Instructions Recorded nitroglycerin 0.4 mg sublingual 0.4 mg sublingual Q5M PRN chest 11/27/23 tablet pain #30 tabs levothyroxine 150 mcg tablet 150 mcg PO QAM #90 tabs 11/27/24 bisacodyl 10 mg rectal suppository 10 mg OR DAILY PRN #0 ea 04/27/25 carvedilol 3.125 mg tablet 3.125 mg PO BID #60 tabs 04/27/25 melatonin 3 mg tablet 3 mg PO HS PRN #0 tabs 04/27/25 polyethylene glycol 3350 17 gram 17 g PO DAILY PRN #0 ea 04/27/25 oral powder packet (Miralax) polyethylene glycol 3350 17 gram 17 g PO Q6 #0 ea 04/27/25 oral powder packet (Miralax) tramadol 50 mg tablet 50 mg PO Q4H PRN #0 tabs 04/27/25 Results & Data (ED) Vital Signs Vital Signs - 24 hr 05/01/25 11:09 05/01/25 11:30 05/01/25 11:35 Temperature 36.9 C Temperature Source Oral Pulse Rate 88 87 Pulse Rate from SpO2 Sensor Respiratory Rate 18 23 Respiratory Effort / Characteristics Non-Labored Spontaneous Respiratory Depth Normal Respiratory Pattern Regular Blood Pressure 145/75 H Blood Pressure Mean 98 Blood Pressure Position Sitting Pulse Oximetry 93 94 Oxygen Delivery Method Room Air Room Air Sepsis Recent Fever Within 48 Hours No Sepsis New/Unexplained Change in Mental Status No Sepsis Action Taken by Nursing No Action Required 05/01/25 12:02 05/01/25 12:03 05/01/25 12:10 Temperature Temperature Source Pulse Rate 80 83 79 Pulse Rate from SpO2 Sensor 83 Respiratory Rate 21 20 Respiratory Effort / Characteristics Respiratory Depth Respiratory Pattern Blood Pressure 138/73 138/73 Blood Pressure Mean 94 96 Blood Pressure Position Pulse Oximetry 94 96 Oxygen Delivery Method Room Air Room Air Sepsis Recent Fever Within 48 Hours Sepsis New/Unexplained Change in Mental Status Sepsis Action Taken by Nursing 05/01/25 12:57 05/01/25 13:00 05/01/25 13:03 Temperature Temperature Source Pulse Rate 78 78 Pulse Rate from SpO2 Sensor 74 78 Respiratory Rate 22 22 Respiratory Effort / Characteristics Respiratory Depth Respiratory Pattern Blood Pressure 140/69 Blood Pressure Mean 102 Blood Pressure Position Pulse Oximetry 97 98 Oxygen Delivery Method Sepsis Recent Fever Within 48 Hours Sepsis New/Unexplained Change in Mental Status Sepsis Action Taken by Nursing 05/01/25 13:30 05/01/25 13:45 Temperature Temperature Source Pulse Rate 77 90 Pulse Rate from SpO2 Sensor 76 90 Respiratory Rate 22 19 Respiratory Effort / Characteristics Respiratory Depth Respiratory Pattern Blood Pressure Blood Pressure Mean Blood Pressure Position Pulse Oximetry 96 98 Oxygen Delivery Method Sepsis Recent Fever Within 48 Hours Sepsis New/Unexplained Change in Mental Status Sepsis Action Taken by Assisted Medications Current Medication List: was personally reviewed by me Laboratory Data Attestation: I reviewed the patient's lab results. 05/02/25 06:00 05/02/25 06:00 Lab Results 05/01/25 05/01/25 Range/Units 11:30 11:34 WBC 5.51 (4.8-10.8) K/ul RBC 2.56 L (4.70-6.10) M/uL Hgb 7.9 L (14.0-18.0) g/dl Hct 24.3 L (42.0-52.0) % MCV 94.9 (80.0-100.0) fL MCH 30.9 (25.0-34.0) pg MCHC 32.5 (32.0-36.0) g/dL RDW Std Deviation 48.8 H (36.4-46.3) fL RDW Coeff of Viviana 14.1 (11.5-14.5) % Plt Count 225 (130-400) K/uL MPV 10.0 (9.4-12.4) fL Immature Gran % (Auto) 0.9 % Neut % (Auto) 45.8 % Lymph % (Auto) 32.8 % Lanier % (Auto) 15.1 % Eos % (Auto) 4.9 % Baso % (Auto) 0.5 % Neut # (Auto) 2.52 (1.40-6.50) K/uL Lymph # (Auto) 1.81 (1.20-3.40) K/uL Lanier # (Auto) 0.83 H (0.11-0.59) K/uL Eos # (Auto) 0.27 (0.00-0.50) K/uL Baso # (Auto) 0.03 (0.00-0.20) K/uL Immature Gran # (Auto) 0.05 (0.01-0.20) K/uL Polychromasia 1+ PT 10.9 (9.0-12.0) Seconds INR 1.0 (0.9-1.1) APTT 29 (21-31) Seconds PTT Ratio 1.1 Sodium 134 L (136-145) mmol/L Potassium 4.3 (3.5-5.1) mmol/L Chloride 105 (98-107) mmol/L Carbon Dioxide 24 (21-32) mmol/L Anion Gap 5 (3-11) BUN 39 H (6-23) mg/dl Creatinine 1.38 (0.6-1.4) mg/dl Est Cr Clr Drug Dosing 39.8 ml/min eGFR 49.49 BUN/Creatinine Ratio 28.3 H (10-20) Glucose 103 H (70-99(Fasting)) mg/dl Calcium 8.7 (8.6-10.3) mg/dl Total Bilirubin 0.7 (0.2-1.0) mg/dl AST 21 (13-39) U/L ALT 9 (7-52) U/L Alkaline Phosphatase 62 (34-104) U/L Total Protein 6.5 (6.0-8.3) gm/dl Albumin 3.3 L (3.4-5.0) gm/dl Globulin 3.2 (2.5-4.0) gm/dl Albumin/Globulin Ratio 1.0 (0.9-2) POC Stool Occult Blood Positive A (Negative) Blood Type A Positive Antibody Screen NEGATIVE Crossmatch See Detail Administered Medications Acetaminophen (Acetaminophen 325 Mg Tab) 650 mg PO Q4H PRN PRN Reason: Pain or Fever Stop: 05/31/25 16:01 Last Admin: 05/02/25 02:06 Dose: 650 mg Documented By: AISLINN Allopurinol (Allopurinol 100 Mg Tab) 100 mg PO BID MEG Stop: 05/31/25 20:59 Last Admin: 05/02/25 07:51 Dose: 100 mg Documented By: Admin: 05/01/25 20:02 Dose: 100 mg Documented By: AISLINN Atorvastatin Calcium ([facility]atin 40 Mg Tab) [facility] Stop: 06/01/25 08:59 Last Admin: 05/02/25 07:51 Dose: 40 mg Documented By: DANIA Carvedilol (Carvedilol 3.125 Mg Tab) 3.125 mg PO BIDM [facility] Stop: 05/31/25 16:59 Last Admin: 05/02/25 07:51 Dose: 3.125 mg Documented By: Admin: 05/01/25 16:46 Dose: 3.125 mg Documented By: DANIA Cetirizine HCl (Cetirizine Hcl 10 Mg Tablet) 10 mg PO HS [facility] Stop: 05/31/25 20:59 Last Admin: 05/01/25 20:02 Dose: 10 mg Documented By: AISLINN Cyanocobalamin (Cyanocobalamin (B-12) 500 Mcg Tablet) 1,[facility] Stop: 06/01/25 08:59 Last Admin: 05/02/25 07:51 Dose: 1,000 mcg Documented By: DANIA Cyclobenzaprine HCl (Cyclobenzaprine Hcl 10 Mg Tab) 10 mg PO TID [facility] Stop: 05/31/25 16:14 Last Admin: 05/02/25 07:52 Dose: 10 mg Documented By: Admin: 05/01/25 20:02 Dose: 10 mg Documented By: Admin: 05/01/25 16:45 Dose: 10 mg Documented By: DANIA Finasteride (Finasteride 5 Mg Tab) 5 mg PO [facility] Stop: 06/01/25 08:59 Last Admin: 05/02/25 07:52 Dose: 5 mg Documented By: DANIA Gabapentin (Gabapentin 100 Mg Cap) [facility] Stop: 06/01/25 08:59 Last Admin: 05/02/25 07:52 Dose: 100 mg Documented By: DANIA Pantoprazole Sodium 40 mg/ (Dextrose) 100 mls @ 20 mls/hr IV Q5H [facility] Stop: 05/31/25 11:59 Last Admin: 05/02/25 03:52 Dose: 8 mg/hr, 20 mls/hr Documented By: Infusion: 05/02/25 03:51 Dose: Infused Documented By: Admin: 05/01/25 22:50 Dose: 8 mg/hr, 20 mls/hr Documented By: Infusion: 05/01/25 22:49 Dose: Infused Documented By: Admin: 05/01/25 17:43 Dose: 8 mg/hr, 20 mls/hr Documented By: Infusion: 05/01/25 16:41 Dose: Infused Documented By: Admin: 05/01/25 12:50 Dose: 8 mg/hr, 20 mls/hr Documented By: YAJAIRA Sodium Chloride (Nss) 1,000 mls @ 80 mls/hr IV .[id number] MEG Stop: 05/04/25 16:01 Last Admin: 05/02/25 01:44 Dose: 80 mls/hr Documented By: Infusion: 05/02/25 01:44 Dose: Infused Documented By: Admin: 05/01/25 16:37 Dose: 125 mls/hr Documented By: DANIA Levothyroxine Sodium (Levothyroxine Sodium 150 Mcg Tablet) 150 mcg PO DAILYBB [facility] Stop: 06/01/25 06:29 Last Admin: 05/02/25 05:41 Dose: 150 mcg Documented By: AISLINN Loratadine (Loratadine 10 Mg Tab) 10 mg PO HS [facility] Stop: 05/31/25 20:59 Last Admin: 05/01/25 20:02 Dose: 10 mg Documented By: AISLINN Midodrine (Midodrine Hcl 2.5 Mg Tab) 5 mg PO TID@0700,1200,1700 [facility] Stop: 05/31/25 16:59 Last Admin: 05/02/25 07:50 Dose: 5 mg Documented By: Admin: 05/01/25 16:46 Dose: 5 mg Documented By: DANIA Vitamin D (Cholecalciferol 25 Mcg (1000 Units) Tab) 25 mcg PO DAILY MEG Stop: 06/01/25 08:59 Last Admin: 05/02/25 07:51 Dose: 25 mcg Documented By: DANIA Discontinued Medications Pantoprazole Sodium 80 mg/ (Dextrose) 120 mls @ 480 mls/hr IV NOW ONE Stop: 05/01/25 11:55 Last Infusion: 05/01/25 12:49 Dose: Infused Documented By: Admin: 05/01/25 12:31 Dose: 480 mls/hr Documented By: SOSA Pantoprazole Sodium (Pantoprazole Bolus/Drip) 1 each IV NOW STA Stop: 05/01/25 11:42 Last Admin: 05/01/25 13:08 Dose: Not Given Documented By: SOSA Discharge Plan Visit Data Chief Complaint: Abnormal Labs/Diagnostic Testing Stated Complaint: ABNORMAL LAB ED Provider: Shun Wood Discharge Problem: Acute blood loss anemia (ABLA), Fracture of femoral neck, right, closed, S/P total right hip arthroplasty, GI bleed Patient Disposition: Admitted As Inpatient Condition: Good Discharge Instructions Interventions: ED Discharge Assessment Last Done: 05/01/25 15:29 Discharge Problem: Fracture of femoral neck, right, closed Qualifiers: Encounter type: initial encounter Qualified Code(s): S72.001A - Fracture of unspecified part of neck of right femur, initial encounter for closed fracture GI bleed Qualifiers: GI bleed type/associated pathology: melena Qualified Code(s): K92.1 - Melena
[2025-05-01 11:53] LABS: Hematocrit (blood only) 24.3 % (42.0-52.0); Hemoglobin 7.9 g/dl (14.0-18.0); Immature Granulocytes # (auto) 0.05 K/uL (0.01-0.20); Immature Granulocytes % (auto) 0.9 %; Mean Corpuscular Hemoglobin 30.9 pg (25.0-34.0); Mean Corpuscular Volume 94.9 fL (80.0-100.0); Platelet Count 225 K/uL (130-400); RDW Standard Deviation 48.8 fL (36.4-46.3); Red Blood Count 2.56 M/uL (4.70-6.10); White Blood Count 5.51 K/ul (4.8-10.8)
[2025-05-01 12:12] LABS: Alanine Aminotransferase 9.0 U/L (7-52); Albumin Globulin Ratio 1.0 (0.9-2); Albumin Level 3.3 gm/dl (3.4-5.0); Alkaline Phosphatase 62.0 U/L (34-104); Anion Gap 5.0 (3-11); Bilirubin,Total 0.7 mg/dl (0.2-1.0); Blood Urea Nitrogen 39.0 mg/dl (6-23); Calcium 8.7 mg/dl (8.6-10.3); Carbon Dioxide 24.0 mmol/L (21-32); Chloride 105.0 mmol/L (98-107); Creatinine Clr Calc Pharmacy 39.8 ml/min; Globulin 3.2 gm/dl (2.5-4.0); Glucose 103.0 mg/dl (70-99(Fasting)); Potassium 4.3 mmol/L (3.5-5.1); Sodium 134.0 mmol/L (136-145); Total Protein 6.5 gm/dl (6.0-8.3)
[2025-05-01 12:35] LABS: INR 1.0 (0.9-1.1); Partial Thromboplastin Time 29 Seconds (21-31); Prothrombin Time 10.9 Seconds (9.0-12.0)
[2025-05-01] MEDS: PANTOprazole 40 MG in DEXTROSE 5% MINI-B 100 ML IV SCH (12:50)
[2025-05-01] MEDS: PANTOPRAZOLE BOLUS/DRIP IV STA (13:08)
[2025-05-01 13:20] LABS: Polychromasia 1+
--- NOTE | 2025-05-01 13:29 | History & Physical Report ---
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 He was recently hospitalized after a ground-level fall resulted in a right hip fracture. He had right hip hemiarthroplasty on 04/24, postoperative course complicated by acute blood loss anemia requiring 1 unit PRBC. He was discharged to [facility] on 04/27. He was sent in from [facility] due to hemoglobin level of 6.7. Hemoglobin on arrival in ED 7.9 and rectal exam was significant for Hemoccult positive and dark stool. He was admitted for management of his acute blood loss anemia and further investigation of his acute GI bleed. #Acute blood loss anemia | GI bleed Hemoccult positive on arrival. Reports black stools >10 days. Suspect upper GI origin of bleeding. Also recent surgical intervention 1 week prior to this admission likely contributing to anemia. Vital signs stable on admission - Hgb on AM labs at [facility] today 05/01 revealed hgb of 6.7. Hgb on arrival to ED 7.9 - transfusion deferred - Transfuse PRN for hgb <7.0 or for hgb <8.0 with signs of end organ ischemia - Hold Eliquis and Plavix - Keep n.p.o. - Start maintenance IV fluids with NSS @ 80 mL/h - Protonix bolus and drip started in ED - continue - Serial CBC Q6h x 3 - GI consulted, appreciate recommendations - Last colonoscopy 22 years ago. Patient denies having EGD previously #Postoperative status of right hip hemiarthroplasty - surgery on 04/24 after a ground level fall resulted in a pathologic osteoporotic fracture of his right hip. Did require 1 unit pRBC during last admission due to acute blood loss anemia in setting of surgical intervention and antithrombotic therapy (Eliquis and Plavix) - Pain regimen: Tylenol, tramadol 50 mg Q4h PRN mod-severe pain, morphine 4 mg Q4h PRN breakthrough pain - PT/OT consulted - patient reports doing well with rehab at [facility] #CAD | HTN | H/o stroke - History of R cerebral CVA in January 2025 - S/p right carotid endarterectomy on 03/25/[address] Cohen - per Dr. Cohen's note on 04/21/25, it would be reasonable to discontinue Eliquis and continue on antiplatelet monotherapy (aspirin or Plavix) - Remote history of open heart surgery for CABG x 5. No cardiac stents - Hold Eliquis and Plavix for now - consider discontinuing Eliquis - Continue atorvastatin, carvedilol - Amlodipine, telmisartan recently discontinued #History of syncope/orthostasis appears as though he was recently started on midodrine 5 mg TID at [facility] continue #CKD stage IIIbbaseline creatinine 1.3 - Creatinine at baseline on admission - Avoid nephrotoxins #Hypothyroidismcontinue levothyroxine #Vitamin D deficiency | Vitamin B12 deficiencycontinue cholecalciferol, cyanocobalamin VTE PPx: SCDs. 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 He was recently admitted to the hospital after a ground-level fall resulted in a right hip fracture and he had right hip hemiarthroplasty on 04/24 and required 1 unit PRBC transfusion on 04/26 for a Hgb of 6.8. Eliquis was resumed on 04/26 and Plavix was resumed on discharge to [facility] on 04/27. On morning labs at [facility] today, his hemoglobin was noted to be 6.7 so he was transferred to the ED. Hemoglobin on arrival here was 7.9. His rectal exam had heme positive and dark stool noted in the ED. He reports he has been having black stools since prior to last hospitalization, he estimates its been greater than 10 days of black stools. He notes that he thought this was a normal side effect of his Eliquis medication. He has been significantly fatigued x 1 week. He states therapy has been going well at [facility]. He does have right hip/groin soreness but notes his pain regimen will controls his pain. Vitals on admission are stable. Labs on admission are significant for anemia with Hgb of 7.9, BUN elevated at 39, and Hemoccult positive stool. No leukocytosis. Electrolytes WNL. Creatinine at baseline. Liver enzymes WNL. 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 We discussed code status, patient wishes to be a full code. Allergies Allergy/AdvReac Type Severity Reaction Status Date / Time codeine AdvReac Severe "Entire Verified 04/21/25 08:55 system shut down" hydromorphone AdvReac Severe "Entire Verified 04/21/25 08:55 system shut down" nickel AdvReac Mild Rash Verified 04/21/25 08:55 oxycodone AdvReac Unknown "Entire Verified 04/21/25 08:55 system shut down" Home Medications Medication Instructions Recorded Confirmed Type cholecalciferol (vitamin D3) 25 1,000 units PO DAILY 04/08/19 05/01/25 History mcg (1,000 unit) capsule cyanocobalamin (vitamin B-12) 1,000 mcg PO QAM 05/12/20 05/01/25 History 1,000 mcg tablet omega-3 fatty acids 1,000 mg PO QAM 05/12/20 05/01/25 History nitroglycerin 0.4 mg sublingual 0.4 mg sublingual Q5M PRN chest 11/27/23 05/01/25 Rx tablet pain #30 tabs levothyroxine 150 mcg tablet 150 mcg PO QAM #90 tabs 11/27/24 05/01/25 Rx Prevagen 0 cap PO DAILY 02/02/25 05/01/25 History allopurinol 100 mg tablet 0 mg PO BID 03/11/25 05/01/25 History (Zyloprim) atorvastatin 40 mg tablet 40 mg PO QAM 03/11/25 05/01/25 History cetirizine 10 mg tablet 0 mg PO HS 03/11/25 05/01/25 History clopidogrel 75 mg tablet (Plavix) 75 mg PO QAM 03/11/25 05/01/25 History colchicine 0.6 mg tablet (Colcrys) 0.6 mg PO DAILY PRN Gout Flare Up 03/11/25 05/01/25 History cyclobenzaprine 10 mg tablet 10 mg PO TID Muscle Spasms 03/11/25 05/01/25 History diphenhydramine HCl 25 mg capsule 50 mg PO HS PRN Allergies 03/11/25 05/01/25 History (Benadryl) finasteride 5 mg tablet (Proscar) 5 mg PO QAM 03/11/25 05/01/25 History gabapentin 100 mg capsule 100 mg PO QAM 03/11/25 05/01/25 History (Neurontin) pantoprazole 40 mg tablet,delayed 40 mg PO QAM 03/11/25 05/01/25 History release (Protonix) ursodiol 300 mg capsule 0 mg PO BID 03/11/25 05/01/25 History cyanocobalamin (vitamin B-12) 500 0 mcg PO QAM 04/23/25 05/01/25 History mcg tablet bisacodyl 10 mg rectal suppository [address] DAILY PRN #0 ea 04/27/25 05/01/25 Rx carvedilol 3.125 mg tablet 3.125 mg PO BID #60 tabs 04/27/25 05/01/25 Rx melatonin 3 mg tablet 3 mg PO HS PRN #0 tabs 04/27/25 05/01/25 Rx polyethylene glycol 3350 17 gram 17 g PO DAILY PRN #0 ea 04/27/25 05/01/25 Rx oral powder packet (Miralax) polyethylene glycol 3350 17 gram 17 g PO Q6 #0 ea 04/27/25 05/01/25 Rx oral powder packet (Miralax) tramadol 50 mg tablet 50 mg PO Q4H PRN #0 tabs 04/27/25 05/01/25 Rx acetaminophen 325 mg tablet 650 mg PO Q4H PRN Pain 05/01/25 05/01/25 History acetaminophen 500 mg tablet 500 mg PO Q4H PRN Pain 05/01/25 05/01/25 History apixaban 5 mg tablet (Eliquis) 2.5 mg PO BID 05/01/25 05/01/25 History dextrose 50 % in water (D50W) 12.5 g IV UD PRN Other 05/01/25 05/01/25 History dextrose 50 % in water (D50W) 25 g IV UD PRN Other 05/01/25 05/01/25 History docusate sodium 100 mg capsule 100 mg PO BID PRN Constipation 05/01/25 05/01/25 History glucagon HCl 1 mg solution for 1 mg IM UD PRN Hypoglycemia 05/01/25 05/01/25 History injection (Glucagon (HCl) Emergency Kit) lidocaine 4 % topical patch 1 patch topical QAM 05/01/25 05/01/25 History loratadine 10 mg tablet 10 mg PO HS 05/01/25 05/01/25 History midodrine 5 mg tablet 5 mg PO TID 05/01/25 05/01/25 History ondansetron 4 mg disintegrating 4 mg PO Q6H PRN n/v 05/01/25 05/01/25 History tablet sennosides 8.6 mg-docusate sodium 1 tab-cap PO .@LUNCH PRN 05/01/25 05/01/25 History 50 mg tablet (Senokot-S) Constipation sodium phosphates 19 gram-[address] UD PRN Constipation 05/01/25 05/01/25 History gram/118 mL enema (Enema) Past Med/Surg History Problem List (Updated 05/01/25 @ 14:14 by Nelda Rocha PA-C) GI bleed Acute blood loss anemia (ABLA) S/P total right hip arthroplasty Fall at home (Acute) Fracture of femoral neck, right, closed (Acute) Carotid artery disease Abnormal chest CT 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 Chronic anticoagulation Chronic SI joint pain Fall (Acute) 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 Weakness of shoulder Nocturnal leg cramps Nodule of finger Radial nerve compression Bifascicular block Syncope No recent issues Hyperkalemia Distal radius fracture, left (Acute) Hx of Symptomatic bradycardia (Acute) Sleep disorder Rhinitis Lumbar disc disease Benign prostatic hyperplasia Gout Degenerative disc disease Hypothyroidism Hypertension (Acute) Hyperlipidemia Coronary artery disease Medical History SHAWN (obstructive sleep apnea) Could not tolerate CPAP Tinnitus of both ears Hearing loss Bilateral Hearing Aids Impaired glucose tolerance (oral) CKD (chronic kidney disease), stage III Stable per PCP records 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- pt denies any issues since - Spent time at [facility]) when in the service History of syncope 12/2023 and 05/2024 per records (had subsequent holter monitor without acute issues) No recent issues of syncope Stenosis of right carotid artery - 50 to 60% stenosis of the right internal carotid artery with what appears to be an ulcerated plaque (per 12/29/24 CTA) Nocturnal leg cramps Aggravated by increased activity Hypothyroidism Hypertension Hyperlipidemia 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/2024) - per vascular - unsure if truly a dissection or possible ulcerated plaque Coronary artery disease s/p 5 vessel CABG in (vein graft to PDA,OM known to be occluded per cardio records) on Plavix per PCP records Chronic SI joint pain [facility] Chronic anticoagulation Bifascicular block [facility] Cardiology Dr Hall (no high grade AV block per cardio records) History of 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 [facility] left sided weakness initially, pt denies any residuals at this time - started on Eliquis 01/2025 Anemia, unspecified Mild/chronic - no blood transfusion/iron infusion Osteoarthritis BPH (benign prostatic hyperplasia) Hx of gout Gout flare left toe- resolved as of PAT appt 03/18/25 GERD (gastroesophageal reflux disease) well controlled and stable H/O blood clots Right Arm 1983 Myocardial infarction 1978+1979, no stents - [facility] Cardiology Dr Hall Surgical History History of surgery on left wrist "they rerouted a vein to my thumb and now it's great" History of wisdom tooth extraction Lump in chest Benign (removed) H/O hand surgery Right hand, lump removal History of total knee replacement Right History of colonoscopy History of tooth extraction lower denture History of cardiac cath multiple - denies sents - [facility] Cardiology Hx of ventral hernia repair Hx of carpal tunnel repair Bilateral Hx of cholecystectomy Hx of CABG 1983>x5 [place] - Now following [facility] Cardiology Dr Hall Hx of appendectomy Family History Brother Cardiac disorder Diabetes Hypertension Myocardial infarction Sister Cardiac disorder Cancer Breast cancer Lung cancer Denies family history of Ovarian cancer Prostate cancer Colorectal cancer Social History Smoking Status: Never smoker Tobacco Type: Cigarettes Age Started Using Tobacco: 19; Age Quit Using Tobacco: 30; packs per day: 2; Second Hand Exposure: No; Do You Dip or Chew Tobacco: No; Tobacco Cessation Education Requested by Patient: No Hx Alcohol Use: No Hx Substance Use: No Preferred Language: Belarusian Communication Ability: Effective Visual Impairment: Limited Hearing Ability: Use of Hearing Aid Pharmacy Buyer Required: No Beliefs That Will Affect Care: None marital status: Current Living Situation: Spouse current occupational status: retired How many Children do You have: 1 Other Information That Helps Us Care for You: No Feels Safe at Home: Yes Safety Concerns: Feels Safe At This Time Childhood Exposure to Second-Hand Smoke: No Diet: regular caffeine: Yes (coffee and tea) Dental Care, Regularly: No Physical Activity Frequency: Daily Seatbelt Use: always Sunscreen Use: Yes (sometimes) Assistive Devices: Denture - Lower, Glasses and Hearing Aid - Bilateral Review of Systems Review of Systems: All systems reviewed & are unremarkable except as noted in HPI & below Constitutional: + fatigue Gastrointestinal: + melena Musculoskeletal: + joint pain (Right hip) Physical Exam Physical Exam: General: No acute distress, nondiaphoretic, well-developed, well-nourished. Skin: Warm, dry. No peripheral edema noted. Dependent ecchymosis present on right hip covered in dressing clean dry intact. Cardiac: Regular rate and rhythm without murmurs gallops or rubs. Pulm: Clear to auscultation bilaterally without wheezes, rales or rhonchi. Normal respiratory effort. 98% on room air. Abdominal: Soft, nontender, nondistended. Bowel sounds present. MSK: Lower extremities neurovascularly intact with normal motor function bilaterally. Neuro: A&O x3. No focal neurological deficits. Results & Data Results & Data Vital Signs (Past 12 Hours) Vital Signs Temp Pulse Resp BP Pulse Ox O2 Del Method 05/01/25 13:03 78 22 98 05/01/25 13:00 140/69 05/01/25 12:57 78 22 97 05/01/25 12:10 79 20 138/73 96 Room Air 05/01/25 12:03 83 21 138/73 94 Room Air 05/01/25 12:02 80 05/01/25 11:35 94 Room Air 05/01/25 11:30 87 23 05/01/25 11:09 98.4 F 88 18 145/75 H 93 Room Air Laboratory Results Reviewed CBC with differential, coagulation studies, CMP/chemistries, Hemoccult stool, blood bank tests Diagnostic Findings Reviewed EKG Supervising Physician Co-Signing Physician Notes PA Supervision Note: I personally saw and examined the patient. I verified all hogan points and agree with MARIO Rocha with the following exceptions and/or additions: S-Pt here with low hgb checked at [facility] in the 6.5 range but here was 7.9. Pt reports he has been having black stools for maybe 10 days although no reports of this from rehab. Denies abd pain, heartburn, nausea or vomiting. He does c/o swelling in RLE and some hip pain. History and ROS otherwise reviewed as above O- Vitals reviewed Gen: [AAOx3, NAD] HEENT: [anicteric sclerae, EOMI] CV: [RRR no mgr nl S1S2] Pulm: [CTAB no wcr] Abd: [+BS soft NT ND no masses or hernias] Ext: [RLE with trace pitting edema] Skin: [right hip with dressing with dried serous fluid soaked through, melecio intact, no erythema. WIth ecchymosis down posterior thigh and knee] Neuro: [full strength throughout] CBC, BMP, trop, repeat CBC reviewed A/P-89 yo male here with worsening anemia and melena, GIB. Hemodynamically stable here but has been started on midodrine at rehab. On Eliquis and Plavix. -hold blood thinners -serial CBC -IV PPI gtt, consult GI-plan for EGD sunday -transfuse as needed PT/OT for ongoing hip rehab -removed hip dressing and leave open to air as per Ortho dc instructions from previous PG Care Time/CCT Total # of Minutes Spent Total Time Spent with Patient: Total time spent is greater than 50% in coordination of care (as documented) at patient's floor/unit and/or counseling patient: [place] [address] INT INP/OBS CARE 3/75MIN Patient Type New Medical Decision Making High Complexity Diagnoses Acute blood loss anemia (ABLA) D62 GI bleed K92.2 S/P total right hip arthroplasty Z96.641 Chronic anticoagulation Z79.01
--- NOTE | 2025-05-01 13:44 | Electrocardiogram Report ---
Test Reason : Blood Pressure : */* mmHG Vent. Rate : 82 BPM Atrial Rate : 82 BPM P-R Int : 114 ms QRS Dur : 136 ms QT Int : 382 ms P-R-T Axes : 19 -69 59 degrees QTcB Int : 446 ms Normal sinus rhythm Right bundle branch block Left anterior fascicular block Bifascicular block Abnormal ECG When compared with ECG of 24-Apr-2025 01:43, Premature atrial complexes are no longer Present Vent. rate has decreased by 42 bpm Left anterior fascicular block is now Present Confirmed by Ajith Hu ([id number]) on 05/01/2025 1:43:47 PM Referred By: Confirmed By: Ajith Hu
[2025-05-01] MEDS ORDERED: POLYETHYLENE (MIRALAX) 17 GM PACK PO PRN (16:02)
[2025-05-01] MEDS ORDERED: diphenhydrAMINE Capsule 25 MG CAP PO PRN (16:02)
[2025-05-01] MEDS ORDERED: MELATONIN 3 MG TAB PO PRN (16:02)
[2025-05-01] MEDS ORDERED: DOCUSATE SODIUM 100 MG CAP PO PRN (16:02)
[2025-05-01] MEDS ORDERED: ONDANSETRON INJ 2 MG/ML 2 ML VIAL IV PRN (16:02)
[2025-05-01] MEDS ORDERED: MoRPHine SULFATE 4 MG/ML 1 ML CARP\\VIAL IV PRN (16:02)
[2025-05-01] MEDS ORDERED: COLCHICINE 0.6 MG TAB PO PRN (16:02)
--- NOTE | 2025-05-01 16:33 | Gastrointestinal Consultation ---
Date of Consultation May 01, 2025 Assessment & Plan (1) GI bleed: Suspect upper GI bleed post hip repair. Aggravated by Plavix and Eliquis. Differential diagnosis includes peptic ulcer disease or stress ulceration. Less likely neoplastic. Hemodynamically stable. Recommend IV PPI hold Plavix and Eliquis. Monitor hemoglobin hematocrit. Probable endoscopy May 04. (2) Acute blood loss anemia (ABLA): History of Present Illness Reason for Consultation: Anemia GI bleed Attending Physician: Brittney Chun MD History of Present Illness Patient presents from rehab with a hemoglobin of 6.7 repeat 7.9. He has noted black stool for the last week and a half. He denies any hematemesis or hematochezia. He denies any GI symptoms. Denies any abdominal pain nausea vomiting recent weight loss dysphagia. No prior history of GI illnesses. No history of liver disease or alcohol abuse. Status postcholecystectomy in the past. Status post ventral hernia repair. Admitted here after a fall 1 week ago and had a right hip arthroplasty performed. Postoperatively he received 1 unit of blood due to blood loss. He is on Plavix and Eliquis which he took today. 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 Allergies Allergy/AdvReac Type Severity Reaction Status Date / Time codeine AdvReac Severe "Entire Verified 04/21/25 08:55 system shut down" hydromorphone AdvReac Severe "Entire Verified 04/21/25 08:55 system shut down" nickel AdvReac Mild Rash Verified 04/21/25 08:55 oxycodone AdvReac Unknown "Entire Verified 04/21/25 08:55 system shut down" Home Medications Medication Instructions Recorded Confirmed Type cholecalciferol (vitamin D3) 25 1,000 units PO DAILY 04/08/19 05/01/25 History mcg (1,000 unit) capsule cyanocobalamin (vitamin B-12) 1,000 mcg PO QAM 05/12/20 05/01/25 History 1,000 mcg tablet omega-3 fatty acids 1,000 mg PO QAM 05/12/20 05/01/25 History nitroglycerin 0.4 mg sublingual 0.4 mg sublingual Q5M PRN chest 11/27/23 05/01/25 Rx tablet pain #30 tabs levothyroxine 150 mcg tablet 150 mcg PO QAM #90 tabs 11/27/24 05/01/25 Rx Prevagen 0 cap PO DAILY 02/02/25 05/01/25 History allopurinol 100 mg tablet 0 mg PO BID 03/11/25 05/01/25 History (Zyloprim) atorvastatin 40 mg tablet 40 mg PO QAM 03/11/25 05/01/25 History cetirizine 10 mg tablet 0 mg PO HS 03/11/25 05/01/25 History clopidogrel 75 mg tablet (Plavix) 75 mg PO QAM 03/11/25 05/01/25 History colchicine 0.6 mg tablet (Colcrys) 0.6 mg PO DAILY PRN Gout Flare Up 03/11/25 05/01/25 History cyclobenzaprine 10 mg tablet 10 mg PO TID Muscle Spasms 03/11/25 05/01/25 History diphenhydramine HCl 25 mg capsule 50 mg PO HS PRN Allergies 03/11/25 05/01/25 History (Benadryl) finasteride 5 mg tablet (Proscar) 5 mg PO QAM 03/11/25 05/01/25 History gabapentin 100 mg capsule 100 mg PO QAM 03/11/25 05/01/25 History (Neurontin) pantoprazole 40 mg tablet,delayed 40 mg PO QAM 03/11/25 05/01/25 History release (Protonix) ursodiol 300 mg capsule 0 mg PO BID 03/11/25 05/01/25 History cyanocobalamin (vitamin B-12) 500 0 mcg PO QAM 04/23/25 05/01/25 History mcg tablet bisacodyl 10 mg rectal suppository 10 mg MO DAILY PRN #0 ea 04/27/25 05/01/25 Rx carvedilol 3.125 mg tablet 3.125 mg PO BID #60 tabs 04/27/25 05/01/25 Rx melatonin 3 mg tablet 3 mg PO HS PRN #0 tabs 04/27/25 05/01/25 Rx polyethylene glycol 3350 17 gram 17 g PO DAILY PRN #0 ea 04/27/25 05/01/25 Rx oral powder packet (Miralax) polyethylene glycol 3350 17 gram 17 g PO Q6 #0 ea 04/27/25 05/01/25 Rx oral powder packet (Miralax) tramadol 50 mg tablet 50 mg PO Q4H PRN #0 tabs 04/27/25 05/01/25 Rx acetaminophen 325 mg tablet 650 mg PO Q4H PRN Pain 05/01/25 05/01/25 History acetaminophen 500 mg tablet 500 mg PO Q4H PRN Pain 05/01/25 05/01/25 History apixaban 5 mg tablet (Eliquis) 2.5 mg PO BID 05/01/25 05/01/25 History dextrose 50 % in water (D50W) 12.5 g IV UD PRN Other 05/01/25 05/01/25 History dextrose 50 % in water (D50W) 25 g IV UD PRN Other 05/01/25 05/01/25 History docusate sodium 100 mg capsule 100 mg PO BID PRN Constipation 05/01/25 05/01/25 History glucagon HCl 1 mg solution for 1 mg IM UD PRN Hypoglycemia 05/01/25 05/01/25 History injection (Glucagon (HCl) Emergency Kit) lidocaine 4 % topical patch 1 patch topical QAM 05/01/25 05/01/25 History loratadine 10 mg tablet 10 mg PO HS 05/01/25 05/01/25 History midodrine 5 mg tablet 5 mg PO TID 05/01/25 05/01/25 History ondansetron 4 mg disintegrating 4 mg PO Q6H PRN n/v 05/01/25 05/01/25 History tablet sennosides 8.6 mg-docusate sodium 1 tab-cap PO .@LUNCH PRN 05/01/25 05/01/25 History 50 mg tablet (Senokot-S) Constipation sodium phosphates 19 gram-7 133 ml MO UD PRN Constipation 05/01/25 05/01/25 History gram/118 mL enema (Enema) Patient History Medical History SHAWN (obstructive sleep apnea) Could not tolerate CPAP Tinnitus of both ears Hearing loss Bilateral Hearing Aids Impaired glucose tolerance (oral) CKD (chronic kidney disease), stage III Stable per PCP records 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- pt denies any issues since - Spent time at [facility]) when in the service History of syncope 12/2023 and 05/2024 per records (had subsequent holter monitor without acute issues) No recent issues of syncope Stenosis of right carotid artery - 50 to 60% stenosis of the right internal carotid artery with what appears to be an ulcerated plaque (per 12/29/24 CTA) Nocturnal leg cramps Aggravated by increased activity Hypothyroidism Hypertension Hyperlipidemia 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/2024) - per vascular - unsure if truly a dissection or possible ulcerated plaque Coronary artery disease s/p 5 vessel CABG in (vein graft to PDA,OM known to be occluded per cardio records) on Plavix per PCP records Chronic SI joint pain [facility] Chronic anticoagulation Bifascicular block [facility] [place] (no high grade AV block per cardio records) History of 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 [facility] left sided weakness initially, pt denies any residuals at this time - started on Eliquis 01/2025 Anemia, unspecified Mild/chronic - no blood transfusion/iron infusion Osteoarthritis BPH (benign prostatic hyperplasia) Hx of gout Gout flare left toe- resolved as of PAT appt 03/18/25 GERD (gastroesophageal reflux disease) well controlled and stable H/O blood clots Right Arm 1983 Myocardial infarction 1978+1979, no stents - [facility] [place] Surgical History History of surgery on left wrist "they rerouted a vein to my thumb and now it's great" History of wisdom tooth extraction Lump in chest Benign (removed) H/O hand surgery Right hand, lump removal History of total knee replacement Right History of colonoscopy History of tooth extraction lower denture History of cardiac cath multiple - denies sents - [facility] Hx of ventral hernia repair Hx of carpal tunnel repair Bilateral Hx of cholecystectomy Hx of CABG 1983>x5 [place] - Now following [facility] [place] Hx of appendectomy Family History Brother Cardiac disorder Diabetes Hypertension Myocardial infarction Sister Cardiac disorder Cancer Breast cancer Lung cancer Denies family history of Ovarian cancer Prostate cancer Colorectal cancer Social History Smoking Status: Never smoker Tobacco Type: Cigarettes Age Started Using Tobacco: 19; Age Quit Using Tobacco: 30; packs per day: 2; Second Hand Exposure: No; Do You Dip or Chew Tobacco: No; Hx Alcohol Use: Yes Alcohol type: beer Hx Substance Use: No Preferred Language: Tamazight Communication Ability: Effective Visual Impairment: Limited Hearing Ability: Use of Hearing Aid Magnetic Resonance Imaging Director Required: No Beliefs That Will Affect Care: None marital status: Current Living Situation: Spouse current occupational status: retired How many Children do You have: 1 Feels Safe at Home: Yes Childhood Exposure to Second-Hand Smoke: No Diet: regular caffeine: Yes (coffee and tea) Dental Care, Regularly: No Physical Activity Frequency: Daily Seatbelt Use: always Sunscreen Use: Yes (sometimes) Assistive Devices: Bedside Commode, Cane, Crutches and Walker Review of Systems Review of Systems: No fever No chills No SOB No CP No Abd pain Physical Exam Physical Exam: Eyes; anicteric HENT No masses Chest clear to A Cor S1, S2 physiologic Abd: softer nontender no masses midline surgical scar Ext lower extremity edema Results & Data Vital Signs (Past 12 Hours) Vital Signs Temp Pulse Pulse Resp BP BP Pulse Ox 05/01/25 16:20 36.8 C 95 H 18 153/66 H 95 05/01/25 15:00 84 18 145/59 H 96 05/01/25 14:33 81 25 H 98 05/01/25 14:03 86 24 05/01/25 14:00 126/58 L 05/01/25 13:45 90 19 98 05/01/25 13:30 77 22 96 05/01/25 13:03 78 22 98 05/01/25 13:00 140/69 05/01/25 12:57 78 22 97 05/01/25 12:10 79 20 138/73 96 05/01/25 12:03 83 21 138/73 94 05/01/25 12:02 80 05/01/25 11:35 94 05/01/25 11:30 87 23 05/01/25 11:09 36.9 C 88 18 145/75 H 93 O2 Del Method 05/01/25 16:20 Room Air 05/01/25 15:00 05/01/25 14:33 Room Air 05/01/25 14:03 05/01/25 14:00 05/01/25 13:45 05/01/25 13:30 05/01/25 13:03 05/01/25 13:00 05/01/25 12:57 05/01/25 12:10 Room Air 05/01/25 12:03 Room Air 05/01/25 12:02 05/01/25 11:35 Room Air 05/01/25 11:30 05/01/25 11:09 Room Air Laboratory Results Laboratory Results - last 48 hr 05/01/25 05/01/25 11:30 11:34 WBC 5.51 RBC 2.56 L Hgb 7.9 L Hct 24.3 L MCV 94.9 MCH 30.9 MCHC 32.5 RDW Std Deviation 48.8 H RDW Coeff of Viviana 14.1 Plt Count 225 MPV 10.0 Immature Gran % (Auto) 0.9 Neut % (Auto) 45.8 Lymph % (Auto) 32.8 [place] % (Auto) 15.1 Eos % (Auto) 4.9 Baso % (Auto) 0.5 Neut # (Auto) 2.52 Lymph # (Auto) 1.81 [place] # (Auto) 0.83 H Eos # (Auto) 0.27 Baso # (Auto) 0.03 Immature Gran # (Auto) 0.05 Polychromasia 1+ PT 10.9 INR 1.0 APTT 29 PTT Ratio 1.1 Sodium 134 L Potassium 4.3 Chloride 105 Carbon Dioxide 24 Anion Gap 5 BUN 39 H Creatinine 1.38 Est Cr Clr Drug Dosing 39.8 eGFR 49.49 BUN/Creatinine Ratio 28.3 H Glucose 103 H Calcium 8.7 Total Bilirubin 0.7 AST 21 ALT 9 Alkaline Phosphatase 62 Total Protein 6.5 Albumin 3.3 L Globulin 3.2 Albumin/Globulin Ratio 1.0 POC Stool Occult Blood Positive A Blood Type A Positive Antibody Screen NEGATIVE Crossmatch See Detail PG Care Time/CCT Total # of Minutes Spent Total Time Spent with Patient: Total time spent is greater than 50% in coordination of care (as documented) at patient's floor/unit and/or counseling patient: Coding Level of Care Code 16384 INT INP/OBS CARE 3/75MIN Diagnoses GI bleed K92.2 Acute blood loss anemia (ABLA) D62
[2025-05-01] MEDS: SODIUM CHLORIDE 0.9% 1,000 ML IV SCH (16:37)
[2025-05-01] MEDS: CYCLOBENZAPRINE HCL 10 MG TAB PO SCH (16:45)
[2025-05-01] MEDS: MIDODRINE HCL 2.5 MG TAB PO SCH (16:46)
[2025-05-01 18:04] LABS: Hematocrit (blood only) 23.1 % (42.0-52.0); Hemoglobin 7.9 g/dl (14.0-18.0); Mean Corpuscular Hemoglobin 31.6 pg (25.0-34.0); Mean Corpuscular Volume 92.4 fL (80.0-100.0); Platelet Count 221 K/uL (130-400); RDW Standard Deviation 46.5 fL (36.4-46.3); Red Blood Count 2.50 M/uL (4.70-6.10); White Blood Count 5.55 K/ul (4.8-10.8)
[2025-05-01] MEDS: LORATADINE 10 MG TAB PO SCH (20:02)
[2025-05-01] MEDS: CETIRIZINE HCL 10 MG TABLET PO SCH (20:02)
[2025-05-01 23:52] LABS: Hematocrit (blood only) 21.1 % (42.0-52.0); Hemoglobin 7.0 g/dl (14.0-18.0); Mean Corpuscular Hemoglobin 31.0 pg (25.0-34.0); Mean Corpuscular Volume 93.4 fL (80.0-100.0); Platelet Count 199 K/uL (130-400); RDW Standard Deviation 47.7 fL (36.4-46.3); Red Blood Count 2.26 M/uL (4.70-6.10); White Blood Count 4.32 K/ul (4.8-10.8)
[2025-05-02] MEDS ORDERED: SODIUM CHLORIDE 0.9% 100 ML IV PRN (00:07)
[2025-05-02] MEDS: ACETAMINOPHEN 325 MG TAB PO PRN (02:06)
[2025-05-02] MEDS: LEVOTHYROXINE SODIUM 150 MCG TABLET PO SCH (05:41)
[2025-05-02 06:26] LABS: Hematocrit (blood only) 23.1 % (42.0-52.0); Hemoglobin 7.6 g/dl (14.0-18.0); Mean Corpuscular Hemoglobin 29.5 pg (25.0-34.0); Mean Corpuscular Volume 89.5 fL (80.0-100.0); Platelet Count 202 K/uL (130-400); RDW Standard Deviation 53.2 fL (36.4-46.3); Red Blood Count 2.58 M/uL (4.70-6.10); White Blood Count 4.47 K/ul (4.8-10.8)
[2025-05-02 07:03] LABS: Alanine Aminotransferase 7.0 U/L (7-52); Albumin Globulin Ratio 1.1 (0.9-2); Albumin Level 2.9 gm/dl (3.4-5.0); Alkaline Phosphatase 52.0 U/L (34-104); Anion Gap 5.0 (3-11); Bilirubin,Total 1.3 mg/dl (0.2-1.0); Blood Urea Nitrogen 29.0 mg/dl (6-23); Calcium 8.2 mg/dl (8.6-10.3); Carbon Dioxide 22.0 mmol/L (21-32); Chloride 110.0 mmol/L (98-107); Creatinine Clr Calc Pharmacy 48.3 ml/min; Globulin 2.6 gm/dl (2.5-4.0); Glucose 102.0 mg/dl (70-99(Fasting)); Potassium 4.1 mmol/L (3.5-5.1); Sodium 137.0 mmol/L (136-145); Total Protein 5.5 gm/dl (6.0-8.3)
[2025-05-02] MEDS: ATORVASTATIN 40 MG TAB PO SCH (07:51)
[2025-05-02] MEDS: CYANOCOBALAMIN (B-12) 500 MCG TABLET PO SCH (07:51)
[2025-05-02] MEDS: CHOLECALCIFEROL 25 MCG (1000 UNITS) TAB PO SCH (07:51)
[2025-05-02] MEDS: GABAPENTIN 100 MG CAP PO SCH (07:52)
[2025-05-02] MEDS: FINASTERIDE 5 MG TAB PO SCH (07:52)
--- NOTE | 2025-05-02 10:04 | Gastroenterology Progress Note ---
Date of Service May 02, 2025 Assessment & Plan (1) GI bleed: Plan Stable. Plan is for Dr. De Jesus to do EGD on Sunday. Admission and Anticipated Discharge Date Admission Date: May 01, 2025 Subjective Says he feels fine. Had a "really dark" stool this morning according to nurses. He says he "coughed up" a few specks of blood. H/H are stable from the past week Physical Exam Physical Exam: He looks well Constitutional: WD/WN, vitals as above Results & Data Vital Signs (Past 12 Hours) Vital Signs Temp Pulse Pulse Resp BP BP Pulse Ox 05/02/25 07:21 78 05/02/25 03:04 36.8 C 84 16 142/66 H 94 05/02/25 02:42 36.8 C 82 16 151/75 H 94 05/02/25 01:42 37.0 C 83 16 166/84 H 95 05/02/25 01:12 36.7 C 83 16 148/72 H 95 05/02/25 00:57 36.9 C 80 16 158/72 H 93 05/02/25 00:30 37.1 C 84 18 151/70 H 94 05/01/25 23:28 37.2 C 84 16 147/71 H 95 05/01/25 22:09 83 O2 Del Method 05/02/25 07:21 05/02/25 03:04 05/02/25 02:42 05/02/25 01:42 05/02/25 01:12 05/02/25 00:57 05/02/25 00:30 05/01/25 23:28 Room Air 05/01/25 22:09 (1) GI bleed GI bleed type/associated pathology: melena Qualified Code(s): K92.1 - Melena
--- NOTE | 2025-05-02 13:15 | Hospitalist Progress Note ---
"Date of Service May 02, 2025 Assessment & Plan (1) Acute blood loss anemia (ABLA): (2) GI bleed: (3) S/P total right hip arthroplasty: (4) Chronic anticoagulation: Plan Jonathan is a pleasant 89-year-old male with past medical history of pathologic osteoporotic fracture of right hip s/p right hip hemiarthroplasty in April 2025, R cerebral stroke in January 2025 on Plavix, CAD s/p right carotid endarterectomy in March 2025 on Eliquis, hypertension, hyperlipidemia, hypothyroidism, gout, vitamin B12 and vitamin D deficiencies. He was recently hospitalized after a ground-level fall resulted in a right hip fracture. He had right hip hemiarthroplasty on 04/24, postoperative course complicated by acute blood loss anemia requiring 1 unit PRBC. He was discharged to [facility] on 04/27. He was sent in from [facility] due to hemoglobin level of 6.7. Hemoglobin on arrival in ED 7.9 and rectal exam was significant for Hemoccult positive and dark stool. He was admitted for management of his acute blood loss anemia and further investigation of his acute GI bleed. #Acute blood loss anemia | GI bleed Hemoccult positive on arrival. Reports black stools >10 days. Suspect upper GI origin of bleeding. Also recent surgical intervention 1 week prior to this admission likely contributing to anemia. Remains hemodynamically stable - Hgb on AM labs at [facility] 05/01 revealed hgb of 6.7. Hgb on arrival to ED 7.9 - transfusion deferred at that time - Hgb 7.0 on serial CBC and with current melena, so 1 unit PRBC was transfused overnight and Hgb augmented appropriately to 7.6 on morning labs 05/02 - No further obvious GI bleeding since admission - Transfuse PRN for hgb <7.0 or for hgb <8.0 with signs of end organ ischemia - Diet advanced to full liquids. IV fluids now discontinued - Continue Protonix gtt - Eliquis and Plavix remain on hold - Trend CBC with AM labs - GI consulted - plans for EGD on Friday 05/04 #Postoperative status of right hip hemiarthroplasty - surgery on 04/24 after a ground level fall resulted in a pathologic osteoporotic fracture of his right hip. Did require 1 unit pRBC during last admission due to acute blood loss anemia in setting of surgical intervention and antithrombotic therapy (Eliquis and Plavix) - Pain regimen: Tylenol, tramadol 50 mg Q4h PRN mod-severe pain, morphine 4 mg Q4h PRN breakthrough pain - PT/OT consulted - recommending return to [facility] when medically stable #CAD | HTN | H/o stroke - History of R cerebral CVA in January 2025 - S/p right carotid endarterectomy on 03/25/[address] Cohen - per Dr. Cohen's note on 04/21/25, it would be reasonable to discontinue Eliquis and continue on antiplatelet monotherapy (aspirin or Plavix) - Remote history of open heart surgery for CABG x 5. No cardiac stents - Hold Eliquis and Plavix for now - consider discontinuing Eliquis on discharge - Continue atorvastatin, carvedilol - Amlodipine, telmisartan recently discontinued #History of syncope/orthostasis appears as though he was recently started on midodrine 5 mg TID at [facility] continue #CKD stage IIIb baseline creatinine 1.3 - Creatinine at baseline - Avoid nephrotoxins #Hypothyroidismcontinue levothyroxine #Vitamin D deficiency | Vitamin B12 deficiencycontinue cholecalciferol, cyanocobalamin VTE PPx: SCDs. Chemoprophylaxis contraindicated with acute GI bleed Dispo: Continued inpatient stay for EGD on 05/04. PT/OT recommending return to [facility] when medically stable. Advanced diet Discontinued IV fluids Transfused overnight Admission and Anticipated Discharge Date Admission Date: May 01, 2025 Supervising Physician Co-Signing Physician Notes MARIO Supervision Note: I did not personally see or examine the patient today, but I verified all hogan points of MARIO Rocha's assessment and plan with the following exceptions/additions: None Subjective Patient seen and evaluated in bedside chair. He required 1 unit pRBC transfusion overnight. Hgb augmented appropriately and is stable this morning. He reports 1 episode of dark stool with his BM this morning, per RN this was not black in color, just dark brown. He worked with therapy earlier this morning and states he did pretty well. We discussed the plan for EGD on Friday 05/04. He is well-tolerating his clear liquid diet. We discussed advancing his diet to full liquids. He denies nausea, abdominal pain. No acute complaints or concerns at this time. Telemetry reviewed: NSR with IVCD and PVCs, rate in 80s. Physical Exam Physical Exam: General: No acute distress, nondiaphoretic, well-developed, well-nourished. Skin: Warm, dry. No peripheral edema noted. Dependent ecchymosis present on right hip, dressing now removed. Cardiac: Regular rate and rhythm without murmurs gallops or rubs. Pulm: Clear to auscultation bilaterally without wheezes, rales or rhonchi. Normal respiratory effort. 96% on room air. Abdominal: Soft, nontender, nondistended. Bowel sounds present. Neuro: A&O x3. No focal neurological deficits. Results & Data Results & Data Vital Signs (Past 12 Hours) Vital Signs Temp Pulse Pulse Resp BP BP Pulse Ox 05/02/25 07:44 98.1 F 77 16 158/72 H 96 05/02/25 07:21 78 05/02/25 03:04 98.2 F 84 16 142/66 H 94 05/02/25 02:42 98.2 F 82 16 151/75 H 94 05/02/25 01:42 98.6 F 83 16 166/84 H 95 O2 Del Method 05/02/25 07:44 Room Air 05/02/25 07:21 05/02/25 03:04 05/02/25 02:42 05/02/25 01:42 Laboratory Results Reviewed CBC Reviewed CMP PG Care Time/CCT Total # of Minutes Spent Total Time Spent with Patient: Total time spent is greater than 50% in coordination of care (as documented) at patient's floor/unit and/or counseling patient: Coding Level of Care Code 35643 SUB INP/OBS CARE 3/50MIN Diagnoses Acute blood loss anemia (ABLA) D62 GI bleed K92.1 GI bleed type/associated pathology: melena S/P total right hip arthroplasty Z96.641 Chronic anticoagulation Z79.01 (2) GI bleed GI bleed type/associated pathology: melena Qualified Code(s): K92.1 - Melena"
[2025-05-03 07:53] LABS: Hematocrit (blood only) 25.5 % (42.0-52.0); Hemoglobin 8.1 g/dl (14.0-18.0); Mean Corpuscular Hemoglobin 29.1 pg (25.0-34.0); Mean Corpuscular Volume 91.7 fL (80.0-100.0); Platelet Count 243 K/uL (130-400); RDW Standard Deviation 53.7 fL (36.4-46.3); Red Blood Count 2.78 M/uL (4.70-6.10); White Blood Count 5.48 K/ul (4.8-10.8)
[2025-05-03 08:14] LABS: Alanine Aminotransferase 7.0 U/L (7-52); Albumin Globulin Ratio 1.1 (0.9-2); Albumin Level 3.1 gm/dl (3.4-5.0); Alkaline Phosphatase 58.0 U/L (34-104); Anion Gap 7.0 (3-11); Bilirubin,Total 1.0 mg/dl (0.2-1.0); Blood Urea Nitrogen 20.0 mg/dl (6-23); Calcium 8.6 mg/dl (8.6-10.3); Carbon Dioxide 24.0 mmol/L (21-32); Chloride 106.0 mmol/L (98-107); Creatinine Clr Calc Pharmacy 51.3 ml/min; Globulin 2.9 gm/dl (2.5-4.0); Glucose 96.0 mg/dl (70-99(Fasting)); Potassium 4.2 mmol/L (3.5-5.1); Sodium 137.0 mmol/L (136-145); Total Protein 6.0 gm/dl (6.0-8.3)
--- NOTE | 2025-05-03 09:19 | Gastroenterology Progress Note ---
Date of Service May 03, 2025 Assessment & Plan (1) GI bleed: Plan: Doing well. Will plan EGD for tomorrow. Procedure and risks discussed. Admission and Anticipated Discharge Date Admission Date: May 01, 2025 Subjective Feels fine. H/H are stable. Still with melenic stools Physical Exam Physical Exam: He looks comfortable Constitutional: WD/WN, vitals as above Results & Data Vital Signs (Past 12 Hours) Vital Signs Temp Pulse Pulse Resp BP Pulse Ox O2 Del Method 05/03/25 08:05 36.8 C 74 18 171/79 H 95 Room Air 05/03/25 07:35 77 05/03/25 02:39 37 C 80 16 143/70 H 93 Room Air 05/02/25 23:08 37 C 82 16 162/78 H 95 Room Air 05/02/25 21:45 81 (1) GI bleed GI bleed type/associated pathology: melena Qualified Code(s): K92.1 - Melena
--- NOTE | 2025-05-03 12:53 | Hospitalist Progress Note ---
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 He was recently hospitalized after a ground-level fall resulted in a right hip fracture. He had right hip hemiarthroplasty on 04/24, postoperative course complicated by acute blood loss anemia requiring 1 unit PRBC. He was discharged to [facility] on 04/27. He was sent in from [facility] due to hemoglobin level of 6.7. Hemoglobin on arrival in ED 7.9 and rectal exam was significant for Hemoccult positive and dark stool. He was admitted for management of his acute blood loss anemia and further investigation of his acute GI bleed. #Acute blood loss anemia | GI bleed Hemoccult positive on arrival. Reports black stools >10 days. Suspect upper GI origin of bleeding. Also recent surgical intervention 1 week prior to this admission likely contributing to anemia. Remains hemodynamically stable - Hgb on AM labs at [facility] 05/01 revealed hgb of 6.7. Hgb on arrival to ED 7.9 - transfusion deferred at that time - Hgb 7.0 on serial CBC and with melena on 05/01, so 1 unit PRBC was transfused and Hgb augmented appropriately to 7.6 on morning labs 05/02 - Hgb remains stable at 8.1 on 05/03. No further obvious GI bleeding ongoing - Transfuse PRN for hgb <7.0 or for hgb <8.0 with signs of end organ ischemia - Diet advanced to full liquids - Protonix drip now discontinued and switched to Protonix 40 mg IV BID - Eliquis and Plavix remain on hold - Trend CBC with AM labs - GI consulted - plans for EGD on Friday 05/04 - NPO at midnight #Postoperative status of right hip hemiarthroplasty - surgery on 04/24 after a ground level fall resulted in a pathologic osteoporotic fracture of his right hip. Did require 1 unit pRBC during last admission due to acute blood loss anemia in setting of surgical intervention and antithrombotic therapy (Eliquis and Plavix) - Pain regimen: Tylenol, tramadol 50 mg Q4h PRN mod-severe pain, morphine 4 mg Q4h PRN breakthrough pain - PT/OT consulted - recommending return to [facility] when medically stable #CAD | HTN | H/o stroke - History of R cerebral CVA in January 2025 - S/p right carotid endarterectomy on 03/25/[address] Cohen - per Dr. Cohen's note on 04/21/25, it would be reasonable to discontinue Eliquis and continue on antiplatelet monotherapy (aspirin or Plavix) - Remote history of open heart surgery for CABG x 5. No cardiac stents - Hold Eliquis and Plavix for now - consider discontinuing Eliquis on discharge - Continue atorvastatin, carvedilol - Amlodipine, telmisartan recently discontinued #History of syncope/orthostasis appears as though he was recently started on midodrine 5 mg TID at [facility]-question if this was due to hypovolemia from acute GI blood loss. Blood pressures are now quite elevated Discontinue midodrine and monitor for orthostasis #CKD stage IIIb baseline creatinine 1.3 - Creatinine at baseline - Avoid nephrotoxins #HypothyroidismTSH here normal at 0.395 - Continue levothyroxine #Vitamin D deficiency | Vitamin B12 deficiencycontinue cholecalciferol, cyanocobalamin VTE PPx: SCDs. Chemoprophylaxis contraindicated with acute GI bleed Dispo: Continued inpatient stay for EGD on 05/04. PT/OT recommending return to [facility] when medically stable. Admission and Anticipated Discharge Date Admission Date: May 01, 2025 Supervising Physician Co-Signing Physician Notes PA Supervision Note: I did not personally see or examine the patient today, but I verified all hogan points of MARIO Rocha's assessment and plan with the following exceptions/additions: None Subjective Patient seen and evaluated at bedside. He reports "I feel pretty good today." He is not shown signs of ongoing GI bleeding today, however he has not yet had a bowel movement today. We discussed his lab results from this morning and the plan of making him n.p.o. at midnight for an EGD with GI tomorrow. He is well tolerating his full liquid diet. He denies abdominal pain or nausea. No acute complaints or concerns at this time. Telemetry reviewed: NSR with IVCD, rate in 70s. Physical Exam Physical Exam: General: No acute distress, nondiaphoretic, well-developed, well-nourished. Skin: Warm, dry. No peripheral edema noted. Dependent ecchymosis present on right hip, dressing now removed. No hematoma. Cardiac: Regular rate and rhythm without murmurs gallops or rubs. Pulm: Clear to auscultation bilaterally without wheezes, rales or rhonchi. Normal respiratory effort. 96% on room air. Abdominal: Soft, nontender, nondistended. Bowel sounds present. Neuro: A&O x3. No focal neurological deficits. Results & Data Results & Data Vital Signs (Past 12 Hours) Vital Signs Temp Pulse Pulse Resp BP Pulse Ox O2 Del Method 05/03/25 11:58 98.1 F 78 18 164/77 H 96 Room Air 05/03/25 11:00 Room Air 05/03/25 08:05 98.2 F 74 18 171/79 H 95 Room Air 05/03/25 07:35 77 05/03/25 02:39 98.6 F 80 16 143/70 H 93 Room Air Laboratory Results Reviewed CBC Reviewed CMP PG Care Time/CCT Total # of Minutes Spent Total Time Spent with Patient: Total time spent is greater than 50% in coordination of care (as documented) at patient's floor/unit and/or counseling patient: Coding Level of Care Code 67124 SUB INP/OBS CARE 2/35MIN Diagnoses Acute blood loss anemia (ABLA) D62 GI bleed K92.1 GI bleed type/associated pathology: melena S/P total right hip arthroplasty Z96.641 Chronic anticoagulation Z79.01 (2) GI bleed GI bleed type/associated pathology: melena Qualified Code(s): K92.1 - Melena
[2025-05-03] MEDS: PANTOprazole 40 MG/10 ML SYR IV SCH (20:43)
[2025-05-04 06:51] LABS: Hematocrit (blood only) 28.3 % (42.0-52.0); Hemoglobin 9.6 g/dl (14.0-18.0); Mean Corpuscular Hemoglobin 30.5 pg (25.0-34.0); Mean Corpuscular Volume 89.8 fL (80.0-100.0); Platelet Count 315 K/uL (130-400); RDW Standard Deviation 51.3 fL (36.4-46.3); Red Blood Count 3.15 M/uL (4.70-6.10); White Blood Count 6.46 K/ul (4.8-10.8)
--- NOTE | 2025-05-04 08:56 | Anesthesiology Consultation ---
Date of Service May 04, 2025 Assessment & Plan Chart Review Chart Review: Acceptable Risk for Surgery and Patient NOT seen in Pre Admission Testing Consults Requested none ASA ASA4 Proposed Anesthesia Anesthesia Type: MAC History Surgery Operation Date: 05/04/25 16:30 Proposed Procedures p Esophagogastroduodenoscopy Dr. Neal De Jesus MD Height/Weight Height: 5 ft 7 in Weight: 84 kg Allergies Allergy/AdvReac Type Severity Reaction Status Date / Time codeine AdvReac Severe "Entire Verified 04/21/25 08:55 system shut down" hydromorphone AdvReac Severe "Entire Verified 04/21/25 08:55 system shut down" nickel AdvReac Mild Rash Verified 04/21/25 08:55 oxycodone AdvReac Unknown "Entire Verified 04/21/25 08:55 system shut down" Medications Home Medications Medication Instructions Recorded Confirmed Last Taken cholecalciferol (vitamin D3) 25 1,000 units PO DAILY 04/08/19 05/01/25 1 Week Ago mcg (1,000 unit) capsule ~03/18/25 cyanocobalamin (vitamin B-12) 1,000 mcg PO QAM 05/12/20 05/01/25 1 Week Ago 1,000 mcg tablet ~03/18/25 omega-3 fatty acids 1,000 mg PO QAM 05/12/20 05/01/25 1 Week Ago ~03/18/25 nitroglycerin 0.4 mg sublingual 0.4 mg sublingual Q5M PRN chest 11/27/23 05/01/25 Unknown tablet pain #30 tabs levothyroxine 150 mcg tablet 150 mcg PO QAM #90 tabs 11/27/24 05/01/25 03/25/25 05:00 Prevagen 0 cap PO DAILY 02/02/25 05/01/25 1 Week Ago ~03/18/25 allopurinol 100 mg tablet 0 mg PO BID 03/11/25 05/01/25 03/25/25 05:00 (Zyloprim) atorvastatin 40 mg tablet 40 mg PO QAM 03/11/25 05/01/25 03/25/25 05:00 cetirizine 10 mg tablet 0 mg PO HS 03/11/25 05/01/25 03/24/25 22:00 clopidogrel 75 mg tablet (Plavix) 75 mg PO QAM 03/11/25 05/01/25 03/24/25 08:00 colchicine 0.6 mg tablet (Colcrys) 0.6 mg PO DAILY PRN Gout Flare Up 03/11/25 05/01/25 1 Week Ago ~03/18/25 cyclobenzaprine 10 mg tablet 10 mg PO TID Muscle Spasms 03/11/25 05/01/25 1 Week Ago ~03/18/25 diphenhydramine HCl 25 mg capsule 50 mg PO HS PRN Allergies 03/11/25 05/01/25 1 Week Ago (Benadryl) ~03/18/25 finasteride 5 mg tablet (Proscar) 5 mg PO QAM 03/11/25 05/01/25 03/25/25 05:00 gabapentin 100 mg capsule 100 mg PO QAM 03/11/25 05/01/25 03/25/25 05:00 (Neurontin) pantoprazole 40 mg tablet,delayed 40 mg PO QAM 03/11/25 05/01/25 03/25/25 05:00 release (Protonix) ursodiol 300 mg capsule 0 mg PO BID 03/11/25 05/01/25 03/24/25 08:00 cyanocobalamin (vitamin B-12) 500 0 mcg PO QAM 04/23/25 05/01/25 Unknown mcg tablet bisacodyl 10 mg rectal suppository 10 mg CA DAILY PRN #0 ea 04/27/25 05/01/25 Unknown carvedilol 3.125 mg tablet 3.125 mg PO BID #60 tabs 04/27/25 05/01/25 Unknown melatonin 3 mg tablet 3 mg PO HS PRN #0 tabs 04/27/25 05/01/25 Unknown polyethylene glycol 3350 17 gram 17 g PO DAILY PRN #0 ea 04/27/25 05/01/25 Unknown oral powder packet (Miralax) polyethylene glycol 3350 17 gram 17 g PO Q6 #0 ea 04/27/25 05/01/25 Unknown oral powder packet (Miralax) tramadol 50 mg tablet 50 mg PO Q4H PRN #0 tabs 04/27/25 05/01/25 Unknown acetaminophen 325 mg tablet 650 mg PO Q4H PRN Pain 05/01/25 05/01/25 Unknown acetaminophen 500 mg tablet 500 mg PO Q4H PRN Pain 05/01/25 05/01/25 Unknown apixaban 5 mg tablet (Eliquis) 2.5 mg PO BID 05/01/25 05/01/25 Unknown dextrose 50 % in water (D50W) 12.5 g IV UD PRN Other 05/01/25 05/01/25 Unknown dextrose 50 % in water (D50W) 25 g IV UD PRN Other 05/01/25 05/01/25 Unknown docusate sodium 100 mg capsule 100 mg PO BID PRN Constipation 05/01/25 05/01/25 Unknown glucagon HCl 1 mg solution for 1 mg IM UD PRN Hypoglycemia 05/01/25 05/01/25 Unknown injection (Glucagon (HCl) Emergency Kit) lidocaine 4 % topical patch 1 patch topical QAM 05/01/25 05/01/25 Unknown loratadine 10 mg tablet 10 mg PO HS 05/01/25 05/01/25 Unknown midodrine 5 mg tablet 5 mg PO TID 05/01/25 05/01/25 Unknown ondansetron 4 mg disintegrating 4 mg PO Q6H PRN n/v 05/01/25 05/01/25 Unknown tablet sennosides 8.6 mg-docusate sodium 1 tab-cap PO .@LUNCH PRN 05/01/25 05/01/25 Unknown 50 mg tablet (Senokot-S) Constipation sodium phosphates 19 gram-7 133 ml CA UD PRN Constipation 05/01/25 05/01/25 Unknown gram/118 mL enema (Enema) Active Medications Generic Name Dose Route Start Last Admin Trade Name Freq PRN Reason Stop Dose Admin Acetaminophen 650 mg 05/01/25 16:02 05/02/25 02:06 Acetaminophen 325 Mg Tab PO 05/31/25 16:01 650 mg Q4H PRN Administration Pain or Fever Allopurinol 100 mg 05/01/25 21:00 05/03/25 20:43 Allopurinol 100 Mg Tab PO 05/31/25 20:59 100 mg BID MEG Administration Atorvastatin Calcium 40 mg 05/02/25 09:00 05/03/25 08:00 Atorvastatin 40 Mg Tab PO 06/01/25 08:59 40 mg QAM MEG Administration Carvedilol 3.125 mg 05/01/25 17:00 05/03/25 16:14 Carvedilol 3.125 Mg Tab PO 05/31/25 16:59 3.125 mg BIDM MEG Administration Cetirizine HCl 10 mg 05/01/25 21:00 05/03/25 20:43 Cetirizine Hcl 10 Mg Tablet PO 05/31/25 20:59 10 mg HS MEG Administration Cyanocobalamin 1,000 mcg 05/02/25 09:00 05/03/25 08:00 Cyanocobalamin (B-12) 500 Mcg Tablet PO 06/01/25 08:59 1,000 mcg QAM MEG Administration Cyclobenzaprine HCl 10 mg 05/01/25 16:15 05/03/25 20:43 Cyclobenzaprine Hcl 10 Mg Tab PO 05/31/25 16:14 10 mg TID MEG Administration Finasteride 5 mg 05/02/25 09:00 05/03/25 08:00 Finasteride 5 Mg Tab PO 06/01/25 08:59 5 mg QAM MEG Administration Gabapentin 100 mg 05/02/25 09:00 05/03/25 08:00 Gabapentin 100 Mg Cap PO 06/01/25 08:59 100 mg QAM MEG Administration Pantoprazole Sodium 40 mg in 10 mls @ 5 mls/min 05/03/25 21:00 05/03/25 20:43 Protonix IV 06/02/25 20:59 5 mls/min BID MEG Administration Levothyroxine Sodium 150 mcg 05/02/25 06:30 05/04/25 06:11 Levothyroxine Sodium 150 Mcg Tablet PO 06/01/25 06:29 150 mcg DAILYBB MEG Administration Loratadine 10 mg 05/01/25 21:00 05/03/25 20:43 Loratadine 10 Mg Tab PO 05/31/25 20:59 10 mg HS MEG Administration Tramadol HCl 50 mg 05/01/25 16:02 05/02/25 22:06 Tramadol Hcl 50 Mg Tablet PO 05/31/25 16:01 50 mg Q4H PRN Administration Mod-Sev Pain (Scale 4-10) Vitamin D 25 mcg 05/02/25 09:00 05/03/25 08:00 Cholecalciferol 25 Mcg (1000 Units) Tab PO 06/01/25 08:59 25 mcg DAILY MEG Administration Past Medical History Medical History SHAWN (obstructive sleep apnea) Could not tolerate CPAP Tinnitus of both ears Hearing loss Bilateral Hearing Aids Impaired glucose tolerance (oral) CKD (chronic kidney disease), stage III Stable per PCP records 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- pt denies any issues since - Spent time at [facility]) when in the service History of syncope 12/2023 and 05/2024 per records (had subsequent holter monitor without acute issues) No recent issues of syncope Stenosis of right carotid artery - 50 to 60% stenosis of the right internal carotid artery with what appears to be an ulcerated plaque (per 12/29/24 CTA) Nocturnal leg cramps Aggravated by increased activity Hypothyroidism Hypertension Hyperlipidemia 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/2024) - per vascular - unsure if truly a dissection or possible ulcerated plaque Coronary artery disease s/p 5 vessel CABG in (vein graft to PDA,OM known to be occluded per cardio records) on Plavix per PCP records Chronic SI joint pain [facility] Chronic anticoagulation Bifascicular block [facility] Cardiology Dr Hall (no high grade AV block per cardio records) History of 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 [facility] left sided weakness initially, pt denies any residuals at this time - started on Eliquis 01/2025 Anemia, unspecified Mild/chronic - no blood transfusion/iron infusion Osteoarthritis BPH (benign prostatic hyperplasia) Hx of gout Gout flare left toe- resolved as of PAT appt 03/18/25 GERD (gastroesophageal reflux disease) well controlled and stable H/O blood clots Right Arm 1983 Myocardial infarction 1978+1979, no stents - [facility] Cardiology Dr Hall Exercise / Class Metabolic Activity III < 4 Walking/Shop/Light housework Past Family History Family History Brother Cardiac disorder Diabetes Hypertension Myocardial infarction Sister Cardiac disorder Cancer Breast cancer Lung cancer Denies family history of Ovarian cancer Prostate cancer Colorectal cancer Past Surgical History Surgical History History of surgery on left wrist "they rerouted a vein to my thumb and now it's great" History of wisdom tooth extraction Lump in chest Benign (removed) H/O hand surgery Right hand, lump removal History of total knee replacement Right History of colonoscopy History of tooth extraction lower denture History of cardiac cath multiple - denies sents - [facility] Cardiology Hx of ventral hernia repair Hx of carpal tunnel repair Bilateral Hx of cholecystectomy Hx of CABG 1984>x5 [place] - Now following [facility] Cardiology Dr Hall Hx of appendectomy Past Anesthesia History No Hx of Anesthesia Complications and No Family Hx of Anesthesia Complications History of PONV No Hx of PONV and No Hx of Motion Sickness Social History Smoking Status: Never smoker tobacco type: cigarettes Do You Dip or Chew Tobacco: No Hx Alcohol Use: No Alcohol type: beer alcohol intake frequency: holidays/special occasions only Hx Substance Use: No substance use type: does not use Physical Exam Vital Signs Last Vital Signs Temp 36.8 C 05/04/25 07:37 Pulse 87 05/04/25 07:37 Resp 18 05/04/25 07:37 BP 151/84 H 05/04/25 07:37 Pulse Ox 96 05/04/25 07:37 O2 Del Method Room Air 05/04/25 07:37 Testing Laboratory Results 05/04/25 06:24 05/03/25 07:19 PT 10.9 Seconds (9.0-12.0) 05/01/25 11:30 INR 1.0 (0.9-1.1) 05/01/25 11:30 APTT 29 Seconds (21-31) 05/01/25 11:30 Blood Type A Positive 05/01/25 11:30 Antibody Screen NEGATIVE 05/01/25 11:30 Electrocardiogram Date: 05/01/25 Findings: + NSR @ (@ 82;LAFB) and + RBBB Echocardiogram Date: 12/30/24 EF: 50% LV Function: normal RWMA: + none Other Findings: + LVH (mild) Valvular Disease: + no significant valvular disease PFO suspected
--- NOTE | 2025-05-04 08:57 | Gastroenterology Progress Note ---
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 NPO EGD this AM We appreciate assistance in the management of any serological abnormality and corrections to include: hemoglobin >7, INR <2, platelets >50,000, potassium levels >3.5 but <5.3, and sodium levels within 5 points of the reference range prior to endoscopic evaluation. Thank you for allowing us to participate in the care of this patient. Please call with any acute changes, questions or concerns. Please see addendum below with additional recommendation from my supervising physician. Admission and Anticipated Discharge Date Admission Date: May 01, 2025 Supervising Physician Co-Signing Physician Notes Dark tarry stool since starting Eliquis and Plavix. Painless bleeding. Patient used to take aspirin though denies ongoing use. Slight elevation of BUN and creatinine on admission consistent with an upper GI bleeding source. EGD today to evaluate for source of bleeding. This is likely to be AVMs. These can exist in the stomach or proximal bowel though also may be distal intestines. Reviewed with patient. Coagulation for ablation of AVMs identified and/or bleeding. Risk benefits of procedure were discussed informed consent obtained. Appears his last dose of Eliquis was preadmission. Subjective Pt was seen and evaluated, chart reviewed. NPO for EGD. Endorses ongoing black BM, occurred this AM. No abd pain, nausea/vomiting. Denies previous hematemesis/coffee ground emesis or BRBPR. Review of Systems Review of Systems: All other findings negative except as noted in HPI. Physical Exam Constitutional: WD/WN, vitals as above Respiratory: normal respiratory effort, lungs clear to auscultation Gastrointestinal (Abdomen): normal bowel sounds, soft, nontender, no hepatosplenomegaly Skin: no rashes, warm and dry Results & Data Results & Data Vital Signs (Past 12 Hours) Vital Signs Temp Pulse Pulse Resp BP Pulse Ox O2 Del Method 05/04/25 07:37 98.2 F 87 18 151/84 H 96 Room Air 05/04/25 03:18 98.4 F 79 16 162/74 H 92 Room Air 05/03/25 23:14 98.6 F 76 16 142/68 H 94 Room Air 05/03/25 21:51 74 Laboratory Results 05/04/25 Range/Units 06:24 WBC 6.46 (4.8-10.8) K/ul RBC 3.15 L (4.70-6.10) M/uL Hgb 9.6 L (14.0-18.0) g/dl Hct 28.3 L (42.0-52.0) % MCV 89.8 (80.0-100.0) fL MCH 30.5 (25.0-34.0) pg MCHC 33.9 (32.0-36.0) g/dL RDW Std Deviation 51.3 H (36.4-46.3) fL RDW Coeff of Viviana 15.5 H (11.5-14.5) % Plt Count 315 (130-400) K/uL MPV 9.7 (9.4-12.4) fL PG Care Time/CCT Total # of Minutes Spent Total Time Spent with Patient: Total time spent is greater than 50% in coordination of care (as documented) at patient's floor/unit and/or counseling patient: Coding Level of Care Code None Diagnoses GI bleed K92.1 GI bleed type/associated pathology: melena (1) GI bleed GI bleed type/associated pathology: melena Qualified Code(s): K92.1 - Melena
[2025-05-04] MEDS ORDERED: ATROPINE SULFATE 0.1 MG/ML 10ML SYR IV PRN (09:24)
--- NOTE | 2025-05-04 09:51 | GI REPORT ---
[facility] Patient: STONEY LAURENT : 1935 Sex at : Male Age: 89 Years Procedure: Upper GI endoscopy Date: 05/04/2025 Attending Physician: Jerel De Jesus MD Referring MD: Adam Gordon Indications: - Melena - Suspected upper gastrointestinal bleeding Medications: - Monitored Anesthesia Care Complications: - No immediate complications. Estimated Blood Loss: - Estimated blood loss: None. - Estimated blood loss was minimal. Procedure: - The egd scope was introduced through the mouth and advanced to the third part of the duodenum. - The upper GI endoscopy was accomplished without difficulty. - The patient tolerated the procedure well. Findings: - The examined esophagus was normal. - A single small sessile polyp was found in the gastric body. The polyp was removed with a cold snare. Resection and retrieval were complete. Estimated blood loss was minimal. - The examined duodenum was normal. Impression: - Normal esophagus. - A single gastric polyp. Resected and retrieved. - Normal examined duodenum. Recommendation: - Await pathology results. - No definite bleeding source identified in the upper GI tract. The small polyp was removed as it appeared to be an adenoma rather than typical fundic gland polyposis. Bleeding may potentially be distal or mid small bowel. Consider colonoscopy and if negative outpatient video capsule endoscopy. It is highly probable that a video capsule endoscopy will not be approved without a colonoscopy. Alternatively these Eliquis is to be discontinued could observe clinical course on just Plavix. Procedure Code(s): - 15245, Esophagogastroduodenoscopy, flexible, transoral; with removal of tumor(s), polyp(s), or other lesion(s) by snare technique Diagnosis Code(s): - K92.1, Melena (includes Hematochezia) - K31.7, Polyp of stomach and duodenum CPT(R) - 2023 copyright [employer]. All Rights Reserved. The CPT codes, CCI edits and ICD codes generated are intended as suggestions and were generated based on input data. These codes are preliminary and upon ocean transportation intermediary review may be revised to meet current compliance and payer requirements. The provider is responsible for the final determination of appropriate codes, and modifiers. Jerel De Jesus MD This document has been electronically signed. Note Initiated:05/04/2025 Note Completed:05/04/2025 9:50 AM [id number]
--- NOTE | 2025-05-04 10:08 | Anesthesiology Progress Note ---
Date of Service May 04, 2025 Anesthesia Post Procedure Vital Signs Vital Signs: Temp Pulse Pulse Resp BP BP Pulse Ox 05/04/25 09:52 79 16 110/51 L 100 05/04/25 09:03 36.4 C L 87 16 164/79 H 95 05/04/25 07:37 36.8 C 87 18 151/84 H 96 05/04/25 03:18 36.9 C 79 16 162/74 H 92 05/03/25 23:14 37 C 76 16 142/68 H 94 05/03/25 21:51 74 05/03/25 20:50 05/03/25 19:45 36.8 C 81 18 160/76 H 94 05/03/25 16:00 05/03/25 15:48 81 05/03/25 15:38 36.7 C 72 18 136/67 91 05/03/25 11:58 36.7 C 78 18 164/77 H 96 05/03/25 11:00 Pulse Ox O2 Del Method O2 Del Method 05/04/25 09:52 Room Air 05/04/25 09:03 Room Air 05/04/25 07:37 Room Air 05/04/25 03:18 Room Air 05/03/25 23:14 Room Air 05/03/25 21:51 05/03/25 20:50 Room Air 05/03/25 19:45 Room Air 05/03/25 16:00 95 Room Air 05/03/25 15:48 05/03/25 15:38 Room Air 05/03/25 11:58 Room Air 05/03/25 11:00 Room Air Pain Intensity Right Hip: Pain Intensity: 2 Transfer of Care Handoff Completed per policy Notes Mental Status: alert / awake / arousable Patient Amnestic to Procedure: Yes Nausea / Vomiting: adequately controlled Pain: adequately controlled Airway Patency, RR, SpO2: stable & adequate BP & HR: stable & adequate Hydration State: stable & adequate Anesthetic Complications: no major complications apparent
--- NOTE | 2025-05-04 10:14 | Communication Note ---
Date of Service: May 04, 2025 Reviewed EGD findings with the patient postoperatively. He appeared quite awake and coherent able to participate in conversation. Answered questions and asked questions appropriately Discussed options at present. This bleeding may represent small bowel AVMs distal to the reach of the upper endoscope. Alternatively bleeding from the right colon could be dark. Though this is less probable. Discussed colonoscopy and potential outpatient video capsule endoscopy. Review of the chart does suggest his Eliquis is to be discontinued. An option at 89 is to see what happens with discontinuation of Eliquis whether the bleeding resolves. Patient has chosen this option. Does not wish to proceed with colonoscopy or outpatient video capsule endoscopy. If bleeding continues despite Eliquis discontinuation we will [facility] back.
--- NOTE | 2025-05-04 11:19 | Hospitalist Progress Note ---
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 He was recently hospitalized after a ground-level fall resulted in a right hip fracture. He had right hip hemiarthroplasty on 04/24, postoperative course complicated by acute blood loss anemia requiring 1 unit PRBC. He was discharged to [facility] on 04/27. He was sent in from [facility] due to hemoglobin level of 6.7. Hemoglobin on arrival in ED 7.9 and rectal exam was significant for Hemoccult positive and dark stool. He was admitted for management of his acute blood loss anemia and further investigation of his acute GI bleed. #Acute blood loss anemia | GI bleed Hemoccult positive on arrival. Reports black stools >10 days. Also recent surgical intervention 1 week prior to this admission likely contributing to anemia. Remains hemodynamically stable s/p 1 unit PRBC on 05/01 Hgb stable at 9.6, continues to trend upwards. EGD completed 05/[address] De Jesus --> negative for bleeding. Gastric polyp removed GI consulted --> options following negative EGD include CN vs video capsule outpatient vs stop Eliquis & observe --> patient has elected against a CN & no longer wishes to take Eliquis. Continue full liquid diet --> if hgb rises again 05/05, can likely advance to regular diet PPI BID Plavix remains on hold --> can likely resume 05/05 if hgb stable. #Postoperative status of right hip hemiarthroplasty surgery on 04/24 after a ground level fall resulted in a pathologic osteoporotic fracture of his right hip. Did require 1 unit pRBC during last admission due to acute blood loss anemia in setting of surgical intervention and antithrombotic therapy (Eliquis and Plavix) Pain regimen: Tylenol, tramadol 50 mg Q4h PRN mod-severe pain, morphine 4 mg Q4h PRN breakthrough pain PT/OT consulted - recommending return to [facility] when medically stable; Patient would prefer to return home upon discharge. #CAD | HTN | H/o stroke History of R cerebral CVA in January 2025 S/p right carotid endarterectomy on 03/25/[address] Cohen - per Dr. Cohen's note on 04/21/25, it would be reasonable to discontinue Eliquis and continue on antiplatelet monotherapy (aspirin or Plavix) Remote history of open heart surgery for CABG x 5. No cardiac stents Hold Eliquis and Plavix for now - discontinue Eliquis on discharge Continue atorvastatin, carvedilol Amlodipine, telmisartan recently discontinued #History of syncope/orthostasis appears as though he was recently started on midodrine 5 mg TID at [facility]- question if this was due to hypovolemia from acute GI blood loss. Blood pressures are now quite elevated Discontinue midodrine and monitor for orthostasis #CKD stage IIIb baseline creatinine 1.3 Creatinine at baseline Avoid nephrotoxins #Hypothyroidism TSH here normal at 0.395 Continue levothyroxine #Vitamin D deficiency | Vitamin B12 deficiencycontinue cholecalciferol, cyanocobalamin VTE PPx: SCDs. Chemoprophylaxis contraindicated with acute GI bleed Code: full Admission and Anticipated Discharge Date Admission Date: May 01, 2025 Supervising Physician Co-Signing Physician Notes The patient was not seen by me. The chart was reviewed. Case discussed with MARIO Velez. Agree with assessment and plan Subjective Jonathan was seen & examined this morning following his EGD. He reports to be feeling well today. He reports a black BM this morning. He states he does not want a colonoscopy. He also states he does not want to return to rehab. Physical Exam Physical Exam: General: NAD, VS: BP 124/67; P82; R18; T36.4C Resp: normal respiratory effort Abd: soft, nontender, active BS in all 4 quadrants Extremities: no edema Neuro: A&O x3, Skin: intact, no lesions noted Results & Data Results & Data Vital Signs (Past 12 Hours) Vital Signs Temp Pulse Resp BP Pulse Ox O2 Del Method 05/04/25 11:05 36.6 C 84 18 165/83 H 98 Room Air 05/04/25 10:51 36.9 C 80 18 144/76 H 96 Room Air 05/04/25 10:39 36.6 C 80 18 155/75 H 94 Room Air 05/04/25 10:22 79 16 126/55 L 95 Room Air 05/04/25 10:07 80 16 119/60 95 Room Air 05/04/25 09:52 79 16 110/51 L 100 Room Air 05/04/25 09:03 36.4 C L 87 16 164/79 H 95 Room Air 05/04/25 07:37 36.8 C 87 18 151/84 H 96 Room Air 05/04/25 03:18 36.9 C 79 16 162/74 H 92 Room Air PG Care Time/CCT Total # of Minutes Spent Total Time Spent with Patient: Total time spent is greater than 50% in coordination of care (as documented) at patient's floor/unit and/or counseling patient: Coding Level of Care Code 90436 SUB INP/OBS CARE 2/35MIN Diagnoses Acute blood loss anemia (ABLA) D62 GI bleed K92.1 GI bleed type/associated pathology: melena S/P total right hip arthroplasty Z96.641 Chronic anticoagulation Z79.01 (2) GI bleed GI bleed type/associated pathology: melena Qualified Code(s): K92.1 - Melena"
[2025-05-04] MEDS: LIDOCAINE 2% 2 ML VIAL/AMP(20MG/ML) INFIL ONE (11:22)
[2025-05-04] MEDS: PROPOFOL IV EMULSION 10 MG/ML 20 ML VIAL IV ONE (11:23)
[2025-05-04] MEDS: SODIUM CHLORIDE 0.9% 1,000 ML IV SCH (11:34)
[2025-05-04 16:44] LABS: Hematocrit (blood only) 26.8 % (42.0-52.0); Hemoglobin 9.1 g/dl (14.0-18.0)
[2025-05-05 07:13] LABS: Hematocrit (blood only) 26.6 % (42.0-52.0); Hemoglobin 8.8 g/dl (14.0-18.0); Immature Granulocytes # (auto) 0.03 K/uL (0.01-0.20); Immature Granulocytes % (auto) 0.6 %; Mean Corpuscular Hemoglobin 30.0 pg (25.0-34.0); Mean Corpuscular Volume 90.8 fL (80.0-100.0); Platelet Count 284 K/uL (130-400); RDW Standard Deviation 51.3 fL (36.4-46.3); Red Blood Count 2.93 M/uL (4.70-6.10); White Blood Count 5.07 K/ul (4.8-10.8)
[2025-05-05 07:34] LABS: Anion Gap 6.0 (3-11); Blood Urea Nitrogen 19.0 mg/dl (6-23); Calcium 8.9 mg/dl (8.6-10.3); Carbon Dioxide 26.0 mmol/L (21-32); Chloride 104.0 mmol/L (98-107); Creatinine Clr Calc Pharmacy 49.4 ml/min; Glucose 99.0 mg/dl (70-99(Fasting)); Potassium 4.3 mmol/L (3.5-5.1); Sodium 136.0 mmol/L (136-145)
[2025-05-05 07:39] VITALS: RESP 18; O2SAT 94
--- NOTE | 2025-05-05 09:39 | Gastroenterology Progress Note ---
Date of Service May 05, 2025 Assessment & Plan (1) GI bleed: Plan: 89 year old male with history of fracture of right hip s/p right hip hemiarthroplasty in April 2025, R cerebral stroke in January 2025 on Plavix, CAD s/p right carotid endarterectomy in March 2025 on Eliquis, hypertension, hyperlipidemia, hypothyroidism, gout, vitamin B12 and vitamin D deficiencies admitted through the ED 05/01 for acute blood loss anemia, suspected GI bleeding w/ report of black stools. S/P EGD w/ apparent source of GI bleed. Discussed colonoscopy and VCE, not currently interested. Continue supportive measures. Recall GI as needed. I spent a total of 30 minutes on the date of service in review of patient's record, and previously obtained information in person and appropriate medical visit, discussion and education of plan, with patient and/or caregiver, placing orders for tests/referral/procedures as medically necessary and documentation of pertinent clinical information in patient's medical records for their visit today. Admission and Anticipated Discharge Date Admission Date: May 01, 2025 Subjective S/P EGD. No evidence of UGI bleed. HGB 8.8. Discussed next step to include colonoscopy and VCE. Not interested at this time. EGD 2024: Normal esophagus. A single gastric polyp. Resected and retrieved. Normal examined duodenum. Review of Systems Review of Systems: All other findings negative except as noted in HPI. Physical Exam Constitutional: WD/WN, vitals as above Skin: no rashes, warm and dry Results & Data Results & Data Vital Signs (Past 12 Hours) Vital Signs Temp Pulse Pulse Resp BP Pulse Ox O2 Del Method 05/05/25 07:39 78 05/05/25 07:38 97.7 F 78 18 143/75 H 94 Room Air 05/05/25 03:36 98.4 F 70 16 133/69 93 Room Air 05/05/25 00:06 Room Air 05/04/25 23:19 98.1 F 73 18 152/75 H 95 Room Air 05/04/25 21:46 77 Laboratory Results 05/05/25 05/04/25 05/01/25 Range/Units 06:32 15:58 11:30 WBC 5.07 (4.8-10.8) K/ul RBC 2.93 L (4.70-6.10) M/uL Hgb 8.8 L 9.1 L (14.0-18.0) g/dl Hct 26.6 L 26.8 L (42.0-52.0) % MCV 90.8 (80.0-100.0) fL MCH 30.0 (25.0-34.0) pg MCHC 33.1 (32.0-36.0) g/dL RDW Std Deviation 51.3 H (36.4-46.3) fL RDW Coeff of Viviana 15.3 H (11.5-14.5) % Plt Count 284 (130-400) K/uL MPV 9.9 (9.4-12.4) fL Immature Gran % (Auto) 0.6 % Neut % (Auto) 44.9 % Lymph % (Auto) 34.5 % [place] % (Auto) 10.7 % Eos % (Auto) 8.9 % Baso % (Auto) 0.4 % Neut # (Auto) 2.28 (1.40-6.50) K/uL Lymph # (Auto) 1.75 (1.20-3.40) K/uL [place] # (Auto) 0.54 (0.11-0.59) K/uL Eos # (Auto) 0.45 (0.00-0.50) K/uL Baso # (Auto) 0.02 (0.00-0.20) K/uL Immature Gran # (Auto) 0.03 (0.01-0.20) K/uL Sodium 136 (136-145) mmol/L Potassium 4.3 (3.5-5.1) mmol/L Chloride 104 (98-107) mmol/L Carbon Dioxide 26 (21-32) mmol/L Anion Gap 6 (3-11) BUN 19 (6-23) mg/dl Creatinine 1.10 (0.6-1.4) mg/dl Est Cr Clr Drug Dosing 49.4 ml/min eGFR 64.97 BUN/Creatinine Ratio 17.3 (10-20) Glucose 99 (70-99(Fasting)) mg/dl Calcium 8.9 (8.6-10.3) mg/dl Crossmatch See Detail PG Care Time/CCT Total # of Minutes Spent Total Time Spent with Patient: Total time spent is greater than 50% in coordination of care (as documented) at patient's floor/unit and/or counseling patient: Coding Level of Care Code 91939 SUB INP/OBS CARE 08/16MIN Diagnoses GI bleed K92.1 GI bleed type/associated pathology: melena (1) GI bleed GI bleed type/associated pathology: melena Qualified Code(s): K92.1 - Melena
--- NOTE | 2025-05-05 09:40 | Discharge Summary ---
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 He was recently hospitalized after a ground-level fall resulted in a right hip fracture. He had right hip hemiarthroplasty on 04/24, postoperative course complicated by acute blood loss anemia requiring 1 unit PRBC. He was discharged to [facility] on 04/27. He was sent in from [facility] due to hemoglobin level of 6.7. Hemoglobin on arrival in ED 7.9 and rectal exam was significant for Hemoccult positive and dark stool. He was admitted for management of his acute blood loss anemia and further investigation of his acute GI bleed. #Acute blood loss anemia | GI bleed Hemoccult positive on arrival. Reports black stools >10 days. Also recent surgical intervention 1 week prior to this admission likely contributing to anemia. Remains hemodynamically stable s/p 1 unit PRBC on 05/01 Hgb stable at 8.8. EGD completed 05/[address] De Jesus --> negative for bleeding. Gastric polyp removed GI consulted --> options following negative EGD include CN vs video capsule outpatient vs stop Eliquis & observe --> patient has elected against a CN & no longer wishes to take Eliquis. PPI BID #Postoperative status of right hip hemiarthroplasty surgery on 04/24 after a ground level fall resulted in a pathologic osteoporotic fracture of his right hip. Did require 1 unit pRBC during last admission due to acute blood loss anemia in setting of surgical intervention and antithrombotic therapy (Eliquis and Plavix) Pain regimen: Tylenol, tramadol 50 mg Q4h PRN mod-severe pain, morphine 4 mg Q4h PRN breakthrough pain PT/OT consulted - recommending return to [facility] when medically stable; Patient would prefer to return home upon discharge. #CAD | HTN | H/o stroke History of R cerebral CVA in January 2025 S/p right carotid endarterectomy on 03/25/[address] Cohen - per Dr. Cohen's note on 04/21/25, it would be reasonable to discontinue Eliquis and continue on antiplatelet monotherapy (aspirin or Plavix) Remote history of open heart surgery for CABG x 5. No cardiac stents Resume Plavix - discontinue Eliquis, can add a baby ASA daily while recovering from surgery. Continue atorvastatin, carvedilol Amlodipine, telmisartan recently discontinued #History of syncope/orthostasis appears as though he was recently started on midodrine 5 mg TID at [facility]- question if this was due to hypovolemia from acute GI blood loss. Blood pressu res are now quite elevated Discontinue midodrine on discharge. #CKD stage IIIb baseline creatinine 1.3 Creatinine at baseline Avoid nephrotoxins #Hypothyroidism TSH here normal at 0.395 Continue levothyroxine #Vitamin D deficiency | Vitamin B12 deficiencycontinue cholecalciferol, cyanocobalamin Discharged home w/ home health 05/05. Admission HPI Per Admitting Provider Jonathan is a pleasant 89-year-old male with past medical history of pathologic osteoporotic fracture of right hip s/p right hip hemiarthroplasty in April 2025, R cerebral stroke in January 2025 on Plavix, CAD s/p right carotid endarterectomy in March 2025 on Eliquis, hypertension, hyperlipidemia, hypothyroidism, gout, vitamin B12 and vitamin D deficiencies. He was recently admitted to the hospital after a ground-level fall resulted in a right hip fracture and he had right hip hemiarthroplasty on 04/24 and required 1 unit PRBC transfusion on 04/26 for a Hgb of 6.8. Eliquis was resumed on 04/26 and Plavix was resumed on discharge to [facility] on 04/27. On morning labs at [facility] today, his hemoglobin was noted to be 6.7 so he was transferred to the ED. Hemoglobin on arrival here was 7.9. His rectal exam had heme positive and dark stool noted in the ED. He reports he has been having black stools since prior to last hospitalization, he estimates its been greater than 10 days of black stools. He notes that he thought this was a normal side effect of his Eliquis medication. He has been significantly fatigued x 1 week. He states therapy has been going well at [facility]. He does have right hip/groin soreness but notes his pain regimen will controls his pain. Vitals on admission are stable. Labs on admission are significant for anemia with Hgb of 7.9, BUN elevated at 39, and Hemoccult positive stool. No leukocytosis. Electrolytes WNL. Creatinine at baseline. Liver enzymes WNL. 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 We discussed code status, patient wishes to be a full code. Discharge Exam General: NAD, VS: BP 136/67; P96; R18; T36.8C Resp: normal respiratory effort Extremities: Moves all extremities, no edema Neuro: A&O x3 Skin: intact, no lesions noted Discharge Plan Discharge Items Patient Disposition: Home - Home Health Services Reason For Visit: ACUTE BLOOD LOSS ANEMIA, GI BLEED Discharge Diagnosis: Acute blood loss anemia Condition on Discharge: Good Activity: Resume your previous activity Non-emergency contact: Primary Care Provider and Clothing Cutter Call non-emergency contact if: you have any medication questions, your symptoms worsen and your pain is not controlled Follow-up/Referrals: Rogelio Machuca MD [Primary Care Provider] - 05/12/25 2:30 pm Timo Burris MD [Physician] - Diet: Heart Healthy Addtl Attending Provider Instructions: Mr. Paulino, You were recently hospitalized secondary to low blood counts. You were given a unit of blood. You had an EGD performed by a director of content marketing that did not show any signs of bleeding. You have elected to not undergo a colonoscopy. Medications: Your medication list has been reviewed and reconciled upon discharge to ensure accuracy and continuity of care. An updated list of all your medications is included with your hospital discharge paperwork. Please review this list closely, and make note of any changes. Please do not take Eliquis any more. We do recommend you take a daily 81mg Aspirin to help prevent blood clots while you recover from your hip surgery. Please take Pantoprazole 40mg twice daily. Your first dose will be this evening, 05/05. Given the blood loss you have experienced, your iron levels are low. 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 This can turn your stools black. Take your medications as instructed; do not skip a dose of your medicines. Make sure all of your doctors know every medicine you are taking (including zbux-qwl-dbjmwct medicines, vitamins, and supplements). Call your primary care provider before taking any new medicines (including over- the-counter medicines, vitamins, and supplements), because some of these may interact with your current medications, or may make your symptoms worse. Tell your primary care provider if you cannot afford your medications. Activity: You can do normal everyday activities as your body allows. Take rest breaks if you feel tired. Do not overexert. Stop activity if you have pain, shortness of breath or feel dizzy. Follow-up appointments: Make an appointment with your primary care physician within one week of discharge. A copy of this summary will be sent to them. Every time you see your primary care physician, or any other doctor, bring your medication list, and a list of questions. Please be sure to follow up with your PCP within 1 week of discharge. Your blood counts should be re-checked at this visit. If you wish to undergo a colonoscopy or a video capsule endoscopy to further evaluate the source of bleeding, the GI office phone number is above. CONTACT YOUR PRIMARY CARE PROVIDER if you experience any of the following: Shortness of breath or difficulty breathing Fevers or chills Feeling tired with normal activity or experiencing dizziness or fainting Difficulty following your treatment plan, or difficulty taking medications CALL 911 OR GO TO THE EMERGENCY DEPARTMENT if you experience any of the following: Severe abdominal pain or nausea/vomiting Severe chest pain, or chest pain that radiates (moves) to your jaw or arm Sudden, severe shortness of breath or difficulty breathing Thank you for allowing us to participate in your care. Pending Studies at Discharge: No Stand-Alone Forms: [facility], Smoking Cessation Medications and DC Order Prescriptions: New ferrous sulfate 325 mg (65 mg iron) Tablet,Delayed Release (Dr/Ec) 325 mg PO QAM Qty: 30 0RF pantoprazole 40 mg tablet,delayed release (DR/EC) 40 mg PO BID Qty: 60 0RF Continued cholecalciferol (vitamin D3) 1,000 unit capsule 1,000 units PO DAILY nitroglycerin 0.4 mg tablet, sublingual 0.4 mg SL Q5M PRN (Reason: chest pain) Qty: 30 3RF levothyroxine 150 mcg tablet 150 mcg PO QAM Qty: 90 3RF Prevagen 0 cap PO DAILY Patient Comments: 05/01- Not on faxed list unable to verify. 1 cap po daily cyanocobalamin (vitamin B-12) 1,000 mcg Tablet 1,000 mcg PO QAM omega-3 fatty acids Capsule 1,000 mg PO QAM Patient Comments: 05/01- Not on faxed list unable to verify. 1000 mg po qam diphenhydramine HCl [Benadryl] 25 mg Capsule 50 mg PO HS PRN (Reason: Allergies) cyclobenzaprine 10 mg tablet 10 mg PO TID atorvastatin 40 mg tablet 40 mg PO QAM cetirizine 10 mg tablet 0 mg PO HS Patient Comments: 05/01- Not on faxed list unable to verify. 10 mg po hs clopidogrel [Plavix] 75 mg tablet 75 mg PO QAM allopurinol [Zyloprim] 100 mg tablet 0 mg PO BID Patient Comments: 05/01- Not on faxed list unable to verify. 100mg po bid ursodiol 300 mg capsule 0 mg PO BID Patient Comments: 05/01- Not on faxed list unable to verify. 300mg po bid gabapentin [Neurontin] 100 mg capsule 100 mg PO QAM colchicine [Colcrys] 0.6 mg tablet 0.6 mg PO DAILY PRN (Reason: Gout Flare Up ) Patient Comments: 05/01- Not on faxed list unable to verify finasteride [Proscar] 5 mg tablet 5 mg PO QAM cyanocobalamin (vitamin B-12) 500 mcg Tablet 0 mcg PO QAM Patient Comments: 05/01- Not on faxed list unable to verify. 500 mcg po qam carvedilol 3.125 mg tablet 3.125 mg PO BID Qty: 60 0RF Rx Instructions: must administer with a meal/food polyethylene glycol 3350 [Miralax] 17 gram Powder In Packet 17 g PO DAILY PRNQty: 0 0RF melatonin 3 mg Tablet 3 mg PO HS PRNQty: 0 0RF tramadol 50 mg Tablet 50 mg PO Q4H PRNQty: 0 0RF bisacodyl 10 mg Suppository 10 mg AL DAILY PRNQty: 0 0RF lidocaine 4 % Adhesive Patch,Medicated 1 patch TOPICAL QAM sennosides-docusate sodium [Senokot-S] 8.6-50 mg Tablet 1 tab-cap PO .@LUNCH PRN (Reason: Constipation) acetaminophen 500 mg Tablet 500 mg PO Q4H PRN (Reason: Pain) Enema 19-7 gram/118 mL Enema 133 ml AL UD PRN (Reason: Constipation) docusate sodium 100 mg Capsule 100 mg PO BID PRN (Reason: Constipation) ondansetron 4 mg Tablet,Disintegrating 4 mg PO Q6H PRN (Reason: n/v) loratadine 10 mg Tablet 10 mg PO HS dextrose 50 % in water (D50W) Syringe 12.5 g IV UD PRN (Reason: Other) dextrose 50 % in water (D50W) Syringe 25 g IV UD PRN (Reason: Other) glucagon HCl [Glucagon (HCl) Emergency Kit] 1 mg Recon Soln 1 mg IM UD PRN (Reason: Hypoglycemia) Discontinued pantoprazole [Protonix] 40 mg tablet,delayed release (DR/EC) 40 mg PO QAM polyethylene glycol 3350 [Miralax] 17 gram Powder In Packet 17 g PO Q6 Qty: 0 0RF acetaminophen 325 mg Tablet 650 mg PO Q4H PRN (Reason: Pain) midodrine 5 mg Tablet 5 mg PO TID Rx Instructions: do not give last dose of day after 6PM or within 4 hrs of bedtime Eliquis 5 mg tablet 2.5 mg PO BID Discharge Orders: Discharge Order (Routine); Ordered 05/05/25 Ordered By: Reba Solis Admission Data Admit Date/Time: 05/01/25 13:51 Attending Provider: Adam Gordon Admit Provider: Brittney Chun Primary Care Provider: Rogelio Machuca Other Providers: Brittney Chun; Tim[facility] Burris [facility] Other Interventions: Discharge Summary Assessment (RN) Last Done: 05/05/25 11:43 Hospital Stay Data Consultations 05/01/25 12:50 ED Decision to Admit Stat 05/01/25 16:02 Consult Gastroenterology Routine Procedures Performed Operation Date: 05/04/25 16:30 Actual Procedures p EGD Polypectomy - Jerel De Jesus MD Pending Results Patient Have Any Pending Studies at Discharge: No Discharge Instructions Given to Patient (Per Discharging Provider) Mr. Paulino, [place] were recently hospitalized secondary to low blood counts. You were given a unit of blood. You had an EGD performed by a director of content marketing that did not show any signs of bleeding. You have elected to not undergo a colonoscopy. Medications: Your medication list has been reviewed and reconciled upon discharge to ensure accuracy and continuity of care. An updated list of all your medications is included with your hospital discharge paperwork. Please review this list closely, and make note of any changes. Please do not take Eliquis any more. We do recommend you take a daily 81mg Aspirin to help prevent blood clots while you recover from your hip surgery. Please take Pantoprazole 40mg twice daily. Your first dose will be this evening, 05/05. Given the blood loss you have experienced, your iron levels are low. 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 This can turn your stools black. Take your medications as instructed; do not skip a dose of your medicines. Make sure all of your doctors know every medicine you are taking (including hhfz-myj-kqanmwi medicines, vitamins, and supplements). Call your primary care provider before taking any new medicines (including over- the-counter medicines, vitamins, and supplements), because some of these may interact with your current medications, or may make your symptoms worse. Tell your primary care provider if you cannot afford your medications. Activity: You can do normal everyday activities as your body allows. Take rest breaks if you feel tired. Do not overexert. Stop activity if you have pain, shortness of breath or feel dizzy. Follow-up appointments: Make an appointment with your primary care physician within one week of discharge. A copy of this summary will be sent to them. Every time you see your primary care physician, or any other doctor, bring your medication list, and a list of questions. Please be sure to follow up with your PCP within 1 week of discharge. Your blood counts should be re-checked at this visit. If you wish to undergo a colonoscopy or a video capsule endoscopy to further evaluate the source of bleeding, the GI office phone number is above. CONTACT YOUR PRIMARY CARE PROVIDER if you experience any of the following: Shortness of breath or difficulty breathing Fevers or chills Feeling tired with normal activity or experiencing dizziness or fainting Difficulty following your treatment plan, or difficulty taking medications CALL 911 OR GO TO THE EMERGENCY DEPARTMENT if you experience any of the following: Severe abdominal pain or nausea/vomiting Severe chest pain, or chest pain that radiates (moves) to your jaw or arm Sudden, severe shortness of breath or difficulty breathing Thank you for allowing us to participate in your care. Supervising Physician Co-Signing Physician Notes The patient was not seen by me. The chart was reviewed. Case discussed with MARIO Velez. Agree with assessment and plan Total Time Total Time Spent Total Time Spent (In Minutes): 50 Total Time Includes: Examination of the Patient, Discharge Planning, Medication Reconciliation and Communication With Other Providers Coding Level of Care Code 40536 INP/OBS DISCH >30 MIN Diagnoses Acute blood loss anemia (ABLA) D62 GI bleed K92.1 GI bleed type/associated pathology: melena S/P total right hip arthroplasty Z96.641 Chronic anticoagulation Z79.01"
[2025-05-05 11:15] VITALS: TEMP 98.2
[2025-05-05 11:45] VITALS: BP 136/67; PULSE 80
[2025-05-05] MEDS: FERROUS SULFATE 325 MG TAB PO SCH (12:02)
== END 2025-05-05 12:23 | disposition home health service (06) | DRG 378 ==
LOC: SUATTDRO → ED 11:03 → SUATTDRO 13:51 → 2N 13:51